=== PATIENT | female | born 1945 | race Caucasian/White ===

== ENCOUNTER 2022-07-11 10:25 | Inpatient (IN) | payer OTHER, BC ==
--- OUTSIDE RECORDS SUMMARY | 2022-07-11 10:31 | XMS REPORT | Continuity of Care Document ---
:1945 Author Organization [facility] t Address [address] [place] [address] Care Team Providers Name Role Phone ARELIS OWEN Attending Clinician Unavailable ANNE MARIE CONCEPCION Attending Clinician Unavailable Surgery-IHDE Attending Clinician Unavailable BOSSMAN, DR CHARMAINE Denney Attending Clinician Unavailable BOSSMAN, DR MONTANO Attending Clinician Unavailable CHARMAINE KEIAT Attending Clinician Unavailable ROCKY JOSE Attending Clinician Unavailable CORTEZ WINTERS Attending Clinician Unavailable SERENA LOPEZ Attending Clinician Unavailable Valerio Ariza Admitting Clinician Unavailable ARELIS OWEN Admitting Clinician Unavailable ANNE MARIE CONCEPCION Admitting Clinician Unavailable Surgery-IHDE Admitting Clinician Unavailable DR CHARMAINE KEITA Admitting Clinician Unavailable BOSSMAN, DR MONTANO Admitting Clinician Unavailable CHARMAINE KEITA Admitting Clinician Unavailable ROCKY JOSE Admitting Clinician Unavailable WILMA LYNNE Admitting Clinician Unavailable RACHID BUNDY Admitting Clinician Unavailable Payers Payer Name Policy Type Policy Number Effective Date Expiration Date [place] [id number] 1996 [place] 00:[place]:00 [place] [id number] 2010 [place] ([place] 00:[place]00 [place] [id number] 1996 [place] 00:00:00 [facility] [id number] 1959 00:00:00 [id number] 1959 00:00:00 Problems Condition Condition Condition Status Onset Resolution Last Treating Co mments Source Name Details Category Date Date Treatment Clinician Date Gout Gout Problem Active [facility] 11-26 00:00: Medical 00 Group 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 (LUF/L I V/SA) 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 Memoria l (LUF/LI V/SA) Hypertensi Hypertensi Problem Active [facility] disorder disorder Memori a l (LUF/LI V/SA) Hiatal Hiatal Problem Active [facility] her[facility]nia [facility] l (LUF/LI V/SA) Narcolepsy Narcolepsy Problem [facility] (LUF/LI V/SA) Chronic Chronic Problem Active [facility] depression depression [facility] k[facility] Memoria l (LUF/LI V/SA) Cervical Cervical Problem [facility] myel[facility] myelopathy [facility] (LUF/LI V/SA) Synovial Synovial Problem [facility] (LUF/LI V/SA) Hernia of Hernia of Problem Active [facility] abdominal abdominal Luke s wall wall Memoria l (LUF/LI V/SA) Sciatica Sciatica Problem [facility] (LUF/LI V/SA) Numbness Numbness Problem Complet [facility] ed [facility] limb limb Memoria l (LUF/LI V/SA) Umbilical Umbilical Problem Active [facility] hernia hernia [facility] (LUF/LI V/SA) Incisional Incisional Problem Active [facility] hernia hernia [facility] (LUF/LI V/SA) Disorder Disorder Problem [facility] of thyroid of thyroid [facility] gland gland Memoria l (LUF/LI V/SA) Back Back Problem Active [facility] problem problem [facility] (LUF/LI V/SA) Depressive Depressive Problem Active [facility] disorder disorder [facility] (LUF/LI V/SA) Allergies, Adverse Reactions, Alerts Allergy Allergy Status Severity Reaction(s) Onset Inactive Treating Comm ents Source Name Type Date Date Clinician Codeine DA Active Moderate Nausea and [facility] Vom[facility] (Severe Adv Memor ia Rxn) l (LUF/LI V/SA) Flagyl DA Active Moderate Rash [facility] (LUF/LI V/SA) Crestor DA Active Moderate Itching [facility] (Severe) [facility] Memoria l (LUF/LI V/SA) morphine DA Active Unknown [facility] (LUF/LI V/SA) Codeine Allergy Active [facility] Flagyl Allergy Active [facility] Morphine Allergy Active [facility] Social History Smoking Status Start Date Stop Date Source Former sm[facility] Mem orial (LUF/MICHELLE/SA) Medications Ordered Filled Start Stop Current Ordering Indication Dosage Frequency Signature Comments Components Source Medication Medication Date Date Medication? Clinician (SIG) Name Name acetaminoph acetaminoph Yes 4xD [facility] en 325 MG / en 325 MG / 6-10 L ukes hydrocodone hydrocodone 00:00: Memoria bitartrate bitartrate 00 l 5 MG Oral 5 MG Oral (LUF/ LI Tablet Tablet V/) acetaminoph acetaminoph Yes 4xD orally [facility] en 325 MG / en 325 MG / 6-10 every 6 [facility] hydrocodone hydrocodone 00:00: hours as Memoria bitartrate bitartrate 00 needed. l 5 MG Oral 5 MG Oral (as needed (LUF/LI Tablet Tablet for pain) V/SA) allopurinol allopurinol No allopurino [place] 100 mg 100 mg l 100 mg da tablet tablet tablet Medical Group Calcium 600 Calcium 600 No Calcium [facility] 600 [facility] folic acid folic acid No folic acid [facility] furosemide furosemide No furosemide [place] 20 mg 20 mg 20 mg da tablet tablet tablet Medical Group levothyroxi levothyroxi No levothyrox [place] ne 25 mcg ne 25 mcg ine 25 mcg da tablet tablet tablet Medical Group lisinopril lisinopril No lisinopril [place] 20 20 20 da mg-hydrochl mg-hydrochl mg-hydroch Medical orothiazide orothiazide lorothiazi Group 25 mg 25 mg de 25 mg tablet tablet tablet metoprolol metoprolol No metoprolol [place] tartrate 25 tartrate 25 tartrate da mg tablet mg tablet 25 mg Medi rick tablet Group potassium potassium No potassium [place] chloride ER chloride ER chloride da 20 mEq 20 mEq ER 20 mEq Medica l tablet,exte tablet,exte tablet,ext Group nded nded ended release release release alendronic alendronic Yes 35mg Q7.00D [facility] acid 35 MG acid 35 MG Rebekah es Oral Tablet Oral Tablet M emoria l (LUF/LI V/SA) allopurinol allopurinol Yes 100mg 1xD [facility] 100 MG Oral 100 MG Oral L ukes Tablet Tablet Memoria l (LUF/LI V/SA) atorvastati atorvastati Yes 20mg 1xD [facility] n 20 MG n 20 MG [facility] Oral Tablet Oral Tablet M emoria l (LUF/LI V/SA) Calcium Calcium Yes 600mg [address]xD [facility] (LUF/LI V/SA) cholecalcif cholecalcif Yes 100ug [facility] (LUF/LI V/SA) docusate docusate Yes 100mg [address]xD [facility] (LUF/LI V/SA) furosemide furosemide Yes 20mg 1xD [facility] 20 MG Oral 20 MG Oral Rebekah es Tablet Tablet Memoria l (LUF/LI V/SA) hydrochloro hydrochloro Yes [address] thiazide 25 thiazide 25 L ukes MG / MG / Memoria lisinopril lisinopril l 20 MG Oral 20 MG Oral (NALLELY F/LI Tablet Tablet V/SA) levothyroxi levothyroxi Yes 25ug 1xD [facility] ne ne [facility] l (LUF/LI V/SA) metoprolol metoprolol Yes 25mg [address]xD [facility] tartrate 25 tartrate 25 L ukes MG Oral MG Oral Memoria Tablet Tablet l (LUF/LI V/SA) Probiotic Probiotic No Probiotic [facility] potassium potassium Yes 20meq 1xD [facility] chloride chloride [facility] l (LUF/LI V/SA) sertraline sertraline Yes 50mg 1xD [facility] 50 MG Oral 50 MG Oral Rebekah es Tablet Tablet Memoria l (LUF/LI V/SA) alendronic alendronic Yes 35mg Q7.00D orally [facility] acid 35 MG acid 35 MG every week [facility] Oral Tablet Oral Tablet M emoria l (LUF/LI V/SA) allopurinol allopurinol Yes 100mg 1xD orally [facility] 100 MG Oral 100 MG Oral daily [facility] Tablet Tablet Memoria l (LUF/LI V/) atorvastati atorvastati Yes 20mg 1xD orally [facility] n 20 MG n 20 MG daily [facility] Oral Tablet Oral Tablet M emoria l (LUF/LI V/) Calcium Calcium Yes 600mg 1xD orally [facility] daily [facility] (LUF/LI V/) cholecalcif cholecalcif Yes 100ug orally [facility] once [facility] (LUF/LI V/) docusate docusate Yes 100mg 1xD orally [facility] daily [facility]oria l (LUF/LI V/) furosemide furosemide Yes 20mg 1xD orally [facility] 20 MG Oral 20 MG Oral daily Nallely kes Tablet Tablet Memoria l (LUF/LI V/) hydrochloro hydrochloro Yes 1 [address] [facility] thiazide 25 thiazide 25 daily [facility] MG / MG / Memoria lisinopril lisinopril l 20 MG Oral 20 MG Oral (NALLELY F/LI Tablet Tablet V/) sertraline sertraline No sertraline [facility] 50 mg 50 mg 50 mg da tablet tablet tablet Medical Group levothyroxi levothyroxi Yes 25ug 1xD orally [facility] ne ne daily [facility] Memoria l (LUF/LI V/) metoprolol metoprolol Yes 25mg 2xD orally [address] tartrate 25 tartrate 25 times per [facility]ukes MG Oral MG Oral day Memoria Tablet Tablet l (LUF/LI V/) potassium potassium Yes 20meq 1xD orally [facility] chloride chloride daily [facility] Memoria l (LUF/LI V/) sertraline sertraline Yes 50mg 1xD orally [facility] 50 MG Oral 50 MG Oral daily Nallely kes Tablet Tablet Memoria l (LUF/LI V/) Immunizations Ordered Immunization Filled Immunization Date Status Commen ts Source Name Name covid 19 1st shot covid 19 1st shot 2020-10-[address] [facility] 00:[facility]00 [facility] ([facility]/SA) influenza virus influenza virus 2019-03-[address] [facility] vaccine, NOS vaccine, NOS 00:00:00 [facility] ([facility]/SA) Vital Signs Vital Name Observation Time Observation Value Comments Source Weight 2020-12-09 00:40:00 70.4 KG Weight 2020-12-08 10:50:00 68.02 KG Weight 2020-12-06 00:34:00 73.6 KG Weight 2020-12-05 05:17:00 71 KG Weight 2020-12-04 04:18:00 70.4 KG Weight 2020-12-02 00:00:00 71.8 KG Weight 2020-12-01 05:28:00 71.5 KG Weight 2020-11-30 05:01:00 68.8 KG Height 2020-11-30 00:03:00 154.94 CM Weight 2020-11-30 00:03:00 68.8 KG Height 2020-11-29 15:11:00 154.94 CM Weight 2020-11-29 15:11:00 68.49 KG Weight 2020-11-27 00:00:00 77.8 KG Height 2020-11-24 09:18:00 154.94 CM Weight 2020-11-24 09:18:00 68.51 KG BP Diastolic 2019-11-27 00:00:00 80 mm[Hg] [facility] Height 2019-11-27 00:00:00 61 [in_i] [facility] BMI (Body Mass 2019-11-27 00:00:00 29.3 kg/m2 [facility]) Group BP Systolic 2019-11-27 00:00:00 140 mm[Hg] [facility] Body Weight 2019-11-27 00:00:00 154.9 [lb_av] [facility] Weight 2019-03-18 03:30:00 79.7 KG Height 2019-03-14 09:45:00 154.94 CM Body Temperature 2020-12-09 11:10:00 97.6 [degF] [facility] ([facility]/) Pulse Rate 2020-12-09 11:10:00 63 /min [facility] ([facility]/) Respiratory Rate 2020-12-09 11:10:00 15 /min [facility] ([facility]/SA) O2% BldC Oximetry 2020-12-09 11:10:00 95 % [facility] (LUF/MICHELLE/SA) BP Systolic 2020-12-09 11:10:00 138 mm[Hg] [facility] (LUF/MICHELLE/SA) BP Diastolic 2020-12-09 11:10:00 78 mm[Hg] [facility] (LUF/MICHELLE/SA) Weight 2020-12-09 00:40:00 70.4 kg [facility] (LUF/MICHELLE/SA) Height 2020-11-30 00:03:00 61 [in_i] [facility] (LUF/MICHELLE/SA) Heart Rate 2020-11-29 22:46:00 76 /min [facility] (LUF/MICHELLE/SA) Body Temperature 2020-11-27 11:00:00 97 [degF] [facility] (LUF/MICHELLE/SA) Pulse Rate 2020-11-27 11:00:00 58 /min [facility] (LUF/MICHELLE/SA) Respiratory Rate 2020-11-27 11:00:00 18 /min [facility] (LUF/MICHELLE/SA) O2% BldC Oximetry 2020-11-27 11:00:00 91 % [facility] (LUF/MICHELLE/SA) BP Systolic 2020-11-27 11:00:00 113 mm[Hg] [facility] (LUF/MICHELLE/SA) BP Diastolic 2020-11-27 11:00:00 57 mm[Hg] [facility] (LUF/MICHELLE/SA) Weight 2020-11-27 00:00:00 77.8 kg [facility] (LUF/MICHELLE/SA) Height 2020-11-24 09:18:00 61 [in_i] [facility] (LUF/MICHELLE/SA) Pulse Rate 2019-08-27 16:00:00 53 /min [facility] (LUF/MICHELLE/SA) Respiratory Rate 2019-08-27 16:00:00 13 /min [facility] (LUF/MICHELLE/SA) O2% BldC Oximetry 2019-08-27 16:00:00 99 % [facility] (LUF/MICHELLE/SA) BP Systolic 2019-08-27 16:00:00 134 mm[Hg] [facility] (F/MICHELLE/SA) BP Diastolic 2019-08-27 16:00:00 65 mm[Hg] [facility] (LUF/MICHELLE/SA) Body Temperature 2019-08-27 12:34:00 98 [degF] [facility] ([facility]/MICHELLE/SA) Height 2019-08-27 12:34:00 60 [in_i] [facility] ([facility]/MICHELLE/SA) Weight 2019-08-27 12:34:00 72.1 kg [facility] ([facility]/MICHELLE/SA) BMI (Body Mass 2019-08-27 12:34:00 31.2 kg/m2 [facility] Index) [facility] (F/MICHELLE/SA) Procedures Procedure Date / Time Performing Clinician Source Performed ROBOTIC VENTRAL HERNIA 2020-12-04 17:53:00 BRUNO S t [place] REPAIR [facility] ([facility]/MICHELLE/SA) SUPPLEMENT ABDOMIN WALL 2020-12-04 00:00:[address] [facility] SYN PC ENDO [facility] ([facility]/MICHELLE/) RELEASE PERITONEUM PERQ 2020-12-04 00:00:[address] [facility] [address] [facility] ENDO APPR [facility] ([facility]/MICHELLE/SA) ROBOTIC ASSTD PROC TRUNK 2020-12-04 00:00:00 BRUNO Acosta PERQ ENDO [facility] ([facility]/MICHELLE/SA) ROBOTIC INCISIONAL HERNIA 2020-11-26 08:21:[address] [facility] REPAIR [facility] ([facility]/MICHELLE/SA) [id number] LAPS RPR RECURRENT 2020-11-26 00:00:00 BRUNO Acosta INCAL HRNA NCRC [facility] ([facility]/MICHELLE/SA) [id number] TAP BLOCK BILATERAL 2020-11-26 00:00:[address] BY INJECTION(S [facility] ([facility]/MICHELLE/SA) ACDIF 2019-03-15 15:50:[address] [facility] (LUF/MICHELLE/SA) CERVICAL LAMINECTOMY FOR 2019-03-15 14:16:00 BRUNO Acosta SYNOVIAL CYST, ANTERIOR [facility] DISCECTOMY ONE LEVEL WITH (LUF/L IV/SA) ALLOGRAFT AND INSTRUMENTATION 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 es abdominal aorta [facility] (LUF/MICHELLE/SA) Cataract extraction and [facility] insertion of intraocular Memoria l lens (LUF/MICHELLE/SA) Appendectomy [facility] (LUF/MCIHELLE/SA) Tonsillectomy [facility] (LUF/MICHELLE/SA) Cholecystectomy [facility] (LUF/MIHCELLE/SA) Hysterectomy [facility] (LUF/MICHELLE/SA) Decompression of median [facility] uk nerve [facility] (LUF/MICHELLE/SA) Decompression of ulnar [facility] nerve at elbow [facility] (LUF/MICHELLE/SA) Encounters Start End Encounter Admission Attending Care Care Encounter Source Date/Time Date/Time Type Type Clinicians Facility Department ID 2021-07-15 Outpatient [facility] [id number] Common 11:31:30 [id number] [facility] 2020-11-29 2020-12-09 OTH RIP OWEN, [facility] [id number] [facility] [address] 18:41:00 15:20:00 VNTRL ERI INFANTE ABSECON Rebekah es OBSTRCT NO [place], Memor ia GANGR [address] (LUF/LI AVE, V/SA) [place] [id number] 2020-11-29 2020-11-29 Inpatient [facility] [id number] [facility] 00:[facility]:00 00:00:00 ABSECON [id number] Rebekah es [place], [id number] Memor ia [address] [id number] [address] (LUF/LI AVE, V/SA) [place] [id number] 2020-11-29 2020-11-29 Inpatient [facility] [id number] 00:00:00 00:00:00 ABSECON [id number] Rebekah es [place], [id number] Memor ia [address] [id number] [address] (LUF/LI AVE, V/SA) [place] [id number] 2020-11-262020-11-27 INCISION O BASSIN, [facility] [id number] 12:23:00 14:30:00 HERNIA ANNE MARIE ABSECON Nallelykes [facility] GANGRENE [address] (LUF/LI AVE, V/SA) [place] [id number] 2020-11-26 2020-11-26 Inpatient [facility] [id number] 00:00:00 00:00:00 ABSECON [id number] [facility], [id number] Memor ia [id number] (LUF/LI AVE, V/[place]) [place] [address] 2020-07-04 2020-07-04 ENCOUNTER [facility] [id number] [facility] [address] 08:53:00 23:59:00 PREPROCEDU [facility], Memoria EXAM [address] (LUF/LI AVE, V/SA) [place], [place] [address] 2020-07-04 2020-07-04 Inpatient [facility] [id number] [facility] 00:[facility]:00 00:00:00 ABSECON [id number] [facility], [id number] Memor ia [address] [id number] [address] (LUF/LI AVE, V/[place]) [place] [address] 2020-07-04 2020-07-04 Inpatient [facility] [id number] [facility] 00:00:00 00:00:00 ABSECON [id number] [facility], [id number] Memor ia [address] [id number] [address] (LUF/LI AVE, V/[place]) [place] [address] 2020-05-07 2020-05-07 Outpatient [facility] 584 [place] 02:36:00 02:36:00 E 1118 [facility] 2019-11-27 2019-11-27 Outpatient [facility] [place] 07:29:00 07:29:00 E 0609 [facility] 2019-11-27 2019-11-27 [facility] [place] - [id number] M atagor 00:00:00 00:00:00 Edwin River MD: Medical Medica l [address] [facility] [address], [place] [address] , Ph. [phone] 2019-11-14 2019-11-14 Outpatient Surgery-IHD [facility] [address] [place] 01:04:00 01:04:00 E 0527 [facility] 2019-08-31 2019-08-31 ENC GEN O JAMIA MORELOS [facility] [id number] [facility] [address] 09:42:00 23:59:00 ADULT EXAM ABSECON Rebekah es W/O ABNORM [place], [facility] [address] (LUF/LI A[address], V/SA) [place] [address] 2019-08-27 2019-08-27 WAYNE E [place], [place] [id number] [facility] [address] 12:21:00 16:30:00 HERNIA W/O ARELIS ABSECON Rebekah es OBST/GANGR [place], Memor ia ELMO [address] (LUF/LI AVE, V/SA) [place] [address] 2019-05-22 2019-06-[address] [facility] [id number] 08:47:00 23:59:00 CHARMAINE arthur (LUF/LI V/SA) Results Test Description Test Time Test Comments Results Result Comments Source [facility] 2020-12-09 05:16:00 Test Item Value Reference Range Interpretation Comme nts Sodium (test code = NA) 130 mmol/l 136-146 L Potassium (test code = K) 3.6 mmol/l 3.5-5.1 Chloride (test code = CL) 98 mmol/l 98-107 Calcium (test code = 8.3 mg/dl 8.5-10.1 L CALC) CO2 (test code = CO2) 26 mmol/l 21-32 Glucose (test code = GLU) 86 mg/dl 74-106 BUN (test code = BUN) 5.0 mg/dl 7.0-18.0 L Creatinine (test code = 0.6 mg/dl 0.5-1.3 CREA) EGFR if >60 mL/min/1.73m\\S\\2 (test code = EGFRAA) EGFR if Non- >60 mL/min/1.73m\\S\\2 Estimated Glomerular Yemeni (test code = Filtra tion Rate (eGFR) EGFRNA) Reference Inter vals Decision Points for 18 y ears and older and avera ge body mass: >= 60 Does not exclude kidney disease. 30 - 59 Suggests modera te chronic kidney disease and indicates the need for fu rther investigation i ncluding assessment of p roteinuria and cardiovascu lar factors. < 30 Usually in dicates a need for referr al for assessment and management of chronic kidney failure. [id number] 05:16:00 Test Item Value Reference Range Interpretation Comments Magnesium (test code = MG) 2.1 mg/dl 1.6-2.6 STLMLCBC WITH AUTO [id number] 04:58:00 Test Item Value Reference Range Interpretation Comments WBC (test code = 11.71 4.80-10.80 H WBC) 10\\S\\3/ul RBC (test code = 3.53 10\\S\\6/ul 4.20-5.40 L RBC) Hemoglobin (test 10.5 gm/dl 12.0-14.0 L code = HGB) Hematocrit (test 31.9 % 37.0-47.0 L code = HCT) MCV (test code = 90.4 fL 81.0-99.0 MCV) MCH (test code = 29.7 pg 27.0-31.0 MCH) MCHC (test code = 32.9 gm/dl 33.0-37.0 L MCHC) RDW (test code = 15.2 % 11.5-14.5 H RDWVC) Platelet (test code 263 10\\S\\3/ul 130-400 = PLT) MPV (test code = 10.9 fL 7.4-10.4 A "NOT MEASUR ED" MPV) RESULTS ARE DIS PLAYED WHEN THE INSTRU MENT HAS A SUPPRESSE D OR UNREPORTABLE RE SULT. THIS WILL MOST OFTEN HAPPEN WITH THE MPV WHEN THERE IS A N ABNORMAL PLATEL ET DISTRIBUTION DU E TO A CRITICAL LOW VA LUE OR PLATELET CLUMPI NG. THE RDW MAY BE SUPPRESSED IF T HERE ARE MULTIPLE PE AKS PRESENT ON THE RBC HISTOGRAM. IN T HIS CASE, A MANUAL REVIEW OF THE SLIDE WI LL BE PERFORMED, AND RBC MORPHOLOGY WILL BE NOTED ON THE RE PORT. NE% (test code = 44.6 % 42.0-75.0 NE) LY% (test code = 35.3 % 13.0-42.0 LY) MO% (test code = 8.3 % 4.0-14.0 MO) EO% (test code = 10.1 % 1.0-5.0 H EO) BA% (test code = 0.8 % 0.0-3.0 BA) IG% (test code = 0.9 % 0.0-0.4 H IG%) [id number] 06:09:00 Test Item Value Reference Range Interpretation Comments Magnesium (test code = MG) 1.5 mg/dl 1.6-2.6 L [id number] 06:09:00 Test Item Value Reference Range Interpretation Comments Sodium (test code = 131 mmol/l 136-146 L NA) Potassium (test 3.2 mmol/l 3.5-5.1 L code = K) Chloride (test code 99 mmol/l 98-107 = CL) Calcium (test code 7.9 mg/dl 8.5-10.1 L = CALC) CO2 (test code = 27 mmol/l 21-32 CO2) Glucose (test code 97 mg/dl 74-106 = GLU) BUN (test code = 4.0 mg/dl 7.0-18.0 L BUN) Creatinine (test 0.6 mg/dl 0.5-1.3 code = CREA) EGFR if >60 Yemeni (test code mL/min/1.73m\\ = EGFRAA) S\\2 EGFR if Non- >60 Estimate d Glomerular Yemeni (test code mL/min/1.73m\\ Filtrat ion Rate (eGFR) = EGFRNA) S\\2 Reference Inter vals Decision Points for 18 years and older and average body ma ss: >= 60 Does not exc lude kidney disease. 30 - 59 Suggests mod erate chronic kidney disease and indicates t he need for further investigation including asses sment of proteinuria and cardiovascular factors. < 30 U sually indicates a nee d for referral for assessment and management of c hronic kidney failure. STLMLCBC WITH AUTO [id number] 05:49:00 Test Item Value Reference Range Interpretation Comments WBC (test code = 12.01 4.80-10.80 H WBC) 10\\S\\3/ul RBC (test code = 3.58 10\\S\\6/ul 4.20-5.40 L RBC) Hemoglobin (test 10.6 gm/dl 12.0-14.0 L code = HGB) Hematocrit (test 32.2 % 37.0-47.0 L code = HCT) MCV (test code = 89.9 fL 81.0-99.0 MCV) MCH (test code = 29.6 pg 27.0-31.0 MCH) MCHC (test code = 32.9 gm/dl 33.0-37.0 L MCHC) RDW (test code = 14.9 % 11.5-14.5 H RDWVC) Platelet (test code 238 10\\S\\3/ul 130-400 = PLT) MPV (test code = 10.8 fL 7.4-10.4 A "NOT MEASUR ED" MPV) RESULTS ARE DIS PLAYED WHEN THE INSTRU MENT HAS A SUPPRESSE D OR UNREPORTABLE RE SULT. THIS WILL MOST OFTEN HAPPEN WITH THE MPV WHEN THERE IS A N ABNORMAL PLATEL ET DISTRIBUTION DU E TO A CRITICAL LOW VA LUE OR PLATELET CLUMPI NG. THE RDW MAY BE SUPPRESSED IF T HERE ARE MULTIPLE PE AKS PRESENT ON THE RBC HISTOGRAM. IN T HIS CASE, A MANUAL REVIEW OF THE SLIDE WI LL BE PERFORMED, AND RBC MORPHOLOGY WILL BE NOTED ON THE RE PORT. NE% (test code = 52.6 % 42.0-75.0 NE) LY% (test code = 29.5 % 13.0-42.0 LY) MO% (test code = 8.2 % 4.0-14.0 MO) EO% (test code = 8.3 % 1.0-5.0 H EO) BA% (test code = 0.7 % 0.0-3.0 BA) IG% (test code = 0.7 % 0.0-0.4 H IG%) [id number] 06:36:00 Test Item Value Reference Range Interpretation Comments Magnesium (test code = MG) 1.9 mg/dl 1.6-2.6 [id number] 06:36:00 Test Item Value Reference Range Interpretation Comments Sodium (test code = 132 mmol/l 136-146 L NA) Potassium (test 3.3 mmol/l 3.5-5.1 L code = K) Chloride (test code 101 mmol/l 98-107 = CL) Calcium (test code 8.2 mg/dl 8.5-10.1 L = CALC) CO2 (test code = 26 mmol/l 21-32 CO2) Glucose (test code 104 mg/dl 74-106 = GLU) BUN (test code = 6.0 mg/dl 7.0-18.0 L BUN) Creatinine (test 0.7 mg/dl 0.5-1.3 code = CREA) EGFR if >60 [place] (test code mL/min/1.73m\\ = EGFRAA) S\\2 EGFR if Non- >60 Estimate d Glomerular [place] (test code mL/min/1.73m\\ Filtrat ion Rate (eGFR) = EGFRNA) S\\2 Reference Inter vals Decision Points for 18 years and older and average body ma ss: >= 60 Does not exc lude kidney disease. 30 - 59 Suggests mod erate chronic kidney disease and indicates the need for furthe r investigation including asses sment of proteinuria and cardiovascular factors. < 30 U sually indicates a nee d for referral for assessment and management of c hronic kidney failure. STLMLCBC WITH AUTO [id number] 06:14:00 Test Item Value Reference Range Interpretation Comments WBC (test code = 12.68 4.80-10.80 H WBC) 10\\S\\3/ul RBC (test code = 3.76 10\\S\\6/ul 4.20-5.40 L RBC) Hemoglobin (test 11.1 gm/dl 12.0-14.0 L code = HGB) Hematocrit (test 34.6 % 37.0-47.0 L code = HCT) MCV (test code = 92.0 fL 81.0-99.0 MCV) MCH (test code = 29.5 pg 27.0-31.0 MCH) MCHC (test code = 32.1 gm/dl 33.0-37.0 L MCHC) RDW (test code = 15.0 % 11.5-14.5 H RDWVC) Platelet (test code 224 10\\S\\3/ul 130-400 = PLT) MPV (test code = 10.9 fL 7.4-10.4 A "NOT MEASUR ED" MPV) RESULTS ARE DIS PLAYED WHEN THE INSTRU MENT HAS A SUPPRESSE D OR UNREPORTABLE RE SULT. THIS WILL MOST OFTEN HAPPEN WITH THE MPV WHEN THERE IS A N ABNORMAL PLATEL ET DISTRIBUTION DU E TO A CRITICAL LOW VA LUE OR PLATELET CLUMPI NG. THE RDW MAY BE SUPPRESSED IF T HERE ARE MULTIPLE PE AKS PRESENT ON THE RBC HISTOGRAM. IN T HIS CASE, A MANUAL REVIEW OF THE SLIDE WI LL BE PERFORMED, AND RBC MORPHOLOGY WILL BE NOTED ON THE RE PORT. NE% (test code = 60.7 % 42.0-75.0 NE) LY% (test code = 24.1 % 13.0-42.0 LY) MO% (test code = 8.3 % 4.0-14.0 MO) EO% (test code = 5.8 % 1.0-5.0 H EO) BA% (test code = 0.5 % 0.0-3.0 BA) IG% (test code = 0.6 % 0.0-0.4 H IG%) [id number] 05:40:00 Test Item Value Reference Range Interpretation Comments Magnesium (test code = MG) 1.5 mg/dl 1.6-2.6 L [id number] 05:40:00 Test Item Value Reference Range Interpretation Comments Sodium (test code = 132 mmol/l 136-146 L NA) Potassium (test 3.9 mmol/l 3.5-5.1 code = K) Chloride (test code 103 mmol/l 98-107 = CL) Calcium (test code 8.2 mg/dl 8.5-10.1 L = CALC) CO2 (test code = 26 mmol/l 21-32 CO2) Glucose (test code 97 mg/dl 74-106 = GLU) BUN (test code = 10.0 mg/dl 7.0-18.0 BUN) Creatinine (test 0.8 mg/dl 0.5-1.3 code = CREA) EGFR if >60 Yemeni (test code mL/min/1.73m\\ = EGFRAA) S\\2 EGFR if Non- >60 Estimate d Glomerular Yemeni (test code mL/min/1.73m\\ Filtrat ion Rate (eGFR) = EGFRNA) S\\2 Reference Inter vals Decision Points for 18 years and older and average body ma ss: >= 60 Does not exc lude kidney disease. 30 - 59 Suggests mod erate chronic kidney disease and indicates the need for furthe r investigation including asses sment of proteinuria and cardiovascular factors. < 30 Usually indicates a nee d for referral for assessment and management of c hronic kidney failure. STLMLCBC WITH AUTO [id number] 05:25:00 Test Item Value Reference Range Interpretation Comments WBC (test code = 11.87 4.80-10.80 H WBC) 10\\S\\3/ul RBC (test code = 3.69 10\\S\\6/ul 4.20-5.40 L RBC) Hemoglobin (test 10.8 gm/dl 12.0-14.0 L code = HGB) Hematocrit (test 33.6 % 37.0-47.0 L code = HCT) MCV (test code = 91.1 fL 81.0-99.0 MCV) MCH (test code = 29.3 pg 27.0-31.0 MCH) MCHC (test code = 32.1 gm/dl 33.0-37.0 L MCHC) RDW (test code = 15.0 % 11.5-14.5 H RDWVC) Platelet (test code 234 10\\S\\3/ul 130-400 = PLT) MPV (test code = 10.8 fL 7.4-10.4 A "NOT MEASUR ED" MPV) RESULTS ARE DIS PLAYED WHEN THE INSTRU MENT HAS A SUPPRESSE D OR UNREPORTABLE RE SULT. THIS WILL MOST OFTEN HAPPEN WITH THE MPV WHEN THERE IS A N ABNORMAL PLATEL ET DISTRIBUTION DU E TO A CRITICAL LOW VA LUE OR PLATELET CLUMPI NG. THE RDW MAY BE SUPPRESSED IF T HERE ARE MULTIPLE PE AKS PRESENT ON THE RBC HISTOGRAM. IN T HIS CASE, A MANUAL REVIEW OF THE SLIDE WI LL BE PERFORMED, AND RBC MORPHOLOGY WILL BE NOTED ON THE RE PORT. NE% (test code = 49.4 % 42.0-75.0 NE) LY% (test code = 35.6 % 13.0-42.0 LY) MO% (test code = 8.9 % 4.0-14.0 MO) EO% (test code = 5.1 % 1.0-5.0 H EO) BA% (test code = 0.4 % 0.0-3.0 BA) IG% (test code = 0.6 % 0.0-0.4 H IG%) STLMLXR CHEST AP/PA 1 [id number] 18:18:24 [facility])Name: LILLIE LEON : 1945 Sex: FProcedure: XR CHEST AP/PA 1 VIEWOrder Date: 12/05/2020 5:13 PMOrdering Provider: KATHERINE HAQ .Clinical Indication: [id number]: Nasogastric tube in situComparison: NoneFindings:NG tube in appropriate position.Cardiac size is normal.Pulmonary vasculature is normal.No acute infiltrates or effusions.Bibasilar atelectasis.There is no evidence of active tuberculosis.There is no acute skeletal abnormality.Impression:1. NG tube in appropriate position.2. No focal infiltrates or significant pleural effusions.3. Bibasilar atelectasis.4. No other significant findings.This final report was electronically signed by Dr Artie Camara MD :13 PMDictated By: ARTIE CAMARADate: 12/05/2020 18:[id number] 06:41:00 Test Item Value Reference Range Interpretation Comments Sodium (test code = 132 mmol/l 136-146 L NA) Potassium (test 4.2 mmol/l 3.5-5.1 code = K) Chloride (test code 101 mmol/l 98-107 = CL) Calcium (test code 8.1 mg/dl 8.5-10.1 L = CALC) CO2 (test code = 27 mmol/l 21-32 CO2) Glucose (test code 120 mg/dl 74-106 H = GLU) BUN (test code = 7.0 mg/dl 7.0-18.0 BUN) Creatinine (test 0.8 mg/dl 0.5-1.3 code = CREA) EGFR if >60 Yemeni (test code mL/min/1.73m\\ = EGFRAA) S\\2 EGFR if Non- >60 Estimate d Glomerular Yemeni (test code mL/min/1.73m\\ Filtrat ion Rate (eGFR) = EGFRNA) S\\2 Reference Inter vals Decision Points for 18 years and older and average body ma ss: >= 60 Does not exc lude kidney disease. 30 - 59 Suggests mod erate chronic kidney disease and indicates t he need for further investigation including asses sment of proteinuria and cardiovascular factors. < 30 U sually indicates a nee d for referral for assessment and management of c hronic kidney failure. [id number] 06:41:00 Test Item Value Reference Range Interpretation Comments Magnesium (test code = MG) 1.6 mg/dl 1.6-2.6 STLMLCBC WITH AUTO [id number] 06:22:00 Test Item Value Reference Range Interpretation Comments WBC (test code = 9.10 10\\S\\3/ul 4.80-10.80 WBC) RBC (test code = 3.59 10\\S\\6/ul 4.20-5.40 L RBC) Hemoglobin (test 10.5 gm/dl 12.0-14.0 L code = HGB) Hematocrit (test 32.6 % 37.0-47.0 L code = HCT) MCV (test code = 90.8 fL 81.0-99.0 MCV) MCH (test code = 29.2 pg 27.0-31.0 MCH) MCHC (test code = 32.2 gm/dl 33.0-37.0 L MCHC) RDW (test code = 14.9 % 11.5-14.5 H RDWVC) Platelet (test code 234 10\\S\\3/ul 130-400 = PLT) MPV (test code = 10.9 fL 7.4-10.4 A "NOT MEASUR ED" MPV) RESULTS ARE DIS PLAYED WHEN THE INSTRU MENT HAS A SUPPRESSE D OR UNREPORTABLE RE SULT. THIS WILL MOST OFTEN HAPPEN WITH THE MPV WHEN THERE IS A N ABNORMAL PLATEL ET DISTRIBUTION DU E TO A CRITICAL LOW VA LUE OR PLATELET CLUMPI NG. THE RDW MAY BE SUPPRESSED IF T HERE ARE MULTIPLE PE AKS PRESENT ON THE RBC HISTOGRAM. IN T HIS CASE, A MANUAL REVIEW OF THE SLIDE WI LL BE PERFORMED, AND RBC MORPHOLOGY WILL BE NOTED ON THE RE PORT. NE% (test code = 79.2 % 42.0-75.0 H NE) LY% (test code = 15.4 % 13.0-42.0 LY) MO% (test code = 4.8 % 4.0-14.0 MO) EO% (test code = 0.0 % 1.0-5.0 L EO) BA% (test code = 0.1 % 0.0-3.0 BA) IG% (test code = 0.5 % 0.0-0.4 H IG%) [id number] 21:11:00 Test Item Value Reference Range Interpretation Comments pH (ABG) (test code = BGPH) 7.411 7.350-7.450 pCO2(T) (test code = 43.4 mm Hg 35.0-45.0 BGPCO2(T)) pO2(T) (test code = BGPO2(T)) 91.6 mm Hg 80.0-100.0 sO2 (test code = BGSO2) 97.5 % 90.0-99.0 Na+ (test code = BGCNA+) 134.4 mmol/l 135.0-148.0 L K+ (test code = BGCK+) 3.64 mmol/l 3.50-4.50 Ca2+ (test code = BGCCA2+) 1.150 mmol/l 1.150-1.290 Cl- (test code = BGCCL-) 95.5 mmol/l 98-107 L tHb (test code = BGCTHB) 11.2 gm/dl 11.5-17.4 L O2Hb (test code = WHTG6AU) >95.0 % 95.0-99.0 N COHb (test code = BGFCOHB) <2.80 % 0.5-2.5 H MetHB (test code = BGMETHB) <1.30 % 0.4-1.5 N Barometric Pressure (test code 761.6 mm Hg 450.0-1000.0 = BGBARO) BE(act) (test code = BGBEACT) 3 mmol/l HCO3 (test code = BGHCO3) 26 meq/L 22-26 ctCO2(B) (test code = 25 mmol/l BGCTCO2(B)) FIO2 (fO2(I) (test code = 0.30 % BGFIO2) Drawn By (test code = SYDNEE VILLAGRAN BGDRAWNBY) Collection Date (test code = 12/04/2020 BGDTCOL) Collection Time (test code = 21:00 BGCTM) Sample Site (test code = L Radial BGSAMPLESITE) Sample Type (test code = Arterial BGSAMPLETYPE) Allens Test (test code = Acceptable BGALLEN) Notified By (test code = SYDNEE VILLAGRANNOTIFIEDBY) Notified Whom (test code = YINA LEMON BGNOTIFIEDWHOM) Date Notified (test code = 12/04/2020 BGDTNOTIFIED) Time Notified (test code = 21:09 BGTMNOTIFIED) O2 Device (test code = BIPAP [id number]) Respiratory Rate (test code = 18 BGRR) Set Rate (test code = 12 BGSETRATE) Instrument ID (test code = [id number] BGINSTRID) Reported By (test code = SYDNEE VILLAGRAN BGREPORTEDBY) [id number] 20:10:00 Test Item Value Reference Range Interpretation Comments pH (ABG) (test code = BGPH) 7.284 7.350-7.450 L pCO2(T) (test code = 61.9 mm Hg 35.0-45.0 HH BGPCO2(T)) pO2(T) (test code = BGPO2(T)) 236.8 mm Hg 80.0-100.0 HH sO2 (test code = BGSO2) 99.6 % 90.0-99.0 H Na+ (test code = BGCNA+) 135.6 mmol/l 135.0-148.0 K+ (test code = BGCK+) 3.64 mmol/l 3.50-4.50 Ca2+ (test code = BGCCA2+) 1.200 mmol/l 1.150-1.290 Cl- (test code = BGCCL-) 95.6 mmol/l 98-107 L tHb (test code = BGCTHB) 11.2 gm/dl 11.5-17.4 L O2Hb (test code = FEMO6TU) >95.0 % 95.0-99.0 N COHb (test code = BGFCOHB) <2.80 % 0.5-2.5 H MetHB (test code = BGMETHB) <1.30 % 0.4-1.5 N Gluc (test code = BGCGLU) 128.0 mg/dl 60.0-110.0 H Lac (test code = BGCLAC) <1.60 mmol/l 1.0-1.7 N Barometric Pressure (test code 761.0 mm Hg 450.0-1000.0 = BGBARO) BE(act) (test code = BGBEACT) 1 mmol/l HCO3 (test code = BGHCO3) 25 meq/L 22-26 ctCO2(B) (test code = 27 mmol/l BGCTCO2(B)) FIO2 (fO2(I) (test code = 0.60 % BGFIO2) Drawn By (test code = SYDNEE VILLAGRAN BGDRAWNBY) Collection Date (test code = 12/04/2020 BGDTCOL) Collection Time (test code = 19:56 BGCTM) Sample Site (test code = L Radial BGSAMPLESITE) Sample Type (test code = Arterial BGSAMPLETYPE) Allens Test (test code = Acceptable BGALLEN) Notified By (test code = SYDNEE VILLAGRAN BGNOTIFIEDBY) Notified Whom (test code = DR ESPARZA BGNOTIFIEDWHOM) Date Notified (test code = 12/04/2020 BGDTNOTIFIED) Time Notified (test code = 20:08 BGTMNOTIFIED) O2 Device (test code = Simple Mask [id number]) L/M (test code = BGL/M) 10.0 Instrument ID (test code = [id number] BGINSTRID) Comments (test code = POST OP BGCOMMENTS) Reported By (test code = SYDNEE VILLAGRAN BGREPORTEDBY) [id number] 06:20:00 Test Item Value Reference Range Interpretation Comments Sodium (test code = 133 mmol/l 136-146 L NA) Potassium (test 3.6 mmol/l 3.5-5.1 code = K) Chloride (test code 101 mmol/l 98-107 = CL) Calcium (test code 9.5 mg/dl 8.5-10.1 = CALC) CO2 (test code = 26 mmol/l 21-32 CO2) Glucose (test code 132 mg/dl 74-106 H = GLU) BUN (test code = 5.0 mg/dl 7.0-18.0 L BUN) Creatinine (test 0.8 mg/dl 0.5-1.3 code = CREA) EGFR if >60 Yemeni (test code mL/min/1.73m\\ = EGFRAA) S\\2 EGFR if Non- >60 Estimate d Glomerular Yemeni (test code mL/min/1.73m\\ Filtrat ion Rate (eGFR) = EGFRNA) S\\2 Reference Inter vals Decision Points for 18 years and older and average body ma ss: >= 60 Does not exc lude kidney disease. 30 - 59 Suggests mod erate chronic kidney disease and indicates t he need for further investigation including asses sment of proteinuria and cardiovascular factors. < 30 U sually indicates a nee d for referral for assessment and management of c hronic kidney failure. [facility]Mpwalu-[id number] 06:20:00 Test Item Value Reference Range Interpretation Comments Magnesium (test code = MG) 1.6 mg/dl 1.6-2.6 [facility][note 3] WITH AUTO [id number] 05:57:00 Test Item Value Reference Range Interpretation Comments WBC (test code = 11.12 4.80-10.80 H WBC) 10\\S\\3/ul RBC (test code = 3.99 10\\S\\6/ul 4.20-5.40 L RBC) Hemoglobin (test 11.6 gm/dl 12.0-14.0 L code = HGB) Hematocrit (test 37.0 % 37.0-47.0 code = HCT) MCV (test code = 92.7 fL 81.0-99.0 MCV) MCH (test code = 29.1 pg 27.0-31.0 MCH) MCHC (test code = 31.4 gm/dl 33.0-37.0 L MCHC) RDW (test code = 14.9 % 11.5-14.5 H RDWVC) Platelet (test code 249 10\\S\\3/ul 130-400 = PLT) MPV (test code = 10.4 fL 7.4-10.4 A "NOT MEASUR ED" MPV) RESULTS ARE DIS PLAYED WHEN THE INSTRU MENT HAS A SUPPRESSE D OR UNREPORTABLE RE SULT. THIS WILL MOST OFTEN HAPPEN WITH THE MPV WHEN THERE IS A N ABNORMAL PLATEL ET DISTRIBUTION DU E TO A CRITICAL LOW VA LUE OR PLATELET CLUMPI NG. THE RDW MAY BE SUPPRESSED IF T HERE ARE MULTIPLE PE AKS PRESENT ON THE RBC HISTOGRAM. IN T HIS CASE, A MANUAL REVIEW OF THE SLIDE WI LL BE PERFORMED, AND RBC MORPHOLOGY WILL BE NOTED ON THE RE PORT. NE% (test code = 63.3 % 42.0-75.0 NE) LY% (test code = 25.3 % 13.0-42.0 LY) MO% (test code = 8.8 % 4.0-14.0 MO) EO% (test code = 1.8 % 1.0-5.0 EO) BA% (test code = 0.4 % 0.0-3.0 BA) IG% (test code = 0.4 % 0.0-0.4 IG%) [facility]FL SMALL BOWEL [id number] 17:51:48Mild Laxative day before procedure. NPO after midnight. [facility] ([facility])Name: LILLIE LEON : 1945 Sex: FProcedure: FL SMALL BOWEL XRAYOrder Date: December 03, 2020Ordering Provider: DR ANNE MARIE CONCEPCION .Clinical Indication: [id number]: Intestinal obstructionComparison: CT abdomen and pelvis November 29, 2020Findings:[employer] film KUB was obtained. Multiple dilated loops of small bowel seen withinleft hemiabdomen measuring up to 5.1 cm. No air seen within the rectum.Oral contrast was administered. Serial plain film examin ation of the abdomenand pelvis was obtained.The stomach is mildly distended. Imaging was acquired upto 45 minutes withmultiple dilated loops of small bowel and jejunum measuring up to 5.1 cm.Air-fluidlevels are noted. Normal mucosal fold pattern is present. There isfindings of small bowel obstruction.At this time, patient became nauseated and vomited.Impression:1. Findings suggestive of proximal small bowel obstruction.This final report was electronically signed by Dr Dusty Swartz MD 15:46 PMDictated By: DUSTY SWARTZDate: 12/03/2020 17:46[id number] 06:01:00 Test Item Value Reference Range Interpretation Comments Sodium (test code = 134 mmol/l 136-146 L NA) Potassium (test 4.0 mmol/l 3.5-5.1 code = K) Chloride (test code 102 mmol/l 98-107 = CL) Calcium (test code 9.1 mg/dl 8.5-10.1 = CALC) CO2 (test code = 28 mmol/l 21-32 CO2) Glucose (test code 113 mg/dl 74-106 H = GLU) BUN (test code = 5.0 mg/dl 7.0-18.0 L BUN) Creatinine (test 0.6 mg/dl 0.5-1.3 code = CREA) EGFR if >60 Yemeni (test code mL/min/1.73m\\ = EGFRAA) S\\2 EGFR if Non- >60 Estimate d Glomerular Yemeni (test code mL/min/1.73m\\ Filtrat ion Rate (eGFR) = EGFRNA) S\\2 Reference Inter vals Decision Points for 18 years and older and average body ma ss: >= 60 Does not exc lude kidney disease. 30 - 59 Suggests mod erate chronic kidney disease and indicates t he need for further investigation including asses sment of proteinuria and cardiovascular factors. < 30 U sually indicates a nee d for referral for assessment and management of c hronic kidney failure. [facility] ValleyEdqgdr-[id number] 06:01:00 Test Item Value Reference Range Interpretation Comments Magnesium (test code = MG) 1.7 mg/dl 1.6-2.6 [facility][note 3] WITH AUTO [id number] 05:58:00 Test Item Value Reference Range Interpretation Comments WBC (test code = 11.70 4.80-10.80 H WBC) 10\\S\\3/ul RBC (test code = 3.85 10\\S\\6/ul 4.20-5.40 L RBC) Hemoglobin (test 11.4 gm/dl 12.0-14.0 L code = HGB) Hematocrit (test 35.2 % 37.0-47.0 L code = HCT) MCV (test code = 91.4 fL 81.0-99.0 MCV) MCH (test code = 29.6 pg 27.0-31.0 MCH) MCHC (test code = 32.4 gm/dl 33.0-37.0 L MCHC) RDW (test code = 14.7 % 11.5-14.5 H RDWVC) Platelet (test code 254 10\\S\\3/ul 130-400 = PLT) MPV (test code = 10.6 fL 7.4-10.4 A "NOT MEASUR ED" MPV) RESULTS ARE DIS PLAYED WHEN THE INSTRU MENT HAS A SUPPRESSE D OR UNREPORTABLE RE SULT. THIS WILL MOST OFTEN HAPPEN WITH THE MPV WHEN THERE IS A N ABNORMAL PLATEL ET DISTRIBUTION DU E TO A CRITICAL LOW VA LUE OR PLATELET CLUMPI NG. THE RDW MAY BE SUPPRESSED IF T HERE ARE MULTIPLE PE AKS PRESENT ON THE RBC HISTOGRAM. IN T HIS CASE, A MANUAL REVIEW OF THE SLIDE WI LL BE PERFORMED, AND RBC MORPHOLOGY WILL BE NOTED ON THE RE PORT. NE% (test code = 71.3 % 42.0-75.0 NE) LY% (test code = 20.4 % 13.0-42.0 LY) MO% (test code = 5.5 % 4.0-14.0 MO) EO% (test code = 2.1 % 1.0-5.0 EO) BA% (test code = 0.4 % 0.0-3.0 BA) IG% (test code = 0.3 % 0.0-0.4 IG%) [facility] ValleyMlxpgz-[id number] 17:24:00 Test Item Value Reference Range Interpretation Comments Potassium (test code = K) 3.3 mmol/l 3.5-5.1 L [facility]-[id number] 04:25:00 Test Item Value Reference Range Interpretation Comments Sodium (test code = 136 mmol/l 136-146 NA) Potassium (test 2.9 mmol/l 3.5-5.1 LL code = K) Chloride (test code 104 mmol/l 98-107 = CL) Calcium (test code 8.3 mg/dl 8.5-10.1 L = CALC) CO2 (test code = 28 mmol/l 21-32 CO2) Glucose (test code 97 mg/dl 74-106 = GLU) BUN (test code = 11.0 mg/dl 7.0-18.0 BUN) Creatinine (test 0.6 mg/dl 0.5-1.3 code = CREA) EGFR if >60 Yemeni (test code mL/min/1.73m\\ = EGFRAA) S\\2 EGFR if Non- >60 Estimate d Glomerular Yemeni (test code mL/min/1.73m\\ Filtrat ion Rate (eGFR) = EGFRNA) S\\2 Reference Inter vals Decision Points for 18 years and older and average body ma ss: >= 60 Does not exc lude kidney disease. 30 - 59 Suggests mod erate chronic kidney disease and indicates t he need for further investigation including asses sment of proteinuria and cardiovascular factors. < 30 U sually indicates a nee d for referral for assessment and management of c hronic kidney failure. Critical values were called to ty lemon k4 by [id number] on 12/02/20 04:25 . Results were read back by ty lemon k4.[facility]-[place] CityMAGNESIUM 2020-12-02 04:25:00 Test Item Value Reference Range Interpretation Comments Magnesium (test code = MG) 1.7 mg/dl 1.6-2.6 [facility][note 3] WITH AUTO [id number] 04:12:00 Test Item Value Reference Range Interpretation Comments WBC (test code = 9.70 10\\S\\3/ul 4.80-10.80 WBC) RBC (test code = 3.59 10\\S\\6/ul 4.20-5.40 L RBC) Hemoglobin (test 10.5 gm/dl 12.0-14.0 L code = HGB) Hematocrit (test 32.8 % 37.0-47.0 L code = HCT) MCV (test code = 91.4 fL 81.0-99.0 MCV) MCH (test code = 29.2 pg 27.0-31.0 MCH) MCHC (test code = 32.0 gm/dl 33.0-37.0 L MCHC) RDW (test code = 14.4 % 11.5-14.5 RDWVC) Platelet (test code 232 10\\S\\3/ul 130-400 = PLT) MPV (test code = 10.4 fL 7.4-10.4 A "NOT MEASUR ED" MPV) RESULTS ARE DIS PLAYED WHEN THE INSTRU MENT HAS A SUPPRESSE D OR UNREPORTABLE RE SULT. THIS WILL MOST OFTEN HAPPEN WITH THE MPV WHEN THERE IS A N ABNORMAL PLATEL ET DISTRIBUTION DU E TO A CRITICAL LOW VA LUE OR PLATELET CLUMPI NG. THE RDW MAY BE SUPPRESSED IF T HERE ARE MULTIPLE PE AKS PRESENT ON THE RBC HISTOGRAM. IN T HIS CASE, A MANUAL REVIEW OF THE SLIDE WI LL BE PERFORMED, AND RBC MORPHOLOGY WILL BE NOTED ON THE RE PORT. NE% (test code = 47.0 % 42.0-75.0 NE) LY% (test code = 34.9 % 13.0-42.0 LY) MO% (test code = 9.9 % 4.0-14.0 MO) EO% (test code = 7.6 % 1.0-5.0 H EO) BA% (test code = 0.3 % 0.0-3.0 BA) IG% (test code = 0.3 % 0.0-0.4 IG%) [facility] ValleyYitckv-[id number] 06:53:00 Test Item Value Reference Range Interpretation Comments Magnesium (test code = MG) 1.7 mg/dl 1.6-2.6 [facility]-[id number] 06:53:00 Test Item Value Reference Range Interpretation Comments Sodium (test code = 134 mmol/l 136-146 L NA) Potassium (test 3.6 mmol/l 3.5-5.1 code = K) Chloride (test code 105 mmol/l 98-107 = CL) Calcium (test code 8.2 mg/dl 8.5-10.1 L = CALC) CO2 (test code = 25 mmol/l 21-32 CO2) Glucose (test code 79 mg/dl 74-106 = GLU) BUN (test code = 11.0 mg/dl 7.0-18.0 BUN) Creatinine (test 0.7 mg/dl 0.5-1.3 code = CREA) EGFR if >60 Yemeni (test code mL/min/1.73m\\ = EGFRAA) S\\2 EGFR if Non- >60 Estimate d Glomerular Yemeni (test code mL/min/1.73m\\ Filtrat ion Rate (eGFR) = EGFRNA) S\\2 Reference Inter vals Decision Points for 18 years and older and average body ma ss: >= 60 Does not exc lude kidney disease. 30 - 59 Suggests mod erate chronic kidney disease and indicates t he need for further investigation including asses sment of proteinuria and cardiovascular factors. < 30 U sually indicates a nee d for referral for assessment and management of c hronic kidney failure. [facility]-fkinCBC WITH AUTO [id number] 06:15:00 Test Item Value Reference Range Interpretation Comments WBC (test code = 9.72 10\\S\\3/ul 4.80-10.80 WBC) RBC (test code = 3.41 10\\S\\6/ul 4.20-5.40 L RBC) Hemoglobin (test 10.0 gm/dl 12.0-14.0 L code = HGB) Hematocrit (test 32.3 % 37.0-47.0 L code = HCT) MCV (test code = 94.7 fL 81.0-99.0 MCV) MCH (test code = 29.3 pg 27.0-31.0 MCH) MCHC (test code = 31.0 gm/dl 33.0-37.0 L MCHC) RDW (test code = 14.6 % 11.5-14.5 H RDWVC) Platelet (test code 221 10\\S\\3/ul 130-400 = PLT) MPV (test code = 10.6 fL 7.4-10.4 A "NOT MEASUR ED" MPV) RESULTS ARE DIS PLAYED WHEN THE INSTRU MENT HAS A SUPPRESSE D OR UNREPORTABLE RE SULT. THIS WILL MOST OFTEN HAPPEN WITH THE MPV WHEN THERE IS A N ABNORMAL PLATEL ET DISTRIBUTION DU E TO A CRITICAL LOW VA LUE OR PLATELET CLUMPI NG. THE RDW MAY BE SUPPRESSED IF T HERE ARE MULTIPLE PE AKS PRESENT ON THE RBC HISTOGRAM. IN T HIS CASE, A MANUAL REVIEW OF THE SLIDE WI LL BE PERFORMED, AND RBC MORPHOLOGY WILL BE NOTED ON THE RE PORT. NE% (test code = 43.7 % 42.0-75.0 NE) LY% (test code = 39.1 % 13.0-42.0 LY) MO% (test code = 9.3 % 4.0-14.0 MO) EO% (test code = 6.9 % 1.0-5.0 H EO) BA% (test code = 0.6 % 0.0-3.0 BA) IG% (test code = 0.4 % 0.0-0.4 IG%) [id number] 23:15:00 Test Item Value Reference Range Interpretation Comments Potassium (test code = K) 3.5 mmol/l 3.5-5.1 [facility] [place] ABDOMEN 2 VIEWS FLAT / [id number] 17:21:26[facility] ([facility])Name: REPPOND, LILLIE L : 1945 Sex: FProcedures: XR ABDOMEN 2 VIEWS FLAT / UPRIGHTExam Date: 11/30/2020 2:03 PMOrdering Physician: DR SANTO ORDAZ .Clinical Indication: [id number]: Intestinal obstructionComparison: CT abdomen/pelvis, November 29, 2020Findings: Frontal radiograph of the chest with frontal radiograph of theabdomen. Surgical clips overlie the right upper abdomen.No pneumothorax, effusion, or focal consolidation. Probable bibasilarate lectasis versus scarring. Cardiomediastinal silhouette is within normallimits.Non-specific bowel gasdistribution pattern. No dilated loops of bowel. Stooland gas overlies the large bowel. No significant abnormality of the soft tissueshadows. No acute radiographic abnormalities of the osseous structure s.Impression: No acute radiographic abnormalities of the abdomen or visualizedpulmonary parenchyma.This final report was electronically signed by Dr Yasmany Vogel MD11/30/2020 5:16 PMDictated By: YASMANY VEGADate: 11/30/2020 17:16[facility]2021-06-13 10:20:00 Test Item Value Reference Range Interpretation Comments Potassium (test code = K) 3.3 mmol/l 3.5-5.1 L [facility]-[id number] 05:25:00 Test Item Value Reference Range Interpretation Comments Sodium (test code = 134 mmol/l 136-146 L NA) Potassium (test 3.1 mmol/l 3.5-5.1 L code = K) Chloride (test code 98 mmol/l 98-107 = CL) Calcium (test code 9.3 mg/dl 8.5-10.1 = CALC) CO2 (test code = 31 mmol/l 21-32 CO2) Glucose (test code 111 mg/dl 74-106 H = GLU) BUN (test code = 10.0 mg/dl 7.0-18.0 BUN) Creatinine (test 0.8 mg/dl 0.5-1.3 code = CREA) T Protein (test 6.3 gm/dl 6.4-8.2 L code = TP) Albumin (test code 2.8 gm/dl 3.4-5.0 L = ALB) A/G Ratio (test 0.8 % 1.1-2.2 L code = AGRAT) AST (SGOT) (test 21 U/L 15-37 code = AST) ALT (SGPT) (test 15 U/L 13-61 code = ALT) Alkaline Phos (test 77 U/L 45-117 code = ALKP) Total Bilirubin 0.8 mg/dl 0.2-1.0 (test code = TBIL) Globulin (test code 3.5 gm/dl 2.3-3.5 = GLOBU) Calcium, Corrected 10.3 mg/dl 8.4-10.2 H Various f ormulas exist (test code = for corrected s pierre CALCCORR) calcium results , each yielding differ ent values. This co rrected result was base d on the formula: Co rrected Calcium = Serum Calcium + [0.8 * ( 4 - SerumAlbumin)] EGFR if >60 Yemeni (test code mL/min/1.73m\\ = EGFRAA) S\\2 EGFR if Non- >60 Estimate d Glomerular Yemeni (test code mL/min/1.73m\\ Filtrat ion Rate (eGFR) = EGFRNA) S\\2 Reference Inter vals Decision Points for 18 years and older and average body ma ss: >= 60 Does not exc lude kidney disease. 30 - 59 Suggests mod erate chronic kidney disease and indicates the need for furthe r investigation including asses sment of proteinuria and cardiovascular factors. < 30 Usually indicates a nee d for referral for assessment and management of c hronic kidney failure. [facility]Pxgtrw-[id number] 05:25:00 Test Item Value Reference Range Interpretation Comments Magnesium (test code = MG) 1.6 mg/dl 1.6-2.6 [facility]CB WITH AUTO [id number] 05:10:00 Test Item Value Reference Range Interpretation Comments WBC (test code = 10.55 4.80-10.80 WBC) 10\\S\\3/ul RBC (test code = 3.75 10\\S\\6/ul 4.20-5.40 L RBC) Hemoglobin (test 10.9 gm/dl 12.0-14.0 L code = HGB) Hematocrit (test 33.9 % 37.0-47.0 L code = HCT) MCV (test code = 90.4 fL 81.0-99.0 MCV) MCH (test code = 29.1 pg 27.0-31.0 MCH) MCHC (test code = 32.2 gm/dl 33.0-37.0 L MCHC) RDW (test code = 14.3 % 11.5-14.5 RDWVC) Platelet (test code 227 10\\S\\3/ul 130-400 = PLT) MPV (test code = 10.5 fL 7.4-10.4 A "NOT MEASUR ED" MPV) RESULTS ARE DIS PLAYED WHEN THE INSTRU MENT HAS A SUPPRESSE D OR UNREPORTABLE RE SULT. THIS WILL MOST OFTEN HAPPEN WITH THE MPV WHEN THERE IS A N ABNORMAL PLATEL ET DISTRIBUTION DU E TO A CRITICAL LOW VA LUE OR PLATELET CLUMPI NG. THE RDW MAY BE SUPPRESSED IF T HERE ARE MULTIPLE PE AKS PRESENT ON THE RBC HISTOGRAM. IN T HIS CASE, A MANUAL REVIEW OF THE SLIDE WI LL BE PERFORMED, AND RBC MORPHOLOGY WILL BE NOTED ON THE RE PORT. NE% (test code = 63.6 % 42.0-75.0 NE) LY% (test code = 24.5 % 13.0-42.0 LY) MO% (test code = 8.6 % 4.0-14.0 MO) EO% (test code = 2.5 % 1.0-5.0 EO) BA% (test code = 0.4 % 0.0-3.0 BA) IG% (test code = 0.4 % 0.0-0.4 IG%) [facility]CORON[place] 2019 (IN [place])(3HR)2020-11-29 22:04:00 Test Item Value Reference Range Interpretation Comments FT (test code Negative Negative N The BioGX SARS -CoV-2 = COVID) (qualifier value) Reagents f or BD MAX System, the Bio Fire Covid-19, and t he Cepheid Covid-1 9 is for in vitro us e under FDA Emergency U se Authorization o nly. Each method abo ve is a rapid, real drew e PCR (RT-PCR) molecu lar test used for bailee vela qualitative det ection of nucleic acid from the SARS-CoV-2 in upper respirato ry specimens colle cted from individual s suspected of CO VID-19. For questions regarding your test results, please contact the [facility] at [phone]. [address]-[place]OM[place]/PELVIS W/O [id number] 17:49:54possible SBO BRUNO [facility] ([facility]/[place])Name: LILLIE LEON : 1945 Sex: FProcedures: CT ABDOMEN/PELVIS W/O CONTRASTExam Date: 11/29/2020 4:16 PMOrdering Physician: ARELIS OWENClinical Indication: [id number]: VomitingComparison: CT abdomen/pelvis, August 27, 2019TECHNIQUE: Spiral multislice scanning was obtained from the lung bases throughthe bony pelvis without intravenous or oral contrast enhancement. 2-Dreconstructions were obtained according to our usual protocol.This exam was performed according to departmental dose-optimization programwhich includes automated exposure control, adjustment of the mA and/or kVaccording to patient size and/or use of iterative reconstruction techniques.Findings:THORAX:Lung bases: Mild groundglass attenuation is demonstrated within the posteriorleft lung base and is of uncertain significance. This could potentiallyrepresent atelectasis versus infection. Trace right pleural effusion withassociated atelectasis.Heart: Atherosclerotic c alcific plaque within the coronary arteries and aorta;otherwise, no significant abnormalities of thevisualized mediastinum.Aneurysmal dilatation of the descending thoracic aorta measuring 4.1 cm anteriorto posterior.UPPER ABDOMEN:Liver: Normal.Gallbladder: Absent. Surgical clips within gallbladder fos sa.Pancreas: Normal.Spleen: Postsurgical change status post splenectomy. Incidental splenule isnoted.Adrenals: Normal.URINARY:Kidneys: Marked right renal atrophy. No acute abnormality of the left kidney.No hydronephrosis or nephrolithiasis.Ureters: The ureters are of normal course and caliber.Urinary b ladder: No significant abnormality of the urinary bladder.REPRODUCTIVE:Organs: Postsurgical changes status post hysterectomy. No significant freefluid in the pelvis.Free fluid: None.Incidental pelvic phleboliths are noted.GASTROINTESTINAL:Large bowel: Diverticulosis without CT evidence of Diverticulitis.Appendix: The appendix is not clearly identified on this exam; however, nopericecal inflammatory stranding or free fluid is demonstrated.Small bowel: Dilated loops of small bowel measuring up to 4 cmdiameter arepresent and are most notable within the left and lower abdomen with a focaltransition point within the left abdomen with small loops of bowel herniatedbetween the left lateral flank muscle slips. This is best demonstrated on axialimage 50, coronal image 14, and sagittal image 17.Stomach: No significant abnormalities of the stomach.Mesentery: Normal.RETROPERITONEUM:Aorta: Atherosclerotic calcific plaque of the aorta without aneurysmaldilatation. No significant retroperitoneal masses or lymphadenopathy.Lymphadenopathy: No retroperitoneal lymphadenopathy.Masses: None.OSSEOUS: Degenerative changes of the spine; otherwise, no significant osseouslesions. Grade 1 anterolisthesis of L4 on L5.OTHER: Multifocal subcutaneous gas consistent with patient's recent surgery.IMPRESSION:1. Left lower flank abdominal wall hernia containing a loop of mid small bowelwith resultant small bowel obstruction, as above.2. Multiple chronic findings, as above.These findings were verbally reported by Dr Vogel to ARELIS RAMOS on 11/29/2020 5:44 PM. :::This final report was electronically signed by Dr Yasmany Vogel MD11/29/2020 5:44 PMDictated By: YASMANY VEGADate: 11/29/2020 17:44[id number] 17:01:00 Test Item Value Reference Range Interpretation Comments Lipase (test code = LIPA) 56 U/L 73-393 L [facility] HospitalHEPAT[facility] FUNCTION PANEL (LIVER)2020-11-29 17:01:00 Test Item Value Reference Range Interpretation Comments T Protein (test code = TP) 7.4 gm/dl 6.4-8.2 Albumin (test code = ALB) 3.5 gm/dl 3.4-5.0 AST (SGOT) (test code = AST) 23 U/L 15-37 ALT (SGPT) (test code = ALT) 18 U/L 13-61 Alkaline Phos (test code = ALKP) 97 U/L 45-117 Total Bilirubin (test code = TBIL) 0.8 mg/dl 0.2-1.0 Direct Bilirubin (test code = DBIL) 0.2 mg/dl 0.0-0.3 Indirect Bilirubin (test code = 0.6 mg/dl 0.0-1.1 IBIL) [facility] HospitalMAGNESIUM2021-06-12 17:01:00 Test Item Value Reference Range Interpretation Comments Magnesium (test code = MG) 1.7 mg/dl 1.6-2.6 [facility] LAB CHEM [id number] 16:38:00 Test Item Value Reference Range Interpretation Comments Sodium (test code = NA) 134 mmol/l 138-146 L Potassium (test code = K) 3.3 mmol/l 3.5-4.9 L Chloride (test code = CL) 92 mmol/l 98-109 L IONIZED CALCIUM (test code = ICA) 1.14 1.12-1.32 AA CO2 (test code = CO2) 33 mmol/l 24-29 H Glucose (test code = GLU) 114 mg/dl 70-105 H BUN (test code = BUN) 12 mg/dl 6-17 Creatinine (test code = CREA) 1.0 mg/dl 0.6-1.3 [facility] LAB CBC WITH AUTO [id number] 16:38:00 Test Item Value Reference Range Interpretation Comments WBC (test code = WBC) 9.36 10\\S\\3/ul 4.80-10.80 RBC (test code = RBC) 4.18 10\\S\\6/ul 4.20-5.40 L Hemoglobin (test code = HGB) 12.2 gm/dl 12.0-14.0 Hematocrit (test code = HCT) 38.0 % 37.0-47.0 MCV (test code = MCV) 90.9 fL 81.0-99.0 MCH (test code = MCH) 29.2 pg 27.0-31.0 MCHC (test code = MCHC) 32.1 gm/dl 33.0-37.0 L Platelet (test code = PLT) 235 10\\S\\3/ul 130-400 RDW (test code = RDWVC) 13.6 % 11.5-14.5 MPV (test code = MPV) 10.8 fL 7.4-10.4 A NE% (test code = NE) 75.7 % 42.0-75.0 H LY% (test code = LY) 19.1 % 13.0-42.0 MO% (test code = MO) 4.1 % 4.0-14.0 EO% (test code = EO) 0.6 % 1.0-3.0 L BA% (test code = BA) 0.2 % 1.0-3.0 L IG% (test code = IG%) 0.3 % 0.0-0.4 [facility]-[id number] 06:46:00 Test Item Value Reference Range Interpretation Comments Sodium (test code = 132 mmol/l 136-146 L NA) Potassium (test 3.4 mmol/l 3.5-5.1 L code = K) Chloride (test code 99 mmol/l 98-107 = CL) Calcium (test code 8.7 mg/dl 8.5-10.1 = CALC) CO2 (test code = 27 mmol/l 21-32 CO2) Glucose (test code 122 mg/dl 74-106 H = GLU) BUN (test code = 16.0 mg/dl 7.0-18.0 BUN) Creatinine (test 1.2 mg/dl 0.5-1.3 code = CREA) EGFR if 56 Yemeni (test code mL/min/1.73m\\ = EGFRAA) S\\2 EGFR if Non- 47 Estimate d Glomerular Yemeni (test code mL/min/1.73m\\ Filtrat ion Rate (eGFR) = EGFRNA) S\\2 Reference Inter vals Decision Points for 18 years and older and average body ma ss: >= 60 Does not exc lude kidney disease. 30 - 59 Suggests mod erate chronic kidney disease and indicates t he need for further investigation including asses sment of proteinuria and cardiovascular factors. < 30 U sually indicates a nee d for referral for assessment and management of c hronic kidney failure. [facility] WITH AUTO [id number] 06:20:00 Test Item Value Reference Range Interpretation Comments WBC (test code = 11.31 4.80-10.80 H WBC) 10\\S\\3/ul RBC (test code = 3.74 10\\S\\6/ul 4.20-5.40 L RBC) Hemoglobin (test 10.9 gm/dl 12.0-14.0 L code = HGB) Hematocrit (test 34.2 % 37.0-47.0 L code = HCT) MCV (test code = 91.4 fL 81.0-99.0 MCV) MCH (test code = 29.1 pg 27.0-31.0 MCH) MCHC (test code = 31.9 gm/dl 33.0-37.0 L MCHC) RDW (test code = 14.0 % 11.5-14.5 RDWVC) Platelet (test code 251 10\\S\\3/ul 130-400 = PLT) MPV (test code = 10.8 fL 7.4-10.4 A "NOT MEASUR ED" MPV) RESULTS ARE DIS PLAYED WHEN THE INSTRU MENT HAS A SUPPRESSE D OR UNREPORTABLE RE SULT. THIS WILL MOST OFTEN HAPPEN WITH THE MPV WHEN THERE IS A N ABNORMAL PLATEL ET DISTRIBUTION DU E TO A CRITICAL LOW VA LUE OR PLATELET CLUMPI NG. THE RDW MAY BE SUPPRESSED IF T HERE ARE MULTIPLE PE AKS PRESENT ON THE RBC HISTOGRAM. IN T HIS CASE, A MANUAL REVIEW OF THE SLIDE WI LL BE PERFORMED, AND RBC MORPHOLOGY WILL BE NOTED ON THE RE PORT. NE% (test code = 72.0 % 42.0-75.0 NE) LY% (test code = 20.2 % 13.0-42.0 LY) MO% (test code = 7.1 % 4.0-14.0 MO) EO% (test code = 0.2 % 1.0-5.0 L EO) BA% (test code = 0.2 % 0.0-3.0 BA) IG% (test code = 0.3 % 0.0-0.4 IG%) [facility]-[id number] 07:54:00 Test Item Value Reference Range Interpretation Comments Sodium (test code = 136 mmol/l 136-146 NA) Potassium (test 3.1 mmol/l 3.5-5.1 L code = K) Chloride (test code 101 mmol/l 98-107 = CL) Calcium (test code 9.1 mg/dl 8.5-10.1 = CALC) CO2 (test code = 29 mmol/l 21-32 CO2) Glucose (test code 100 mg/dl 74-106 = GLU) BUN (test code = 19.0 mg/dl 7.0-18.0 H BUN) Creatinine (test 1.1 mg/dl 0.5-1.3 code = CREA) EGFR if >60 Yemeni (test code mL/min/1.73m\\ = EGFRAA) S\\2 EGFR if Non- 51 Estimate d Glomerular Yemeni (test code mL/min/1.73m\\ Filtrat ion Rate (eGFR) = EGFRNA) S\\2 Reference Inter vals Decision Points for 18 years and older and average body ma ss: >= 60 Does not exc lude kidney disease. 30 - 59 Suggests mod erate chronic kidney disease and indicates t he need for further investigation including asses sment of proteinuria and cardiovascular factors. < 30 U sually indicates a nee d for referral for assessment and management of c hronic kidney failure. [facility]-[place]CORONAVIRUS 2019 (IN FKIN)(3HR)2020-11-24 18:41:00 Test Item Value Reference Range Interpretation Comments FT (test code Negative Negative N The BioGX SARS -CoV-2 = COVID) (qualifier value) Reagents f or BD MAX System, the Bio Fire Covid-19, and t he Cepheid Covid-1 9 is for in vitro us e under FDA Emergency U se Authorization o nly. Each method abo ve is a rapid, real drew e PCR (RT-PCR) molecu lar test used for t he qualitative det ection of nucleic acid from the SARS-CoV-2 in upper respirato ry specimens colle cted from individual s suspected of CO VID-19. For questions regarding your test results, please contact the [facility] at [phone]. [facility]-[id number] 08:57:00 Test Item Value Reference Range Interpretation Comments Sodium (test code = 131 mmol/l 136-146 L NA) Potassium (test 3.4 mmol/l 3.5-5.1 L code = K) Chloride (test code 99 mmol/l 98-107 = CL) Calcium (test code 9.1 mg/dl 8.5-10.1 = CALC) CO2 (test code = 28 mmol/l 21-32 CO2) Glucose (test code 92 mg/dl 74-106 = GLU) BUN (test code = 22.0 mg/dl 7.0-18.0 H BUN) Creatinine (test 1.0 mg/dl 0.5-1.3 code = CREA) EGFR if >60 Yemeni (test code mL/min/1.73m\\ = EGFRAA) S\\2 EGFR if Non- 57 Estimate d Glomerular Yemeni (test code mL/min/1.73m\\ Filtrat ion Rate (eGFR) = EGFRNA) S\\2 Reference Inter vals Decision Points for 18 years and older and average body ma ss: >= 60 Does not exc lude kidney disease. 30 - 59 Suggests mod erate chronic kidney disease and indicates t he need for further investigation including asses sment of proteinuria and cardiovascular factors. < 30 U sually indicates a nee d for referral for assessment and management of c hronic kidney failure. [facility]-[place]CBC WITH AUTO [id number] 08:56:00 Test Item Value Reference Range Interpretation Comments WBC (test code = 9.53 10\\S\\3/ul 4.80-10.80 WBC) RBC (test code = 4.07 10\\S\\6/ul 4.20-5.40 L RBC) Hemoglobin (test 11.9 gm/dl 12.0-14.0 L code = HGB) Hematocrit (test 37.1 % 37.0-47.0 code = HCT) MCV (test code = 91.2 fL 81.0-99.0 MCV) MCH (test code = 29.2 pg 27.0-31.0 MCH) MCHC (test code = 32.1 gm/dl 33.0-37.0 L MCHC) RDW (test code = 13.9 % 11.5-14.5 RDWVC) Platelet (test code 249 10\\S\\3/ul 130-400 = PLT) MPV (test code = 10.2 fL 7.4-10.4 A "NOT MEASUR ED" MPV) RESULTS ARE DIS PLAYED WHEN THE INSTRU MENT HAS A SUPPRESSE D OR UNREPORTABLE RE SULT. THIS WILL MOST OFTEN HAPPEN WITH THE MPV WHEN THERE IS A N ABNORMAL PLATEL ET DISTRIBUTION DU E TO A CRITICAL LOW VA LUE OR PLATELET CLUMPI NG. THE RDW MAY BE SUPPRESSED IF T HERE ARE MULTIPLE PE AKS PRESENT ON THE RBC HISTOGRAM. IN T HIS CASE, A MANUAL REVIEW OF THE SLIDE WI LL BE PERFORMED, AND RBC MORPHOLOGY WILL BE NOTED ON THE RE PORT. NE% (test code = 42.7 % 42.0-75.0 NE) LY% (test code = 44.6 % 13.0-42.0 H LY) MO% (test code = 8.5 % 4.0-14.0 MO) EO% (test code = 3.0 % 1.0-5.0 EO) BA% (test code = 0.8 % 0.0-3.0 BA) IG% (test code = 0.4 % 0.0-0.4 IG%) [facility] HospitalCULTURE, [id number] 14:09:00Specimen: Urine SpecimensCollected: 08/31/2019 09:52 Status: Final Last Updated: 09/02/2019 14:09 Culture Result (Final) (Final) Moderate Mixed Body Mariela Isolated No Pathogens IsolatedMeMile [facility]uff [facility] HospitalkinPTH INTACT (IH)2019-08-31 11:27:00 Test Item Value Reference Range Interpretation Comments PTH, INTACT (test code = PTH) 43 18-88 [facility] HospitalB12, [id number] 11:18:00 Test Item Value Reference Range Interpretation Comments B12 (test code = B12) 354 pg/ml [id number] [facility]RON[facility] [id number] 11:18:00 Test Item Value Reference Range Interpretation Comments Triglycerides (test 100 mg/dl 0-149 Trig. In terpretation code = TRIG) Guide: Normal: < 150 mg/dl Borderlin e High: 150 - 199 mg/dl High: 200 - 499 mg/dl Very High: >= 500 mg /dl Cholesterol (test code 224 mg/dl 0-200 H = CHOL) HDL (test code = HDL) 58 mg/dl 35-86 dLDL (test code = 154 mg/dl 0-99 H Direct LDL DILDL) Intrepretations : Optimal: <100 m g/dl Suspect: 100 - 129 mg/dl Borderlin e: 130 - 159 mg/dl Hig h: 160 - 189 mg/dl Verna y High: >190 mg/dl Risk Factor (test code 3.9 0.0-4.4 Risk Factor Men Women = RFACT) Risk Factor 3.4 3.3 1/2 Average 5.0 4.4 Average 9.6 7.1 2X Average 24.0 11 .0 3X Average vLDL (test code = 20 mg/dl 20-50 VLDL) [facility]-[id number] 11:18:00 Test Item Value Reference Range Interpretation Comments Sodium (test code = 133 mmol/l 137-145 L NA) Potassium (test 4.0 mmol/l 3.5-5.1 code = K) Chloride (test code 99 mmol/l 98-107 = CL) Calcium (test code 9.2 mg/dl 8.5-10.1 = CALC) CO2 (test code = 29 mmol/l 21-32 CO2) Glucose (test code 100 mg/dl 74-106 = GLU) BUN (test code = 16.0 mg/dl 7.0-18.0 BUN) Creatinine (test 1.0 mg/dl 0.5-1.3 code = CREA) T Protein (test 7.6 gm/dl 6.4-8.2 code = TP) Albumin (test code 3.5 gm/dl 3.4-5.0 = ALB) A/G Ratio (test 0.9 % 1.1-2.2 L code = AGRAT) AST (SGOT) (test 19 U/L 15-37 code = AST) ALT (SGPT) (test 17 U/L 13-61 code = ALT) Alkaline Phos (test 121 U/L 45-117 H code = ALKP) Total Bilirubin 0.6 mg/dl 0.2-1.0 (test code = TBIL) Globulin (test code 4.1 gm/dl 2.3-3.5 H = GLOBU) Calcium, Corrected 9.6 mg/dl 8.4-10.2 Various f ormulas exist (test code = for corrected s pierre CALCCORR) calcium results , each yielding differ ent values. This co rrected result was base d on the formula: Co rrected Calcium = Serum Calcium + [0.8 * ( 4 - SerumAlbumin)] EGFR if >60 Yemeni (test code mL/min/1.73m\\ = EGFRAA) S\\2 EGFR if Non- 58 Estimate d Glomerular Yemeni (test code mL/min/1.73m\\ Filtrat ion Rate (eGFR) = EGFRNA) S\\2 Reference Inter vals Decision Points for 18 years and older and average body ma ss: >= 60 Does not exc lude kidney disease. 30 - 59 Suggests mod erate chronic kidney disease and indicates t he need for further investigation including asses sment of proteinuria and cardiovascular factors. < 30 U sually indicates a nee d for referral for assessment and management of c hronic kidney failure. [facility]-LufkinURIC [id number] 11:18:00 Test Item Value Reference Range Interpretation Comments Uric Acid (test code = URICA) 6.0 mg/dl 2.6-6.0 [facility] ValleyOlcrgs-[id number] 11:18:00 Test Item Value Reference Range Interpretation Comments Folic Acid (test code = FOLIC) 16.70 ng/ml 3.10-17.50 [facility]-LufkinTSH (Ultra Sensitive)2019-08-31 11:18:00 Test Item Value Reference Range Interpretation Comments TSH (test code = TSH) 4.22 mIU/L 0.35-3.74 H [facility]-fkinPROTEIN/CREATNINE RATIO, Random [id number] 11:16:00 Test Item Value Reference Range Interpretation Comments Creatinine Urine Random (test code 25.0 mg/dl 10.0-300.0 = CREAR) Protein, Random Urine (test code = <5.0 mg/dl 0.0-11.9 N PROTU) Protein-Creatinine Ratio, Urine 0.20 % 0.00-0.20 (test code = PCRATIO) If a specimen is collected by a nurse, then you MUST fill out the Collected and Collected By angulo [facility] MICROALBUMIN, RANDOM [id number] 11:16:00 Test Item Value Reference Range Interpretation Comments Creatinine Urine Random (test code 25.0 mg/dl 10.0-300.0 = CREAR) Microalbumin, Urine (test code = <1 MALBU) Microalbumin/Creatinine Ratio 0 (test code = MRATIO) If a specimen is collected by a nurse, then you MUST fill out the Collected and Collected By angulo [facility] HospitalVITAMIN D 2019-08-31 11:05:00 Test Item Value Reference Range Interpretation Comments Vitamin D (test code = 33.75 VITAM IN D NORMAL RANGES: TVITD) Deficient <20 I nsufficient 20-<30 Sufficie nt 30-100 Potential Toxic ity >100 [facility] HospitalURINALYSIS WITH [id number] 10:51:00 Test Item Value Reference Range Interpretation Comments Color (test code = UCOLR) Yellow Clarity (test code = UCLAR) Clear Glucose (test code = UGLUC) NEGATIVE NEGATIVE N Bilirubin (test code = UBILI) NEGATIVE NEGATIVE N Ketones (test code = UKET) NEGATIVE NEGATIVE N Specific [place] (test code = USPGR) 1.010 1.005-1.030 A Blood (test code = UBLD) NEGATIVE NEGATIVE N PH (test code = UPH) 6.5 4.5-8.0 A Protein (test code = UPROT) NEGATIVE NEGATIVE N Urobilinogen (test code = U UROB) 0.2 >0.2 N Nitrite (test code = UNITR) NEGATIVE NEGATIVE N Leukocyte Esterase (test code = NEGATIVE NEGATIVE N ULEUK) WBC (test code = WBCUR) 0-5 0-5 N RBC (test code = RBCUR) 0-5 0-5 N Epithial Cells (test code = U EPI) 10-20 0-10 A Mucous (test code = UMUC) Trace None Seen A Bacteria (test code = UBACT) 1+ None Seen,Trace A [facility][note 3] WITH AUTO [id number] 10:34:00 Test Item Value Reference Range Interpretation Comments WBC (test code = 9.35 10\\S\\3/ul 4.80-10.80 WBC) RBC (test code = 4.00 10\\S\\6/ul 4.20-5.40 L RBC) Hemoglobin (test 11.1 gm/dl 12.0-14.0 L code = HGB) Hematocrit (test 35.5 % 37.0-47.0 L code = HCT) MCV (test code = 88.8 fL 81.0-99.0 MCV) MCH (test code = 27.8 pg 27.0-31.0 MCH) MCHC (test code = 31.3 gm/dl 33.0-37.0 L MCHC) RDW (test code = 15.3 % 11.5-14.5 H RDWVC) Platelet (test code 277 10\\S\\3/ul 130-400 = PLT) MPV (test code = 10.1 fL 7.4-10.4 A "NOT MEASUR ED" MPV) RESULTS ARE DIS PLAYED WHEN THE INSTRU MENT HAS A SUPPRESSE D OR UNREPORTABLE RE SULT. THIS WILL MOST OFTEN HAPPEN WITH THE MPV WHEN THERE IS A N ABNORMAL PLATEL ET DISTRIBUTION DU E TO A CRITICAL LOW VA LUE OR PLATELET CLUMPI NG. THE RDW MAY BE SUPPRESSED IF T HERE ARE MULTIPLE PE AKS PRESENT ON THE RBC HISTOGRAM. IN T HIS CASE, A MANUAL REVIEW OF THE SLIDE WI LL BE PERFORMED, AND RBC MORPHOLOGY WILL BE NOTED ON THE RE PORT. NE% (test code = 36.6 % 42.0-75.0 L NE) LY% (test code = 49.5 % 13.0-42.0 H LY) MO% (test code = 8.4 % 4.0-14.0 MO) EO% (test code = 4.6 % 1.0-5.0 EO) BA% (test code = 0.7 % 0.0-3.0 BA) IG% (test code = 0.2 % 0.0-0.4 IG%) [facility] LAB CBC WITH AUTO [id number] 16:57:00 Test Item Value Reference Range Interpretation Comments WBC (test code = WBC) 9.92 10\\S\\3/ul 4.80-10.80 RBC (test code = RBC) 3.93 10\\S\\6/ul 4.20-5.40 L Hemoglobin (test code 11.1 gm/dl 12.0-14.0 L = HGB) Hematocrit (test code 33.9 % 37.0-47.0 L = HCT) MCV (test code = MCV) 86.3 fL 81.0-99.0 MCH (test code = MCH) 28.2 pg 27.0-31.0 MCHC (test code = 32.7 gm/dl 33.0-37.0 L MCHC) Platelet (test code = 264 10\\S\\3/ul 130-400 PLT) RDW (test code = 14.9 % 11.5-14.5 H RDWVC) MPV (test code = MPV) 9.5 fL 7.4-10.4 A NE% (test code = NE) 35.7 % 42.0-75.0 L LY% (test code = LY) 53.2 % 13.0-42.0 H MO% (test code = MO) 7.7 % 4.0-14.0 EO% (test code = EO) 2.8 % 1.0-3.0 BA% (test code = BA) 0.5 % 1.0-3.0 L IG% (test code = IG%) 0.1 % 0.0-0.4 Neutrophils (test 39 % 42-75 L No previou s value code = NEUTR) was reported. A value of 39 was entered by [id number] on 08/27/2019 16:57 Lymphocytes (test 51 % 13-42 H No previou s value code = LYMPH) was reported. A value of 51 was entered by [id number] on 08/27/2019 16:57 Monocytes (test code 8 % 4-14 No prev ious value = MONOS) was reported. A value of 8 was entered by [id number] on 08/27/2019 16:57 Eosinophils (test 2 % 1-3 No previou s value code = EOS) was reported. A value of 2 was entered by [id number] on 08/27/2019 16:57 [facility] [id number] 15:49:54 Procedure: CT ABDOMEN/PELVIS W/CONTRASTOrder date: 08/27/2019 2:00 PMOrdering Provider: ARELIS Galvaninical Indication: [id number]: Abdominal painComparison: NoneTechnique: Multiple axial helical CT images of the abdomen and pelvis wereobtained with IV contrast. Coronal and sagittal reformatted elayne ges were alsoobtained.This exam was performed according to the our departmental dose-optimizationprogram which includes automated exposure control, adjustment of the mA and/orkV according to patient size and/or use of iterative reconstruction techniques.Findings:Lung bases are clear and the heart apexwithin normal limits. No inferiormediastinal abnormality. Inferior osseous structures of the thorax areunremarkable.Hemiatrophy of the right kidney. Status post cholecystectomy. The remainingsolid abdominal viscera are unremarkable.Ventral abdominal wall hernia noted with small protrusion of bowel involving thegastric antrum and first portion the duodenum. There is mild inflammatorystranding and gastric wall thickening suggestive of gastritis yet no definiteevidence of obstruction.The remainder of the duodenum and small bowel are normal in wall thickness andcaliber without evidence of obstruction.There is a second left para midline ventral abdominal wall hernia containing afew loops of small bowel without evidence of incarceration or obstruction.Extensive sigmoid and descending colonic diverticulosis without evidence ofacute diverticulitis.Postsurgical changes of aortobiiliac bypass graft without evidence ofcomplication.No peritoneal or retroperitoneal masses or adenopathy. No free fluid orpneumoperitoneum.No evidence of acute appendicitis.Urinary bladder is unremarkable. No pelvic masses or adenopathy seen. Perirectalfat planes are preserved.Osseous structures of the abdomen and pelvis are nonacute. Extensive lumbarspondylosis.Impression:1. Multiple ventral abdominal wall hernias, one of which contains the gastricantrum and first portion the duodenum and one more inferiorly which contains aloop of small bowel. No evidence of incarceration or bowel obstruction.Extensive colonic diverticulosis without evidence of acute diverticulitis.2. Otherwise, nonacute CT of the abdomen and pelvis.3. Hemiatrophy of the right kidney with postsurgical changes of a priorcholecystectomy.4. Prior aortobiiliac bypass graft surgery.5. Other chronic incidental findings as above.This final report was electronically signed by Dr Dusty Swartz MD 08/27/20193:43 PMDictated By: DUSTY SWARTZDate: 08/27/2019 15:43[facility] [id number] 14:42:00 Test Item Value Reference Range Interpretation Comments Sodium (test code = 133 mmol/l 137-145 L NA) Potassium (test 3.5 mmol/l 3.5-5.1 code = K) Chloride (test code 99 mmol/l 98-107 = CL) Calcium (test code 8.7 mg/dl 8.5-10.1 = CALC) CO2 (test code = 29 mmol/l 21-32 CO2) Glucose (test code 104 mg/dl 74-106 = GLU) BUN (test code = 15.0 mg/dl 7.0-18.0 BUN) Creatinine (test 0.9 mg/dl 0.5-1.3 code = CREA) T Protein (test 7.2 gm/dl 6.4-8.2 code = TP) Albumin (test code 3.2 gm/dl 3.4-5.0 L = ALB) A/G Ratio (test 0.8 % 1.1-2.2 L code = AGRAT) AST (SGOT) (test 19 U/L 15-37 code = AST) ALT (SGPT) (test 16 U/L 13-61 code = ALT) Alkaline Phos (test 111 U/L 45-117 code = ALKP) Total Bilirubin 0.5 mg/dl 0.2-1.0 (test code = TBIL) Globulin (test code 4.0 gm/dl 2.3-3.5 H = GLOBU) Calcium, Corrected 9.3 mg/dl 8.4-10.2 Various f ormulas exist (test code = for corrected s pierre CALCCORR) calcium results , each yielding differ ent values. This co rrected result was base d on the formula: Co rrected Calcium = Serum Calcium + [0.8 * ( 4 - SerumAlbumin)] EGFR if >60 Yemeni (test code mL/min/1.73m\\ = EGFRAA) S\\2 EGFR if Non- >60 Estimate d Glomerular Yemeni (test code mL/min/1.73m\\ Filtrat ion Rate (eGFR) = EGFRNA) S\\2 Reference Inter vals Decision Points for 18 years and older and average body ma ss: >= 60 Does not exc lude kidney disease. 30 - 59 Suggests mod erate chronic kidney disease and indicates t he need for further investigation including asses sment of proteinuria and cardiovascular factors. < 30 U sually indicates a nee d for referral for assessment and management of c hronic kidney failure. [facility]Knvytf-[id number] 14:42:00 Test Item Value Reference Range Interpretation Comments Lipase (test code = LIPA) 171 U/L 73-393 [facility] ValleyYwbsez-[id number] 14:42:00 Test Item Value Reference Range Interpretation Comments Magnesium (test code = MG) 2.0 mg/dl 1.6-2.6 [facility] W/[id number] 14:04:19 Procedure: FL MYELOGRAM CERVICAL-IMAGING/S/I, CT CERVICAL SPINE W/CONTRASTOrder Date: 07/19/2019 9:00AMOrdering Provider: DR CHARMAINE KEITAClinical Indication: [id number]: Spinal stenosis in cervical regionComparison: X-ray of the cervical spine May 24, 2019, CT scan of thecervical spine April 26, 2019, MRI of the cervical spine March 13, 2019Cervical Myelogram:Fluoroscopy time: 6.8 minutesTechnique: The procedure was discussed with the patient and informed consent wasobtained. The patient was transferred to the fluoroscopy suite and placed on thetable in prone position. The lower back was prepped and draped in the usualsterile fashion. 1% Lidocaine was administered to the skin and subcu taneoustissues overlying the expected puncture site.A 22 gauge spinal needle was then advanced into the thecal sac at the L2-3level. Approximately 12 cc of Isovue 300 were administered into the intrathecalcompartment. The needle was removed. Puncture site was dressed with a sterilebandage.Fluoroscopicfilms were obtained and the patient was transferred to the CT suitefor post-myelogram CT scan of thecervical spineFindings:Cervical myelogram: Intact anterior fusion at C6-7.No obvious extradural defect identified.CT scan of the cervical spine:Intact anterior fusion at C6-7.There is no acute fracture.Mild anterolisthesis of C4 on C5 and C7 on T1.Mild cervical levoscoliosis.There is multilevel intervertebral disc space narrowing and endplate osteophyteformation.There is multilevel facet arthropathy.At the C1-2 level, there is no disc herniation, spinal stenosis, or neuralforaminal narrowing.At the C2-3 level, there is a diffuse disc bulge without focal herniation orspinal stenosis. There is facet/uncinate process hypertrophy causing moderateright and mild left neural foraminal narrowing.At the C3-4 level, there is a diffuse disc bulge/osteophyte complex. There is nodisc herniation or spinal stenosis. There is facet/uncinate process hypertrophycausing severe right and moderate left neural foraminal narrowing.At the C4-5 level, there is a diffuse disc bulge/osteophyte complex. There is nodisc herniation or spinal stenosis. There is facet/uncinate process hypertrophycausing severe right and moderate left neural foraminal narrowing.At the C5-6 level, there are midline bilateral laminectomies. There is a diffusedisc bulge/osteophyte complex. There is no disc herniation or spinal stenosis.There is facet/uncinate process hypertrophy causing severe right and mild leftneural foraminal narrowing.At the C6-7 level, there are midline bilateral laminectomies. There is an intactACDF. There is no disc herniation or spinal stenosis. There is facet/uncinateprocess hypertrophy causing mild bilateral neural foraminal narrowing.At the C7-T1 level, there are midline bilateral laminectomies. There is adiffuse disc bulge without focal herniation or spinal stenosis. There isfacet/uncinate process hypertrophy c ausing moderate right neural foraminalnarrowing.There is no lytic or sclerotic lesion.The prevertebral soft tissues are normal.IMPRESSION:1. Postoperative change consisting of intact ACDF at C6-7. Bilaterallaminectomies extending from C5-6 superiorly to C7-T1 and inferiorly.2. Mild multilevel cervical spondylosis.3. No disc herniation, significant spinal stenosis, or cervical spinal cordcompression.4. Multilevel facet arthropathy with multilevel neural foraminal narrowing. Thisis severe on the rightat C3-4, severe on the right at C4-5, and severe on theright at C5-6.5. Mild anterolisthesis of C4 on C5 and C7 on T1.6. No other significant findings.This final report was electronically signed by Dr Artie Camara MD 07/19/20191:57 PMDictated By: ARTIE CAMARADate: 07/19/2019 13:57[facility]ERV[facility]-IMAG[facility]/S/[id number] 14:04:12Procedure: FL MYELOGRAM CERVICAL-IMAGING/S/I, CT CERVICAL SPINE W/CONTRASTOrder Date: 07/19/2019 9:00AMOrdering Provider: DR CHARMAINE KEITAClinical Indication: [id number]: Spinal stenosis in cervical reg ionComparison: X-ray of the cervical spine May 24, 2019, CT scan of thecervical spine April 26, 2019, MRI of the cervical spine March 13, 2019Cervical Myelogram:Fluoroscopy time: 6.8 minutesTechnique: The procedure was discussed with the patient and informed consent wasobtained. The patient was transferred to the fluoroscopy suite and placed on thetable in prone position. The lower back was prepped and draped in the usualsterile fashion. 1% Lidocaine was administered to the skin and subcutaneoustissues overlying the expected puncture site.A 22 gauge spinal needle was then advanced into the thecal sac at the L2-3level. Approximately 12 cc of Isovue 300 were administered into the intrathecalcompartment. The needle was removed. Puncture site was dressed with a sterilebandage.Fluoroscopicfilms were obtained and the patient was transferred to the CT suitefor post-myelogram CT scan of thecervical spineFindings:Cervical myelogram: Intact anterior fusion at C6-7.No obvious extradural defect identified.CT scan of the cervical spine:Intact anterior fusion at C6-7.There is no acute fracture.Mild anterolisthesis of C4 on C5 and C7 on T1.Mild cervical levoscoliosis.There is multilevel intervertebral disc space narrowing and endplate osteophyteformation.There is multilevel facet arthropathy.At the C1-2 level, there is no disc herniation, spinal stenosis, or neuralforaminal narrowing.At the C2-3 level, there is a diffuse disc bulge without focal herniation orspinal stenosis. There is facet/uncinate process hypertrophy causing moderateright and mild left neural foraminal narrowing.At the C3-4 level, there is a diffuse disc bulge/osteophyte complex. There is nodisc herniation or spinal stenosis. There is facet/uncinate process hypertrophycausing severe right and moderate left neural foraminal narrowing.At the C4-5 level, there is a diffuse disc bulge/osteophyte complex. There is nodisc herniation or spinal stenosis. There is facet/uncinate process hypertrophycausing severe right and moderate left neural foraminal narrowing.At the C5-6 level, there are midline bilateral laminectomies. There is a diffusedisc bulge/osteophyte complex. There is no disc herniation or spinal stenosis.There is facet/uncinate process hypertrophy causing severe right and mild leftneural foraminal narrowing.At the C6-7 level, there are midline bilateral laminectomies. There is an intactACDF. There is no disc herniation or spinal stenosis. There is facet/uncinateprocess hypertrophy causing mild bilateral neural foraminal narrowing.At the C7-T1 level, there are midline bilateral laminectomies. There is adiffuse disc bulge without focal herniation or spinal stenosis. There isfacet/uncinate process hypertrophy causing moderate right neural foraminalnarrowing.There is no lytic or sclerotic lesion.The prevertebral soft tissues are normal.IMPRESSION:1. Postoperative change consisting of intact ACDF at C6-7. Bilaterallaminectomies extending from C5-6 superiorly to C7-T1 and inferiorly.2. Mild multilevel cervicalspondylosis.3. No disc herniation, significant spinal stenosis, or cervical spinal cordcompression.4. Multilevel facet arthropathy with multilevel neural foraminal narrowing. Thisis severe on the rightat C3-4, severe on the right at C4-5, and severe on theright at C5-6.5. Mild anterolisthesis of C4 on C5 and C7 on T1.6. No other significant findings.This final report was electronically signed by Dr Artie Camara MD 07/19/20191:57 PMDictated By: ARTIE CAMARADate: 07/19/2019 13:57[facility] MODIFIED BARIUM [id number] 11:08:36Date: June 14, 2019Diagnosis: [id number]: Pharyngeal [id number]: Feeding problem, Cervical surgeryReferring Physician: DR CHARMAINE KEITAPatient Positioned: Sitting upright in a wheelchair.Patient presented awake, alert, and able to follow commands. Upper and lowerdentures present.Primary Complaint: The patient stated that she has had two cervical surgeriesthis year and has demonstrated breathing pattern changes when she bends over,and occasional difficulty swallowing. A modified barium swallow study wasordered to assess swallowing function and to rule out aspiration.Fluoroscopy time: 5.3 minutesRESULTS:The Video Fluoroscopy Modified Barium Swallow study included liquid boluses ofthin, nectar, and honey consistencies at 3 ml and 5 ml, then cup drinking andusing a straw, as well as puree, pudding, solids and a Tylenol- sized bariumtablet.ORAL STAGE: Patient demonstrated a mild to moderate sensory/motor oral dysphagiacharacterized by mildly reduced mastication, mildly reduced bolus formation,mild to moderately reduced anterior/posterior lingual movement, mild tomoderately reduced oral transit, and mildly reduced posterior oral containment.Residues on the lingual back and sublingual were moderate and frequentlyrequired a second swallow to clear.PHARYNGEAL STAGE: Patient demonstrated a moderate sensory/motor pharyngealdysphagia characterized by mildly reduced lingual base retraction, mildlyreduced anterior movement of the hyoid, moderately reduced laryngeal vestibuleclosure during elevation of the larynx, and mildly reduced laryngeal vestibuleclosure at the height of the swallow. Pharyngeal initiation time was mildlyreduced occurring with the bolus in the pyriform sinuses and within 2 seconds.Pharyngeal stripping wave, hyoid elevation, and thyroid elevation were withinnormal limits. Epiglottic inversion was complete.Residues on the lingual back and base, and in the valleculaewere mild tomoderate. There was heavy penetration of thin and nectar thick liquids. Residuesoccasionally remained within the vestibule, on the epiglottic petiole, on thevocal folds, and just below the vocal folds (aspiration). Residues were expelledwith a cough following verbal cues from the [employer] priorto aspiration. There wasflash penetration of honey thick liquids one time with no residues remainingwithin the vestibule. A chin tuck and breath hold maneuvers did not remedypenetration.ESOPHAGEAL STAGE: All boluses cleared the upper esophageal sphincter and noovert indication of reflux was noted. A scan down the esophagus showed no bariumremaining.SUMMARY:1. Mild to moderate oral dysphagia.2. Moderate pharyngeal dysphagia.There was heavy penetration of thin and nectar thick liquids. Residuesoccasionally remained within the vestibule, on the epiglottic petiole, on thevocal folds, and just below thevocal folds (aspiration). Residues were expelledwith a cough following verbal cues from the [employer] prior to aspiration. There wasflash penetration of honey thick liquids one time with no residues remainingwithin the vestibule.RECOMMENDATIONS:1. Regular solids as tolerated2. Thin liquids - throat clear after every drink while eating meals.3. Medications ad lib4. Speech therapy may be beneficial to address primarily airway closure in orderto reduce the risk of aspiration.Reviewed by: Artie Camara MDThisfinal report was electronically signed by Saige Miller MS CCC/SLP06/14/2019 11:02 AMDictated By: SAIGE MILLERDate: 06/14/2019 11:02[facility] XR CERV SPINE 4-5 [id number] 11:40:03Procedure: [facility] XR CERV SPINE 4-5 VWSOrder Date: 05/24/2019 3:34 PMOrdering Provider: [facility] Indication: [id number]: Displacement of cervical intervertebral discComparison: April 26, 2019Findings:There is evidence of C6-C7 anterior cervical discectomy and fusion with plate,screws, and interbody spacer placement. No evidence of hardware failure orloosening is present. Suggestion of decompressive laminectomy at this level.There is 2 mm grade 1 anterolisthesis at C3-C4 and C4-C5 level on flexion andpersists on extension.There is a 3 mm C6-C7 grade 1 anterolisthesis. No significant motionbetweenflexion and extension views.Multilevel severe facet osteoporosis is present. No acute fracture or focalosseous destruction is present. No prevertebral soft tissue edema.IMPRESSION:Static C6-C7 grade 1 anterolisthesis. No dynamic instability.Static C3-C4 and C4-C5 grade 1 anterolisthesis. No dynamic instability.Multilevel severe facet osteoarthrosis.Intact C6-C7 ACDF.This final report was electronically signed by Dr Shelby Blanco MD 05/25/201911:33 AMDictated By: SEA BLANCOKDate: 05/25/2019 11:33[facility] CT CERV SPINE W/WO [id number] 13:28:05Procedure: TIC CT CERV SPINE W/WO CONTRASTOrder date: 04/26/2019 2:30 PMOrdering Provider: ROCKY Aliciainical Indication: Severe neck pain with prior surgical fusion.Comparison: MRI of the cervical spine March 13, 2019Technique: Using a multislice scanner, sequential axial imaging was obtainedfrom the skull base to the T1 level. 2-D sagittal and coronal reconstructionimages were obtained. Exam was reconstructed at 2 mm slice thickness.Subsequently, images were obtained with IV contrast as well.This exam was performed according to the our departmental dose- optimizationprogram which includes automated exposure control, adjustment of the mA and/orkV according to patient size and/or use of iterative reconstruction techniques.Findings:Postsurgical changes of anterior as well as interbody fusion construct at C6-C7.There is also a decompressive laminectomy at C5-C7.There is no acute fracture. Vertebral bodies are normal in height andconfiguration.Sagittal and coronal alignment is normal.No pathologic enhancement.Advanced facet arthrosis seen on the right more so than left at C3- C4 throughC5-C6. There is also facet arthrosis at the surgical levels without effusionidentified. There is multilevel osseous foraminal stenosis, greatest at C3-P2yxfrbwz C5-C6.There is no lytic or sclerotic lesion.The prevertebral soft tissues are normal.Minimal paraseptal emphysematous changes of the lung apices.IMPRESSION:1. Nonacute CT of the cervical spine with and without contrast.2. Postsurgical changes with cervical spondylosis as above.This final report was electronically signed by Dr Dusty Swartz MD 04/28/20191:21 PMDictated By: DUSTY SWARTZDate: 04/28/2019 13:21[facility] 2019-03-25 06:52:00 Test Item Value Reference Range Interpretation Comments Sodium (test code = 135 mmol/l 137-145 L NA) Potassium (test 3.4 mmol/l 3.5-5.1 L code = K) Chloride (test code 98 mmol/l 98-107 = CL) Calcium (test code 8.8 mg/dl 8.5-10.1 = CALC) CO2 (test code = 28 mmol/l 21-32 CO2) Glucose (test code 98 mg/dl 74-106 = GLU) BUN (test code = 7.0 mg/dl 7.0-18.0 BUN) Creatinine (test 0.7 mg/dl 0.5-1.3 code = CREA) EGFR if >60 Yemeni (test code mL/min/1.73m\\ = EGFRAA) S\\2 EGFR if Non- >60 Estimate d Glomerular Yemeni (test code mL/min/1.73m\\ Filtrat ion Rate (eGFR) = EGFRNA) S\\2 Reference Inter vals Decision Points for 18 years and older and average body ma ss: >= 60 Does not exc lude kidney disease. 30 - 59 Suggests mod erate chronic kidney disease and indicates t he need for further investigation including asses sment of proteinuria and cardiovascular factors. < 30 U sually indicates a nee d for referral for assessment and management of c hronic kidney failure. [facility]2019-03-25 06:33:00 Test Item Value Reference Range Interpretation Comments WBC (test code = 12.67 4.80-10.80 H WBC) 10\\S\\3/ul RBC (test code = 3.34 10\\S\\6/ul 4.20-5.40 L RBC) Hemoglobin (test 9.9 gm/dl 12.0-14.0 L code = HGB) Hematocrit (test 30.4 % 37.0-47.0 L code = HCT) MCV (test code = 91.0 fL 81.0-99.0 MCV) MCH (test code = 29.6 pg 27.0-31.0 MCH) MCHC (test code = 32.6 gm/dl 33.0-37.0 L MCHC) RDW (test code = 14.6 % 11.5-14.5 H RDWVC) Platelet (test code 324 10\\S\\3/ul 130-400 = PLT) MPV (test code = 10.2 fL 7.4-10.4 A "NOT MEASUR ED" MPV) RESULTS ARE DIS PLAYED WHEN THE INSTRU MENT HAS A SUPPRESSE D OR UNREPORTABLE RE SULT. THIS WILL MOST OFTEN HAPPEN WITH THE MPV WHEN THERE IS A N ABNORMAL PLATEL ET DISTRIBUTION DU E TO A CRITICAL LOW VA LUE OR PLATELET CLUMPI NG. THE RDW MAY BE SUPPRESSED IF T HERE ARE MULTIPLE PE AKS PRESENT ON THE RBC HISTOGRAM. IN T HIS CASE, A MANUAL REVIEW OF THE SLIDE WI LL BE PERFORMED, AND RBC MORPHOLOGY WILL BE NOTED ON THE RE PORT. [facility]-[id number] 06:46:00 Test Item Value Reference Range Interpretation Comments Sodium (test code = 136 mmol/l 137-145 L NA) Potassium (test 3.3 mmol/l 3.5-5.1 L code = K) Chloride (test code 99 mmol/l 98-107 = CL) Calcium (test code 8.7 mg/dl 8.5-10.1 = CALC) CO2 (test code = 29 mmol/l 21-32 CO2) Glucose (test code 98 mg/dl 74-106 = GLU) BUN (test code = 9.0 mg/dl 7.0-18.0 BUN) Creatinine (test 0.7 mg/dl 0.5-1.3 code = CREA) EGFR if >60 Yemeni (test code mL/min/1.73m\\ = EGFRAA) S\\2 EGFR if Non- >60 Estimate d Glomerular Yemeni (test code mL/min/1.73m\\ Filtrat ion Rate (eGFR) = EGFRNA) S\\2 Reference Inter vals Decision Points for 18 years and older and average body ma ss: >= 60 Does not exc lude kidney disease. 30 - 59 Suggests mo derate chronic kidney disease and indicates t he need for further investigation including asses sment of proteinuria and cardiovascular factors. < 30 U sually indicates a nee d for referral for assessment and management of c hronic kidney failure. [facility]2019-03-22 06:42:00 Test Item Value Reference Range Interpretation Comments WBC (test code = 14.09 4.80-10.80 H WBC) 10\\S\\3/ul RBC (test code = 3.53 10\\S\\6/ul 4.20-5.40 L RBC) Hemoglobin (test 10.9 gm/dl 12.0-14.0 L code = HGB) Hematocrit (test 32.6 % 37.0-47.0 L code = HCT) MCV (test code = 92.4 fL 81.0-99.0 MCV) MCH (test code = 30.9 pg 27.0-31.0 MCH) MCHC (test code = 33.4 gm/dl 33.0-37.0 MCHC) RDW (test code = 14.7 % 11.5-14.5 H RDWVC) Platelet (test code 259 10\\S\\3/ul 130-400 = PLT) MPV (test code = 10.5 fL 7.4-10.4 A "NOT MEASUR ED" MPV) RESULTS ARE DIS PLAYED WHEN THE INSTRU MENT HAS A SUPPRESSE D OR UNREPORTABLE RE SULT. THIS WILL MOST OFTEN HAPPEN WITH THE MPV WHEN THERE IS A N ABNORMAL PLATEL ET DISTRIBUTION DU E TO A CRITICAL LOW VA LUE OR PLATELET CLUMPI NG. THE RDW MAY BE SUPPRESSED IF T HERE ARE MULTIPLE PE AKS PRESENT ON THE RBC HISTOGRAM. IN T HIS CASE, A MANUAL REVIEW OF THE SLIDE WI LL BE PERFORMED, AND RBC MORPHOLOGY WILL BE NOTED ON THE RE PORT. [facility][id number] 06:42:00 Test Item Value Reference Range Interpretation Comments Sodium (test code = 137 mmol/l 137-145 NA) Potassium (test 3.4 mmol/l 3.5-5.1 L code = K) Chloride (test code 100 mmol/l 98-107 = CL) Calcium (test code 8.9 mg/dl 8.5-10.1 = CALC) CO2 (test code = 29 mmol/l 21-32 CO2) Glucose (test code 118 mg/dl 74-106 H = GLU) BUN (test code = 10.0 mg/dl 7.0-18.0 BUN) Creatinine (test 0.7 mg/dl 0.5-1.3 code = CREA) EGFR if >60 Yemeni (test code mL/min/1.73m\\ = EGFRAA) S\\2 EGFR if Non- >60 Estimate d Glomerular Yemeni (test code mL/min/1.73m\\ Filtrat ion Rate (eGFR) = EGFRNA) S\\2 Reference Inter vals Decision Points for 18 years and older and average body ma ss: >= 60 Does not exc lude kidney disease. 30 - 59 Suggests mod erate chronic kidney disease and indicates t he need for further investigation including asses sment of proteinuria and cardiovascular factors. < 30 U sually indicates a nee d for referral for assessment and management of c hronic kidney failure. [facility]2019-03-19 06:29:00 Test Item Value Reference Range Interpretation Comments WBC (test code = 14.32 4.80-10.80 H WBC) 10\\S\\3/ul RBC (test code = 3.83 10\\S\\6/ul 4.20-5.40 L RBC) Hemoglobin (test 11.5 gm/dl 12.0-14.0 L code = HGB) Hematocrit (test 35.0 % 37.0-47.0 L code = HCT) MCV (test code = 91.4 fL 81.0-99.0 MCV) MCH (test code = 30.0 pg 27.0-31.0 MCH) MCHC (test code = 32.9 gm/dl 33.0-37.0 L MCHC) RDW (test code = 14.5 % 11.5-14.5 RDWVC) Platelet (test code 263 10\\S\\3/ul 130-400 = PLT) MPV (test code = 11.0 fL 7.4-10.4 A "NOT MEASUR ED" MPV) RESULTS ARE DIS PLAYED WHEN THE INSTRU MENT HAS A SUPPRESSE D OR UNREPORTABLE RE SULT. THIS WILL MOST OFTEN HAPPEN WITH THE MPV WHEN THERE IS A N ABNORMAL PLATEL ET DISTRIBUTION DU E TO A CRITICAL LOW VA LUE OR PLATELET CLUMPI NG. THE RDW MAY BE SUPPRESSED IF T HERE ARE MULTIPLE PE AKS PRESENT ON THE RBC HISTOGRAM. IN T HIS CASE, A MANUAL REVIEW OF THE SLIDE WI LL BE PERFORMED, AND RBC MORPHOLOGY WILL BE NOTED ON THE RE PORT. [facility]-[id number] 05:38:00 Test Item Value Reference Range Interpretation Comments Sodium (test code = 139 mmol/l 137-145 NA) Potassium (test 3.5 mmol/l 3.5-5.1 code = K) Chloride (test code 101 mmol/l 98-107 = CL) Calcium (test code 8.5 mg/dl 8.5-10.1 = CALC) CO2 (test code = 31 mmol/l 21-32 CO2) Glucose (test code 118 mg/dl 74-106 H = GLU) BUN (test code = 10.0 mg/dl 7.0-18.0 BUN) Creatinine (test 0.7 mg/dl 0.5-1.3 code = CREA) EGFR if >60 Yemeni (test code mL/min/1.73m\\ = EGFRAA) S\\2 EGFR if Non- >60 Estimate d Glomerular Yemeni (test code mL/min/1.73m\\ Filtrat ion Rate (eGFR) = EGFRNA) S\\2 Reference Inter vals Decision Points for 18 years and older and average body ma ss: >= 60 Does not exc lude kidney disease. 30 - 59 Suggests mod erate chronic kidney disease and indicates t he need for further investigation including asses sment of proteinuria and cardiovascular factors. < 30 U sually indicates a nee d for referral for assessment and management of c hronic kidney failure. [facility] WITH AUTO [id number] 05:05:00 Test Item Value Reference Range Interpretation Comments WBC (test code = 15.78 4.80-10.80 H WBC) 10\\S\\3/ul RBC (test code = 3.57 10\\S\\6/ul 4.20-5.40 L RBC) Hemoglobin (test 10.7 gm/dl 12.0-14.0 L code = HGB) Hematocrit (test 32.7 % 37.0-47.0 L code = HCT) MCV (test code = 91.6 fL 81.0-99.0 MCV) MCH (test code = 30.0 pg 27.0-31.0 MCH) MCHC (test code = 32.7 gm/dl 33.0-37.0 L MCHC) RDW (test code = 14.4 % 11.5-14.5 RDWVC) Platelet (test code 248 10\\S\\3/ul 130-400 = PLT) MPV (test code = 10.9 fL 7.4-10.4 A "NOT MEASUR ED" MPV) RESULTS ARE DIS PLAYED WHEN THE INSTRU MENT HAS A SUPPRESSE D OR UNREPORTABLE RE SULT. THIS WILL MOST OFTEN HAPPEN WITH THE MPV WHEN THERE IS A N ABNORMAL PLATEL ET DISTRIBUTION DU E TO A CRITICAL LOW VA LUE OR PLATELET CLUMPI NG. THE RDW MAY BE SUPPRESSED IF T HERE ARE MULTIPLE PE AKS PRESENT ON THE RBC HISTOGRAM. IN T HIS CASE, A MANUAL REVIEW OF THE SLIDE WI LL BE PERFORMED, AND RBC MORPHOLOGY WILL BE NOTED ON THE RE PORT. NE% (test code = 79.7 % 42.0-75.0 H NE) LY% (test code = 14.6 % 13.0-42.0 LY) MO% (test code = 4.8 % 4.0-14.0 MO) EO% (test code = 0.0 % 1.0-5.0 L EO) BA% (test code = 0.1 % 0.0-3.0 BA) IG% (test code = 0.8 % 0.0-0.4 H IG%) [facility] (HEMOGRAM ONLY)2019-03-15 20:44:00 Test Item Value Reference Range Interpretation Comments WBC (test code = 17.94 4.80-10.80 H WBC) 10\\S\\3/ul RBC (test code = 4.11 10\\S\\6/ul 4.20-5.40 L RBC) Hemoglobin (test 12.5 gm/dl 12.0-14.0 code = HGB) Hematocrit (test 37.6 % 37.0-47.0 code = HCT) MCV (test code = 91.5 fL 81.0-99.0 MCV) MCH (test code = 30.4 pg 27.0-31.0 MCH) MCHC (test code = 33.2 gm/dl 33.0-37.0 MCHC) RDW (test code = 14.0 % 11.5-14.5 RDWVC) Platelet (test code 264 10\\S\\3/ul 130-400 = PLT) MPV (test code = 10.4 fL 7.4-10.4 A "NOT MEASUR ED" MPV) RESULTS ARE DIS PLAYED WHEN THE INSTRU MENT HAS A SUPPRESSE D OR UNREPORTABLE RE SULT. THIS WILL MOST OFTEN HAPPEN WITH THE MPV WHEN THERE IS A N ABNORMAL PLATEL ET DISTRIBUTION DU E TO A CRITICAL LOW VA LUE OR PLATELET CLUMPI NG. THE RDW MAY BE SUPPRESSED IF T HERE ARE MULTIPLE PE AKS PRESENT ON THE RBC HISTOGRAM. IN T HIS CASE, A MANUAL REVIEW OF THE SLIDE WI LL BE PERFORMED, AND RBC MORPHOLOGY WILL BE NOTED ON THE RE PORT. [facility]-[id number] 11:24:00 Test Item Value Reference Range Interpretation Comments Sodium (test code = 139 mmol/l 137-145 NA) Potassium (test 3.3 mmol/l 3.5-5.1 L code = K) Chloride (test code 100 mmol/l 98-107 = CL) Calcium (test code 9.8 mg/dl 8.5-10.1 = CALC) CO2 (test code = 32 mmol/l 21-32 CO2) Glucose (test code 100 mg/dl 74-106 = GLU) BUN (test code = 10.0 mg/dl 7.0-18.0 BUN) Creatinine (test 0.8 mg/dl 0.5-1.3 code = CREA) EGFR if >60 Yemeni (test code mL/min/1.73m\\ = EGFRAA) S\\2 EGFR if Non- >60 Estimate d Glomerular Yemeni (test code mL/min/1.73m\\ Filtrat ion Rate (eGFR) = EGFRNA) S\\2 Reference Inter vals Decision Points for 18 years and older and average body ma ss: >= 60 Does not exc lude kidney disease. 30 - 59 Suggests mod erate chronic kidney disease and indicates the need for furthe r investigation including asses sment of proteinuria and cardiovascular factors. < 30 Usually indicates a nee d for referral for assessment and management of c hronic kidney failure. [facility] WITHOUT [id number] 11:02:00 Test Item Value Reference Range Interpretation Comments Color (test code = UCOLR) YELLOW Clarity (test code = UCLAR) CLEAR Glucose (test code = UGLUC) NEGATIVE NEGATIVE N Bilirubin (test code = UBILI) NEGATIVE NEGATIVE N Ketones (test code = UKET) NEGATIVE NEGATIVE N Specific [place] (test code = USPGR) 1.010 1.005-1.030 A Blood (test code = UBLD) NEGATIVE NEGATIVE N PH (test code = UPH) 7.5 4.5-8.0 A Protein (test code = UPROT) NEGATIVE NEGATIVE N Urobilinogen (test code = U UROB) 0.2 >0.2 N Nitrite (test code = UNITR) NEGATIVE NEGATIVE N Leukocyte Esterase (test code = SMALL NEGATIVE A ULEUK) [facility] (HEMOGRAM ONLY)2019-03-14 11:01:00 Test Item Value Reference Range Interpretation Comments WBC (test code = 10.56 4.80-10.80 WBC) 10\\S\\3/ul RBC (test code = 4.15 10\\S\\6/ul 4.20-5.40 L RBC) Hemoglobin (test 12.7 gm/dl 12.0-14.0 code = HGB) Hematocrit (test 37.7 % 37.0-47.0 code = HCT) MCV (test code = 90.8 fL 81.0-99.0 MCV) MCH (test code = 30.6 pg 27.0-31.0 MCH) MCHC (test code = 33.7 gm/dl 33.0-37.0 MCHC) RDW (test code = 14.1 % 11.5-14.5 RDWVC) Platelet (test code 266 10\\S\\3/ul 130-400 = PLT) MPV (test code = 10.6 fL 7.4-10.4 A "NOT MEASUR ED" MPV) RESULTS ARE DIS PLAYED WHEN THE INSTRU MENT HAS A SUPPRESSE D OR UNREPORTABLE RE SULT. THIS WILL MOST OFTEN HAPPEN WITH THE MPV WHEN THERE IS A N ABNORMAL PLATEL ET DISTRIBUTION DU E TO A CRITICAL LOW VA LUE OR PLATELET CLUMPI NG. THE RDW MAY BE SUPPRESSED IF T HERE ARE MULTIPLE PE AKS PRESENT ON THE RBC HISTOGRAM. IN T HIS CASE, A MANUAL REVIEW OF THE SLIDE WI LL BE PERFORMED, AND RBC MORPHOLOGY WILL BE NOTED ON THE RE PORT. [facility] W/O [id number] 18:58:11If patient is claustrophobic, contact ordering joie russell for additional instructions.Procedure: MRI CSPINE W/O CONTRASTOrder Date: 03/13/2019 1:15 PMOrdering Provider: ROCKY Valentin Indication: [id number]: Cervical disc disorder with myelopathyComparison: NoneTechnique: Multisequence, multiplanar images of the cervical spine were obtainedwithout administration of intravenous contrast.Findings:Vertebral body heights are preserved.There is still limited with one anterolisthesis atC4-C5 and C5-C6. There is 5mm grade 1 anterolisthesis at C6-C7.2 mm grade 1 anterolisthesis at C7-T1.Posterior fossa and craniocervical junction : Unremarkable.Cervical Cord: With subtle cord signal alteration at C6-C7.C2-C3: No significant stenosis.C3-C4: Shallow disc bulge, uncovertebral hypertrophy, and bilateral facetarthrosis. Spinal canal is patent. There is severe right and moderate leftneuralforaminal stenosis.C4-C5: Disc osteophyte complex, bilateral uncovertebral hypertrophy and facetosteoarthrosis. Spinal canal is patent. There is moderate neural foraminastenosis.C5-C6: Grade 1 anterolisthesis, disc uncovering. Bilateral uncovertebralhypertrophy and facet osteoarthrosis are present. A component of synovial cystat the C6-C7 level is seen in cranially extend to this level and demonstratesmass effect on the dorsal aspect of the thecal sac. There is moderate spinalcanal stenosis. Neural f oramina are patent.C6-C7: Grade 1 anterolisthesis with disc uncovering, ligamentum flavum buckling,severe bilateral facet arthrosis are present and there is a large synovial cystwhich measures 0.9 x 1.0 x 0.6 cm. Intrinsic T1 signal elevation within thiscyst suggesting proteinaceous debris or less likely small amount of hemorrhage.There is resultant severe spinal canal stenosis with AP dimension spinal canalmeasuring 3 mm and there is suggestion of mild spinal cord edema. Severebilateral neural foraminal stenosis.C7-T1: Grade 1 anterolisthesis and bilateral facet osteoarthrosis. There ismoderate right neural foraminal stenosis. Spinal canal is patent.Impression:Multilevel degenerative changes mostnotably at the C6-C7 level wheredegenerative changes, especially a very large synovial cyst results in verysevere spinal canal stenosis and subtle cord edema.Moderate spinal canal stenosis at C5-C6.Varying degrees of neural foraminal stenosis detailed level by level above.This final report was electronically signed by Dr Shelby Blanco MD 03/13/20196:51 PMDictated By: SEA BLANCOKDate: 03/13/2019 18:51[facility] BRA[facility]W CONT 2019-03-13 15:28:36If patient is claustrophobic, contact ordering joie russell for additional instructions.Procedure: MRI BRAIN WO/W CONTOrder Date: 03/13/2019 12:30 PMOrdering Provider: ROCKY Aliciainical Indication: Dizziness, abnormal gaitComparison: NoneTechnique: Multiplanar MRI of the brain was obtained with and without theadministration of IV contrast.Findings:T2/FLAIR signal abnormality seen in the bihemispheric white matter, nonspecificyet most likely microvascular ischemic change. There is alsoglobal parenchymalvolume loss.Ventricular size and configuration are normal. There is no midline shift orhydrocephalus.No pathologic enhancement on postcontrast imaging.There is no evidence of an acuteinfarct. There is no parenchymal hemorrhage.The pituitary gland is normal in size. There are no pineal masses.There are normal intracranial vascular flow voids.The foramen magnum is normal.There is normal signal within the paranasal sinuses.The orbits are intact.IMPRESSION:1. Nonacute MRI of the brainwith and without the administration of IV contrast.2. Microvascular ischemic change with global parenchymal volume loss.This final report was electronically signed by Dr Dusty Swartz MD 03/13/20193:22PMDictated By: DUSTY SWARTZDate: 03/13/2019 15:22[facility]
[2022-07-11 11:24] LABS: Absolute Lymphocytes (CBC) 1.4 K/uL (0.7-4.9); Lymphocytes % 8.4 % (15.3-44.8); MCV 91.5 fL (80-100); MPV 9.2 fL (7.6-11.3); RBC Red Blood Cell Count 4.37 M/uL (3.86-4.86)
[2022-07-11] MEDS ORDERED: FAMOTIDINE 20 MG/2 ML VIAL IV ONE (11:28)
[2022-07-11] MEDS ORDERED: ONDANSETRON 4 MG/2 ML VIAL ONE (11:28)
[2022-07-11] MEDS ORDERED: Ringers Lactate 1,000 ML IV ONE ×3 (11:28→19:01)
[2022-07-11 11:43] LABS: Albumin 3.9 g/dL (3.4-5.0); Bilirubin Total 0.7 mg/dL (0.2-1.0); Potassium 3.9 mmol/L (3.5-5.1); Protein, Total 8.2 g/dL (6.4-8.2)
[2022-07-11 12:15] LABS: SARS-COV-2 RT PCR NEGATIVE (NEGATIVE)
--- NOTE | 2022-07-11 12:23 | RAD REPORT ---
EXAM DESCRIPTION: CT - Chest Abd Pelvis Wo Con - 07/11/2022 12:12 pm CLINICAL HISTORY: Chest and abdomen pain. abdominal pain COMPARISON: No comparisons TECHNIQUE: A limited noncontrast study was performed. All CT scans are performed using dose optimization technique as appropriate and may include automated exposure control or mA/KV adjustment according to patient size. FINDINGS: The lungs are mildly emphysematous. Linear scarring is present in both lung bases.No pleur al or pericardial effusion.No intrathoracic adenopathy. Aortic atherosclerosis is present. 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 Mild left hydronephrosis. Mild free fluid is seen in the abdomen. No free air. Cecum is distended to 7 centimeters there is inflammation surrounding the cecum in the right lower qu adrant as well as air in the wall of the cecum suggesting pneumatosis/possible ischemia. High suspici on is present for cecal volvulus. IMPRESSION: High suspicion for cecal volvulus. Mild pneumatosis involving the cecum likely indicates mild bowel ischemia is present. Recommend surgical consultation.
[2022-07-11] MEDS ORDERED: NA CHLORIDE 0.9% 100 ML IV ONE (12:32)
[2022-07-11] MEDS ORDERED: PIPERACIL/TAZO 3.375 GM VIAL IV ONE (12:33)
[2022-07-11] MEDS ORDERED: ONDANSETRON 4 MG/2 ML VIAL IV PRN (14:38)
[2022-07-11] MEDS ORDERED: Levofloxacin500mg IV 500 MG/100 ML BAG IV SCH (15:00)
--- NOTE | 2022-07-11 15:16 | ER ---
Nurse's Notes [facility] Jonny Name: Olive Antony Age: 76 yrs Sex: Female : 1945 Arrival Date: 07/11/2022 Time: 10:26 Bed 14 Private MD: Baldev Almanzar E Diagnosis: Volvulus Presentation: 07/11 10:39 Chief complaint: Patient states: NV and ABD pain that began last night around midnight; vg1 c/o epigastric pain, ABD appears to be distended, pt states tender to touch. Coronavirus screen: Vaccine status: Patient reports receiving the 1st dose of the Covid vaccine. Client denies travel out of the [place] in the last 14 days. Ebola Screen: Patient negative for fever greater than or equal to 101.5 degrees Fahrenheit, and additional compatible Ebola Virus Disease symptoms Patient denies exposure to infectious person. Initial Sepsis Screen: Does the patient meet any 2 criteria? No. Patient's initial sepsis screen is negative. Does the patient have a suspected source of infection? No. Patient's initial sepsis screen is negative. Risk Assessment: Do you want to hurt yourself or someone else? Patient reports no desire to harm self or others. Onset of symptoms was July 11, 2022. 10:39 Method Of Arrival: Wheelchair vg1 10:39 Acuity: BENY 3 vg1 Triage Assessment: 10:42 General: Appears uncomfortable, Behavior is cooperative. Pain: Complains of pain in vg1 epigastric area Pain currently is 10 out of 10 on a pain scale. Pain began 12 this morning Noted to be grimacing, guarding, moaning. 10:45 GI: Abdomen is distended, Last BM was July 11, 2022. Reports upper abdominal pain, vg1 epigastric pain. Historical: - Allergies: 10:42 Morphine; Hallucinations; vg1 - PMHx: 10:42 Chronic obstructive lung disease; Hypertensive disorder; Hypercholesterolemia; Heart vg1 murmur; Triple A; - PSHx: 10:42 Hernia; vg1 10:45 Splenectomy; Cholecystectomy; Hysterectomy; vg1 - Immunization history:: Client reports receiving the 1st dose of the Covid vaccine. - Social history:: Smoking status: Patient/guardian denies using tobacco, the patient reports quitting approximately 23 years ago. Screenin:[facility] Fall Risk Assessment (Adult) History of falling in the last 3 months, bp including since admission No falls in past 3 months (0 pts). Abuse screen: Denies threats or abuse. Denies injuries from another. Nutritional screening: No deficits noted. Tuberculosis screening: No symptoms or risk factors identified. Assessment: 10:45 General: SEE TRIAGE NOTE. bp 12:48 Reassessment: PER PROVIDER, CT GROSSLY ABNORMAL. SURG C/S PENDING. bp 13:00 Reassessment: PHLEBOTOMY CONTACTED TO T\T\S RECOLLECT. bp 14:55 Reassessment: DR THORPE WITH SURGERY AT B/S. bp 15:26 Reassessment: PER MD, PT IN NEED OF STAT OR. ADMIT IN PROCESS. bp 16:07 Reassessment: PT TO OR WITH JOANNE LEMON. bp 16:07 GI: Abdomen is non-distended, Abdomen is tender to palpation X 4 quads. bp Vital Signs: 10:39 BP 94 / 54; Pulse 58; Resp 14; Temp 97.2(TE); Pulse Ox 92% on R/A; Weight 55.34 kg; vg1 Height 4 ft. 11 in. (149.86 cm); Pain 10/10; 12:30 BP 112 / 66; Pulse 61; Resp 25; Pulse Ox 95% ; bp 13:30 BP 116 / 91; Pulse 66; Resp 23; Pulse Ox 95% ; bp 14:30 BP 78 / 60; Pulse 71; Resp 24; Pulse Ox 92% ; bp 14:59 BP 98 / 83; Pulse 65; Resp 26; Pulse Ox 93% ; bp 15:26 BP 146 / 78; Pulse 72; Resp 27; Pulse Ox 94% ; bp 10:39 Body Mass Index 24.64 (55.34 kg, 149.86 cm) vg1 ED Course: 10:26 Patient arrived in ED. am2 10:27 Baldev Almanzar MD is Private Physician. am2 10:32 Raymon Chong PA is PHCP. [facility] 10:32 Demetrio Tran MD is Attending Physician. [facility] 10:42 Triage completed. vg1 10:45 Arm band placed on. vg1 10:45 Patient has correct armband on for positive identification. Bed in low position. Call bp light in reach. Side rails up X2. Adult w/ patient. 10:52 Ayo Whitehead, RN is Primary Nurse. bp 11:10 Inserted saline lock: 20 gauge in left antecubital area, using aseptic technique. Blood bp collected. 12:14 Chest Abd Pelvis Wo Con In Process Unspecified. EDMS 12:41 T\T\S collected, blood band applied to patient. tm3 15:15 Yo Thorpe MD is Hospitalizing Provider. [facility] 15:57 Diet: Patient is NPO. mm9 16:08 No provider procedures requiring assistance completed. Patient admitted, IV remains in bp place. Administered Medications: 11:34 Drug: Lactated Ringers Solution 1000 ml Route: IV; Rate: 150 ml/hr; Site: left vg1 antecubital; 16:10 Follow up: IV Status: Completed infusion; IV Intake: 1000ml bp 11:34 Drug: Zofran (Ondansetron) 4 mg Route: IVP; Site: left antecubital; vg1 16:10 Follow up: Response: No adverse reaction bp 11:36 Drug: Pepcid (famotidine) 20 mg Route: IVP; Site: left antecubital; vg1 16:10 Follow up: Response: No adverse reaction bp 12:48 Drug: Zosyn (piperacillin-tazobactam) 3.375 grams Route: IVPB; Infused Over: 60 mins; bp Site: left antecubital; 16:09 Follow up: IV Status: Completed infusion; IV Intake: 100ml bp Medication: 16:08 VIS not applicable for this client. bp Intake: 16:09 IV: 100ml; Total: 100ml. bp 16:10 IV: 1000ml; Total: 1100ml. bp Outcome: 15:15 Decision to Hospitalize by Provider. [facility] 16:08 Admitted to OR accompanied by nurse, family with patient, via stretcher. bp 16:08 Condition: stable 16:08 Instructed on the need for admit. 16:14 Patient left the ED. eb Signatures: Dispatcher [employer] EDMS Jono Vaca tm3 Raymon Chong PA PA m Viviana Carrion am2 Ayo Whitehead, RN RN bp Bessy Cameron Victoria RN RN vg1 Gladis Haywood mm9
--- NOTE | 2022-07-11 15:16 | EDPHYS ---
Physician Documentation [facility] Name: Olive Antony Age: 76 yrs Sex: Female : 1945 Arrival Date: 07/11/2022 Time: 10:26 Bed 14 Private MD: Baldev Almanzar E ED Physician Demetrio Tran HPI: 07/11 10:52 This 76 yrs old Female presents to ER via Wheelchair with complaints of Vomiting, jmm Abdominal Pain. 10:52 The patient presents to the emergency department with nausea, vomiting, abdominal pain. jmm Onset: The symptoms/episode began/occurred acutely, last night. Possible causes: unknown. This is a 76-year-old female with history of COPD, hypertension, AAA the presents emerged part with complaints of abdominal pain and vomiting beginning last night. Denies any diarrhea. Denies fever. Denies recent travel. Denies recent antibiotic use.. Historical: - Allergies: 10:42 Morphine; Hallucinations; vg1 - PMHx: 10:42 Chronic obstructive lung disease; Hypertensive disorder; Hypercholesterolemia; Heart vg1 murmur; Triple A; - PSHx: 10:42 Hernia; vg1 10:45 Splenectomy; Cholecystectomy; Hysterectomy; vg1 - Immunization history:: Client reports receiving the 1st dose of the Covid vaccine. - Social history:: Smoking status: Patient/guardian denies using tobacco, the patient reports quitting approximately 23 years ago. ROS: 10:52 Constitutional: Negative for fever, chills, and weight loss, Cardiovascular: Negative jmm for chest pain, palpitations, and edema, Respiratory: Negative for shortness of breath, cough, wheezing, and pleuritic chest pain. 10:52 Abdomen/GI: Positive for abdominal pain, nausea and vomiting. 10:52 All other systems are negative. Exam: 10:52 Constitutional: This is a well developed, well nourished patient who is awake, alert, jmm and in no acute distress. Head/Face: atraumatic. Eyes: EOMI, no conjunctival erythema appreciated ENT: Moist Mucus Membranes Neck: Trachea midline, Supple Chest/axilla: Normal chest wall appearance and motion. Cardiovascular: Regular rate and rhythm. No edema appreciated Respiratory: Normal respirations, no respiratory distress appreciated 10:52 Back: Normal ROM Skin: General appearance color normal MS/ Extremity: Moves all extremities, no obvious deformities appreciated, no edema noted to the lower extremities Neuro: Awake and alert Psych: Behavior is normal, Mood is normal, Patient is cooperative and pleasant 10:52 Abdomen/GI: Inspection: distension, Bowel sounds: Palpation: soft, moderate abdominal tenderness, in all quadrants. Vital Signs: 10:39 BP 94 / 54; Pulse 58; Resp 14; Temp 97.2(TE); Pulse Ox 92% on R/A; Weight 55.34 kg; vg1 Height 4 ft. 11 in. (149.86 cm); Pain 10/10; 12:30 BP 112 / 66; Pulse 61; Resp 25; Pulse Ox 95% ; bp 13:30 BP 116 / 91; Pulse 66; Resp 23; Pulse Ox 95% ; bp 14:30 BP 78 / 60; Pulse 71; Resp 24; Pulse Ox 92% ; bp 14:59 BP 98 / 83; Pulse 65; Resp 26; Pulse Ox 93% ; bp 15:26 BP 146 / 78; Pulse 72; Resp 27; Pulse Ox 94% ; bp 10:39 Body Mass Index 24.64 (55.34 kg, 149.86 cm) vg1 MDM: 10:52 Patient medically screened. [facility] 12:43 Data reviewed: vital signs, nurses notes. Consideration of Admission/Observation [facility] Patient was admitted/placed on observation. Management of patient was discussed with the following: Hospitalist: Dr. Padron. Internet Marketing Intern: Dr. Neumann. I considered the following discharge prescriptions or medication management in the emergency department Medications were administered in the Emergency Department. See MAR. Historians other than the Patient: Daughter/Son: Daughter. Counseling: I had a detailed discussion with the patient and/or guardian regarding: the historical points, exam findings, and any diagnostic results supporting the discharge/admit diagnosis, lab results, radiology results, the need for further work-up and treatment in the hospital. 15:03 ED course: Dr. Neumann evaluated the patient at bedside. [facility] 07/11 10:52 Order name: CBC with Diff; Complete Time: 11:[address] [facility] 07/11 10:52 Order name: CMP; Complete Time: 11:[address] [facility] 07/11 10:52 Order name: Lipase; Complete Time: 11:[address] [facility] 07/11 10:53 Order name: Lactate w/ 2H reflex if indic.; Complete Time: 12:[address] [facility] 07/11 10:53 Order name: PT-INR; Complete Time: 11:[address] [facility] 07/11 10:53 Order name: Blood Culture Adult (2) [facility] 07/11 10:55 Order name: COVID-19/FLU A+B; Complete Time: 12:[address] [facility] 07/11 12:27 Order name: Type And Screen; Complete Time: 14:[address] [facility] 07/11 14:44 Order name: CBC with Automated Diff [facility] 07/11 14:44 Order name: CBC with Automated Diff [facility] 07/11 14:44 Order name: Comprehensive Metabolic Panel [facility] 07/11 14:44 Order name: Comprehensive Metabolic Panel [facility] 07/11 14:44 Order name: Magnesium [facility] 07/11 14:44 Order name: Magnesium [facility] 07/11 11:49 Order name: Chest Abd Pelvis Wo Con; Complete Time: 12:26 [facility] 07/11 14:44 Order name: CONS Physician Consult [facility] 07/11 14:44 Order name: Protime (+INR) [facility] 07/11 14:44 Order name: Protime (+INR) [facility] 07/11 14:44 Order name: PTT, Activated Partial Thromb [facility] 07/11 14:44 Order name: PTT, Activated Partial Thromb [facility] 07/11 14:45 Order name: Abdomen W Erect [facility] 07/11 14:45 Order name: Abdomen W Erect [facility] 07/11 15:19 Order name: ABO/RH no charge; Complete Time: 15:22 [facility] 07/11 15:27 Order name: Lactate Sepsis 2 HR Follow-up; Complete Time: 15:28 [facility] 07/11 15:39 Order name: Urine Dipstick-Ancillary; Complete Time: 15:42 [facility] 07/11 10:52 Order name: IV Saline Lock; Complete Time: 11:[address] [facility] 07/11 10:52 Order name: Labs collected and sent; Complete Time: 11:[address] [facility] 07/11 12:32 Order name: Misc. Order: LR wide open please; Complete Time: 12:[address] [facility] 07/11 12:53 Order name: Labs - recollect needed: recollect T\T\S hemolyzed per Naida; Complete Time: eb 13:14 07/11 13:30 Order name: Labs - recollect needed: recollect the recollect T\T\S short/ not enough eb blood per Naida; Complete Time: 14:55 07/11 14:44 Order name: NPO EDMS Administered Medications: 11:34 Drug: Lactated Ringers Solution 1000 ml Route: IV; Rate: 150 ml/hr; Site: left vg1 antecubital; 16:10 Follow up: IV Status: Completed infusion; IV Intake: 1000ml bp 11:34 Drug: Zofran (Ondansetron) 4 mg Route: IVP; Site: left antecubital; vg1 16:10 Follow up: Response: No adverse reaction bp 11:36 Drug: Pepcid (famotidine) 20 mg Route: IVP; Site: left antecubital; vg1 16:10 Follow up: Response: No adverse reaction bp 12:48 Drug: Zosyn (piperacillin-tazobactam) 3.375 grams Route: IVPB; Infused Over: 60 mins; bp Site: left antecubital; 16:09 Follow up: IV Status: Completed infusion; IV Intake: 100ml bp Disposition: 17:38 Co-signature as Attending Physician, Demetrio Trna MD I reviewed the patient's care rn provided by the Advanced Practice Provider and agree with the diagnosis and treatment plan. Disposition Summary: 07/11/22 15:15 Hospitalization Ordered Hospitalization Status: Inpatient Admission [facility] Provider: Yo Neumann Location: Operating Room [facility] Condition: Stable [facility] Problem: new jmm Symptoms: are unchanged [facility] Bed/Room Type: Standard [facility] Room Assignment: [facility] Diagnosis - Volvulus [facility] Forms: - Medication Reconciliation Form m - SBAR form [facility] Signatures: Dispatcher [employer] EDMS Raymon Chong PA PA jmm Demetrio Tran MD MD rn Peltier, Brian, RN RN Bessy Stephens Victoria, RN RN vg1 Corrections: (The following items were deleted from the chart) 11:49 10:57 Abdomen Pelvis W Con+CT.RAD.BRZ ordered. EDMS EDMS
[2022-07-11 15:39] LABS: Urine Blood Negative (Negative); Urine Glucose Negative (Negative); Urine Protein Negative (Negative)
--- NOTE | 2022-07-11 15:50 | P.HP ---
Date of Service: 07/11/22 PC: This 76-year-old female presented to the emergency room with severe abdominal pain for diagnosis and treatment. HPC: Patient says she has been feeling well for the last 24 hours. Her abdomen feels bloated and she has been having abdominal pain. States up until recently that her bowel habits were normal. Has lost some weight over the last few weeks. PSHx: Previous aortic aneurysm repair, splenectomy, cholecystectomy, PMHx: COPD, hypercholesterolemia, hypertension Social Hx: No known allergies Sys R: States she has been in relatively good health. Has not had much of an appetite though over the last few months. Has not had pain like this before. Has also been a little bit short of breath at home. She was apparently scheduled to have a chest CT scan tomorrow. O/E: Awake alert vital signs are stable HEENT: Within normal limits Chest: Chest movement equal bilaterally Abd: Abdomen is distended and tense, mildly tympanic [place]: Intact Data: CT scan demonstrates large cecal volvulus/bascule Impression: Cecal volvulus Plan: I will taken the operating room for exploratory laparotomy. The risks of this procedure have been discussed. The possibility of bleeding, infection, injury to bowel blood vessels ureters and surrounding structures was explained. The possible need for a ostomy was outlined. Nonhealing, abscess formation, need for further surgeries and procedures in the future were outlined. They understand and want to proceed.
[2022-07-11] MEDS ORDERED: LIDOCAINE 1% MPF 5 ML VIAL ONE (16:10)
[2022-07-11] MEDS ORDERED: FENTANYL CITR 100 MCG/2 ML ONE (16:10)
[2022-07-11] MEDS ORDERED: NEOSTIGMINE 1 MG/ML -5 ML ONE (16:11)
[2022-07-11] MEDS ORDERED: dexAMETHasone 4 MG/ML VIAL ONE (16:11)
[2022-07-11] MEDS ORDERED: propofoL 200 MG/20 ML VIAL IV ONE (16:12)
[2022-07-11] MEDS ORDERED: ROCURONIUM 50 MG/5 ML VIAL IV ONE (16:13)
[2022-07-11] MEDS ORDERED: GLYCOPYRROLATE 0.2 MG/ML SYR ONE (16:16)
[2022-07-11] MEDS ORDERED: Phenylephrine HCl 10 MG/ML 1 ML VIAL ONE (17:16)
[2022-07-11] MEDS: METRONIDAZOLE 500mg IVPB 500 MG/100 ML BAG IV SCH ×2 (18:00→23:14)
[2022-07-11] MEDS ORDERED: ALBUMIN HUM 5% 250 ML IV ONE (18:23)
--- NOTE | 2022-07-11 19:27 | P.OP ---
Preoperative diagnosis: Cecal volvulus/bascule Postoperative diagnosis: The same Primary procedure: Right hemicolectomy Secondary procedure: Ileocolic anastomosis Other procedure(s): Extensive lysis of adhesions Anesthesia: General Estimated blood loss: Less than 50 cc Specimen: 1 right colon Operative Technique: The patient brought the operating room and placed supine on the table. After the induction of adequate general endotracheal anesthesia, the area of the abdomen was prepped with a DuraPrep solution, a Murguia catheter was inserted, she was draped in the usual aseptic manner. A nasogastric tube had also been positioned. Attention was turned towards the abdominal wall. A generous midline incision was made. This was brought down through the skin and subcutaneous tissue. We had found the PE options previous midline incision. There were numerous amounts of surgical material in the area. Surgidac, nylon, were removed from this midline. There is also a large piece of mesh posteriorly. We gently extubated midline incision, extended down through the fascia into the peritoneal cavity. Then with care we tediously dissected it down to the suprapubic area. The abdomen was now open. It became immediately obvious that there was a large necrotic colon seen laying in the peritoneal cavity. This was delivered up into our surgical incision. The vasculature of the right colon was noted to be virtually knotted. The vasculature was identified. Without devascularizing the distal ileum, we were able to divide the bowel 4 fingers from the ileocecal valve. Dissection was now done to take down the right colon. We traced this up to a viable piece of colon just lateral to the middle colic artery. At this point the hepatic flexure was mobilized. Having done this we now had a good clean portion of the transverse colon to which we can anastomose our distal ileum. The mesentery of the right colon was now taken down. We gently dissected to ensure the duodenum was not injured. The right ureter was left in the retroperitoneum. A [id number] functional end-to-end anastomosis was now constructed between the ileum and the right c olon. The mesenteric defect was closed down using a running suture of chromic. The abdomen was now inspected to ensure adequate hemostasis. The pelvis was inspected and appeared to be clear. The abdomen was irrigated with a saline solution. The midline incision was now closed using a running suture of oh looped nylon 1 started from the top and 1 to the bottom. There is old suture, mesh material, and anterior abdominal wall I felt this material would be the best to hold it altogether. At this point the incision having been closed, the skin was approximated with issac. At the end of the procedure the patient was in a stable condition when sent to the recovery room. Needle sponge instrument count were correct. No drains were placed. She does have a nasogastric tube and a Murguia catheter. Estimated blood loss, less than 75 cc. Complications: None Drain(s): Nasogastric, Urinary catheter Transferred to: Recovery Room Condition: Good
[2022-07-11] MEDS ORDERED: KETOROLAC 30 MG/ML INJ ONE (19:31)
[2022-07-11] MEDS ORDERED: MORPHINE 4 MG/ML SYR IV PRN (19:37)
[2022-07-11] MEDS: Ringers Lactate 1,000 ML IV SCH (20:00)
--- NOTE | 2022-07-11 20:07 | RAD REPORT ---
EXAM DESCRIPTION: RAD - Abdomen 1 View (KUB) - 07/11/2022 8:01 pm CLINICAL HISTORY: NGT placement verification Pain COMPARISON: No comparisons FINDINGS: Tip of the enteric tube is in the stomach.
[2022-07-11] MEDS ORDERED: HYDROMORPHONE HCL 1 MG/ML INJ ONE (20:10)
[2022-07-12] MEDS: Ringers Lactate 1,000 ML IV SCH ×2 (03:05→11:00)
[2022-07-12 05:11] LABS: Absolute Lymphocytes (CBC) 1.3 K/uL (0.7-4.9); Hematocrit 29.9 % (36.0-45.0); Lymphocytes % 7.6 % (15.3-44.8); MCV 90.9 fL (80-100); MPV 9.3 fL (7.6-11.3); RBC Red Blood Cell Count 3.29 M/uL (3.86-4.86)
[2022-07-12 05:15] LABS: Protime INR 1.14
[2022-07-12 05:29] LABS: Albumin 2.5 g/dL (3.4-5.0); Bilirubin Total 0.9 mg/dL (0.2-1.0); Magnesium 1.5 mg/dL (1.6-2.4); Potassium 4.1 mmol/L (3.5-5.1); Protein, Total 5.3 g/dL (6.4-8.2)
[2022-07-12] MEDS: METRONIDAZOLE 500mg IVPB 500 MG/100 ML BAG IV SCH ×3 (06:25→17:15)
--- NOTE | 2022-07-12 07:37 | P.HP ---
Certification for Inpatient Patient admitted to: Inpatient With expected LOS: >2 Midnights Patient will require the following post-hospital care: None Practitioner: I am a practitioner with admitting privileges, knowledge of patient current condition, hospital course, and medical plan of care. Services: Services provided to patient in accordance with Admission requirements found in Title 42 Section 412.3 of the Code of Federal Regulations Patient History Date of Service: 07/11/22 Reason for admission: Colonic obstruction History of Present Illness: Patient is a 76-year-old female who presents to the hospital with intractable nausea and vomiting. Patient was having abdominal distention as well as persistent vomiting. Her symptoms were not improving so she came to the emergency room. In the emergency room CT imaging revealed cecal volvulus with mild pneumatosis. Patient was taken to the operating room by Dr. Coppola and patient had a right hemicolectomy with ileocolic anastomosis. Patient was admitted to ICU for further management. Allergies morphine Adverse Reaction (Verified 07/11/22 16:26) Itching Home Medications: Alendronate [Fosamax*] 20 mg PO EVERY 7TH DAY 07/12/22 Allopurinol 100 mg PO DAILY 07/12/22 Atorvastatin Calcium 20 mg PO DAILY 07/12/22 Furosemide 20 mg PO DAILY 07/12/22 Levothyroxine Sodium [Levothyroxine] 25 mcg PO DAILY 07/12/22 Lisinopril/Hydrochlorothiazide [Lisinopril-Hctz 20-25 mg Tab] 20 - 25 mg PO DAILY 07/12/22 Metoprolol Tartrate 25 mg PO BID 07/12/22 Potassium Chloride 20 meq PO BID 07/12/22 Sertraline [Zoloft] 50 mg PO DAILY 07/12/22 - Past Medical/Surgical History -: COPD -: HTN -: Hypercholesterolemia -: Heart Murmer -: AAA -: Hernia -: Splenectomy -: Cholecysectomy -: Hysterectomy - Family History Father Family History: Reviewed- Non-Contributory - Social History Smoking Status: Unknown if ever smoked Alcohol use: No CD- Drugs: No Review of Systems 10-point ROS is otherwise unremarkable Physical Examination - Vital Signs Temperature: 96.9 F Blood Pressure: 108/59 Pulse: 82 Respirations: 18 Pulse Ox (%): 96 - Physical Exam General: Alert, In no apparent distress, Oriented x3 HEENT: Atraumatic, PERRLA, Mucous membr. moist/pink, Other ( NG tube is in place), EOMI, Sclerae nonicteric Neck: Supple, 2+ carotid pulse no bruit, No LAD, Without JVD or thyroid abnormality Respiratory: Clear to auscultation bilaterally, Normal air movement Cardiovascular: Regular rate/rhythm, Normal S1 S2 Gastrointestinal: Absent bowel sounds, Distended, Tenderness Musculoskeletal: No clubbing, No swelling, No tenderness Integumentary: No rashes Neurological: Sensation intact, Cranial nerves 3-12 intact Lymphatics: No axilla or inguinal lymphadenopathy - Studies Laboratory Data (last 24 hrs) 07/11/22 11:10: PT 11.0, INR 1.00 07/11/22 11:10: Sodium 140, Potassium 3.9, BUN 32 H, Creatinine 2.10 H, Glucose 182 H, Total Bilirubin 0.7, AST 20, ALT 21, Alkaline Phosphatase 81, Lipase 204 07/11/22 11:10: WBC 16.60 H, Hgb 12.9, Hct 40.0, Plt Count 196 Assessment & Plan - Problems (Diagnosis) (1) Cecal volvulus Current Visit: Yes Status: Acute (2) History of AAA (abdominal aortic aneurysm) repair Current Visit: Yes Status: Acute (3) Small bowel ischemia Current Visit: Yes Status: Acute (4) HTN (hypertension) Current Visit: Yes Status: Acute (5) COPD (chronic obstructive pulmonary disease) Current Visit: Yes Status: Acute - Plan Plan: 1. IV hydration 2. NG tube to low intermittent wall suction 3. monitor electrolytes 4. strict blood pressure blood sugar control 5. continue with IV antibiotics 6. GI/DVT prophylaxis - Advance Directives Does patient have a Living Will: No Does patient have a Durable POA for Healthcare: No - Code Status/Comfort Care Code Status Assessed: Yes Code Status: Full Code Critical Care: No Time Spent Managing PTS Care (In Minutes): 45
[2022-07-12] MEDS ORDERED: Magnesium Sulfate 2gm IVPB 2 G/50 ML BAG IV ONE ×2 (09:26→11:00)
[2022-07-12] MEDS ORDERED: NA CHLORIDE 0.9% 500 ML IV ONE (14:19)
[2022-07-12] MEDS ORDERED: MINERAL OIL 30 ML UCUP PO ONE (14:27)
--- NOTE | 2022-07-12 14:38 | P.PN ---
Date of Service: 07/12/22 S: Patient has no specific complaints today, has not required any IV pain medicine. Says she is feels much better than when she first presented to the hospital. Asking for some ice chips. O: Vital signs are stable, patient looks well today. Minimal out through the nasogastric tube. Surgical dressings are intact. Marginal urine output. Labs look well. A: Clinically much improved. In relatively good spirits. P: DC NG tube, will I will bolus the patient with some normal saline. Repeat labs in AM. Incentive spirometer. Ice chips and popsicles. DC NG tube. rehabilitation services director to see. Physical therapy consult.
[2022-07-12 15:26] VITALS: BMI 28.8
[2022-07-12] MEDS ORDERED: ACETAMINOPHEN 160 MG/5 ML UCUP PO ONE (15:36)
[2022-07-13] MEDS: METRONIDAZOLE 500mg IVPB 500 MG/100 ML BAG IV SCH ×3 (01:00→12:15)
--- NOTE | 2022-07-13 03:27 | P.PN ---
Subjective Date of Service: 07/12/22 continue with NG tube to low intermittent wall suctioning; diminished bowel sounds. Continue with IV hydration Review of Systems 10-point ROS is otherwise unremarkable Physical Examination - Vital Signs Temperature: 96.9 F Blood Pressure: 108/59 Pulse: 82 Respirations: 18 Pulse Ox (%): 96 - Physical Exam General: Alert, In no apparent distress, Oriented x3 Respiratory: Clear to auscultation bilaterally, Normal air movement Cardiovascular: Regular rate/rhythm, Normal S1 S2 Gastrointestinal: Non-distended, No rebound, No guarding, Absent bowel sounds, Tenderness Musculoskeletal: No clubbing, No swelling, No tenderness Integumentary: No rashes Neurological: Sensation intact, Cranial nerves 3-12 intact - Studies Medications List Reviewed: Yes Assessment & Plan - Problems (Diagnosis) (1) Cecal volvulus Current Visit: Yes Status: Acute (2) History of AAA (abdominal aortic aneurysm) repair Current Visit: Yes Status: Acute (3) Small bowel ischemia Current Visit: Yes Status: Acute (4) HTN (hypertension) Current Visit: Yes Status: Acute (5) COPD (chronic obstructive pulmonary disease) Current Visit: Yes Status: Acute - Plan Plan: Continue with plan of care as mentioned below: 1. IV hydration 2. NG tube to low intermittent wall suction 3. monitor electrolytes 4. strict blood pressure blood sugar control 5. continue with IV antibiotics 6. GI/DVT prophylaxis Discharge Plan: Home Plan to discharge in: Greater than 2 days - Advance Directives Does patient have a Living Will: No Does patient have a Durable POA for Healthcare: No - Code Status/Comfort Care Code Status: Full Code Critical Care: No Time Spent Managing PTS Care (In Minutes): 35
--- NOTE | 2022-07-13 03:44 | P.PN ---
Date of Service: 07/13/22 Subjective Review of Systems 10-point ROS is otherwise unremarkable Physical Examination - Vital Signs reviewed - Physical Exam General: Alert, In no apparent distress, Oriented x3 Respiratory: Clear to auscultation bilaterally, Normal air movement Cardiovascular: Regular rate/rhythm, Normal S1 S2 Gastrointestinal: Non-distended, No rebound, No guarding, Absent bowel sounds, Tenderness Musculoskeletal: No clubbing, No swelling, No tenderness Integumentary: No rashes Neurological: Sensation intact, Cranial nerves 3-12 intact Assessment & Plan - Problems (Diagnosis) (1) Cecal volvulus Current Visit: Yes Status: Acute (2) History of AAA (abdominal aortic aneurysm) repair Current Visit: Yes Status: Acute (3) Small bowel ischemia Current Visit: Yes Status: Acute (4) HTN (hypertension) Current Visit: Yes Status: Acute (5) COPD (chronic obstructive pulmonary disease) Current Visit: Yes Status: Acute - Plan Continue with plan of care as mentioned below: 1. continue with IV hydration 2. NG tube has been removed; 3. monitor electrolytes 4. strict blood pressure & blood sugar control 5. continue with IV antibiotics 6. GI/DVT prophylaxis Discharge Plan: Home Plan to discharge in: Greater than 2 days - Advance Directives Does patient have a Living Will: No Does patient have a Durable POA for Healthcare: No - Code Status/Comfort Care Code Status: Full Code Critical Care: No Time Spent Managing PTS Care (In Minutes): 35
[2022-07-13] MEDS: Ringers Lactate 1,000 ML IV SCH ×3 (04:24→17:00)
[2022-07-13] MEDS ORDERED: Ringers Lactate 1,000 ML IV ONE (06:19)
[2022-07-13] MEDS: HYDROMORPHONE HCL 0.5 MG/0.5 ML INJ IV PRN ×4 (06:38→19:33)
[2022-07-13 06:59] LABS: Absolute Lymphocytes (CBC) 1.5 K/uL (0.7-4.9); Lymphocytes % 11.1 % (15.3-44.8); MCV 90.8 fL (80-100); MPV 9.1 fL (7.6-11.3); RBC Red Blood Cell Count 2.64 M/uL (3.86-4.86)
[2022-07-13 07:15] LABS: Albumin 2.3 g/dL (3.4-5.0); Bilirubin Total 0.8 mg/dL (0.2-1.0); Magnesium 2.3 mg/dL (1.6-2.4); Potassium 3.4 mmol/L (3.5-5.1); Protein, Total 5.1 g/dL (6.4-8.2)
[2022-07-13] MEDS ORDERED: KCL 20 MEQ/100 mL IVPB 20 MEQ/100 ML BAG IV SCH ×2 (11:00→13:00)
--- NOTE | 2022-07-13 15:05 | P.PN ---
Date of Service: 07/13/22 S: Patient has no complaints, hardly taking any pain medicine at all. Sitting up in a chair, no specific complaints. Starting to feel some gas rumblings. O: Vital signs are stable, hemoglobin down to 23 and 7.9 labs acceptable. Adequate urine output. Incisions clean, no drainage. A: Stable status post exploratory laparotomy and right hemicolectomy. P: Continue to mobilize patient, I will order a physical therapy consult, and social work administrator to see in regards to home health care. We will discontinue her Murguia catheter. Continue incentive spirometry. Patient may be transferred to the regular floor.
[2022-07-13] MEDS ORDERED: Levofloxacin500mg IV 500 MG/100 ML BAG IV SCH (18:00)
[2022-07-13] MEDS: ACETAMINOPHEN 325 MG TABLET PO PRN (19:38)
[2022-07-14] MEDS: Ringers Lactate 1,000 ML IV SCH ×3 (03:44→23:00)
[2022-07-14 06:06] LABS: Absolute Lymphocytes (CBC) 1.7 K/uL (0.7-4.9); Hematocrit 21.6 % (36.0-45.0); Lymphocytes % 13.9 % (15.3-44.8); MCV 89.9 fL (80-100); MPV 9.2 fL (7.6-11.3)
[2022-07-14 06:20] LABS: Potassium 3.8 mmol/L (3.5-5.1)
[2022-07-14] MEDS ORDERED: POTASSIUM CL SA 10 MEQ TAB PO ONE ×2 (06:22→06:35)
--- NOTE | 2022-07-14 15:19 | P.PN ---
Date of Service: 07/14/22 S: Patient in good spirits today, sitting up in the chair, using her incentive spirometer. Vital signs are stable. O: Chest movement equal bilaterally. His abdominal dressings are dry. A: Surgically stable P: Continue to mobilize patient, anticipate discharge soon.
[2022-07-14] MEDS: ACETAMINOPHEN 325 MG TABLET PO PRN (17:42)
[2022-07-14] MEDS: HYDROMORPHONE HCL 0.5 MG/0.5 ML INJ IV PRN (23:31)
--- NOTE | 2022-07-15 02:09 | P.PN ---
Date of Service: 07/14/22 Subjective Patient clinically is improving. Cis tolerating diet today. Advance per surgery. Working well with physical therapy. Overall much improved. Review of Systems 10-point ROS is otherwise unremarkable Physical Examination - Vital Signs reviewed - Physical Exam General: Alert, In no apparent distress, Oriented x3 Respiratory: Clear to auscultation bilaterally, Normal air movement Cardiovascular: Regular rate/rhythm, Normal S1 S2 Gastrointestinal: Non-distended, No rebound, No guarding, Absent bowel sounds, Tenderness Musculoskeletal: No clubbing, No swelling, No tenderness Integumentary: No rashes Neurological: Sensation intact, Cranial nerves 3-12 intact Assessment & Plan - Problems (Diagnosis) (1) Cecal volvulus Current Visit: Yes Status: Acute (2) History of AAA (abdominal aortic aneurysm) repair Current Visit: Yes Status: Acute (3) Small bowel ischemia Current Visit: Yes Status: Acute (4) HTN (hypertension) Current Visit: Yes Status: Acute (5) COPD (chronic obstructive pulmonary disease) Current Visit: Yes Status: Acute - Plan Continue with plan of care as mentioned below: 1. continue with IV hydration 2. NG tube has been removed; Started on clear liquid diet. Will advance slowly. 3. monitor electrolytes 4. strict blood pressure & blood sugar control 5. continue with IV antibiotics 6. Doing well with physical therapy 7. GI/DVT prophylaxis
[2022-07-15 04:05] LABS: Potassium 3.5 mmol/L (3.5-5.1)
[2022-07-15] MEDS ORDERED: POTASSIUM CL SA 10 MEQ TAB PO ONE (05:16)
--- NOTE | 2022-07-15 14:10 | P.PN ---
Date of Service: 07/15/22 S: Patient feels well today, but just extremely tired. Has been tolerating a diet, using her incentive spirometer, feels good but just out of energy today. O: Vital signs are stable, patient looks well, dressing taken down incision is clean. A: Patient is doing well from a surgical standpoint. Receiving physical therapy for strengthening. P: Patient is stable from a surgical point of view. She is just now awaiting placement. When she is discharged she is free to follow up in my office. I would see her in 2 to 3 weeks time. Obviously if she has any questions or problems, she is free to contact me. She is happy with this arrangement.
[2022-07-15] MEDS: HYDROMORPHONE HCL 0.5 MG/0.5 ML INJ IV PRN (16:00)
[2022-07-15] MEDS: Ringers Lactate 1,000 ML IV SCH ×2 (16:00→19:00)
[2022-07-16] MEDS: Ringers Lactate 1,000 ML IV SCH (04:28)
[2022-07-16 04:34] LABS: Potassium 3.3 mmol/L (3.5-5.1)
[2022-07-16] MEDS ORDERED: POTASSIUM CL SA 10 MEQ TAB PO ONE (09:00)
[2022-07-16 09:39] VITALS: O2SAT 92
[2022-07-16 10:35] VITALS: BP 171/81; TEMP 98.4
== END 2022-07-16 13:30 | DRG 853 ==
LOC: ER 10:25 → ERHOLD 14:39 → 3RD-ICU 17:24 → 4TH 07-13 18:35
PROVIDERS: ADMIT Hospitalist; ATTEND Hospitalist
PROC: 0DTF0ZZ Resection of Right Large Intestine, Open Approach (ICD-10-PCS; 2022-07-11)
PROC: 0DNW0ZZ Release Peritoneum, Open Approach (ICD-10-PCS; principal; 2022-07-11 16:30)
DX: A41.9 Sepsis, unspecified organism (principal); K55.019 Acute (reversible) ischemia of small intestine, extent unspecified; K56.2 Volvulus; N17.0 Acute kidney failure with tubular necrosis; K65.9 Peritonitis, unspecified; J44.9 Chronic obstructive pulmonary disease, unspecified; I10 Essential (primary) hypertension; K63.89 Other specified diseases of intestine; Z88.5 Allergy status to narcotic agent; Z90.49 Acquired absence of other specified parts of digestive tract; Z90.81 Acquired absence of spleen; Z28.311 Partially vaccinated for COVID-19; Z90.710 Acquired absence of both cervix and uterus; Z87.891 Personal history of nicotine dependence; Z79.890 Hormone replacement therapy; Z79.899 Other long term (current) drug therapy; Z20.822 Contact with and (suspected) exposure to COVID-19
CPT/HCPCS: 0240U; 36415; 71250; 74018; 74176; 80048; 80053; 81003; 83605; 83690; 83735; 84132; 85025; 85610; 85730; 86850; 86900; 86901; 87040; 88307; 94010; 96361; 96365; 96366; 96375; 97110; 97116; 97161; 97530; 99285; J1100; J1170; J2001; J2370; J2405; J2543; J2704; J2710; J3010; J3475; J3480; J7040; J7120; P9045; U0003

== ENCOUNTER 2022-07-18 10:06 | Emergency (ER) | payer OTHER, BC ==
--- OUTSIDE RECORDS SUMMARY | 2022-07-18 10:12 | XMS REPORT | Continuity of Care Document ---
:1945 Author Organization [facility] t Address [address] [place] [address] Care Team Providers Name Role Phone ARELIS OWEN Attending Clinician Unavailable ANNE MARIE CONCEPCION Attending Clinician Unavailable Surgery-IHDE Attending Clinician Unavailable BOSSMAN, DR CHARMAINE Denney Attending Clinician Unavailable BOSSMAN, DR MONTANO Attending Clinician Unavailable CHARMAINE KEITA Attending Clinician Unavailable ROCKY JOSE Attending Clinician [...] Date Expiration Date S gema MEDIC[place] B-[place]: [id number] 1996 [employer] 00:00:00 [place] [id number] 2010 [place] (PP[place] 00:00:00 [place]: [id number] 1996 [employer] 00:00:00 [facility] [id number] 1959 00:00:00 [id number] 1959 00:00:00 Problems Condition Condition Condition Status Onset Resolution Last Treating Co mments Source Name Details Category Date Date Treatment Clinician Date Gout Gout Problem Active [place] 11-26 da 00:00: Medical 00 Group Degenerati Degenerati Problem [...] 5 MG Oral (LUF/ LI Tablet Tablet V/SA) acetaminoph acetaminoph Yes 4xD orally [facility] (LUF/LI V/SA) furosemide furosemide Yes 20mg 1xD orally C [...] shot 2020-10-[address] [facility] 00:00:00 [facility] ([facility]/SA) influenza virus influenza virus 2019-03-[address] [facility] vaccine, NOS vaccine, NOS 00:00:00 [facility] (LUF/MICHELLE/SA) Vital Signs Vital Name Observation Time Observation [...] KG BP Diastolic 2019-11-27 00:00:00 80 mm[Hg] [facility] Height 2019-11-27 00:00:00 61 [in_i] [facility] BMI (Body Mass 2019-11-27 00:00:00 29.3 kg/m2 [facility] Medical Index) Group BP Systolic 2019-11-27 00:00:00 140 mm[Hg] [facility] Body Weight 2019-11-27 00:00:00 154.9 [lb_av] [facility] Weight 2019-03-18 03:30:00 79.7 KG Height 2019-03-14 09:45:00 154.94 CM Body Temperature 2020-12-09 11:10:00 97.6 [degF] [facility] ([facility]/) Pulse Rate 2020-12-09 11:10:00 63 /min [facility] ([facility] Respiratory Rate 2020-12-09 11:10:00 15 /min [facility] ([facility]/MICHELLE/SA) O2% BldC Oximetry 2020-12-09 11:10:00 95 % [facility] (LUF/MICHELLE/SA) BP Systolic 2020-12-09 11:10:00 138 mm[Hg] [facility] (LUF/MICHELLE/SA) BP Diastolic 2020-12-09 11:10:00 78 mm[Hg] [facility] (LUF/MICHELLE/SA) Weight 2020-12-09 00:40:00 70.4 kg [facility] (LUF/MICHELLE/SA) Height 2020-11-30 00:03:00 61 [in_i] [facility] (LUF/MICHELLE/SA) Heart Rate 2020-11-29 22:46:00 76 /min [facility] (LUF/MICHELLE/SA) Body Temperature 2020-11-27 11:00:00 97 [degF] [facility] (LUF/MICHELLE/SA) Pulse Rate 2020-11-27 11:00:00 58 /min [facility] (LUF/MICHELLE/SA) Respiratory Rate 2020-11-27 11:00:00 18 /min [facility] (LUF/MICHELLE/SA) O2% BldC Oximetry 2020-11-27 11:00:00 91 % [facility] (LUF/MICHELLE/SA) BP Systolic 2020-11-27 11:00:00 113 mm[Hg] [facility] (LUF/MICHELLE/SA) BP Diastolic 2020-11-27 11:00:00 57 mm[Hg] [facility] (LUF/MICHELLE/SA) Weight 2020-11-27 00:00:00 77.8 kg [facility] (LUF/MICHELLE/SA) Height 2020-11-24 09:18:00 61 [in_i] [facility] (LUF/MICHELLE/SA) Pulse Rate 2019-08-27 16:00:00 53 /min [facility] (LUF/MICHELLE/SA) Respiratory Rate 2019-08-27 16:00:00 13 /min [facility] (LUF/MICHELLE/SA) O2% BldC Oximetry 2019-08-27 16:00:00 99 % [facility] (F/MICHELLE/SA) BP Systolic 2019-08-27 16:00:00 134 mm[Hg] [facility] ([facility]/MICHELLE/SA) BP Diastolic 2019-08-27 16:00:00 65 mm[Hg] [facility] (F/MICHELLE/SA) Body Temperature 2019-08-27 12:34:00 98 [degF] [facility] ([facility]/MICHELLE/SA) Height 2019-08-27 12:34:00 60 [in_i] [facility] ([facility]/MICHELLE/SA) Weight 2019-08-27 12:34:00 72.1 kg [facility] ([facility]LE[facility]/SA) BMI (Body Mass 2019-08-27 12:34:00 31.2 kg/m2 [facility] Index) [facility] ([facility]/SA) Procedures Procedure Date / Time Performing Clinician Source Performed ROBOTIC VENTRAL HERNIA 2020-12-04 17:53:00 BRUNO Stevens t [place] REPAIR [facility] ([facility]/MICHELLE/SA) SUPPLEMENT ABDOMIN WALL 2020-12-04 00:00:[address] [facility] SYN PC ENDO [facility] ([facility] RELEASE PERITONEUM PERQ 2020-12-04 00:00:00 BRUNO Acosta ENDO APPR [facility] ([facility]/MICHELLE/SA) ROBOTIC ASSTD PROC TRUNK 2020-12-04 00:00:00 BRUNO Acosta PERQ ENDO [facility] ([facility]/MICHELLE/SA) ROBOTIC INCISIONAL HERNIA 2020-11-26 08:21:[address] [facility] REPAIR [facility] ([facility]/MICHELLE/SA) [id number] LAPS RPR RECURRENT 2020-11-26 00:00:00 BRUNO Acosta INCAL HRNA NCRC [facility] ([facility]/MICHELLE/SA) 07436 TAP BLOCK BILATERAL 2020-11-26 00:00:[address] [facility] BY INJECTION(S [facility] ([facility]/MICHELLE/SA) ACDIF 2019-03-15 15:50:[address] [facility] (LUF/MICHELLE/SA) CERVICAL LAMINECTOMY FOR 2019-03-15 14:16:[address] [facility] SYNOVIAL CYST, ANTERIOR [facility] DISCECTOMY ONE LEVEL WITH (LUF/L IV/SA) ALLOGRAFT AND INSTRUMENTATION 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 (LUF/MICHELLE/SA) Repair of aneurysm of [facility] abdominal aorta [facility] (LUF/MICHELLE/SA) Cataract extraction and [facility] insertion of intraocular Memoria l lens (LUF/MICHELLE/SA) Appendectomy [facility] (LUF/MICHELLE/SA) Tonsillectomy [facility] (LUF/MICHELLE/SA) Cholecystectomy [facility] (LUF/MICHELLE/SA) Hysterectomy [facility] (LUF/MICHELLE/SA) Decompression of median [facility] uk nerve [facility] (LUF/MICHELLE/SA) Decompression of ulnar [facility] nerve at elbow [facility] (LUF/MICHELLE/SA) Encounters Start End Encounter Admission Attending Care Care Encounter Source Date/Time Date/Time Type Type Clinicians Facility Department ID 2021-07-15 Outpatient [facility] [id number] Common 11:31:30 [id number] [facility] 2020-11-29 2020-12-09 OTH UNS Juan OWEN, [facility] [id number] [facility] St 18:41:00 15:20:00 VNTRL ERI INFANTE [place] Rebekah es OBSTRCT NO [place], Memor ia GANGR [address] (LUF/LI AVE, V/SA) SUSIE WILD [id number] 2020-11-29 2020-11-29 Inpatient [facility] [id number] [facility] 00:00:00 [place] [id number] Rebekah [facility], [id number] Memor ia [address] [id number] [address] (LUF/LI AVE, V/SA) [place] [id number] 2020-11-29 2020-11-29 Inpatient [facility] [id number] 00:[facility]:00 00:00:00 [place] [id number] Rebekah es [place], [id number] Memor ia [address] [id number] [address] (LUF/LI AVE, V/SA) SUSIE WILD [id number] 2020-11-26 2020-11-27 INCISION O BASSIN, [facility] [id number] 12:23:00 14:30:00 HERNIA ANNE MARIE [place] Nallelykes W/OBST W/[facility] GANGRENE [address] (LUF/LI AVE, V/SA) [place] [id number] 2020-11-26 2020-11-26 Inpatient [facility] [id number] 00:00:00 00:00:00 [place] [id number] [facility], [id number] Memor ia [address] [id number] (LUF/LI AVE, V/SA) [place] [id number] 2020-07-04 2020-07-04 ENCOUNTER [facility] [id number] [facility] St 08:53:00 23:59:00 PREPROCEDU [facility], Memoria EXAM [address] (LUF/LI AVE, V/SA) [place]ILD [id number] 2020-07-04 2020-07-04 Inpatient [facility] [id number] [facility] 00:[facility]:00 00:00:00 [place] [id number] [facility], [id number] Memor ia [address] [id number] [address] (LUF/LI AVE, V/SA) [place]ILD [id number] 2020-07-04 2020-07-04 Inpatient [facility] [id number] [facility] 00:[facility]:00 00:00:00 [place] [id number] [facility], [id number] Memor ia [address] [id number] [address] (LUF/LI AVE, V/[place]) [place] [address] 2020-05-07 2020-05-07 Outpatient Surgery-IHD [facility] 584 [place] 02:36:00 02:36:00 E 1118 [facility] 2019-11-27 2019-11-27 Outpatient Surgery-IHD [facility] MMG 584 [place] 07:29:00 07:29:00 E 0609 [facility] 2019-11-27 2019-11-27 [facility] [place] - [id number] M [place] 00:00:00 00:00:00 Edwin River MD: Medical Medica l [address] [facility] [address], [place] [address] , Ph. [phone] 2019-11-14 2019-11-14 Outpatient Surgery-IHD [facility] 584 [place] 01:04:00 01:04:00 E 0527 [facility] 2019-08-31 2019-08-31 ENC GEN O JAMIA MORELOS [facility] [place] [id number] 09:42:00 23:59:00 ADULT EXAM [place] Rebekah es W/O ABNORM [place], Memor ia FIND [address] (LUF/LI A[address], V/SA) [place] [address] 2019-08-27 2019-08-27 WAYNE E [place], [place] [id number] [facility] St 12:21:00 16:30:00 HERNIA W/O ARELIS [place] Rebekah es OBST/GANGR [place], Memor ia ELMO [address] (LUF/LI AVE, V/SA) [place] [address] 2019-05-22 2019-06-[address] [facility] [id number] 08:47:00 23:59:00 CHARMAINE arthur (LUF/LI V/SA) Results Test Description Test Time Test Comments Results Result Comments Source [facility] 2020-12-09 05:16:00 Test Item Value Reference Range [...] EGFR if Non- >60 mL/min/1.73m\\S\\2 Estimated Glomerular Guinean (test code = Filtra tion Rate (eGFR) [...] assessment and management of chronic kidney failure. [id number] 05:16:00 Test Item Value Reference Range Interpretation Comments Magnesium (test code = MG) 2.1 mg/dl 1.6-2.6 STLMLCBC WITH AUTO [id number] 04:58:00 Test Item Value Reference Range Interpretation [...] code = 0.9 % 0.0-0.4 H IG%) [id number] 06:09:00 Test Item Value Reference Range Interpretation Comments Magnesium (test code = MG) 1.5 mg/dl 1.6-2.6 L [id number] 06:09:00 Test Item Value Reference Range Interpretation [...] 0.5-1.3 code = CREA) EGFR if >60 [place] (test code mL/min/1.73m\\ = EGFRAA) S\\2 EGFR if Non- >60 Estimate d Glomerular [place]inean (test code mL/min/1.73m\\ Filtrat ion Rate (eGFR) [...] c hronic kidney failure. STLMLCBC WITH AUTO [id number] 05:49:00 Test Item Value Reference Range Interpretation [...] code = 0.7 % 0.0-0.4 H IG%) [id number] 06:36:00 Test Item Value Reference Range Interpretation Comments Magnesium (test code = MG) 1.9 mg/dl 1.6-2.6 [id number] 06:36:00 Test Item Value Reference Range Interpretation [...] 0.5-1.3 code = CREA) EGFR if >60 Guinean (test code mL/min/1.73m\\ = EGFRAA) S\\2 EGFR if Non- >60 Estimate d Glomerular [place]inean (test code mL/min/1.73m\\ Filtrat ion Rate (eGFR) [...] c hronic kidney failure. STLMLCBC WITH AUTO [id number] 06:14:00 Test Item Value Reference Range Interpretation [...] code = 0.6 % 0.0-0.4 H IG%) [id number] 05:40:00 Test Item Value Reference Range Interpretation Comments Magnesium (test code = MG) 1.5 mg/dl 1.6-2.6 L [id number] 05:40:00 Test Item Value Reference Range Interpretation [...] 0.5-1.3 code = CREA) EGFR if >60 [place]inean (test code mL/min/1.73m\\ = EGFRAA) S\\2 EGFR if Non- >60 Estimate d Glomerular Guinean (test code mL/min/1.73m\\ Filtrat ion Rate (eGFR) [...] c hronic kidney failure. STLMLCBC WITH AUTO [id number] 05:25:00 Test Item Value Reference Range Interpretation [...] 0.0-0.4 H IG%) STLMLXR CHEST AP/PA 1 [id number] 18:18:24 BRUNO [facility] ([facility])Name: LILLIE LEON : 1945 Sex: FProcedure: XR CHEST AP/PA 1 VIEWOrder Date: 12/05/2020 5:13 PMOrdering Provider: KATHERINE HAQ .Clinical Indication: [id number]: Nasogastric tube in situComparison: NoneFindings:NG tube in [...] MD :13 PMDictated By: ARTIE CAMARADate: 12/05/2020 18:[id number] 06:41:00 Test Item Value Reference Range Interpretation [...] 0.5-1.3 code = CREA) EGFR if >60 Guinean (test code mL/min/1.73m\\ = EGFRAA) S\\2 EGFR if Non- >60 Estimate d Glomerular Guinean (test code mL/min/1.73m\\ Filtrat ion Rate (eGFR) [...] and management of c hronic kidney failure. [id number] 06:41:00 Test Item Value Reference Range Interpretation Comments Magnesium (test code = MG) 1.6 mg/dl 1.6-2.6 STLMLCBC WITH AUTO [id number] 06:22:00 Test Item Value Reference Range Interpretation [...] code = 0.5 % 0.0-0.4 H IG%) [id number] 21:11:00 Test Item Value Reference Range Interpretation [...] gm/dl 11.5-17.4 L O2Hb (test code = TDXK0SL) >95.0 % 95.0-99.0 N COHb (test code [...] BGTMNOTIFIED) O2 Device (test code = BIPAP [id number]) Respiratory Rate (test code = 18 BGRR) Set Rate (test code = 12 BGSETRATE) Instrument ID (test code = 19709 BGINSTRID) Reported By (test code = SYDNEE VILLAGRAN BGREPORTEDBY) [id number] 20:10:00 Test Item Value Reference Range Interpretation [...] gm/dl 11.5-17.4 L O2Hb (test code = FGSB7MU) >95.0 % 95.0-99.0 N COHb (test code [...] O2 Device (test code = Simple Mask [id number]) L/M (test code = BGL/M) 10.0 Instrument ID (test code = 81964 BGINSTRID) Comments (test code = POST OP BGCOMMENTS) Reported By (test code = SYDNEE VILLAGRAN BGREPORTEDBY) [id number] 06:20:00 Test Item Value Reference Range Interpretation [...] 0.5-1.3 code = CREA) EGFR if >60 [place] (test code mL/min/1.73m\\ = EGFRAA) S\\2 EGFR if Non- >60 Estimate d Glomerular Guinean (test code mL/min/1.73m\\ Filtrat ion Rate (eGFR) [...] and management of c hronic kidney failure. [facility]kn-[id number] 06:20:00 Test Item Value Reference Range Interpretation Comments Magnesium (test code = MG) 1.6 mg/dl 1.6-2.6 [facility] WITH AUTO [id number] 05:57:00 Test Item Value Reference Range Interpretation [...] (test code = 0.4 % 0.0-0.4 IG%) [facility]-LufkinFL SMALL BOWEL [id number] 17:51:48Mild Laxative day before procedure. NPO after midnight. [facility] ([facility])Name: LILLIE LEON : 1945 Sex: FProcedure: FL SMALL BOWEL XRAYOrder Date: December 03, 2020Ordering Provider: DR ANNE MARIE CONCEPCION .Clinical Indication: [id number]: Intestinal obstructionComparison: CT abdomen and pelvis November 29, 2020Findings:Torch Operator film KUB was obtained. Multiple dilated loops [...] MD 15:46 PMDictated By: DUSTY SWARTZDate: 12/03/2020 17:46[facility] [id number] 06:01:00 Test Item Value Reference Range Interpretation [...] 0.5-1.3 code = CREA) EGFR if >60 Guinean (test code mL/min/1.73m\\ = EGFRAA) S\\2 EGFR if Non- >60 Estimate d Glomerular Guinean (test code mL/min/1.73m\\ Filtrat ion Rate (eGFR) [...] and management of c hronic kidney failure. [facility] ClinicsYmwstb-[id number] 06:01:00 Test Item Value Reference Range Interpretation Comments Magnesium (test code = MG) 1.7 mg/dl 1.6-2.6 [facility] WITH AUTO [id number] 05:58:00 Test Item Value Reference Range Interpretation [...] (test code = 0.3 % 0.0-0.4 IG%) [facility] ClinicsTesneg-[id number] 17:24:00 Test Item Value Reference Range Interpretation Comments Potassium (test code = K) 3.3 mmol/l 3.5-5.1 L [facility]-[id number] 04:25:00 Test Item Value Reference Range Interpretation [...] 0.5-1.3 code = CREA) EGFR if >60 Guinean (test code mL/min/1.73m\\ = EGFRAA) S\\2 EGFR if Non- >60 Estimate d Glomerular Guinean (test code mL/min/1.73m\\ Filtrat ion Rate (eGFR) [...] were called to ty lemon k4 by [id number] on 12/02/20 04:25 . Results were read back by ty lemon k4.[facility]-[place] Court HouseMAGNESIUM 2020-12-02 04:25:00 Test Item Value Reference Range Interpretation Comments Magnesium (test code = MG) 1.7 mg/dl 1.6-2.6 [facility] WITH AUTO [id number] 04:12:00 Test Item Value Reference Range Interpretation [...] (test code = 0.3 % 0.0-0.4 IG%) [facility] ClinicsOixecb-[id number] 06:53:00 Test Item Value Reference Range Interpretation Comments Magnesium (test code = MG) 1.7 mg/dl 1.6-2.6 [facility]-[id number] 06:53:00 Test Item Value Reference Range Interpretation [...] 0.5-1.3 code = CREA) EGFR if >60 Guinean (test code mL/min/1.73m\\ = EGFRAA) S\\2 EGFR if Non- >60 Estimate d Glomerular Guinean (test code mL/min/1.73m\\ Filtrat ion Rate (eGFR) [...] and management of c hronic kidney failure. [facility]-fkinCBC WITH AUTO [id number] 06:15:00 Test Item Value Reference Range Interpretation [...] (test code = 0.4 % 0.0-0.4 IG%) [facility] ClinicsGomnyf-[id number] 23:15:00 Test Item Value Reference Range Interpretation Comments Potassium (test code = K) 3.5 mmol/l 3.5-5.1 [facility]-LufkinXR ABDOMEN 2 VIEWS FLAT / [id number] 17:21:26[facility] (LUF/MICHELLE/SA)Name: LILLIE LEON : 1945 Sex: FProcedures: XR ABDOMEN 2 VIEWS FLAT / UPRIGHTExam Date: 11/30/2020 2:03 PMOrdering Physician: DR SANTO ORDAZ .Clinical Indication: [id number]: Intestinal obstructionComparison: CT abdomen/pelvis, November 29, 2020Findings: [...] MD11/30/2020 5:16 PMDictated By: YASMANY VEGADate: 11/30/2020 17:16[facility]2021-06-13 10:20:00 Test Item Value Reference Range Interpretation Comments Potassium (test code = K) 3.3 mmol/l 3.5-5.1 L [facility]-[id number] 05:25:00 Test Item Value Reference Range Interpretation [...] ( 4 - SerumAlbumin)] EGFR if >60 Guinean (test code mL/min/1.73m\\ = EGFRAA) S\\2 EGFR if Non- >60 Estimate d Glomerular Guinean (test code mL/min/1.73m\\ Filtrat ion Rate (eGFR) [...] and management of c hronic kidney failure. [facility] ClinicsJqchte-[id number] 05:25:00 Test Item Value Reference Range Interpretation Comments Magnesium (test code = MG) 1.6 mg/dl 1.6-2.6 [facility]CB WITH AUTO [id number] 05:10:00 Test Item Value Reference Range Interpretation [...] (test code = 0.4 % 0.0-0.4 IG%) [facility]-LufkinCORONAVIRUS 2019 (IN LUKIN)(3HR)2020-11-29 22:04:00 Test Item Value [...] contact the Coronavirus Rick [facility] Center at [phone]. [address]-LufkinCT ABDOMEN/PELVIS W/O [id number] 17:49:54possible SBO [facility] ([facility])Name: LILLIE LEON : 1945 Sex: FProcedures: CT ABDOMEN/PELVIS W/O CONTRASTExam Date: 11/29/2020 4:16 PMOrdering Physician: ARELIS OWENClinical Indication: [id number]: VomitingComparison: CT abdomen/pelvis, August 27, 2019TECHNIQUE: Spiral [...] PMDictated By: YASMANY VEGADate: 11/29/2020 17:44[facility] – [id number] 17:01:00 Test Item Value Reference Range Interpretation Comments Lipase (test code = LIPA) 56 U/L 73-393 L [facility] CenterHEP[facility] FUN[facility] PAN[facility] (LIVER)2020-11-29 17:01:00 Test Item Value [...] (test code = 0.6 mg/dl 0.0-1.1 IBIL) [facility] CenterMAGNESIUM2021-06-12 17:01:00 Test Item Value Reference Range Interpretation Comments Magnesium (test code = MG) 1.7 mg/dl 1.6-2.6 [facility] LAB CHEM [id number] 16:38:00 Test Item Value Reference Range Interpretation [...] (test code = CREA) 1.0 mg/dl 0.6-1.3 [facility] LAB CBC WITH AUTO [id number] 16:38:00 Test Item Value Reference Range Interpretation [...] (test code = IG%) 0.3 % 0.0-0.4 [facility]-[id number] 06:46:00 Test Item Value Reference Range Interpretation [...] 0.5-1.3 code = CREA) EGFR if 56 Guinean (test code mL/min/1.73m\\ = EGFRAA) S\\2 EGFR if Non- 47 Estimate d Glomerular Guinean (test code mL/min/1.73m\\ Filtrat ion Rate (eGFR) = EGFRNA) S\\2 Reference Inter vals Decision Points for 18 years and older and average body ma ss: >= 60 Does not ex clude kidney disease. 30 - 59 Suggests mod erate chronic kidney disease and indicates t he need for further investigation including asses sment of proteinuria and cardiovascular factors. < 30 U sually indicates a nee d for referral for assessment and management of c hronic kidney failure. [facility]kinUO[facility] WITH AUTO [id number] 06:20:00 Test Item Value Reference Range Interpretation [...] (test code = 0.3 % 0.0-0.4 IG%) [facility]-[id number] 07:54:00 Test Item Value Reference Range Interpretation [...] 0.5-1.3 code = CREA) EGFR if >60 Guinean (test code mL/min/1.73m\\ = EGFRAA) S\\2 EGFR if Non- 51 Estimate d Glomerular Guinean (test code mL/min/1.73m\\ Filtrat ion Rate (eGFR) = EGFRNA) S\\2 Reference Inter vals Decision Points for 18 years and older and average body ma ss: >= 60 Does not ex clude kidney disease. 30 - 59 Suggests mod erate chronic kidney disease and indicates t he need for further investigation including asses sment of proteinuria and cardiovascular factors. < 30 U sually indicates a nee d for referral for assessment and management of c hronic kidney failure. [facility]-LufkinCORONAVIRUS 2018 (IN FKIN)(3HR)2020-11-24 18:41:00 Test Item Value Reference [...] contact the Coronavirus Rick l Center at [phone]. [facility]-[id number] 08:57:00 Test Item Value Reference Range Interpretation [...] 0.5-1.3 code = CREA) EGFR if >60 Guinean (test code mL/min/1.73m\\ = EGFRAA) S\\2 EGFR if Non- 57 Estimate d Glomerular Guinean (test code mL/min/1.73m\\ Filtrat ion Rate (eGFR) [...] and management of c hronic kidney failure. [facility]-LufkinCBC WITH AUTO [id number] 08:56:00 Test Item Value Reference Range Interpretation [...] (test code = 0.4 % 0.0-0.4 IG%) [facility] CenterCULTURE, [id number] 14:09:00Specimen: Urine SpecimensCollected: 08/31/2019 09:52 Status: Final Last Updated: 09/02/2019 14:09 Culture Result (Final) (Final) Moderate Mixed Body Mariela Isolated No Pathogens IsolatedMeAur[facility] MilwaukeePTH INTACT (IH)2019-08-31 11:27:00 Test Item Value Reference Range Interpretation Comments PTH, INTACT (test code = PTH) 43 18-88 [facility] CenterB12, [id number] 11:18:00 Test Item Value Reference Range Interpretation Comments B12 (test code = B12) 354 pg/ml 193-986 [facility]inCOR[facility] [id number] 11:18:00 Test Item Value Reference Range Interpretation [...] (test code = 20 mg/dl 20-50 VLDL) [facility]-[id number] 11:18:00 Test Item Value Reference Range Interpretation [...] ( 4 - SerumAlbumin)] EGFR if >60 [place] (test code mL/min/1.73m\\ = EGFRAA) S\\2 EGFR if Non- 58 Estimate d Glomerular [place] (test code mL/min/1.73m\\ Filtrat ion Rate (eGFR) [...] and management of c hronic kidney failure. [facility]-[place]ufkinURIC [id number] 11:18:00 Test Item Value Reference Range Interpretation Comments Uric Acid (test code = URICA) 6.0 mg/dl 2.6-6.0 [facility]icsTihljx-[id number] 11:18:00 Test Item Value Reference Range Interpretation Comments Folic Acid (test code = FOLIC) 16.70 ng/ml 3.10-17.50 [facility]ufkinTSH (Ultra Sensitive)2019-08-31 11:18:00 Test Item Value Reference Range Interpretation Comments TSH (test code = TSH) 4.22 mIU/L 0.35-3.74 H [facility]-[place]ufkinPROTEIN/CREATNINE RATIO, Random [id number] 11:16:00 Test Item Value Reference Range Interpretation Comments Creatinine Urine Random (test code 25.0 mg/dl 10.0-300.0 = CREAR) Protein, Random Urine (test code = <5.0 mg/dl 0.0-11.9 N PROTU) Protein-Creatinine Ratio, Urine 0.20 % 0.00-0.20 (test code = PCRATIO) If a specimen is collected by a nurse, then you MUST fill out the Collected and Collected By angulo [facility] MICROALBUMIN, RANDOM [id number] 11:16:00 Test Item Value Reference Range Interpretation Comments Creatinine Urine Random (test code 25.0 mg/dl 10.0-300.0 = CREAR) Microalbumin, Urine (test code = <1 MALBU) Microalbumin/Creatinine Ratio 0 (test code = MRATIO) If a specimen is collected by a nurse, then you MUST fill out the Collected and Collected By angulo [facility] D 2019-08-31 11:05:00 Test Item Value Reference Range Interpretation Comments Vitamin D (test code = 33.75 VITAM IN D NORMAL RANGES: TVITD) Deficient <20 I nsufficient 20-<30 Sufficie nt 30-100 Potential Toxic ity >100 [facility] WITH [id number] 10:51:00 Test Item Value Reference Range Interpretation Comments Color (test code = UCOLR) Yellow Clarity (test code = UCLAR) Clear Glucose (test code = UGLUC) NEGATIVE NEGATIVE N Bilirubin (test code = UBILI) NEGATIVE NEGATIVE N Ketones (test code = UKET) NEGATIVE NEGATIVE N Specific [place] (test code = USPGR) 1.010 1.005-1.030 A [...] code = UBACT) 1+ None Seen,Trace A [facility] WITH AUTO [id number] 10:34:00 Test Item Value Reference Range Interpretation [...] (test code = 0.2 % 0.0-0.4 IG%) [facility] LAB CBC WITH AUTO [id number] 16:57:00 Test Item Value Reference Range Interpretation [...] entered by [id number] 82 on 08/27/2019 16:57 [facility]kinCT ABDOMEN/PELVIS W/[id number] 15:49:54 Procedure: CT ABDOMEN/PELVIS W/CONTRASTOrder date: 08/27/2019 2:00 PMOrdering Provider: ARELIS Galvaninical Indication: [id number]: Abdominal painComparison: NoneTechnique: Multiple axial helical CT [...] MD 08/27/20193:43 PMDictated By: DUSTY SWARTZDate: 08/27/2019 15:43[id number] 14:42:00 Test Item Value Reference Range Interpretation [...] ( 4 - SerumAlbumin)] EGFR if >60 [place] (test code mL/min/1.73m\\ = EGFRAA) S\\2 EGFR if Non- >60 Estimate d Glomerular [place]ine[place] (test code mL/min/1.73m\\ Filtrat ion Rate (eGFR) [...] and management of c hronic kidney failure. [facility] ClinicsDfqmbt-[id number] 14:42:00 Test Item Value Reference Range Interpretation Comments Lipase (test code = LIPA) 171 U/L 73-393 [facility] ClinicsMkqaim-[id number] 14:42:00 Test Item Value Reference Range Interpretation Comments Magnesium (test code = MG) 2.0 mg/dl 1.6-2.6 [facility]-[place]kinCT CERVICAL SPINE W/[id number] 14:04:19 Procedure: FL MYELOGRAM CERVICAL-IMAGING/S/I, CT CERVICAL SPINE W/CONTRASTOrder Date: 07/19/2019 9:00AMOrdering Provider: DR CHARMAINE KEITAClinical Indication: [id number]: Spinal stenosis in cervical regionComparison: X-ray of [...] PMDictated By: ARTIE CAMARADate: 07/19/2019 13:57[facility]ATERFL MYELOGRAM CERVICAL-IMAGING/S/[id number] 14:04:12Procedure: FL MYELOGRAM CERVICAL-IMAGING/S/I, CT CERVICAL SPINE W/CONTRASTOrder Date: 07/19/2019 9:00AMOrdering Provider: DR CHARMAINE KEITAClinical Indication: [id number]: Spinal stenosis in cervical reg ionComparison: X-ray [...] PMDictated By: ARTIE CAMARADate: 07/19/2019 13:57[facility] MODIFIED BARIUM [id number] 11:08:36Date: June 14, 2019Diagnosis: [id number]: Pharyngeal [id number]: Feeding problem, Cervical surgeryReferring Physician: DR CHARMAINE [...] a cough following verbal cues from the POSTAL SERVICE CLERK priorto aspiration. There wasflash penetration of honey [...] a cough following verbal cues from the POSTAL SERVICE CLERK prior to aspiration. There wasflash penetration of [...] was electronically signed by Saige Miller MS [facility]/SLP06/14/2019 11:02 AMDictated By: SAIGE MILLER.Date: 06/14/2019 11:02[facility]WATERTIC XR CERV SPINE 4-5 [id number] 11:40:03Procedure: TIC XR CERV SPINE 4-5 VWSOrder Date: 05/24/2019 3:34 PMOrdering Provider: CHARMAINE [facility] Indication: [id number]: Displacement of cervical intervertebral discComparison: April 26, [...] AMDictated By: SEA BLANCOKDate: 05/25/2019 11:33[facility] CT CERV SPINE W/WO [id number] 13:28:05Procedure: TIC CT CERV SPINE W/WO CONTRASTOrder [...] is multilevel osseous foraminal stenosis, greatest at C3-A2dapdihn C5-C6.There is no lytic or sclerotic lesion.The prevertebral soft tissues are normal.Minimal paraseptal emphysematous changes of the lung apices.IMPRESSION:1. Nonacute CT of the cervical spine with and without contrast.2. Postsurgical changes with cervical spondylosis as above.This final report was electronically signed by Dr Dusty Swartz MD 04/28/20191:21 PMDictated By: DUSTY SWARTZDate: 04/28/2019 13:21[facility] 2019-03-25 06:52:00 Test Item Value Reference Range [...] 0.5-1.3 code = CREA) EGFR if >60 [place] (test code mL/min/1.73m\\ = EGFRAA) S\\2 EGFR if Non- >60 Estimate d Glomerular [place]ine[place] (test code mL/min/1.73m\\ Filtrat ion Rate (eGFR) [...] and management of c hronic kidney failure. [facility]2019-03-25 06:33:00 Test Item Value [...] WILL BE NOTED ON THE RE PORT. [facility]-[id number] 06:46:00 Test Item Value Reference Range Interpretation [...] 0.5-1.3 code = CREA) EGFR if >60 [place] (test code mL/min/1.73m\\ = EGFRAA) S\\2 EGFR if Non- >60 Estimate d Glomerular Guine[place] (test code mL/min/1.73m\\ Filtrat ion Rate (eGFR) [...] and management of c hronic kidney failure. [facility]CBC (HEMOGRAM ONLY)2019-03-22 06:42:00 Test Item [...] WILL BE NOTED ON THE RE PORT. [facility]-[id number] 06:42:00 Test Item Value Reference Range Interpretation [...] 0.5-1.3 code = CREA) EGFR if >60 [place] (test code mL/min/1.73m\\ = EGFRAA) S\\2 EGFR if Non- >60 Estimate d Glomerular [place]ine[place] (test code mL/min/1.73m\\ Filtrat ion Rate (eGFR) [...] and management of c hronic kidney failure. [facility]CBC ([facility]MO[facility] ONLY)2019-03-19 06:29:00 Test Item [...] WILL BE NOTED ON THE RE PORT. [facility]-[id number] 05:38:00 Test Item Value Reference Range Interpretation [...] 0.5-1.3 code = CREA) EGFR if >60 [place] (test code mL/min/1.73m\\ = EGFRAA) S\\2 EGFR if Non- >60 Estimate d Glomerular [place] (test code mL/min/1.73m\\ Filtrat ion Rate (eGFR) [...] and management of c hronic kidney failure. [facility] WITH AUTO [id number] 05:05:00 Test Item Value Reference Range Interpretation [...] = 0.8 % 0.0-0.4 H IG%) [facility] (HEMOGRAM ONLY)2019-03-15 20:44:00 Test Item Value Reference [...] WILL BE NOTED ON THE RE PORT. [facility]-[id number] 11:24:00 Test Item Value Reference Range Interpretation [...] 0.5-1.3 code = CREA) EGFR if >60 Gu[place] (test code mL/min/1.73m\\ = EGFRAA) S\\2 EGFR if Non- >60 Estimate d Glomerular [place]an (test code mL/min/1.73m\\ Filtrat ion Rate (eGFR) [...] and management of c hronic kidney failure. [facility]-[place]kinURINALYSIS WITHOUT [id number] 11:02:00 Test Item Value Reference Range Interpretation Comments Color (test code = UCOLR) YELLOW Clarity (test code = UCLAR) CLEAR Glucose (test code = UGLUC) NEGATIVE NEGATIVE N Bilirubin (test code = UBILI) NEGATIVE NEGATIVE N Ketones (test code = UKET) NEGATIVE NEGATIVE N Specific [place] (test code = USPGR) 1.010 1.005-1.030 A Blood (test code = UBLD) NEGATIVE NEGATIVE N PH (test code = UPH) 7.5 4.5-8.0 A Protein (test code = UPROT) NEGATIVE NEGATIVE N Urobilinogen (test code = U UROB) 0.2 >0.2 N Nitrite (test code = UNITR) NEGATIVE NEGATIVE N Leukocyte Esterase (test code = SMALL NEGATIVE A ULEUK) [facility] (HEMOGRAM ONLY)2019-03-14 11:01:00 Test Item Value Reference [...] WILL BE NOTED ON THE RE PORT. [facility] HospitalkinI CSPINE W/O [id number] 18:58:11If patient is claustrophobic, contact ordering joie russell for additional instructions.Procedure: MRI CSPINE W/O CONTRASTOrder Date: 03/13/2019 1:15 PMOrdering Provider: ROCKY Aliciainical Indication: [id number]: Cervical disc disorder with myelopathyComparison: NoneTechnique: Multisequence, [...] PMDictated By: SEA BLANCOKDate: 03/13/2019 18:51[facility] BRAIN WO/W CONT 2019-03-13 15:28:36If patient [...] MD 03/13/20193:22PMDictated By: DUSTY SWARTZDate: 03/13/2019 15:22[facility]
[2022-07-18] MEDS ORDERED: NA CHLORIDE 0.9% 500 ML ONE (10:27)
[2022-07-18 10:35] LABS: Absolute Lymphocytes (CBC) 2.5 K/uL (0.7-4.9); Hematocrit 26.4 % (36.0-45.0); Lymphocytes % 25.6 % (15.3-44.8); MCV 90.6 fL (80-100); MPV 7.5 fL (7.6-11.3); RBC Red Blood Cell Count 2.92 M/uL (3.86-4.86)
--- NOTE | 2022-07-18 10:40 | RAD REPORT ---
EXAM DESCRIPTION: CT - Head Brain Wo Cont - 07/18/2022 10:33 am CLINICAL HISTORY: Mental status change, unknown cause COMPARISON: No comparisons TECHNIQUE: All CT scans are performed using dose optimization technique as appropriate and may inclu de automated exposure control or mA/KV adjustment according to patient size. FINDINGS: No intracranial hemorrhage, hydrocephalus or extra-axial fluid collection.No areas of brai n edema or evidence of midline shift. Cerebral atrophy. Chronic small vessel ischemic changes. The paranasal sinuses and mastoids are clear. The calvarium is intact. IMPRESSION: No acute intracranial abnormality.
[2022-07-18 10:41] LABS: Protime INR 1.04
[2022-07-18 10:52] LABS: Albumin 2.4 g/dL (3.4-5.0); Bilirubin Direct 0.2 mg/dL (0-0.2); Bilirubin Total 0.6 mg/dL (0.2-1.0); Magnesium 1.5 mg/dL (1.6-2.4); Potassium 3.1 mmol/L (3.5-5.1); Protein, Total 5.9 g/dL (6.4-8.2); Troponin High Sensitivity 21.1 pg/mL (<58.9)
[2022-07-18 10:57] LABS: Urine Blood Negative (Negative); Urine Glucose Negative (Negative); Urine Protein Negative (Negative); Urine Specific Gravity 1.015 (1.005-1.030)
[2022-07-18 11:07] LABS: Urine Bacteria None Seen /HPF (<20); Urine RBC <5 /HPF (None Seen)
--- NOTE | 2022-07-18 11:17 | RAD REPORT ---
EXAM DESCRIPTION: RAD - Chest Single View - 07/18/2022 11:02 am CLINICAL HISTORY: COUGH COMPARISON: Abdomen 1 View (KUB) dated 07/11/2022; Chest Pa And Lat (2 Views) dated 04/14/2022; Chest Abd Pelvis Wo Con dated 07/11/2022 FINDINGS: Lines: None. Lungs: Likely atelectasis as well as scarring at the left lung base. Pleural: Small left pleural effusion and elevated left hemidiaphragm. Cardiac: The heart size is within normal limits. Mediastinum: Within normal limits. Bones: No acute fractures. ACDF in the cervical spine. Other: Surgical clips in right upper quadrant. IMPRESSION: Small left pleural effusion and likely underlying atelectasis.
[2022-07-18] MEDS ORDERED: Magnesium Sulfate 2gm IVPB 2 G/50 ML BAG IV ONE (11:32)
[2022-07-18] MEDS ORDERED: POTASSIUM 25 MEQ EFFERV TAB ONE (11:32)
--- NOTE | 2022-07-18 11:32 | ER ---
Nurse's Notes [facility] Name: Olive Antony Age: 77 yrs Sex: Female : 1945 Arrival Date: 07/18/2022 Time: 10:07 Bed 6 Private MD: Diagnosis: Hypokalemia;Hypomagnesemia;Weakness;Pleural effusion, not elsewhere classified;Anemia, unspecified Presentation: 07/18 10:07 Chief complaint: EMS states: Per half-way staff, pt became unresponsive for approx hb 5 minutes during morning med pass. Per pt, she has narcolepsy and this is a normal occurrence. Denies pain/dizziness/SOB. Coronavirus screen: At this time, the client does not indicate any symptoms associated with coronavirus-19. Ebola Screen: No symptoms or risks identified at this time. Initial Sepsis Screen: Does the patient meet any 2 criteria? No. Patient's initial sepsis screen is negative. Does the patient have a suspected source of infection? No. Patient's initial sepsis screen is negative. Risk Assessment: Do you want to hurt yourself or someone else? Patient reports no desire to harm self or others. Onset of symptoms was July 18, 2022. 10:07 Method Of Arrival: EMS: [facility] hb 10:07 Acuity: BENY 3 hb Triage Assessment: 10:12 General: Appears in no apparent distress. Behavior is calm, cooperative. Pain: Denies hb pain. EENT: No signs and/or symptoms were reported regarding the EENT system. Neuro: Level of Consciousness is awake, alert, obeys commands, Oriented to person, place, time, situation. Cardiovascular: Patient's skin is warm and dry. Rhythm is regular. Respiratory: Respiratory effort is even, unlabored, Respiratory pattern is regular, symmetrical. GI: No signs and/or symptoms were reported involving the gastrointestinal system. : No signs and/or symptoms were reported regarding the genitourinary system. Derm: Skin is pink, warm \T\ dry. Musculoskeletal: No signs and/or symptoms reported regarding the musculoskeletal system. Historical: - Allergies: 10:09 Morphine; Hallucinations; hb - PMHx: 10:09 Chronic obstructive lung disease; Heart Murmur; Hypercholesterolemia; Hypertensive hb disorder; Triple A; - PSHx: 10:09 Cholecystectomy; hernia; hysterectomy; Splenectomy; hb - Immunization history:: Adult Immunizations up to date. - Social history:: Smoking status: Patient denies any tobacco usage or history of. Screenin:10 [facility] ED Fall Risk Assessment (Adult) Score/Fall Risk Level 3 or more points = High hb Risk Oriented to surroundings, Maintained a safe environment, Hourly rounding (assess needs \T\ fall precautionary measures) done. Abuse screen: Denies threats or abuse. Denies injuries from another. Nutritional screening: No deficits noted. Tuberculosis screening: No symptoms or risk factors identified. Assessment: 10:12 General: See triage assessment.. hb 11:02 Reassessment: Patient appears in no apparent distress at this time. Patient and/or ld1 family updated on plan of care and expected duration. Pain level reassessed. Patient is alert, oriented x 3, equal unlabored respirations, skin warm/dry/pink. Vital Signs: 10:07 BP 133 / 67; Pulse 77; Resp 16; Temp 98.2(TE); Pulse Ox 100% on R/A; Weight 58.97 kg; hb Height 5 ft. 3 in. (160.02 cm); Pain 0/10; 11:02 BP 147 / 59; Pulse 67; Resp 18; Pulse Ox 96% on R/A; Pain 0/10; ld1 10:07 Body Mass Index 23.03 (58.97 kg, 160.02 cm) hb NIH Stroke Scale Scores: 11:25 NIHSS Score: 0 [facility] ED Course: 10:07 Patient arrived in ED. hb 10:08 Edwin Villaseñor MD is Attending Physician. annette 10:09 Triage completed. hb 10:09 Arm band placed on. hb 10:10 Patient has correct armband on for positive identification. hb 10:12 Amparo Schulz, XOCHILT is Primary Nurse. ld1 10:28 Inserted saline lock: 22 gauge in left antecubital area, using aseptic technique. Blood hb collected. 10:35 CT Head Brain wo Cont In Process Unspecified. EDMS 11:02 Urine Microscopic Only Sent. ld1 11:04 XRAY Chest (1 view) In Process Unspecified. EDMS 11:30 Yo Neumann MD is Referral Physician. annette Administered Medications: 10:28 Drug: NS 0.9% 500 ml Route: IV; Rate: bolus; Site: left antecubital; hb 11:33 Follow up: Response: No adverse reaction; IV Status: Completed infusion; IV Intake: ld1 500ml 11:32 Drug: Potassium Effervescent Tablet 25 mEq Route: PO; ld1 11:33 Drug: Magnesium Sulfate 2 grams Route: IVPB; Infused Over: 1 hrs; Site: left ld1 antecubital; Medication: 10:12 VIS not applicable for this client. hb Intake: 11:33 IV: 500ml; Total: 500ml. ld1 Outcome: 11:31 Discharge ordered by MD. bryant 13:11 Patient left the ED. NIH Stroke Scale - NIH Stroke Score Date: 07/18/2022 Time: Total Score = 0 1a. Level of Consciousness (LOC) - 0(Alert) 1b. Level of Consciousness (LOC) (Month \T\ Age) - 0(Both) 1c. LOC Commands (Open \T\ Closes Eyes/[employer]) - 0(Both) 2. Best Gaze (Lateral Gaze Paresis) - 0(Normal) 3. Visual Field Loss - 0(No visual loss) 4. Facial Palsy - 0(Normal) 5a. Left Arm: Motor (10-second hold) - 0(No drift) 5b. Right Arm: Motor (10-second hold) - 0(No drift) 6a. Left Leg: Motor (5-second hold - always test supine) - 0(No drift) 6b. Right Leg: Motor (5-second hold - always test supine) - 0(No drift) 7. Limb Ataxia (finger/nose \T\ heel/[place] - test with eyes open) - 0(Absent) 8. Sensory Loss (pinprick arms/legs/face) - 0(Normal) 9. Best Language: Aphasia (description/naming/reading) - 0(No aphasia) 10. Dysarthria (speech clarity - read or repeat words) - 0(Normal) 11. Extinction and Inattention (visual/tactile/auditory/spatial/personal) - 0(No abnormality) Initials: annette Signatures: Dispatcher [employer] Edwin Luciano MD MD cha Baxter, Heather, RN RN Amparo Schulz RN RN ld1
--- NOTE | 2022-07-18 11:32 | EDPHYS ---
Physician Documentation [facility] Name: Olive Antony Age: 77 yrs Sex: Female : 1945 Arrival Date: 07/18/2022 Time: 10:07 Bed 6 Private MD: ED Physician Edwin Villaseñor HPI: 07/18 11:24 This 77 yrs old Female presents to ER via EMS with complaints of Altered annette Mental Status. 11:24 The patient presents with confusion, decreased mental status. Onset: The annette symptoms/episode began/occurred just prior to arrival, this morning. Possible causes: CVA or TIA, low blood sugar. Associated signs and symptoms: Pertinent positives: weakness. Current symptoms: In the emergency department the patient's symptoms have improved, markedly, is more alert. Patient's baseline: Neuro: alert and fully oriented. The patient has not experienced similar symptoms in the past. Historical: - Allergies: 10: Morphine; Hallucinations; hb - PMHx: 10:09 Chronic obstructive lung disease; Heart Murmur; Hypercholesterolemia; Hypertensive hb disorder; Triple A; - PSHx: 10:09 Cholecystectomy; hernia; hysterectomy; Splenectomy; hb - Immunization history:: Adult Immunizations up to date. - Social history:: Smoking status: Patient denies any tobacco usage or history of. ROS: 11:25 Constitutional: Negative for fever, chills, and weight loss, Eyes: Negative for injury, annette pain, redness, and discharge, ENT: Negative for injury, pain, and discharge, Neck: Negative for injury, pain, and swelling, Cardiovascular: Negative for chest pain, palpitations, and edema, Respiratory: Negative for shortness of breath, cough, wheezing, and pleuritic chest pain, Abdomen/GI: Negative for abdominal pain, nausea, vomiting, diarrhea, and constipation, Back: Negative for injury and pain, : Negative for injury, bleeding, discharge, and swelling, MS/Extremity: Negative for injury and deformity, Skin: Negative for injury, rash, and discoloration, Psych: Negative for depression, anxiety, suicide ideation, homicidal ideation, and hallucinations, Allergy/Immunology: Negative for hives, rash, and allergies, Endocrine: Negative for neck swelling, polydipsia, polyuria, polyphagia, and marked weight changes, Hematologic/Lymphatic: Negative for swollen nodes, abnormal bleeding, and unusual bruising. 11:25 Neuro: Positive for altered mental status, weakness. Exam: 11:25 Constitutional: This is a well developed, well nourished patient who is awake, alert, annette and in no acute distress. Head/Face: Normocephalic, atraumatic. Eyes: Pupils equal round and reactive to light, extra-ocular motions intact. Lids and lashes normal. Conjunctiva and sclera are non-icteric and not injected. Cornea within normal limits. Periorbital areas with no swelling, redness, or edema. ENT: Nares patent. No nasal discharge, no septal abnormalities noted. Tympanic membranes are normal and external auditory canals are clear. Oropharynx with no redness, swelling, or masses, exudates, or evidence of obstruction, uvula midline. Mucous membranes moist. Neck: Trachea midline, no thyromegaly or masses palpated, and no cervical lymphadenopathy. Supple, full range of motion without nuchal rigidity, or vertebral point tenderness. No Meningismus. Chest/axilla: Normal chest wall appearance and motion. Nontender with no deformity. No lesions are appreciated. Cardiovascular: Regular rate and rhythm with a normal S1 and S2. No gallops, murmurs, or rubs. Normal PMI, no JVD. No pulse deficits. Respiratory: Lungs have equal breath sounds bilaterally, clear to auscultation and percussion. No rales, rhonchi or wheezes noted. No increased work of breathing, no retractions or nasal flaring. Abdomen/GI: Soft, non-tender, with normal bowel sounds. No distension or tympany. No guarding or rebound. No evidence of tenderness throughout. Back: No spinal tenderness. No costovertebral tenderness. Full range of motion. Skin: Warm, dry with normal turgor. Normal color with no rashes, no lesions, and no evidence of cellulitis. MS/ Extremity: Pulses equal, no cyanosis. Neurovascular intact. Full, normal range of motion. Neuro: Awake and alert, GCS 15, oriented to person, place, time, and situation. Cranial nerves II-XII grossly intact. Motor strength 5/5 in all extremities. Sensory grossly intact. Cerebellar exam normal. Normal gait. Psych: Awake, alert, with orientation to person, place and time. Behavior, mood, and affect are within normal limits. 11:25 Abdomen/GI: Bowel sounds: normal, Palpation: abdomen is soft and non-tender, Liver: no appreciated palpable abnormalities, Hernia: not appreciated. 11:25 Musculoskeletal/extremity: DVT Exam: No signs of deep vein thrombosis. no pain, no swelling, no tenderness, negative Homans' sign noted on exam, no appreciated bluish discoloration, no erythema, no increased warmth. 11:29 ECG was reviewed by the Attending Physician. [facility] Vital Signs: 10:07 BP 133 / 67; Pulse 77; Resp 16; Temp 98.2(TE); Pulse Ox 100% on R/A; Weight 58.97 kg; hb Height 5 ft. 3 in. (160.02 cm); Pain 0/10; 11:02 BP 147 / 59; Pulse 67; Resp 18; Pulse Ox 96% on R/A; Pain 0/10; ld1 10:07 Body Mass Index 23.03 (58.97 kg, 160.02 cm) hb NIH Stroke Scale Scores: 11:25 NIHSS Score: 0 annette MDM: 10:09 Patient medically screened. annette 11:27 Differential Diagnosis: electrolyte abnormality, hypoglycemia, intracranial bleed, TIA. [facility] Data reviewed: vital signs, nurses notes, lab test result(s), EKG, radiologic studies, CT scan. Data reviewed: diagnostic data from outside facility, CBC, electrolytes. Consideration of Admission/Observation Patient was admitted/placed on observation. Escalation of care including admission/observation considered. Independent interpretation of the following test(s) in the Emergency Department X-Ray: My interpretation is CXR. Test considered but Not performed: EKG: NSR. Care significantly affected by the following chronic conditions: Hypertension, Chronic Obstructive Pulmonary Disease. 07/18 10:11 Order name: Basic Metabolic Panel; Complete Time: [facility] 07/18 10:11 Order name: CBC with Diff; Complete Time: [facility] 07/18 10:11 Order name: LFT's; Complete Time: [facility] 07/18 10:11 Order name: Magnesium; Complete Time: [facility] 07/18 10:11 Order name: NT PRO-BNP; Complete Time: [facility] 07/18 10:11 Order name: PT-INR; Complete Time: 07/18 10:11 Order name: Troponin HS; Complete Time: [facility] 07/18 10:11 Order name: XRAY Chest (1 view); Complete Time: 11:19 [facility] 07/18 10:11 Order name: CT Head Brain wo Cont; Complete Time: 11: [facility] 07/18 10:11 Order name: Urine Microscopic Only; Complete Time: 11: [facility] 07/18 10:57 Order name: Urine Dipstick-Ancillary; Complete Time: 11:17 EDMS 07/18 10:11 Order name: EKG; Complete Time: 10: [facility] 07/18 10:11 Order name: Cardiac monitoring; Complete Time: : [facility] 07/18 10:11 Order name: EKG - Nurse/Tech; Complete Time: [facility] 07/18 10:11 Order name: IV Saline Lock; Complete Time: [facility] 07/18 10:11 Order name: Labs collected and sent; Complete Time: [facility] 07/18 10:11 Order name: O2 Per Protocol; Complete Time: 10: [facility] 07/18 10:11 Order name: O2 Sat Monitoring; Complete Time: : [facility] 07/18 10:11 Order name: Urine Dipstick-Ancillary (obtain specimen); Complete Time: 11:02 [facility] EC: Rate is 72 beats/min. Rhythm is regular. QRS [place] is Normal. OR interval is normal. QRS annette interval is normal. QT interval is normal. No Q waves. T waves are Normal. No ST changes noted. Clinical impression: NSR w/ Non-specific ST/T Changes and No evidence of ischemia. Interpreted by me. Reviewed by me. Administered Medications: 10:28 Drug: NS 0.9% 500 ml Route: IV; Rate: bolus; Site: left antecubital; hb 11:33 Follow up: Response: No adverse reaction; IV Status: Completed infusion; IV Intake: ld1 500ml 11:32 Drug: Potassium Effervescent Tablet 25 mEq Route: PO; ld1 11:33 Drug: Magnesium Sulfate 2 grams Route: IVPB; Infused Over: 1 hrs; Site: left ld1 antecubital; Disposition Summary: 07/18/22 11:31 Discharge Ordered Location: Home annette Problem: new annette Symptoms: have improved annette Condition: Stable annette Diagnosis - Hypokalemia annette - Hypomagnesemia annette - Weakness annette - Pleural effusion, not elsewhere classified annette - Anemia, unspecified annette Followup: annette - With: Private Physician - When: 2 - 3 days - Reason: Recheck today's complaints, Continuance of care, Re-evaluation by your physician Followup: annette - With: Yo Neumann MD - When: 2 - 3 days - Reason: Recheck today's complaints, Continuance of care, Re-evaluation by your physician Discharge Instructions: - Discharge Summary Sheet annette - Potassium Content of Foods annette - Hypomagnesemia annette - Weakness annette - Weakness, [id number] annette - Hypokalemia annette - Deconditioning annette Forms: - Medication Reconciliation Form annette - Thank You Letter annette - Antibiotic Education annette - Prescription Opioid Use annette NIH Stroke Scale - NIH Stroke Score Date: 07/18/2022 Time: 11:25 Total Score = 0 1a. Level of Consciousness (LOC) - 0(Alert) 1b. Level of Consciousness (LOC) (Month \T\ Age) - 0(Both) 1c. LOC Commands (Open \T\ Closes Eyes/Station Installer) - 0(Both) 2. Best Gaze (Lateral Gaze Paresis) - 0(Normal) 3. Visual Field Loss - 0(No visual loss) 4. Facial Palsy - 0(Normal) 5a. Left Arm: Motor (10-second hold) - 0(No drift) 5b. Right Arm: Motor (10-second hold) - 0(No drift) 6a. Left Leg: Motor (5-second hold - always test supine) - 0(No drift) 6b. Right Leg: Motor (5-second hold - always test supine) - 0(No drift) 7. Limb Ataxia (finger/nose \T\ heel/[place] - test with eyes open) - 0(Absent) 8. Sensory Loss (pinprick arms/legs/face) - 0(Normal) 9. Best Language: Aphasia (description/naming/reading) - 0(No aphasia) 10. Dysarthria (speech clarity - read or repeat words) - 0(Normal) 11. Extinction and Inattention (visual/tactile/auditory/spatial/personal) - 0(No abnormality) Initials: [facility] Signatures: Dispatcher [employer] Edwin Luciano MD MD cha Baxter, Heather, RN RN Amparo Schulz RN RN ld1
[2022-07-18 13:42] VITALS: TEMP 98.2
[2022-07-18 13:48] VITALS: BP 147/59; O2SAT 96
--- NOTE | 2022-07-20 17:03 | EKG ---
Test Date: 2022-07-18 Test Time: 10:18:36 [employer] Engineering Teacher: SHABBIR MEASUREMENT RESULTS: Intervals: Rate: 72 LA: 158 QRSD: 84 QT: 410 QTc: 448 [place]: P: -16 LA: 158 QRS: 26 T: 19 INTERPRETIVE STATEMENTS: Normal sinus rhythm Cannot rule out Anterior infarct, age undetermined Abnormal ECG No previous ECG available for comparison Electronically Signed On 07-20-22 16:58:05 PRESENTATION MANAGER by Santy Lanza
== END 2022-07-18 13:11 | disposition home or self-care (01) ==
LOC: ER 10:06
DX: R53.1 Weakness (principal); E87.6 Hypokalemia; E83.42 Hypomagnesemia; J90 Pleural effusion, not elsewhere classified; D64.9 Anemia, unspecified; I10 Essential (primary) hypertension; J44.9 Chronic obstructive pulmonary disease, unspecified; Z88.5 Allergy status to narcotic agent
CPT/HCPCS: 96361; 93005; 85025; 80048; 36415; 83735; 85610; 80076; 84484; 83880; 70450; 71045; 96374; 99284; J3475; J7040; 81003; 81015

== ENCOUNTER 2022-07-23 22:22 | Emergency (ER) | payer OTHER, BC ==
--- OUTSIDE RECORDS SUMMARY | 2022-07-23 22:42 | XMS REPORT | Continuity of Care Document ---
:[address] [facility] t Address [address] [place] [address] Care Team Providers Name Role Phone ARELIS [...] Date Expiration Date S gema [place]: [id number] 1996 ChangeAgain.Me 00:00:00 [place] [id number] 2010 [place] (PP[place] 00:00:00 [place] [id number] 1996 ChangeAgain.Me 00:00:00 [facility] [id number] 1959 00:00:00 [id number] 1959 00:00:00 Problems Condition Condition Condition Status Onset Resolution Last Treating Co mments Source Name Details Category Date Date Treatment Clinician Date Gout Gout Problem Active [facility] 11-26 da 00:00: Medical 00 Group Degenerati [...] shot 2020-10-[address] [facility] 00:00:00 [facility] ([facility]/SA) influenza virus influenza virus 2019-03-[address] [facility] vaccine, NOS vaccine, NOS 00:00:00 [facility] (LUF/MICHELLE/SA) Vital Signs Vital Name Observation Time [...] KG BP Diastolic 2019-11-27 00:00:00 80 mm[Hg] [facility] Height 2019-11-27 00:00:00 61 [in_i] [facility] BMI (Body Mass 2019-11-27 00:00:00 29.3 kg/m2 [facility] Medical Index) Group BP Systolic 2019-11-27 00:00:00 140 mm[Hg] [facility] Body Weight 2019-11-27 00:00:00 154.9 [lb_av] [facility] Weight 2019-03-18 03:30:00 79.7 KG Height 2019-03-14 09:45:00 154.94 CM Body Temperature 2020-12-09 11:10:00 97.6 [degF] [facility] ([facility]/) Pulse Rate 2020-12-09 11:10:00 63 /min [facility] ([facility]/) Respiratory Rate 2020-12-09 11:10:00 15 /min [facility] ([facility]/MICHELLE/SA) O2% BldC Oximetry 2020-12-09 11:10:00 95 % [facility] (LUF/MICHELLE/SA) BP Systolic 2020-12-09 11:10:00 138 mm[Hg] [facility] (LUF/MICHELLE/SA) BP Diastolic 2020-12-09 11:10:00 78 mm[Hg] [facility] (LUF/MICHELLE/SA) Weight 2020-12-09 00:40:00 70.4 kg [facility] (LUF/MICHELLE/SA) Height 2020-11-30 00:03:00 61 [in_i] [facility] (LUF/MICHELLE/SA) Heart Rate 2020-11-29 22:46:00 76 /min [facility] (LUF/MICHELLE/SA) Body Temperature 2020-11-27 11:00:00 97 [degF] [facility] (LUF/MICHELLE/SA) Pulse Rate 2020-11-27 11:00:00 58 /min [facility] (LUF/MICHELLE/SA) Respiratory Rate 2020-11-27 11:00:00 18 /min [facility] (LUF/MICHELLE/SA) O2% BldC Oximetry 2020-11-27 11:00:00 91 % [facility] (LUF/MICHELLE/SA) BP Systolic 2020-11-27 11:00:00 113 mm[Hg] [facility] (LUF/MICHELLE/SA) BP Diastolic 2020-11-27 11:00:00 57 mm[Hg] [facility] (LUF/MICHELLE/SA) Weight 2020-11-27 00:00:00 77.8 kg [facility] (LUF/MICHELLE/SA) Height 2020-11-24 09:18:00 61 [in_i] [facility] (LUF/MICHELLE/SA) Pulse Rate 2019-08-27 16:00:00 53 /min [facility] (LUF/MICHELLE/SA) Respiratory Rate 2019-08-27 16:00:00 13 /min [facility] (LUF/MICHELLE/SA) O2% BldC Oximetry 2019-08-27 16:00:00 99 % [facility] (F/MICHELLE/SA) BP Systolic 2019-08-27 16:00:00 134 mm[Hg] [facility] ([facility]/MICHELLE/SA) BP Diastolic 2019-08-27 16:00:00 65 mm[Hg] [facility] (F/MICHELLE/SA) Body Temperature 2019-08-27 12:34:00 98 [degF] [facility] ([facility]/MICHELLE/SA) Height 2019-08-27 12:34:00 60 [in_i] [facility] ([facility]/MICHELLE/SA) Weight 2019-08-27 12:34:00 72.1 kg [facility] ([facility]/MICHELLE/SA) BMI (Body Mass 2019-08-27 12:34:00 31.2 kg/m2 [facility] Index) [facility] ([facility]/MICHELLE/SA) Procedures Procedure Date / Time Performing Clinician Source Performed ROBOTIC VENTRAL HERNIA 2020-12-04 17:53:00 BRUNO Stevens [place] REPAIR [facility] ([facility]/MICHELLE/SA) SUPPLEMENT ABDOMIN WALL 2020-12-04 00:00:00 [facility] END[facility] ([facility]/) RELEASE PERITONEUM PERQ 2020-12-04 00:00:00 BRUNO Acosta ENDO APPR [facility] ([facility]/MICHELLE/SA) ROBOTIC ASSTD PROC TRUNK 2020-12-04 00:00:00 BRUNO Acosta PERQ ENDO [facility] ([facility]/MICHELLE/SA) ROBOTIC INCISIONAL HERNIA 2020-11-26 08:21:[address] [facility] REPAIR [facility] ([facility]/MICHELLE/SA) 67721 LAPS RPR RECURRENT 2020-11-26 00:00:00 BRUNO Acosta INCAL HRNA NCRC [facility] ([facility]/MICHELLE/SA) 20850 TAP BLOCK BILATERAL 2020-11-26 00:00:[address] [facility] BY INJECTION(S [facility] ([facility]/MICHELLE/SA) ACDIF 2019-03-15 15:50:[address] [facility] (LUF/MICHELLE/SA) CERVICAL LAMINECTOMY FOR 2019-03-15 14:16:[address] [facility] SYNOVIAL CYST, ANTERIOR [facility] DISCECTOMY ONE LEVEL WITH (LUF/L IV/SA) ALLOGRAFT AND INSTRUMENTATION 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 (LUF/MICHELLE/SA) Repair of aneurysm of [facility] abdominal aorta [facility] (LUF/MICHELLE/SA) Cataract extraction and [facility] insertion of intraocular Mem[facility] l lens (LUF/MICHELLE/SA) Appendectomy [facility] (LUF/MICHELLE/SA) Tonsillectomy [facility] (LUF/MICHELLE/SA) Cholecystectomy [facility] (LUF/MICHELLE/SA) Hysterectomy [facility] (LUF/MICHELLE/SA) Decompression of median [facility] uk nerve [facility] (LUF/MICHELLE/SA) Decompression of ulnar [facility] nerve at elbow [facility] (LUF/MICHELLE/SA) Encounters Start End Encounter Admission Attending Care Care Encounter Source Date/Time Date/Time Type Type Clinicians Facility Department ID 2021-07-[address] [facility] [id number] Common 11:31:30 [id number] [facility] 2020-11-29 2020-12-09 OTH UNS Juan OWEN, [facility] [id number] [facility] [address] 18:41:00 15:20:00 VNTRL ERI INFANTE [facility] Rebekah es OBSTRCT NO [place], Memor ia GANGR [address] (LUF/[address], V/SA) [place] [id number] 2020-11-29 2020-11-29 Inpatient [facility] [id number] [facility] 00:[facility] 00:[facility]00 [facility] [id number] Rebekah [facility], [id number] Memor ia [address] [id number] [address] (LUF/LI AVE, V/SA) [place] [id number] 2020-11-29 2020-11-29 Inpatient [facility] [id number] 00:00:00 00:00:00 [facility] [id number] Rebekah es [place], [id number] Memor ia [address] [id number] [address] (LUF/LI A[address], V/SA) [place] [id number] 2020-11-26 2020-11-27 INCISION O BASSIN, [facility] [id number] 12:23:00 14:30:00 HERNIA ANNE MARIE [facility] Nallelykes W/OBST W[facility] GANGRENE [address] ([address]F/[address], V/SA) [place] [id number] 2020-11-26 2020-11-26 Inpatient [facility] [id number] 00:00:00 00:00:00 [place] [place] [id number] [facility], [id number] Memor ia [address] [id number] (LUF/LI A[address], V/SA) [place] [id number] 2020-07-04 2020-07-04 ENCOUNTER [facility] [id number] [id number] [facility] St 08:53:00 23:59:00 PREPROCEDU [facility], Memoria EXAM [address] (LUF/[address] A[address], V/SA) [place] [id number] 2020-07-04 2020-07-04 Inpatient [facility] [id number] [facility] 00:00:00 00:00:00 [place] [id number] [facility], [id number] Memor ia [address] [id number] [address] (LUF/LI A[address], V/SA) [place] [id number] 2020-07-04 2020-07-04 Inpatient [facility] [id number] [facility] 00:00:00 00:00:00 [facility] [id number] [facility], [id number] Memor ia [address] [id number] [address] (LUF/LI AVE, V/[place]) [place] [address] 2020-05-07 2020-05-07 Outpatient Surgery-IHD [facility] [address] 02:36:00 02:36:00 E 1118 [facility] 2019-11-27 2019-11-27 Outpatient Surgery-IHD [facility] [address] 07:29:00 07:29:00 E 0609 [facility] 2019-11-27 2019-11-27 Dean [facility] [place] - [id number] M atagor 00:00:00 00:00:00 Edwin River MD: Medical Medica l [address] [facility] [address], [place] [address] , Ph. [phone] 2019-11-14 2019-11-14 Outpatient Surgery-IHD [facility] [address] 01:04:00 01:04:00 E 0527 [facility] 2019-08-31 2019-08-31 ENC GEN O JAMIA MORELOS [facility] [place] [id number] 09:42:00 23:59:00 ADULT EXAM [facility] Rebekah es W/O ABNORM [place], Memor ia FIND [address] ([address]F/[address], V/SA) [place] [address] 2019-08-27 2019-08-27 WAYNE E B[place], [place] [address] [id number] [facility] [address] 12:21:00 16:30:00 HERNIA W/O ARELIS [facility] Rebekah es OBST/GANGR [place], Memor ia ELMO [address] ([address]F/LI A[address], V/SA) [place] [address] 2019-05-22 2019-06-[address] [facility]ANLOLLY [facility] [id number] 08:47:00 23:59:00 CHARMAINE arthur (LUF/LI V/SA) Results Test Description Test Time Test Comments Results Result Comments Source [facility] 2020-12-09 05:16:00 Test Item Value [...] EGFR if Non- >60 mL/min/1.73m\\S\\[address] [facility] (test code = Filtra tion Rate (eGFR) [...] assessment and management of chronic kidney failure. [id number] 05:16:00 Test Item Value Reference Range Interpretation Comments Magnesium (test code = MG) 2.1 mg/dl 1.6-2.6 STLMLCBC WITH AUTO [id number] 04:58:00 Test Item Value Reference Range Interpretation [...] code = 0.9 % 0.0-0.4 H IG%) [id number] 06:09:00 Test Item Value Reference Range Interpretation Comments Magnesium (test code = MG) 1.5 mg/dl 1.6-2.6 L [id number] 06:09:00 Test Item Value Reference Range Interpretation [...] 0.5-1.3 code = CREA) EGFR if >[address] [facility] (test code mL/min/1.73m\\ = EGFRAA) S\\2 EGFR if Non- >[address] [facility] (test code mL/min/1.73m\\ Filtrat ion Rate (eGFR) [...] c hronic kidney failure. STLMLCBC WITH AUTO [id number] 05:49:00 Test Item Value Reference Range Interpretation [...] code = 0.7 % 0.0-0.4 H IG%) [id number] 06:36:00 Test Item Value Reference Range Interpretation Comments Magnesium (test code = MG) 1.9 mg/dl 1.6-2.6 [id number] 06:36:00 Test Item Value Reference Range Interpretation [...] 0.5-1.3 code = CREA) EGFR if >[address] [facility] (test code mL/min/1.73m\\ = EGFRAA) S\\2 EGFR if Non- >[address] [facility] (test code mL/min/1.73m\\ Filtrat ion Rate (eGFR) [...] c hronic kidney failure. STLMLCBC WITH AUTO [id number] 06:14:00 Test Item Value Reference Range Interpretation [...] code = 0.6 % 0.0-0.4 H IG%) [id number] 05:40:00 Test Item Value Reference Range Interpretation Comments Magnesium (test code = MG) 1.5 mg/dl 1.6-2.6 L [id number] 05:40:00 Test Item Value Reference Range Interpretation [...] 0.5-1.3 code = CREA) EGFR if >[address] [facility] (test code mL/min/1.73m\\ = EGFRAA) S\\2 EGFR if Non- >[address] [facility] (test code mL/min/1.73m\\ Filtrat ion Rate (eGFR) [...] c hronic kidney failure. STLMLCBC WITH AUTO [id number] 05:25:00 Test Item Value Reference Range Interpretation [...] 0.0-0.4 H IG%) STLMLXR CHEST AP/PA 1 [id number] 18:18:24 BRUNO [facility] ([facility]/SA)Name: LILLIE LEON : 1945 Sex: FProcedure: XR CHEST AP/PA 1 VIEWOrder Date: 12/05/2020 5:13 PMOrdering Provider: KATHERINE HAQ .Clinical Indication: [id number]: Nasogastric tube in situComparison: NoneFindings:NG tube in [...] MD :13 PMDictated By: ARTIE CAMARADate: 12/05/2020 18:[id number] 06:41:00 Test Item Value Reference Range Interpretation [...] 0.5-1.3 code = CREA) EGFR if >[address] [facility] (test code mL/min/1.73m\\ = EGFRAA) S\\2 EGFR if Non- >[address] [facility] (test code mL/min/1.73m\\ Filtrat ion Rate (eGFR) [...] and management of c hronic kidney failure. [id number] 06:41:00 Test Item Value Reference Range Interpretation Comments Magnesium (test code = MG) 1.6 mg/dl 1.6-2.6 STLMLCBC WITH AUTO [id number] 06:22:00 Test Item Value Reference Range Interpretation [...] code = 0.5 % 0.0-0.4 H IG%) [id number] 21:11:00 Test Item Value Reference Range Interpretation [...] gm/dl 11.5-17.4 L O2Hb (test code = FVVU9YH) >95.0 % 95.0-99.0 N COHb (test code [...] BGTMNOTIFIED) O2 Device (test code = BIPAP [id number]) Respiratory Rate (test code = 18 BGRR) Set Rate (test code = 12 BGSETRATE) Instrument ID (test code = 28114 BGINSTRID) Reported By (test code = SYDNEE VILLAGRAN BGREPORTEDBY) [id number] 20:10:00 Test Item Value Reference Range Interpretation [...] gm/dl 11.5-17.4 L O2Hb (test code = FTEQ1JF) >95.0 % 95.0-99.0 N COHb (test code [...] O2 Device (test code = Simple Mask LAR5UMT4) L/M (test code = BGL/M) 10.0 Instrument ID (test code = 69766 BGINSTRID) Comments (test code = POST OP BGCOMMENTS) Reported By (test code = SYDNEE VILLAGRAN BGREPORTEDBY) [id number] 06:20:00 Test Item Value Reference Range Interpretation [...] 0.5-1.3 code = CREA) EGFR if >[address] [facility] (test code mL/min/1.73m\\ = EGFRAA) S\\2 EGFR if Non- >[address] [facility] (test code mL/min/1.73m\\ Filtrat ion Rate (eGFR) [...] and management of c hronic kidney failure. [facility] ClinicsFqyups-[id number] 06:20:00 Test Item Value Reference Range Interpretation Comments Magnesium (test code = MG) 1.6 mg/dl 1.6-2.6 [facility] WITH AUTO [id number] 05:57:00 Test Item Value Reference Range Interpretation [...] (test code = 0.4 % 0.0-0.4 IG%) [facility]-[place]ufkinFL SMALL BOWEL [id number] 17:51:48Mild Laxative day before procedure. NPO after midnight. [facility] ([facility]/SA)Name: LILLIE LEON : 1945 Sex: FProcedure: FL SMALL BOWEL XRAYOrder Date: December 03, 2020Ordering Provider: DR ANNE MARIE CONCEPCION .Clinical Indication: [id number]: Intestinal obstructionComparison: CT abdomen and pelvis November 29, 2020Findings:Conservation Science Officer film KUB was obtained. Multiple dilated loops [...] MD 15:46 PMDictated By: DUSTY SWARTZDate: 12/03/2020 17:46[facility] [id number] 06:01:00 Test Item Value Reference Range Interpretation [...] 0.5-1.3 code = CREA) EGFR if >[address] [facility] (test code mL/min/1.73m\\ = EGFRAA) S\\2 EGFR if Non- >[address] [facility] (test code mL/min/1.73m\\ Filtrat ion Rate (eGFR) [...] and management of c hronic kidney failure. [facility] FallsPqukgv-[id number] 06:01:00 Test Item Value Reference Range Interpretation Comments Magnesium (test code = MG) 1.7 mg/dl 1.6-2.6 [facility] WITH AUTO [id number] 05:58:00 Test Item Value Reference Range Interpretation [...] (test code = 0.3 % 0.0-0.4 IG%) [facility] FallsYjmpnd-[id number] 17:24:00 Test Item Value Reference Range Interpretation Comments Potassium (test code = K) 3.3 mmol/l 3.5-5.1 L [facility]-[id number] 04:25:00 Test Item Value Reference Range Interpretation [...] 0.5-1.3 code = CREA) EGFR if >[address] [facility] (test code mL/min/1.73m\\ = EGFRAA) S\\2 EGFR if Non- >[address] [facility] (test code mL/min/1.73m\\ Filtrat ion Rate (eGFR) [...] were called to ty lemon k4 by [id number] on 12/02/20 04:25 . Results were read back by ty lemon k4.[facility]-SonoraMAGNESIUM 2020-12-02 04:25:00 Test Item Value Reference Range Interpretation Comments Magnesium (test code = MG) 1.7 mg/dl 1.6-2.6 [facility] WITH AUTO [id number] 04:12:00 Test Item Value Reference Range Interpretation [...] (test code = 0.3 % 0.0-0.4 IG%) [facility] FallsZmwwee-[id number] 06:53:00 Test Item Value Reference Range Interpretation Comments Magnesium (test code = MG) 1.7 mg/dl 1.6-2.[address] [facility]-[id number] 06:53:00 Test Item Value Reference Range Interpretation [...] 0.5-1.3 code = CREA) EGFR if >[address] [facility] (test code mL/min/1.73m\\ = EGFRAA) S\\2 EGFR if Non- >[address] [facility] (test code mL/min/1.73m\\ Filtrat ion Rate (eGFR) [...] and management of c hronic kidney failure. [facility]-fkinCBC WITH AUTO [id number] 06:15:00 Test Item Value Reference Range Interpretation [...] (test code = 0.4 % 0.0-0.4 IG%) [facility] FallsYlqyrg-[id number] 23:15:00 Test Item Value Reference Range Interpretation Comments Potassium (test code = K) 3.5 mmol/l 3.5-5.[address] [facility]-LufkinXR ABDOMEN 2 VIEWS FLAT / [id number] 17:21:26[facility] (LUF/MICHELLE/SA)Name: LILLIE LEON : 1945 Sex: FProcedures: XR ABDOMEN 2 VIEWS FLAT / UPRIGHTExam Date: 11/30/2020 2:03 PMOrdering Physician: DR SANTO ORDAZ .Clinical Indication: [id number]: Intestinal obstructionComparison: CT abdomen/pelvis, November 29, 2020Findings: [...] MD11/30/2020 5:16 PMDictated By: YASMANY VEGADate: 11/30/2020 17:16[facility]2021-06-13 10:20:00 Test Item Value Reference Range Interpretation Comments Potassium (test code = K) 3.3 mmol/l 3.5-5.1 [address] [facility]-[id number] 05:25:00 Test Item Value Reference Range Interpretation [...] ( 4 - SerumAlbumin)] EGFR if >[address] [facility] (test code mL/min/1.73m\\ = EGFRAA) S\\2 EGFR if Non- >[address] [facility] (test code mL/min/1.73m\\ Filtrat ion Rate (eGFR) [...] and management of c hronic kidney failure. [facility] FallsKqwznu-[id number] 05:25:00 Test Item Value Reference Range Interpretation Comments Magnesium (test code = MG) 1.6 mg/dl 1.6-2.6 [facility] ClinicskinCB WITH AUTO [id number] 05:10:00 Test Item Value Reference Range Interpretation [...] (test code = 0.4 % 0.0-0.4 IG%) [facility]-LufkinCORONAVIRUS 2019 (IN LUKIN)(3HR)2020-11-29 22:04:00 Test Item Value [...] contact the Coronavirus [facility] at [phone]. [address]-LufkinCT ABDOMEN/PELVIS W/O [id number] 17:49:54possible SBO BRUNO [facility] ([facility]/SA)Name: LILLIE LEON : 1945 Sex: FProcedures: CT ABDOMEN/PELVIS W/O CONTRASTExam Date: 11/29/2020 4:16 PMOrdering Physician: ARELIS OWENClinical Indication: [id number]: VomitingComparison: CT abdomen/pelvis, August 27, 2019TECHNIQUE: Spiral [...] PMDictated By: YASMANY VEGADate: 11/29/2020 17:44[id number] 17:01:00 Test Item Value Reference Range Interpretation Comments Lipase (test code = LIPA) 56 U/L 73-393 L [facility] CenterHEPATIC FUNCTION PANEL (LIVER)2020-11-29 17:01:00 Test [...] (test code = 0.6 mg/dl 0.0-1.1 IBIL) [facility] CenterMAGNESIUM2021-06-12 17:01:00 Test Item Value Reference Range Interpretation Comments Magnesium (test code = MG) 1.7 mg/dl 1.6-2.6 [facility] LAB CHEM [id number] 16:38:00 Test Item Value Reference Range Interpretation [...] (test code = CREA) 1.0 mg/dl 0.6-1.3 [facility] LAB CBC WITH AUTO [id number] 16:38:00 Test Item Value Reference Range Interpretation [...] (test code = IG%) 0.3 % 0.0-0.[address] [facility]-[id number] 06:46:00 Test Item Value Reference Range Interpretation [...] 0.5-1.3 code = CREA) EGFR if 56 [facility] (test code mL/min/1.73m\\ = EGFRAA) S\\2 EGFR if Non- [address] [facility] (test code mL/min/1.73m\\ Filtrat ion Rate (eGFR) [...] and management of c hronic kidney failure. [facility]-fkinBAPTIST HEALTH LA GR[facility] WITH AUTO [id number] 06:20:00 Test Item Value Reference Range Interpretation [...] (test code = 0.3 % 0.0-0.4 IG%) [facility]-[id number] 07:54:00 Test Item Value Reference Range Interpretation [...] 0.5-1.3 code = CREA) EGFR if >60 [facility] (test code mL/min/1.73m\\ = EGFRAA) S\\2 EGFR if Non- [address] [facility] (test code mL/min/1.73m\\ Filtrat ion Rate (eGFR) [...] and management of c hronic kidney failure. [facility]-LufkinCORONAVIRUS 2018 (IN FKIN)(3HR)2020-11-24 18:41:00 Test Item Value [...] contact the Coronavirus Rick [facility] Center at [phone]. [facility]-[id number] 08:57:00 Test Item Value Reference Range Interpretation [...] 0.5-1.3 code = CREA) EGFR if >60 [facility] (test code mL/min/1.73m\\ = EGFRAA) S\\2 EGFR if Non- [address] [facility] (test code mL/min/1.73m\\ Filtrat ion Rate (eGFR) [...] and management of c hronic kidney failure. [facility]-LufkinCBC WITH AUTO [id number] 08:56:00 Test Item Value Reference Range Interpretation [...] (test code = 0.4 % 0.0-0.4 IG%) [facility] CenterCULTURE, [id number] 14:09:00Specimen: Urine SpecimensCollected: 08/31/2019 09:52 Status: Final Last Updated: 09/02/2019 14:09 Culture Result (Final) (Final) Moderate Mixed Body Mariela Isolated No Pathogens IsolatedMeMilwaukee County Behavioral Health Division– MilwaukeePTH INTACT (IH)2019-08-31 11:27:00 Test Item Value Reference Range Interpretation Comments PTH, INTACT (test code = PTH) 43 18-88 [facility] CenterB12, [id number] 11:18:00 Test Item Value Reference Range Interpretation Comments B12 (test code = B12) 354 pg/ml 193-986 [facility]icskinCORONARY [id number] 11:18:00 Test Item Value Reference Range Interpretation [...] (test code = 20 mg/dl 20-50 VLDL) [facility]-[id number] 11:18:00 Test Item Value Reference Range Interpretation [...] ( 4 - SerumAlbumin)] EGFR if >60 [place] (test code mL/min/1.73m\\ = EGFRAA) S\\2 EGFR if Non- [address] [place] (test code mL/min/1.73m\\ Filtrat ion Rate (eGFR) [...] and management of c hronic kidney failure. [facility]-[place] [id number] 11:18:00 Test Item Value Reference Range Interpretation Comments Uric Acid (test code = URICA) 6.0 mg/dl 2.6-6.[address] [facility] FallsMsmpqx-[id number] 11:18:00 Test Item Value Reference Range Interpretation Comments Folic Acid (test code = FOLIC) 16.70 ng/ml 3.10-17.[address] [facility]-[place]kinTSH (Ultra Sensitive)2019-08-31 11:18:00 Test Item Value Reference Range Interpretation Comments TSH (test code = TSH) 4.22 mIU/L 0.35-3.74 [address] [facility]-[place]ufkinPROTEIN/CREATNINE RATIO, Random [id number] 11:16:00 Test Item Value Reference Range Interpretation Comments Creatinine Urine Random (test code 25.0 mg/dl 10.0-300.0 = CREAR) Protein, Random Urine (test code = <5.0 mg/dl 0.0-11.9 N PROTU) Protein-Creatinine Ratio, Urine 0.20 % 0.00-0.20 (test code = PCRATIO) If a specimen is collected by a nurse, then you MUST fill out the Collected and Collected By angulo [facility] MICROALBUMIN, RANDOM [id number] 11:16:00 Test Item Value Reference Range Interpretation Comments Creatinine Urine Random (test code 25.0 mg/dl 10.0-300.0 = CREAR) Microalbumin, Urine (test code = <1 MALBU) Microalbumin/Creatinine Ratio 0 (test code = MRATIO) If a specimen is collected by a nurse, then you MUST fill out the Collected and Collected By angulo [facility] D 2019-08-31 11:05:00 Test Item Value Reference Range Interpretation Comments Vitamin D (test code = 33.75 VITAM IN D NORMAL RANGES: TVITD) Deficient <20 I nsufficient 20-<30 Sufficie nt 30-100 Potential Toxic ity >100 [facility] WITH [id number] 10:51:00 Test Item Value Reference Range Interpretation Comments Color (test code = UCOLR) Yellow Clarity (test code = UCLAR) Clear Glucose (test code = UGLUC) NEGATIVE NEGATIVE N Bilirubin (test code = UBILI) NEGATIVE NEGATIVE N Ketones (test code = UKET) NEGATIVE NEGATIVE N Specific Willard (test code = USPGR) 1.010 1.005-1.030 A [...] code = UBACT) 1+ None Seen,Trace A [facility] WITH AUTO [id number] 10:34:00 Test Item Value Reference Range Interpretation [...] (test code = 0.2 % 0.0-0.4 IG%) [facility] LAB CBC WITH AUTO [id number] 16:57:00 Test Item Value Reference Range Interpretation [...] entered by [id number] on 08/27/2019 16:57 [facility]CT ABDOMEN/PELVIS W/[id number] 15:49:54 Procedure: CT ABDOMEN/PELVIS W/CONTRASTOrder date: 08/27/2019 2:00 PMOrdering Provider: ARELIS Gavlaninical Indication: [id number]: Abdominal painComparison: NoneTechnique: Multiple axial helical CT [...] PMDictated By: DUSTY SWARTZDate: 08/27/2019 15:43[id number] 14:42:00 Test Item Value Reference Range Interpretation [...] ( 4 - SerumAlbumin)] EGFR if >60 [facility] (test code mL/min/1.73m\\ = EGFRAA) S\\2 EGFR if Non- >[address] [facility] (test code mL/min/1.73m\\ Filtrat ion Rate (eGFR) [...] and management of c hronic kidney failure. [facility] FallsAunsws-[id number] 14:42:00 Test Item Value Reference Range Interpretation Comments Lipase (test code = LIPA) 171 U/L 73-[address] [facility] FallsUsrred-[id number] 14:42:00 Test Item Value Reference Range Interpretation Comments Magnesium (test code = MG) 2.0 mg/dl 1.6-2.[address] [facility]-[place]CT CERVICAL SPINE W/[id number] 14:04:19 Procedure: FL MYELOGRAM CERVICAL-IMAGING/S/I, CT CERVICAL SPINE W/CONTRASTOrder Date: 07/19/2019 9:00AMOrdering Provider: DR CHARMAINE KEITAClinical Indication: [id number]: Spinal stenosis in cervical regionComparison: X-ray of [...] PMDictated By: ARTIE CAMARADate: 07/19/2019 13:57[facility]FL MYELOGRAM [facility]ERV[facility]-IMAGING/S/[id number] 14:04:12Procedure: FL MYELOGRAM CERVICAL-IMAGING/S/I, CT CERVICAL SPINE W/CONTRASTOrder Date: 07/19/2019 9:00AMOrdering Provider: DR CHARMAINE KEITAClinical Indication: [id number]: Spinal stenosis in cervical reg ionComparison: X-ray [...] By: ARTIE CAMARADate: 07/19/2019 13:57[facility] MODIFIED BARIUM [id number] 11:08:36Date: June 14, 2019Diagnosis: [id number]: Pharyngeal [id number]: Feeding problem, Cervical surgeryReferring Physician: DR CHARMAINE [...] a cough following verbal cues from the [employer] priorto aspiration. There wasflash penetration of honey [...] a cough following verbal cues from the [employer] prior to aspiration. There wasflash penetration of [...] was electronically signed by Saige Miller MS [facility]SLP06/14/2019 11:02 AMDictated By: SAIGE MILLER.Date: 06/14/2019 11:02[facility] XR CERV SPINE 4-5 [id number] 11:40:03Procedure: TIC XR CERV SPINE 4-5 VWSOrder Date: 05/24/2019 3:34 PMOrdering Provider: CHARMAINE Dejesus [facility] Indication: [id number]: Displacement of cervical intervertebral discComparison: April 26, [...] AMDictated By: SEA BLANCOKDate: 05/25/2019 11:33[facility] CERV SPINE W/WO [id number] 13:28:05Procedure: TIC CT CERV SPINE W/WO CONTRASTOrder [...] is multilevel osseous foraminal stenosis, greatest at C3-T1duflkgl C5-C6.There is no lytic or sclerotic lesion.The prevertebral soft tissues are normal.Minimal paraseptal emphysematous changes of the lung apices.IMPRESSION:1. Nonacute CT of the cervical spine with and without contrast.2. Postsurgical changes with cervical spondylosis as above.This final report was electronically signed by Dr Dusty Swartz MD 04/28/20191:21 PMDictated By: DUSTY SWARTZDate: 04/28/2019 13:21[facility] 2019-03-25 06:52:00 Test Item Value Reference Range [...] 0.5-1.3 code = CREA) EGFR if >60 [place] (test code mL/min/1.73m\\ = EGFRAA) S\\2 EGFR if Non- >[address] [facility] (test code mL/min/1.73m\\ Filtrat ion Rate (eGFR) [...] and management of c hronic kidney failure. [facility]2019-03-25 06:33:00 Test Item Value Reference [...] WILL BE NOTED ON THE RE PORT. [facility]-[id number] 06:46:00 Test Item Value Reference Range Interpretation [...] 0.5-1.3 code = CREA) EGFR if >60 [place] (test code mL/min/1.73m\\ = EGFRAA) S\\2 EGFR if Non- >[address] [facility] (test code mL/min/1.73m\\ Filtrat ion Rate (eGFR) [...] and management of c hronic kidney failure. [facility] (HEMOGRAM ONLY)2019-03-22 06:42:00 Test Item Value Reference [...] WILL BE NOTED ON THE RE PORT. [facility]-[id number] 06:42:00 Test Item Value Reference Range Interpretation [...] 0.5-1.3 code = CREA) EGFR if >60 [place] (test code mL/min/1.73m\\ = EGFRAA) S\\2 EGFR if Non- >[address] [facility] (test code mL/min/1.73m\\ Filtrat ion Rate (eGFR) [...] and management of c hronic kidney failure. [facility] (HEMO[facility] ONLY)2019-03-19 06:29:00 Test Item Value Reference [...] WILL BE NOTED ON THE RE PORT. [facility]-[id number] 05:38:00 Test Item Value Reference Range Interpretation [...] 0.5-1.3 code = CREA) EGFR if >60 [place] (test code mL/min/1.73m\\ = EGFRAA) S\\2 EGFR if Non- >[address] [facility] (test code mL/min/1.73m\\ Filtrat ion Rate (eGFR) [...] and management of c hronic kidney failure. [facility] WITH AUTO [id number] 05:05:00 Test Item Value Reference Range Interpretation [...] = 0.8 % 0.0-0.4 H IG%) [facility] (HEMOGRAM ONLY)2019-03-15 20:44:00 Test Item Value Reference [...] WILL BE NOTED ON THE RE PORT. [facility]-[id number] 11:24:00 Test Item Value Reference Range Interpretation [...] 0.5-1.3 code = CREA) EGFR if >60 [place] (test code mL/min/1.73m\\ = EGFRAA) S\\2 EGFR if Non- >[address] [facility] (test code mL/min/1.73m\\ Filtrat ion Rate (eGFR) [...] and management of c hronic kidney failure. [facility]kinURINALYSIS WITHOUT [id number] 11:02:00 Test Item Value Reference Range Interpretation Comments Color (test code = UCOLR) YELLOW Clarity (test code = UCLAR) CLEAR Glucose (test code = UGLUC) NEGATIVE NEGATIVE N Bilirubin (test code = UBILI) NEGATIVE NEGATIVE N Ketones (test code = UKET) NEGATIVE NEGATIVE N Specific [place] (test code = USPGR) 1.010 1.005-1.030 A Blood (test code = UBLD) NEGATIVE NEGATIVE N PH (test code = UPH) 7.5 4.5-8.0 A Protein (test code = UPROT) NEGATIVE NEGATIVE N Urobilinogen (test code = U UROB) 0.2 >0.2 N Nitrite (test code = UNITR) NEGATIVE NEGATIVE N Leukocyte Esterase (test code = SMALL NEGATIVE A ULEUK) [facility] (HEMOGRAM ONLY)2019-03-14 11:01:00 Test Item Value Reference [...] WILL BE NOTED ON THE RE PORT. [facility] CenterkinI CSPINE W/O [id number] 18:58:11If patient is claustrophobic, contact ordering joie russell for additional instructions.Procedure: MRI CSPINE W/O CONTRASTOrder Date: 03/13/2019 1:15 PMOrdering Provider: ROCKY Aliciainical Indication: [id number]: Cervical disc disorder with myelopathyComparison: NoneTechnique: Multisequence, [...] PMDictated By: SEA BLANCOKDate: 03/13/2019 18:51[facility] WO/W CONT 2019-03-13 15:28:36If patient [...] MD 03/13/20193:22PMDictated By: DUSTY SWARTZDate: 03/13/2019 15:22[facility]
[2022-07-23] MEDS ORDERED: ACETAMINOPHEN 500 MG TAB ONE (23:06)
[2022-07-23 23:14] LABS: Absolute Lymphocytes (CBC) 1.9 K/uL (0.7-4.9); Hematocrit 26.9 % (36.0-45.0); Lymphocytes % 15.2 % (15.3-44.8); MCV 90.5 fL (80-100); MPV 7.6 fL (7.6-11.3); RBC Red Blood Cell Count 2.97 M/uL (3.86-4.86)
[2022-07-23 23:33] LABS: Albumin 3.1 g/dL (3.4-5.0); Bilirubin Total 0.4 mg/dL (0.2-1.0); Potassium 3.5 mmol/L (3.5-5.1); Protein, Total 7.2 g/dL (6.4-8.2)
[2022-07-24] MEDS ORDERED: NA CHLORIDE 0.9% 500 ML ONE (00:05)
--- NOTE | 2022-07-24 00:19 | EDPHYS ---
Physician Documentation [facility] Name: Olive Antony Age: 77 yrs Sex: Female : 1945 Arrival Date: 07/23/2022 Time: 22:26 Bed 5 Private MD: ED Physician Calos Serrano HPI: 07/23 22:42 This 77 yrs old Female presents to ER via Unassigned with complaints of Left side pain. jr11 22:42 Patient is a 77-year-old female who had a history of a volvulus recently discharged a jr11 week ago. Patient states she has been having left flank pain to the left groin feels very similar to when she had to have a AAA repaired. Patient with moderate to severe pain worse with range of motion, worse after physical therapy this afternoon. No syncope denies exertional pain, no tearing pain, does not radiate to the back, does not cross the diaphragm. No diaphoresis, no vomiting. No syncope or near-syncope. . Historical: - Allergies: 22:46 Morphine; Hallucinations; pf1 22:46 Codeine; pf1 - Immunization history:: Adult Immunizations unknown. - Social history:: Smoking status: unknown. ROS: 22:42 All other systems are negative. jr11 Exam: 22:42 Constitutional: This is a well developed, well nourished patient who is awake, alert, jr11 and in no acute distress. Head/Face: Normocephalic, atraumatic. Eyes: Extra-ocular motions intact. Lids and lashes normal. Conjunctiva and sclera are non-icteric and not injected. Cornea within normal limits. Periorbital areas with no swelling, redness, or edema. ENT: Nares patent. No nasal discharge, no septal abnormalities noted. Oropharynx with no redness, swelling, or masses, exudates, or evidence of obstruction, uvula midline. Mucous membranes moist. Neck: Trachea midline, no thyromegaly or masses palpated, and no cervical lymphadenopathy. Supple, full range of motion without nuchal rigidity, or vertebral point tenderness. No Meningismus. Chest/axilla: Normal chest wall appearance and motion. Nontender with no deformity. No lesions are appreciated. Cardiovascular: Regular rate and rhythm with a normal S1 and S2. No gallops, murmurs, or rubs. Normal PMI, no JVD. No pulse deficits. Respiratory: Lungs have equal breath sounds bilaterally, clear to auscultation and percussion. No rales, rhonchi or wheezes noted. No increased work of breathing, no retractions or nasal flaring. Abdomen/GI: appropriately ttp, no peritonitis MS/ Extremity: Pulses equal, no cyanosis. Neurovascular intact. Full, normal range of motion. Neuro: Awake and alert, GCS 15, oriented to person, place, time, and situation. No gross motor or sensory deficits. Vital Signs: 22:38 BP 107 / 73; Pulse 76; Resp 18; Temp 97.9; Pulse Ox 98% on R/A; Weight 54.43 kg; Height pf1 5 ft. 1 in. (154.94 cm); Pain 7/10; 23:25 BP 127 / 62; Pulse 69; Resp 15 S; Pulse Ox 96% on R/A; aa9 07/24 00:43 BP 130 / 60; Pulse 62; Resp 19 S; Pulse Ox 96% on R/A; aa9 07/23 22:38 Body Mass Index 22.67 (54.43 kg, 154.94 cm) pf1 MDM: 07/23 22:40 Patient medically screened. jr11 22:42 Differential Diagnosis AAA, dissection, retroperitoneal bleed, surgical complication, jr11 msk pain. Data reviewed: vital signs, nurses notes. 23:59 Independent interpretation of the following test(s) in the Emergency Department CT jr11 Scan: My interpretation is no free air, small amount FF, likely post surgical . 07/24 00:15 Consideration of Admission/Observation Escalation of care including jr11 admission/observation considered. Patient with pain under control, no dissection or rupture of her AAA on CT angio, hemoglobin and hematocrit exactly the same as prior to discharge, no concern for ongoing bleeding. Stable postsurgical changes.. Independent interpretation of the following test(s) in the Emergency Department Rhythm Strip Interpretation Rate: 86BPM Rhythm: regular. 07/23 23:10 Order name: Comprehensive Metabolic Panel; Complete Time: 00:00 EDMS 07/23 23:10 Order name: Lipase; Complete Time: 00:00 EDMS 07/23 22:42 Order name: IV Saline Lock; Complete Time: 22:56 jr11 07/23 22:42 Order name: Labs collected and sent; Complete Time: 22:56 jr11 07/23 22:42 Order name: CT Aorta for Dissection jr11 07/23 22:53 Order name: Angio Aorta For Dissection EDMS 07/23 23:10 Order name: CBC with Automated Diff; Complete Time: 23:23 EDMS Administered Medications: 07/23 23:20 Drug: Tylenol 1000 mg Route: PO; aa9 07/24 00:28 Follow up: Response: No adverse reaction aa9 00:09 Drug: NS 0.9% 500 ml Route: IV; Rate: bolus; Site: left antecubital; jb4 00:45 Follow up: Response: No adverse reaction; IV Status: Completed infusion; IV Intake: aa9 500ml Disposition Summary: 07/24/22 00:18 Discharge Ordered Location: Home [facility] Condition: Stable jr11 Diagnosis - groin pain, post surgical check jr11 Discharge Instructions: - Discharge Summary Sheet jr11 - Muscle Pain, Adult jr11 Forms: - Medication Reconciliation Form jr11 - Thank You Letter jr11 - Antibiotic Education jr11 - Prescription Opioid Use jr11 Signatures: Dispatcher [employer] EDMS Yo Alberto, RN RN jb4 Calos Serrano MD MD jr11 Christen Elizabeth RN RN aa9 Yanira rinaldi RN RN pf1 Corrections: (The following items were deleted from the chart) 07/23 23:50 23:38 CBC+H.LAB.BRZ ordered. EDMS EDMS 23:50 23:38 COMPREHENSIVE METABOLIC PANEL+C.LAB.BRZ ordered. EDMS EDMS 23:50 23:38 LIPASE+C.LAB.BRZ ordered. EDMS EDMS
--- NOTE | 2022-07-24 00:19 | ER ---
Nurse's Notes [facility] Name: Olive Antony Age: 77 yrs Sex: Female : 1945 Arrival Date: 07/23/2022 Time: 22:26 Bed 5 Private MD: Diagnosis: groin pain, post surgical check Presentation: 07/23 22:38 Chief complaint: Patient states: Left groin pain of 7,onset today while after pf1 completing physical therapy. Patient stated is currently doing physical therapy from a recent bowel surgery 2 weeks ago. Coronavirus screen: Vaccine status: Patient reports being unvaccinated. At this time, the client does not indicate any symptoms associated with coronavirus-19. Ebola Screen: Patient negative for fever greater than or equal to 101.5 degrees Fahrenheit, and additional compatible Ebola Virus Disease symptoms. Initial Sepsis Screen: Does the patient meet any 2 criteria? No. Patient's initial sepsis screen is negative. Does the patient have a suspected source of infection? No. Patient's initial sepsis screen is negative. Risk Assessment: Do you want to hurt yourself or someone else? Patient reports no desire to harm self or others. Onset of symptoms was July 23, 2022. 22:38 Method Of Arrival: Wheelchair pf1 22:38 Acuity: BENY 3 pf1 Triage Assessment: 07/24 00:42 General: Appears in no apparent distress. Behavior is calm, cooperative. aa9 Historical: - Allergies: 07/23 22:46 Morphine; Hallucinations; pf1 22:46 Codeine; pf1 - Immunization history:: Adult Immunizations unknown. - Social history:: Smoking status: unknown. Screenin:57 Abuse screen: Denies threats or abuse. Denies injuries from another. Nutritional aa9 screening: No deficits noted. Tuberculosis screening: No symptoms or risk factors identified. 07/24 00:43 [facility] ED Fall Risk Assessment (Adult) History of falling in the last 3 months, aa9 including since admission No falls in past 3 months (0 pts) Confusion or Disorientation Yes (5 pts) Intoxicated or Sedated No (0 pts) Impaired Gait Yes (1 pt) Mobility Assist Device Used Yes (1 pt) Altered Elimination Yes (1 pt) Score/Fall Risk Level 3 or more points = High Risk Maintained a safe environment, Educated pt \T\ family on fall prevention, incl call for assistance when getting out of bed. Assessment: 00:43 Reassessment: Patient appears in no apparent distress at this time. Patient is alert, aa9 oriented x 3, equal unlabored respirations, skin warm/dry/pink. Patient states feeling better. Vital Signs: 07/23 22:38 BP 107 / 73; Pulse 76; Resp 18; Temp 97.9; Pulse Ox 98% on R/A; Weight 54.43 kg; Height pf1 5 ft. 1 in. (154.94 cm); Pain 7/10; 23:25 BP 127 / 62; Pulse 69; Resp 15 S; Pulse Ox 96% on R/A; aa9 07/24 00:43 BP 130 / 60; Pulse 62; Resp 19 S; Pulse Ox 96% on R/A; aa9 07/23 22:38 Body Mass Index 22.67 (54.43 kg, 154.94 cm) pf1 ED Course: 07/23 22:26 Patient arrived in ED. jj6 22:29 Calos Serrano MD is Attending Physician. jr11 22:46 Triage completed. pf1 22:57 Inserted saline lock: 20 gauge in left antecubital area, using aseptic technique. Blood aa9 collected. 22:57 Patient has correct armband on for positive identification. Placed in gown. Bed in low aa9 position. Call light in reach. Side rails up X2. Adult w/ patient. 23:22 Angio Aorta For Dissection In Process Unspecified. EDMS 02 00:42 No provider procedures requiring assistance completed. IV discontinued, intact, aa9 bleeding controlled, No redness/swelling at site. Pressure dressing applied. 00:42 Arm band placed on. aa9 Administered Medications: 07/23 23:20 Drug: Tylenol 1000 mg Route: PO; aa9 07/24 00:28 Follow up: Response: No adverse reaction aa9 00:09 Drug: NS 0.9% 500 ml Route: IV; Rate: bolus; Site: left antecubital; jb4 00:45 Follow up: Response: No adverse reaction; IV Status: Completed infusion; IV Intake: aa9 500ml Medication: 07/23 22:57 VIS not applicable for this client. aa9 Intake: 07/24 00:45 IV: 500ml; Total: 500ml. aa9 Outcome: 00:18 Discharge ordered by . jr11 00:42 Discharged to home via wheelchair, with family. aa9 00:42 Condition: stable 00:42 Discharge instructions given to patient, family, Instructed on discharge instructions, follow up and referral plans. Demonstrated understanding of instructions, follow-up care. 00:43 Patient left the ED. aa9 Signatures: Dispatcher [employer] EDMS Yo Alberto RN RN jb4 Iram Ortizj6 Calos Serrano MD MD jr11 Christen Elizabeth, RN RN aa9 Yanira rinaldi RN RN pf1
[2022-07-24 01:02] VITALS: BP 130/60; TEMP 97.9; O2SAT 96
--- NOTE | 2022-07-24 22:46 | RAD REPORT ---
EXAM DESCRIPTION: CT - Angio Aorta For Dissection - 07/24/2022 6:39 am CLINICAL HISTORY: LEFT SIDED PAIN. COMPARISON: CT chest, abdomen, and pelvis from July 11, 2022. TECHNIQUE: CTA of the chest, abdomen, and pelvis was performed following intravenous administration of iodinated contrast. Oral contrast was not administered. Axial, coronal, and sagittal reconstructio ns were created and sent to PACS. 3D reconstructions were created on an independent workstation and sent to PACS for evaluation. This exam was performed according to our departmental dose-optimization program, which includes autom ated exposure control, adjustment of the mA and/or kV according to patient size and/or use of iterati ve reconstruction technique. FINDINGS: Vascular: No aortic dissection. Moderate mixed atherosclerosis throughout. Unchanged promi nence of the mid descending thoracic aorta, measuring up to 4.5 cm in AP diameter. The infrarenal abd ominal aorta measures up to 3.3 cm in diameter. The celiac axis and SMA are patent. The TIFFANIE is not vi sualized. The renal arteries are patent, diminutive on the right. No pulmonary embolism identified. Lungs and pleura: Mild centrilobular and paraseptal emphysema. No pulmonary consolidation. No pleural effusion. No pneumothorax. Mediastinum and neck: No mediastinal lymphadenopathy identified by CT size criteria. Unremarkable jacobo earance of the thyroid gland. Cardiac: Left atrial enlargement. No pericardial effusion. Hepatobiliary: No concerning hepatic lesion identified. The portal veins are patent. The gallbladder is surgically absent. No biliary ductal dilatation. Pancreas: Unremarkable. Spleen: Unremarkable. Gastrointestinal: No evidence of bowel obstruction or perienteric inflammation. The appendix is surgi nirav absent. Prominent left colonic diverticulosis. Adrenals: No abnormality identified in either adrenal gland. Renal: Right nephrectomy. No concerning parenchymal abnormality in the left kidney. No hydronephrosis or urolithiasis. Bladder/Reproductive: Unremarkable appearance of the urinary bladder by CT technique. Lymphatics: No lymphadenopathy identified by CT size criteria. Musculoskeletal: Anterior abdominal wall skin issac with underlying small amount of fluid. Small amount of fluid und erlying the umbilicus in the anterior abdomen. No concerning osseous lesion identified. Prominent fac et arthrosis in the lumbar spine. Grade 1 anterolisthesis at L4-5. Fluid / peritoneum: No free intraperitoneal air identified. IMPRESSION 1. No aortic dissection. 2. 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 Recommend f ollow-up every 3 years (Reference: J Am Caroline Radiol 2013;10:789-794). 3. Anterior abdominal wall skin issac with underlying small amount of fluid in the subcutaneous t issues and a small amount in the intraperitoneal cavity, likely postsurgical fluid. Electronically signed by: Kim Hdz MD 07/23/2022 11:51 PM FINANCIAL MANAGEMENT ANALYST Due to temporary technical issues with the PACS/Fluency reporting system, reports are being signed by the in house radiologists without review as a courtesy to insure prompt reporting. The interpreting radiologist is fully responsible for the content of the report.
== END 2022-07-24 00:43 | disposition home or self-care (01) ==
LOC: ER 22:22
DX: R10.32 Left lower quadrant pain (principal); Z48.815 Encounter for surgical aftercare following surgery on the digestive system; Z98.890 Other specified postprocedural states; Z88.5 Allergy status to narcotic agent
CPT/HCPCS: 85025; 36415; 83690; 80053; 71275; 74175; 96360; 99284; Q9967; J7040

== ENCOUNTER 2022-07-26 21:46 | Emergency (ER) | payer OTHER, BC ==
--- OUTSIDE RECORDS SUMMARY | 2022-07-26 21:53 | XMS REPORT | Continuity of Care Document ---
:1945 Author Organization [facility] t Address [address] [place] [address] Care Team Providers Name Role Phone ARELIS [...] Date Expiration Date S gema [place]: [id number] 1996 [employer] 00:00:00 [place] [id number] 2010 [place] (PP[place] 00:[place]:00 [place] [id number] 1996 [employer] 00:00:00 [facility] [id number] 1959 00:00:00 [id number] 1959 00:00:00 Problems Condition Condition Condition Status Onset Resolution Last Treating Co mments Source Name Details Category Date Date Treatment Clinician Date Gout Gout Problem Active [facility] 11-26 da 00:00: Medical 00 Group Degenerati [...] shot 2020-10-[address] [facility] 00:00:00 [facility] ([facility]/[place]) influenza virus influenza virus 2019-03-[address] [facility] vaccine, NOS vaccine, NOS 00:00:00 [facility] (LUF/MICHELLE/SA) Vital Signs Vital Name Observation Time [...] KG BP Diastolic 2019-11-27 00:00:00 80 mm[Hg] [facility] Height 2019-11-27 00:00:00 61 [in_i] [facility] BMI (Body Mass 2019-11-27 00:00:00 29.3 kg/m2 [facility]) Group BP Systolic 2019-11-27 00:00:00 140 mm[Hg] [facility] Body Weight 2019-11-27 00:00:00 154.9 [lb_av] [facility] Weight 2019-03-18 03:30:00 79.7 KG Height 2019-03-14 09:45:00 154.94 CM Body Temperature 2020-12-09 11:10:00 97.6 [degF] [facility] ([facility]/) Pulse Rate 2020-12-09 11:10:00 63 /min [facility] ([facility]/) Respiratory Rate 2020-12-09 11:10:00 15 /min [facility] ([facility]/MICHELLE/SA) O2% BldC Oximetry 2020-12-09 11:10:00 95 % [facility] (LUF/MICHELLE/SA) BP Systolic 2020-12-09 11:10:00 138 mm[Hg] [facility] (LUF/MICHELLE/SA) BP Diastolic 2020-12-09 11:10:00 78 mm[Hg] [facility] (LUF/MICHELLE/SA) Weight 2020-12-09 00:40:00 70.4 kg [facility] (LUF/MICHELLE/SA) Height 2020-11-30 00:03:00 61 [in_i] [facility] (LUF/MICHELLE/SA) Heart Rate 2020-11-29 22:46:00 76 /min [facility] (LUF/MICHELLE/SA) Body Temperature 2020-11-27 11:00:00 97 [degF] [facility] (LUF/MICHELLE/SA) Pulse Rate 2020-11-27 11:00:00 58 /min [facility] (LUF/MICHELLE/SA) Respiratory Rate 2020-11-27 11:00:00 18 /min [facility] (LUF/MICHELLE/SA) O2% BldC Oximetry 2020-11-27 11:00:00 91 % [facility] (LUF/MICHELLE/SA) BP Systolic 2020-11-27 11:00:00 113 mm[Hg] [facility] (LUF/MICHELLE/SA) BP Diastolic 2020-11-27 11:00:00 57 mm[Hg] [facility] (LUF/MICHELLE/SA) Weight 2020-11-27 00:00:00 77.8 kg [facility] (LUF/MICHELLE/SA) Height 2020-11-24 09:18:00 61 [in_i] [facility] (LUF/MICHELLE/SA) Pulse Rate 2019-08-27 16:00:00 53 /min [facility] (LUF/MICHELLE/SA) Respiratory Rate 2019-08-27 16:00:00 13 /min [facility] (LUF/MICHELLE/SA) O2% BldC Oximetry 2019-08-27 16:00:00 99 % [facility] (F/MICHELLE/SA) BP Systolic 2019-08-27 16:00:00 134 mm[Hg] [facility] ([facility]/MICHELLE/SA) BP Diastolic 2019-08-27 16:00:00 65 mm[Hg] [facility] (F/MICHELLE/SA) Body Temperature 2019-08-27 12:34:00 98 [degF] [facility] ([facility]/MICHELLE/SA) Height 2019-08-27 12:34:00 60 [in_i] [facility] ([facility]/MICHELLE/SA) Weight 2019-08-27 12:34:00 72.1 kg [facility] ([facility]/MICHELLE/SA) BMI (Body Mass 2019-08-27 12:34:00 31.2 kg/m2 [facility] Index) [facility] ([facility]/MICHELLE/SA) Procedures Procedure Date / Time Performing Clinician Source Performed ROBOTIC VENTRAL HERNIA 2020-12-04 17:53:00 BRUNO Stevens t [place] REPAIR [facility] ([facility]/MICHELLE/[place]) SUPPLEMENT ABDOMIN WALL 2020-12-04 00:00:00 [facility] END[facility] ([facility]/) RELEASE PERITONEUM PERQ 2020-12-04 00:00:00 BRUNO Acosta ENDO APPR [facility] ([facility]/MICHELLE/SA) ROBOTIC ASSTD PROC TRUNK 2020-12-04 00:00:00 BRUNO Acosta PERQ ENDO [facility] ([facility]/MICHELLE/SA) ROBOTIC INCISIONAL HERNIA 2020-11-26 08:21:[address] [facility] REPAIR [facility] ([facility]/MICHELLE/SA) [id number] LAPS RPR RECURRENT 2020-11-26 00:00:00 BRUON Acosta INCAL HRNA NCRC [facility] ([facility]/MICHELLE/SA) 99463 TAP BLOCK BILATERAL 2020-11-26 00:00:[address] [facility] BY INJECTION(S [facility] ([facility]/MICHELLE/[place]) ACDIF 2019-03-15 15:50:[address] [facility] (LUF/MICHELLE/SA) CERVICAL LAMINECTOMY FOR 2019-03-15 14:16:[address] [facility] [facility] SYNOVIAL CYST, ANTERIOR [facility] DISCECTOMY ONE LEVEL WITH (LUF/L IV/SA) ALLOGRAFT AND INSTRUMENTATION 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 (LUF/MICHELLE/SA) Repair of aneurysm of [facility] abdominal aorta [facility] (LUF/MICHELLE/SA) Cataract extraction and [facility] insertion of intraocular Memoria l lens (LUF/MICHELLE/SA) Appendectomy [facility] (LUF/MICHELLE/SA) Tonsillectomy [facility] (LUF/MICHELLE/SA) Cholecystectomy [facility] (LUF/MICHELLE/SA) Hysterectomy [facility] (LUF/MICHELLE/SA) Decompression of median [facility] uk nerve [facility] (LUF/MICHELLE/SA) Decompression of ulnar [facility] nerve at elbow [facility] (LUF/MICHELLE/SA) Encounters Start End Encounter Admission Attending Care Care Encounter Source Date/Time Date/Time Type Type Clinicians Facility Department ID 2021-07-15 Outpatient [facility] [id number] Common 11:31:30 [id number] [facility] 2020-11-29 2020-12-09 OTH UNS Juan OWEN, [facility] [id number] [facility] [address] 18:41:00 15:20:00 VNTRL ERI INFANTE [facility] Rebekah es OBSTRCT NO [place], Memor ia GANGR [address] (LUF[address], V/SA) [place] [id number] 2020-11-29 2020-11-29 Inpatient [facility] [id number] [facility] 00:[facility] 00[facility]00 [facility] [id number] Rebekah [facility], [id number] Memor ia [address] [id number] [address] (LUF/LI AVE, V/SA) [place] [id number] 2020-11-29 2020-11-29 Inpatient [facility] [id number] 00:[facility]00 00:00:00 [facility] [id number] Rebekah es [place], [id number] Memor ia [address] [id number] l [address] (LUF/LI AVE, V/SA) [place] [id number] 2020-11-26 2020-11-27 INCISION O BASSIN, [facility] [id number] 12:23:00 14:30:00 HERNIA ANN EMARIE [facility] Nallelykes W/OBST W/O [facility] GANGRENE [address] ([address]F/[address], V/SA) [place] [id number] 2020-11-26 2020-11-26 Inpatient [facility] [id number] 00:[facility]00 00:00:00 [facility] [id number] [facility], [id number] Memor ia [id number] (LUF/LI A[address], V/SA) [place] [id number] 2020-07-04 2020-07-04 ENCOUNTER [facility] 0100 [id number] [facility] [address] 08:53:00 23:59:00 PREPROCEDU [facility], Memoria EXAM [address] (LUF/LI A[address], V/SA) [place] [id number] 2020-07-04 2020-07-04 Inpatient [facility] [id number] [facility] 00:[facility]00 00:00:00 [facility] [id number] [facility], [id number] Memor ia [address] [id number] [address] (LUF/LI A[address], V/SA) [place] [id number] 2020-07-04 2020-07-04 Inpatient [facility] [id number] [facility] 00:[facility]00 00:00:00 [facility] [id number] [facility], [id number] Memor ia [address] [id number] (LUF/LI AVE, V/[place]) [place] [address] 2020-05-07 2020-05-07 Outpatient Surgery-IHD [facility] [address] 02:36:00 02:36:00 E 1118 [facility] 2019-11-27 2019-11-27 Outpatient Surgery-[facility] [address] 07:29:00 07:29:00 E 0609 [facility] 2019-11-27 2019-11-27 Dean [facility] [place] - [id number] M atagor 00:00:00 00:00:00 Edwin River MD: Medical Medica l [address] [facility] [address], [place] [address] , Ph. [phone] 2019-11-14 2019-11-14 Outpatient Surgery-I[facility] [address] 01:04:00 01:04:00 E 0527 [facility] 2019-08-31 2019-08-31 ENC GEN O JAMIA MORELOS [facility] [place] [id number] 09:42:00 23:59:00 ADULT EXAM [facility] Rebekah es W/O ABNORM [place], Memor ia FIND [address] ([address]F/LI [address], V/SA) [place] [address] 2019-08-27 2019-08-27 WAYNE E [place], [place] [id number] [facility] [address] 12:21:00 16:30:00 HERNIA W/O ARELIS [facility] Rebekah es OBST/GANGR [place], Memor ia ELMO [address] ([address]F/[address], V/SA) [place] [address] 2019-05-22 2019-06-[address] [facility] [id number] 08:47:00 23:59:00 CHARMAINE arthur (LUF/LI V/SA) Results Test Description Test Time Test Comments Results Result Comments Source [facility] 2020-12-09 05:16:00 Test Item Value [...] if Non- >60 mL/min/1.73m\\S\\[address] [facility] (test code = Filtra tion Rate (eGFR) [...] assessment and management of chronic kidney failure. [id number] 05:16:00 Test Item Value Reference Range Interpretation Comments Magnesium (test code = MG) 2.1 mg/dl 1.6-2.6 STLMLCBC WITH AUTO [id number] 04:58:00 Test Item Value Reference Range Interpretation [...] code = 0.9 % 0.0-0.4 H IG%) [id number] 06:09:00 Test Item Value Reference Range Interpretation Comments Magnesium (test code = MG) 1.5 mg/dl 1.6-2.6 L [id number] 06:09:00 Test Item Value Reference Range Interpretation [...] code = CREA) EGFR if >60 [facility] (test code mL/min/1.73m\\ = EGFRAA) S\\2 EGFR if Non- >[address] [facility] (test code mL/min/1.73m\\ Filtrat ion Rate (eGFR) [...] c hronic kidney failure. STLMLCBC WITH AUTO [id number] 05:49:00 Test Item Value Reference Range Interpretation [...] code = 0.7 % 0.0-0.4 H IG%) [id number] 06:36:00 Test Item Value Reference Range Interpretation Comments Magnesium (test code = MG) 1.9 mg/dl 1.6-2.6 [id number] 06:36:00 Test Item Value Reference Range Interpretation [...] code = CREA) EGFR if >60 [facility] (test code mL/min/1.73m\\ = EGFRAA) S\\2 EGFR if Non- >[address] [facility] (test code mL/min/1.73m\\ Filtrat ion Rate (eGFR) [...] c hronic kidney failure. STLMLCBC WITH AUTO [id number] 06:14:00 Test Item Value Reference Range Interpretation [...] code = 0.6 % 0.0-0.4 H IG%) [id number] 05:40:00 Test Item Value Reference Range Interpretation Comments Magnesium (test code = MG) 1.5 mg/dl 1.6-2.6 L [id number] 05:40:00 Test Item Value Reference Range Interpretation [...] code = CREA) EGFR if >60 [facility] (test code mL/min/1.73m\\ = EGFRAA) S\\2 EGFR if Non- >[address] [facility] (test code mL/min/1.73m\\ Filtrat ion Rate (eGFR) [...] c hronic kidney failure. STLMLCBC WITH AUTO [id number] 05:25:00 Test Item Value Reference Range Interpretation [...] 0.0-0.4 H IG%) STLMLXR CHEST AP/PA 1 [id number] 18:18:24 BRUNO [facility] ([facility]/[place])Name: LILLIE LEON : 1945 Sex: FProcedure: XR CHEST AP/PA 1 VIEWOrder Date: 12/05/2020 5:13 PMOrdering Provider: KATHERINE HAQ .Clinical Indication: [id number]: Nasogastric tube in situComparison: NoneFindings:NG tube in [...] MD :13 PMDictated By: ARTIE CAMARADate: 12/05/2020 18:[id number] 06:41:00 Test Item Value Reference Range Interpretation [...] code = CREA) EGFR if >[address] [facility] (test code mL/min/1.73m\\ = EGFRAA) S\\2 EGFR if Non- >[address] [facility] (test code mL/min/1.73m\\ Filtrat ion Rate (eGFR) [...] and management of c hronic kidney failure. [id number] 06:41:00 Test Item Value Reference Range Interpretation Comments Magnesium (test code = MG) 1.6 mg/dl 1.6-2.6 STLMLCBC WITH AUTO [id number] 06:22:00 Test Item Value Reference Range Interpretation [...] code = 0.5 % 0.0-0.4 H IG%) [id number] 21:11:00 Test Item Value Reference Range Interpretation [...] gm/dl 11.5-17.4 L O2Hb (test code = JDTG8ZB) >95.0 % 95.0-99.0 N COHb (test code [...] BGTMNOTIFIED) O2 Device (test code = BIPAP [id number]) Respiratory Rate (test code = 18 BGRR) Set Rate (test code = 12 BGSETRATE) Instrument ID (test code = 51957 BGINSTRID) Reported By (test code = SYDNEE VILLAGRAN BGREPORTEDBY) [id number] 20:10:00 Test Item Value Reference Range Interpretation [...] gm/dl 11.5-17.4 L O2Hb (test code = FFEB8FC) >95.0 % 95.0-99.0 N COHb (test code [...] O2 Device (test code = Simple Mask COQ6UGQ2) L/M (test code = BGL/M) 10.0 Instrument ID (test code = 13088 BGINSTRID) Comments (test code = POST OP BGCOMMENTS) Reported By (test code = SYDNEE VILLAGRAN BGREPORTEDBY) [id number] 06:20:00 Test Item Value Reference Range Interpretation [...] code = CREA) EGFR if >[address] [facility] (test code mL/min/1.73m\\ = EGFRAA) S\\2 EGFR if Non- >[address] [facility] (test code mL/min/1.73m\\ Filtrat ion Rate (eGFR) [...] and management of c hronic kidney failure. [facility] CenterZxxhjq-[id number] 06:20:00 Test Item Value Reference Range Interpretation Comments Magnesium (test code = MG) 1.6 mg/dl 1.6-2.6 [facility] WITH AUTO [id number] 05:57:00 Test Item Value Reference Range Interpretation [...] code = 0.4 % 0.0-0.4 IG%) [facility]-LufkinFL SMALL BOWEL [id number] 17:51:48Mild Laxative day before procedure. NPO after midnight. [facility] ([facility]/[place])Name: ILLLIE LEON : 1945 Sex: FProcedure: FL SMALL BOWEL XRAYOrder Date: December 03, 2020Ordering Provider: DR ANNE MARIE CONCEPCION .Clinical Indication: [id number]: Intestinal obstructionComparison: CT abdomen and pelvis November 29, 2020Findings:Hair Mixer film KUB was obtained. Multiple dilated loops [...] MD 15:46 PMDictated By: DUSTY SWARTZDate: 12/03/2020 17:46[id number] 06:01:00 Test Item Value Reference Range Interpretation [...] code = CREA) EGFR if >[address] [facility] (test code mL/min/1.73m\\ = EGFRAA) S\\2 EGFR if Non- >[address] [facility] (test code mL/min/1.73m\\ Filtrat ion Rate (eGFR) [...] and management of c hronic kidney failure. [facility] BurlingtonEugoyl-[id number] 06:01:00 Test Item Value Reference Range Interpretation Comments Magnesium (test code = MG) 1.7 mg/dl 1.6-2.6 [facility] WITH AUTO [id number] 05:58:00 Test Item Value Reference Range Interpretation [...] (test code = 0.3 % 0.0-0.4 IG%) [facility] BurlingtonCpuify-[id number] 17:24:00 Test Item Value Reference Range Interpretation Comments Potassium (test code = K) 3.3 mmol/l 3.5-5.1 L [facility]-[id number] 04:25:00 Test Item Value Reference Range Interpretation [...] code = CREA) EGFR if >[address] [facility] (test code mL/min/1.73m\\ = EGFRAA) S\\2 EGFR if Non- >[address] [facility] (test code mL/min/1.73m\\ Filtrat ion Rate (eGFR) [...] were called to ty lemon k4 by [id number] on 12/02/20 04:25 . Results were read back by ty lemon k4.[facility]-SomersetMAGNESIUM 2020-12-02 04:25:00 Test Item Value Reference Range Interpretation Comments Magnesium (test code = MG) 1.7 mg/dl 1.6-2.6 [facility] WITH AUTO [id number] 04:12:00 Test Item Value Reference Range Interpretation [...] (test code = 0.3 % 0.0-0.4 IG%) [facility] BurlingtonSdhkcj-[id number] 06:53:00 Test Item Value Reference Range Interpretation Comments Magnesium (test code = MG) 1.7 mg/dl 1.6-2.6 [facility]-[id number] 06:53:00 Test Item Value Reference Range Interpretation [...] code = CREA) EGFR if >[address] [facility] (test code mL/min/1.73m\\ = EGFRAA) S\\2 EGFR if Non- >[address] [facility] (test code mL/min/1.73m\\ Filtrat ion Rate (eGFR) [...] and management of c hronic kidney failure. [facility]-fkinCBC WITH AUTO [id number] 06:15:00 Test Item Value Reference Range Interpretation [...] code = 0.4 % 0.0-0.4 IG%) [facility] BurlingtonSrcfbr-[id number] 23:15:00 Test Item Value Reference Range Interpretation Comments Potassium (test code = K) 3.5 mmol/l 3.5-5.1 [facility]-LufkinXR ABDOMEN 2 VIEWS FLAT / [id number] 17:21:26[facility] (LUF/MICHELLE/SA)Name: LILLIE LEON : 1945 Sex: FProcedures: XR ABDOMEN 2 VIEWS FLAT / UPRIGHTExam Date: 11/30/2020 2:03 PMOrdering Physician: DR SANTO ORDAZ .Clinical Indication: [id number]: Intestinal obstructionComparison: CT abdomen/pelvis, November 29, 2020Findings: [...] MD11/30/2020 5:16 PMDictated By: YASMANY VEGADate: 11/30/2020 17:16[facility]2021-06-13 10:20:00 Test Item Value Reference Range Interpretation Comments Potassium (test code = K) 3.3 mmol/l 3.5-5.1 L [facility]-[id number] 05:25:00 Test Item Value Reference Range Interpretation [...] 4 - SerumAlbumin)] EGFR if >60 [facility] (test code mL/min/1.73m\\ = EGFRAA) S\\2 EGFR if Non- >[address] [facility] (test code mL/min/1.73m\\ Filtrat ion Rate (eGFR) [...] and management of c hronic kidney failure. [facility] BurlingtonKghvum-[id number] 05:25:00 Test Item Value Reference Range Interpretation Comments Magnesium (test code = MG) 1.6 mg/dl 1.6-2.6 [facility] CenterkinCB WITH AUTO [id number] 05:10:00 Test Item Value Reference Range Interpretation [...] code = 0.4 % 0.0-0.4 IG%) [facility]-LufkinCORONAVIRUS 2019 (IN LUKIN)(3HR)2020-11-29 22:04:00 Test Item Value [...] contact the Coronavirus Rick l Center at [phone]. [address]-LufkinCT ABDOMEN/PELVIS W/O [id number] 17:49:54possible SBO BRUNO [facility] ([facility]/[place])Name: LILLIE LEON : 1945 Sex: FProcedures: CT ABDOMEN/PELVIS W/O CONTRASTExam Date: 11/29/2020 4:16 PMOrdering Physician: ARELIS OWENClinical Indication: [id number]: VomitingComparison: CT abdomen/pelvis, August 27, 2019TECHNIQUE: Spiral [...] PMDictated By: YASMANY VEGADate: 11/29/2020 17:44[id number] 17:01:00 Test Item Value Reference Range Interpretation Comments Lipase (test code = LIPA) 56 U/L 73-393 L [facility] OshkoshHEPATIC FUNCTION PANEL (LIVER)2020-11-29 17:01:00 Test Item Value [...] code = 0.6 mg/dl 0.0-1.1 IBIL) [facility] OshkoshMAGNESIUM2021-06-12 17:01:00 Test Item Value Reference Range Interpretation Comments Magnesium (test code = MG) 1.7 mg/dl 1.6-2.6 [facility] LAB CHEM [id number] 16:38:00 Test Item Value Reference Range Interpretation [...] (test code = CREA) 1.0 mg/dl 0.6-1.3 [facility] LAB CBC WITH AUTO [id number] 16:38:00 Test Item Value Reference Range Interpretation [...] (test code = IG%) 0.3 % 0.0-0.4 [facility]-[id number] 06:46:00 Test Item Value Reference Range Interpretation [...] code = CREA) EGFR if 56 [facility] (test code mL/min/1.73m\\ = EGFRAA) S\\2 EGFR if Non- [address] [facility] (test code mL/min/1.73m\\ Filtrat ion Rate (eGFR) [...] and management of c hronic kidney failure. [facility]-fkinBAP[facility] WITH AUTO [id number] 06:20:00 Test Item Value Reference Range Interpretation [...] (test code = 0.3 % 0.0-0.4 IG%) [facility]-[id number] 07:54:00 Test Item Value Reference Range Interpretation [...] code = CREA) EGFR if >60 [facility] (test code mL/min/1.73m\\ = EGFRAA) S\\2 EGFR if Non- [address] [facility] (test code mL/min/1.73m\\ Filtrat ion Rate (eGFR) [...] and management of c hronic kidney failure. [facility]-LufkinCORONAVIRUS 2018 (IN FKIN)(3HR)2020-11-24 18:41:00 Test Item Value [...] contact the Coronavirus Rick l Center at [phone]. [facility]-[id number] 08:57:00 Test Item Value Reference Range Interpretation [...] code = CREA) EGFR if >60 [facility] (test code mL/min/1.73m\\ = EGFRAA) S\\2 EGFR if Non- [address] [facility] (test code mL/min/1.73m\\ Filtrat ion Rate (eGFR) [...] and management of c hronic kidney failure. [facility]-LufkinCBC WITH AUTO [id number] 08:56:00 Test Item Value Reference Range Interpretation [...] code = 0.4 % 0.0-0.4 IG%) [facility] OshkoshCULTURE, [id number] 14:09:00Specimen: Urine SpecimensCollected: 08/31/2019 09:52 Status: Final Last Updated: 09/02/2019 14:09 Culture Result (Final) (Final) Moderate Mixed Body Mariela Isolated No Pathogens IsolatedMeGundersen Boscobel Area Hospital and ClinicsPTH INTACT (IH)2019-08-31 11:27:00 Test Item Value Reference Range Interpretation Comments PTH, INTACT (test code = PTH) 43 18-88 [facility] OshkoshB12, [id number] 11:18:00 Test Item Value Reference Range Interpretation Comments B12 (test code = B12) 354 pg/ml 193-986 [facility] CenterkinCORONARY [id number] 11:18:00 Test Item Value Reference Range Interpretation [...] (test code = 20 mg/dl 20-50 VLDL) [facility] [place]-[id number] 11:18:00 Test Item Value Reference Range Interpretation [...] 4 - SerumAlbumin)] EGFR if >60 [facility] [place] (test code mL/min/1.73m\\ = EGFRAA) S\\2 EGFR if Non- [address] [facility] [place] (test code mL/min/1.73m\\ Filtrat ion Rate (eGFR) [...] and management of c hronic kidney failure. [facility] [place]ufkinURIC [id number] 11:18:00 Test Item Value Reference Range Interpretation Comments Uric Acid (test code = URICA) 6.0 mg/dl 2.6-6.0 [facility] [facility]-[id number] 11:18:00 Test Item Value Reference Range Interpretation Comments Folic Acid (test code = FOLIC) 16.70 ng/ml 3.10-17.50 [facility] (Ultra Sensitive)2019-08-31 11:18:00 Test Item Value Reference Range Interpretation Comments TSH (test code = TSH) 4.22 mIU/L 0.35-3.74 H [facility]kinPROTEIN/CREATNINE RATIO, Random [id number] 11:16:00 Test Item Value Reference Range Interpretation Comments Creatinine Urine Random (test code 25.0 mg/dl 10.0-300.0 = CREAR) Protein, Random Urine (test code = <5.0 mg/dl 0.0-11.9 N PROTU) Protein-Creatinine Ratio, Urine 0.20 % 0.00-0.20 (test code = PCRATIO) If a specimen is collected by a nurse, then you MUST fill out the Collected and Collected By angulo [facility] MICROALBUMIN, RANDOM [id number] 11:16:00 Test Item Value Reference Range Interpretation Comments Creatinine Urine Random (test code 25.0 mg/dl 10.0-300.0 = CREAR) Microalbumin, Urine (test code = <1 MALBU) Microalbumin/Creatinine Ratio 0 (test code = MRATIO) If a specimen is collected by a nurse, then you MUST fill out the Collected and Collected By angulo [facility] 2019-08-31 11:05:00 Test Item Value Reference Range Interpretation Comments Vitamin D (test code = 33.75 VITAM IN D NORMAL RANGES: TVITD) Deficient <20 I nsufficient 20-<30 Sufficie nt 30-100 Potential Toxic ity >100 [facility] WITH [id number] 10:51:00 Test Item Value Reference Range Interpretation Comments Color (test code = UCOLR) Yellow Clarity (test code = UCLAR) Clear Glucose (test code = UGLUC) NEGATIVE NEGATIVE N Bilirubin (test code = UBILI) NEGATIVE NEGATIVE N Ketones (test code = UKET) NEGATIVE NEGATIVE N Specific [place] (test code = USPGR) 1.010 1.005-1.030 A [...] code = UBACT) 1+ None Seen,Trace A [facility] WITH AUTO [id number] 10:34:00 Test Item Value Reference Range Interpretation [...] (test code = 0.2 % 0.0-0.4 IG%) [facility] LAB CBC WITH AUTO [id number] 16:57:00 Test Item Value Reference Range Interpretation [...] entered by [id number] 82 on 08/27/2019 16:57 [facility] ABDOMEN/PELVIS W/[id number] 15:49:54 Procedure: CT ABDOMEN/PELVIS W/CONTRASTOrder date: 08/27/2019 2:00 PMOrdering Provider: ARELIS Galvaninical Indication: [id number]: Abdominal painComparison: NoneTechnique: Multiple axial helical CT [...] By: DUSTY SWARTZDate: 08/27/2019 15:43[id number] 14:42:00 Test Item Value Reference Range Interpretation [...] 4 - SerumAlbumin)] EGFR if >[address] [facility] (test code mL/min/1.73m\\ = EGFRAA) S\\2 EGFR if Non- >[address] [facility] (test code mL/min/1.73m\\ Filtrat ion Rate (eGFR) [...] and management of c hronic kidney failure. [facility]Sygpvx-[id number] 14:42:00 Test Item Value Reference Range Interpretation Comments Lipase (test code = LIPA) 171 U/L 73-393 [facility]Hwsxuj-[id number] 14:42:00 Test Item Value Reference Range Interpretation Comments Magnesium (test code = MG) 2.0 mg/dl 1.6-2.6 [facility]CT CERVICAL SPINE [id number] 14:04:19 Procedure: FL MYELOGRAM CERVICAL-IMAGING/S/I, CT CERVICAL SPINE W/CONTRASTOrder Date: 07/19/2019 9:00AMOrdering Provider: DR CHARMAINE KEITAClinical Indication: [id number]: Spinal stenosis in cervical regionComparison: X-ray of [...] CAMARADate: 07/19/2019 13:57[facility]FL MYELOGRAM CERV[facility]-IMAGING/S/[id number] 14:04:12Procedure: FL MYELOGRAM CERVICAL-IMAGING/S/I, CT CERVICAL SPINE W/CONTRASTOrder Date: 07/19/2019 9:00AMOrdering Provider: DR CHARMAINE KEITAClinical Indication: [id number]: Spinal stenosis in cervical reg ionComparison: X-ray [...] By: ARTIE CAMARADate: 07/19/2019 13:57[facility] MODIFIED BARIUM [id number] 11:08:36Date: June 14, 2019Diagnosis: [id number]: Pharyngeal [id number]: Feeding problem, Cervical surgeryReferring Physician: DR CHARMAINE [...] a cough following verbal cues from the FISHING TOOL OPERATOR priorto aspiration. There wasflash penetration of honey [...] a cough following verbal cues from the FISHING TOOL OPERATOR prior to aspiration. There wasflash penetration of [...] was electronically signed by Saige Miller MS [facility]/SLP06/14/2019 11:02 AMDictated By: SAIGE MILLER.Date: 06/14/2019 11:02[facility]STIC XR CERV SPINE 4-5 [id number] 11:40:03Procedure: TIC XR CERV SPINE 4-5 VWSOrder Date: 05/24/2019 3:34 PMOrdering Provider: CHARMAINE [facility] Indication: [id number]: Displacement of cervical intervertebral discComparison: April 26, [...] AMDictated By: SEA BLANCOKDate: 05/25/2019 11:33[facility] CERV SPINE W/WO [id number] 13:28:05Procedure: TIC CT CERV SPINE W/WO CONTRASTOrder [...] is multilevel osseous foraminal stenosis, greatest at C3-C1vdawvhk C5-C6.There is no lytic or sclerotic lesion.The prevertebral soft tissues are normal.Minimal paraseptal emphysematous changes of the lung apices.IMPRESSION:1. Nonacute CT of the cervical spine with and without contrast.2. Postsurgical changes with cervical spondylosis as above.This final report was electronically signed by Dr Dusty Swartz MD 04/28/20191:21 PMDictated By: DUSTY SWARTZDate: 04/28/2019 13:21[facility] 2019-03-25 06:52:00 Test Item Value Reference [...] code = CREA) EGFR if >60 [facility] (test code mL/min/1.73m\\ = EGFRAA) S\\2 EGFR if Non- >[address] [facility] (test code mL/min/1.73m\\ Filtrat ion Rate (eGFR) [...] and management of c hronic kidney failure. [facility]2019-03-25 06:33:00 Test Item Value Reference [...] WILL BE NOTED ON THE RE PORT. [facility]-[id number] 06:46:00 Test Item Value Reference Range Interpretation [...] code = CREA) EGFR if >[address] [facility] (test code mL/min/1.73m\\ = EGFRAA) S\\2 EGFR if Non- >[address] [facility] (test code mL/min/1.73m\\ Filtrat ion Rate (eGFR) [...] and management of c hronic kidney failure. [facility] ONLY)2019-03-22 06:42:00 Test Item Value [...] WILL BE NOTED ON THE RE PORT. [facility]-[id number] 06:42:00 Test Item Value Reference Range Interpretation [...] code = CREA) EGFR if >[address] [facility] (test code mL/min/1.73m\\ = EGFRAA) S\\2 EGFR if Non- >[address] [facility] (test code mL/min/1.73m\\ Filtrat ion Rate (eGFR) [...] and management of c hronic kidney failure. [facility]2019-03-19 06:29:00 Test Item Value [...] WILL BE NOTED ON THE RE PORT. [facility]-[id number] 05:38:00 Test Item Value Reference Range Interpretation [...] code = CREA) EGFR if >60 [facility] (test code mL/min/1.73m\\ = EGFRAA) S\\2 EGFR if Non- >[address] [facility] (test code mL/min/1.73m\\ Filtrat ion Rate (eGFR) [...] and management of c hronic kidney failure. [facility] WITH AUTO [id number] 05:05:00 Test Item Value Reference Range Interpretation [...] = 0.8 % 0.0-0.4 H IG%) CBC [facility] (HEMOGRAM ONLY)2019-03-15 20:44:00 Test Item [...] WILL BE NOTED ON THE RE PORT. [facility] [place]-[id number] 11:24:00 Test Item Value Reference Range Interpretation [...] code = CREA) EGFR if >[address] [facility] (test code mL/min/1.73m\\ = EGFRAA) S\\2 EGFR if Non- >[address] [facility] (test code mL/min/1.73m\\ Filtrat ion Rate (eGFR) [...] and management of c hronic kidney failure. [facility]URINALYSIS WITHOUT [id number] 11:02:00 Test Item Value Reference Range Interpretation Comments Color (test code = UCOLR) YELLOW Clarity (test code = UCLAR) CLEAR Glucose (test code = UGLUC) NEGATIVE NEGATIVE N Bilirubin (test code = UBILI) NEGATIVE NEGATIVE N Ketones (test code = UKET) NEGATIVE NEGATIVE N Specific [place] (test code = USPGR) 1.010 1.005-1.030 A Blood (test code = UBLD) NEGATIVE NEGATIVE N PH (test code = UPH) 7.5 4.5-8.0 A Protein (test code = UPROT) NEGATIVE NEGATIVE N Urobilinogen (test code = U UROB) 0.2 >0.2 N Nitrite (test code = UNITR) NEGATIVE NEGATIVE N Leukocyte Esterase (test code = SMALL NEGATIVE A ULEUK) [facility] [place] (HEMOGRAM ONLY)2019-03-14 11:01:00 Test Item Value [...] WILL BE NOTED ON THE RE PORT. [facility] [place]I CSPINE W/O [id number] 18:58:11If patient is claustrophobic, contact ordering joie russell for additional instructions.Procedure: MRI CSPINE W/O CONTRASTOrder Date: 03/13/2019 1:15 PMOrdering Provider: ROCKY Aliciainical Indication: [id number]: Cervical disc disorder with myelopathyComparison: NoneTechnique: Multisequence, [...] PMDictated By: SEA BLANCOKDate: 03/13/2019 18:51[facility] BRAIN WO/W CONT 2019-03-13 15:28:36If patient [...] MD 03/13/20193:22PMDictated By: DUSTY SWARTZDate: 03/13/2019 15:22[facility] [place]
[2022-07-26] MEDS ORDERED: NA CHLORIDE 0.9% 1,000 ML ONE (23:02)
[2022-07-26] MEDS ORDERED: NA CHLORIDE 0.9% 500 ML ONE (23:02)
[2022-07-26] MEDS ORDERED: FOLIC ACID 5 MG/ML VIAL ONE (23:03)
[2022-07-26 23:24] LABS: Urine Blood Negative (Negative); Urine Glucose Negative (Negative); Urine Protein Negative (Negative); Urine pH 6.5 (5.0-7.0)
[2022-07-26 23:49] LABS: Urine Bacteria None Seen /HPF (<20); Urine Mucus Slight /HPF (None Seen); Urine RBC <5 /HPF (None Seen)
[2022-07-27] MEDS ORDERED: CEFTRIAXONE 1000 MG/VIAL ONE (00:20)
[2022-07-27] MEDS ORDERED: CIPROFLOXACIN HCL 500 MG TAB ONE (00:20)
[2022-07-27] MEDS ORDERED: NA CHLORIDE 0.9% 50 ML ONE (00:21)
[2022-07-27 00:26] LABS: Protime INR 1.07
[2022-07-27 00:27] LABS: Absolute Lymphocytes (CBC) 1.8 K/uL (0.7-4.9); Hematocrit 26.9 % (36.0-45.0); Lymphocytes % 14.2 % (15.3-44.8); MCV 90.5 fL (80-100); MPV 7.7 fL (7.6-11.3); RBC Red Blood Cell Count 2.98 M/uL (3.86-4.86)
[2022-07-27 00:42] LABS: Albumin 3.2 g/dL (3.4-5.0); Bilirubin Direct 0.2 mg/dL (0-0.2); Bilirubin Total 0.6 mg/dL (0.2-1.0); Magnesium 1.8 mg/dL (1.6-2.4); Potassium 3.8 mmol/L (3.5-5.1); Protein, Total 6.9 g/dL (6.4-8.2); Troponin High Sensitivity 8.3 pg/mL (<58.9)
--- NOTE | 2022-07-27 01:21 | EDPHYS ---
Physician Documentation [facility] Name: Olive Antony Age: 77 yrs Sex: Female : 1945 Arrival Date: 07/26/2022 Time: 21:50 Bed 8 Private MD: ED Physician Edwin Villaseñor HPI: 07/26 22:32 This 77 yrs old Female presents to ER via Wheelchair with complaints of annette Confused. 22:32 The patient presents with confusion, trouble concentrating. Onset: The symptoms/episode annette began/occurred 3 week(s) ago. Possible causes: CVA or TIA, low blood sugar, seizure, sepsis. Associated signs and symptoms: The patient has no apparent associated signs or symptoms. Current symptoms: In the emergency department the patient's symptoms have improved, moderately. Patient's baseline: Neuro: alert and fully oriented. 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 - Social history:: Smoking status: unknown. ROS: 22:33 Constitutional: Negative for fever, chills, and weight loss, Eyes: Negative for injury, annette pain, redness, and discharge, ENT: Negative for injury, pain, and discharge, Neck: Negative for injury, pain, and swelling, Cardiovascular: Negative for chest pain, palpitations, and edema, Respiratory: Negative for shortness of breath, cough, wheezing, and pleuritic chest pain, Abdomen/GI: Negative for abdominal pain, nausea, vomiting, diarrhea, and constipation, Back: Negative for injury and pain, : Negative for injury, bleeding, discharge, and swelling, MS/Extremity: Negative for injury and deformity, Skin: Negative for injury, rash, and discoloration, Psych: Negative for depression, anxiety, suicide ideation, homicidal ideation, and hallucinations, Allergy/Immunology: Negative for hives, rash, and allergies, Endocrine: Negative for neck swelling, polydipsia, polyuria, polyphagia, and marked weight changes, Hematologic/Lymphatic: Negative for swollen nodes, abnormal bleeding, and unusual bruising. 22:33 Neuro: Positive for weakness, Negative for altered mental status, dizziness, gait disturbance, headache, hearing loss, loss of consciousness, numbness, seizure activity, speech changes, syncope, near syncope, tingling, tinnitus, tremor, visual changes, acute changes. Exam: 22:33 Constitutional: This is a well developed, well nourished patient who is awake, alert, annette and in no acute distress. Head/Face: Normocephalic, atraumatic. Eyes: Pupils equal round and reactive to light, extra-ocular motions intact. Lids and lashes normal. Conjunctiva and sclera are non-icteric and not injected. Cornea within normal limits. Periorbital areas with no swelling, redness, or edema. ENT: Nares patent. No nasal discharge, no septal abnormalities noted. Tympanic membranes are normal and external auditory canals are clear. Oropharynx with no redness, swelling, or masses, exudates, or evidence of obstruction, uvula midline. Mucous membranes moist. Neck: Trachea midline, no thyromegaly or masses palpated, and no cervical lymphadenopathy. Supple, full range of motion without nuchal rigidity, or vertebral point tenderness. No Meningismus. Chest/axilla: Normal chest wall appearance and motion. Nontender with no deformity. No lesions are appreciated. Cardiovascular: Regular rate and rhythm with a normal S1 and S2. No gallops, murmurs, or rubs. Normal PMI, no JVD. No pulse deficits. Respiratory: Lungs have equal breath sounds bilaterally, clear to auscultation and percussion. No rales, rhonchi or wheezes noted. No increased work of breathing, no retractions or nasal flaring. Abdomen/GI: Soft, non-tender, with normal bowel sounds. No distension or tympany. No guarding or rebound. No evidence of tenderness throughout. Back: No spinal tenderness. No costovertebral tenderness. Full range of motion. Skin: Warm, dry with normal turgor. Normal color with no rashes, no lesions, and no evidence of cellulitis. MS/ Extremity: Pulses equal, no cyanosis. Neurovascular intact. Full, normal range of motion. Neuro: Awake and alert, GCS 15, oriented to person, place, time, and situation. Cranial nerves II-XII grossly intact. Motor strength 5/5 in all extremities. Sensory grossly intact. Cerebellar exam normal. Normal gait. Psych: Awake, alert, with orientation to person, place and time. Behavior, mood, and affect are within normal limits. Vital Signs: 22:00 BP 119 / 68; Pulse 73; Resp 16; Temp 98.3; Pulse Ox 100% on R/A; Weight 54.43 kg; kd3 23:50 BP 139 / 62; Pulse 70; Resp 18 S; Pulse Ox 96% on R/A; ha1 02 00:30 BP 139 / 62; Pulse 70; Resp 17 S; Pulse Ox 99% on R/A; ha1 01:30 BP 143 / 77; Pulse 72; Resp 18 S; Pulse Ox 99% on R/A; ha1 02:00 BP 140 / 75; Pulse 72; Resp 18 S; Pulse Ox 98% on R/A; ha1 NIH Stroke Scale Scores: 07/26 22:33 NIHSS Score: 0 annette MDM: 22:11 Patient medically screened. annette 22:37 Differential Diagnosis: CVA, electrolyte abnormality, hypoglycemia, TIA, UTI, volume annette depletion. Data reviewed: vital signs, nurses notes, lab test result(s), EKG, radiologic studies. Consideration of Admission/Observation Patient was admitted/placed on observation. Escalation of care including admission/observation considered. I considered the following discharge prescriptions or medication management in the emergency department Medications were administered in the Emergency Department. See MAR. Test considered but Not performed: MRI: mri brain. Care significantly affected by the following chronic conditions: Hypertension. 07/26 22:24 Order name: Basic Metabolic Panel; Complete Time: : [facility] 07/26 22:24 Order name: CBC with Diff; Complete Time: : annette 07/26 22:24 Order name: LFT's; Complete Time: : annette 07/26 22:24 Order name: Magnesium; Complete Time: : [facility] 07/26 22:24 Order name: NT PRO-BNP; Complete Time: : annette 07/26 22:24 Order name: PT-INR; Complete Time: : anntete 07/26 22:24 Order name: Troponin HS; Complete Time: 01: annette 07/26 22:24 Order name: XRAY Chest (1 view) annette 07/26 22:24 Order name: CT Head Brain wo Cont annette 07/26 22:24 Order name: US Carotid Artery Bilateral [facility] 07/26 22:24 Order name: Urine Microscopic Only; Complete Time: 23:50 annette 07/26 23:24 Order name: Urine Dipstick-Ancillary; Complete Time: 23:47 EDMS 07/26 22:24 Order name: Cardiac monitoring; Complete Time: 00:07 annette 07/26 22:24 Order name: EKG - Nurse/Tech [facility] 07/26 22:24 Order name: IV Saline Lock; Complete Time: 00:05 [facility] 07/26 22:24 Order name: Labs collected and sent; Complete Time: 00:05 annette 07/26 22:24 Order name: O2 Per Protocol; Complete Time: 23:29 annette 07/26 22:24 Order name: O2 Sat Monitoring; Complete Time: 23:29 [facility] 07/26 22:24 Order name: Urine Dipstick-Ancillary (obtain specimen); Complete Time: 23:29 [facility] Administered Medications: 23:45 Drug: NS 0.9% 1000 ml Route: IV; Rate: 125 ml/hr; Site: left antecubital; [facility] 07/27 02:00 Follow up: Response: No adverse reaction; IV Status: Completed infusion; IV Intake: ha1 400ml 07/26 23:46 Drug: NS 0.9% 500 ml Route: IV; Rate: bolus; Site: left antecubital; [facility] 07/27 01:50 Follow up: Response: No adverse reaction; IV Status: Completed infusion; IV Intake: ha1 500ml 07/26 23:50 Drug: foLIC Acid 1 mg Route: IVPB; Site: left antecubital; 1 07/27 00:10 Drug: Aspirin 81 mg Route: PO; ha1 00:30 Follow up: Response: No adverse reaction ha1 00:25 Drug: Rocephin (cefTRIAXone) 1 grams Route: IV; Rate: per protocol; Site: left [facility] antecubital; 00:50 Follow up: Response: No adverse reaction; IV Status: Completed infusion; IV Intake: [id number] 00:25 Drug: Cipro (ciprofloxacin) 250 mg Route: PO; ha1 01:00 Follow up: Response: No adverse reaction 1 Disposition Summary: 07/27/22 01:21 Discharge Ordered Location: Home annette Problem: new annette Symptoms: have improved annette Condition: Stable annette Diagnosis - Weakness annette - Altered mental status, unspecified annette - UTI/ Urinary tract infection, site not specified annette - Anemia, unspecified annette - Unspecified kidney failure - chronic annette - Elevated white blood cell count annette Followup: annette - With: Private Physician - When: 2 - 3 days - Reason: Recheck today's complaints, Continuance of care, Re-evaluation by your physician Followup: annette - With: - When: 2 - 3 days - Reason: Recheck today's complaints, Continuance of care, Re-evaluation by your physician Followup: annette - With: Azael Barrientos MD - When: 2 - 3 days - Reason: Recheck today's complaints, Re-evaluation by your physician Discharge Instructions: - Discharge Summary Sheet annette - Anemia annette - Confusion annette - Weakness annette - Urinary Tract Infection, Adult annette - Urinary Tract Infection, Adult, Xpdo-mw-Gsle annette - Weakness, Sgdw-yo-Soeq annette - Aspirin and Your Heart annette - Deconditioning annette - Chronic Kidney Disease, Adult, Ibha-dl-Kuof annette Forms: - Medication Reconciliation Form annette - Thank You Letter annette - Antibiotic Education annette - Prescription Opioid Use [facility] Prescriptions: - Folic Acid 1 mg Oral Tablet - take 1 tablet by ORAL route once daily; 30 tablet; Refills: 0, Product annette Selection Permitted - Cipro 250 mg Oral Tablet - take 1 tablet by ORAL route every 12 hours for 5 days; 10 tablet; Refills: 0, annette Product Selection Permitted NIH Stroke Scale - NIH Stroke Score Date: 07/26/2022 Time: 22:33 Total Score = 0 1a. Level of Consciousness (LOC) - 0(Alert) 1b. Level of Consciousness (LOC) (Month \T\ Age) - 0(Both) 1c. LOC Commands (Open \T\ Closes Eyes/[employer]rial [employer] Operator) - 0(Both) 2. Best Gaze (Lateral Gaze Paresis) - 0(Normal) 3. Visual Field Loss - 0(No visual loss) 4. Facial Palsy - 0(Normal) 5a. Left Arm: Motor (10-second hold) - 0(No drift) 5b. Right Arm: Motor (10-second hold) - 0(No drift) 6a. Left Leg: Motor (5-second hold - always test supine) - 0(No drift) 6b. Right Leg: Motor (5-second hold - always test supine) - 0(No drift) 7. Limb Ataxia (finger/nose \T\ heel/[place] - test with eyes open) - 0(Absent) 8. Sensory Loss (pinprick arms/legs/face) - 0(Normal) 9. Best Language: Aphasia (description/naming/reading) - 0(No aphasia) 10. Dysarthria (speech clarity - read or repeat words) - 0(Normal) 11. Extinction and Inattention (visual/tactile/auditory/spatial/personal) - 0(No abnormality) Initials: annette Signatures: Dispatcher [employer] Edwin Luciano MD MD cha Doucette, Kyli, RN RN kd3 Lona Carrizales RN RN ha1
--- NOTE | 2022-07-27 01:21 | ER ---
Nurse's Notes [facility] Name: Olive Antony Age: 77 yrs Sex: Female : 1945 Arrival Date: 07/26/2022 Time: 21:50 Bed 8 Private MD: Diagnosis: Weakness;Altered mental status, unspecified;UTI/ Urinary tract infection, site not specified;Anemia, unspecified;Unspecified kidney failure-chronic;Elevated white blood cell count Presentation: 07/26 22:00 Chief complaint: Patient's son or daughter states: She has been acting strange for kd3 about 3 days now. I feel like every time i go to visit her she starts talking about on thing and she doesn't [place] the point she was trying to make. She seems to change from subject to subject. [facility] at the [facility] across the street because she had bowl surgery last week and needed physical therapy but it seems like she's getting confused there. Coronavirus screen: Vaccine status: Patient reports receiving the 1st dose of the Covid vaccine. Ebola Screen: No symptoms or risks identified at this time. Initial Sepsis Screen: Does the patient meet any 2 criteria? No. Patient's initial sepsis screen is negative. Does the patient have a suspected source of infection? No. Patient's initial sepsis screen is negative. Risk Assessment: Do you want to hurt yourself or someone else? Patient reports no desire to harm self or others. Onset of symptoms was July 26, 2022. 22:00 Method Of Arrival: Wheelchair kd3 22:00 Acuity: BENY 3 kd3 Triage Assessment: 22:03 General: Appears in no apparent distress. Behavior is calm, cooperative. Pain: Denies kd3 pain. 22:03 Neuro: Level of Consciousness is awake, alert, obeys commands, Oriented to person, kd3 place, time. Respiratory: Airway is patent Trachea midline Respiratory effort is even, unlabored. 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 - Social history:: Smoking status: unknown. Screenin:53 Abuse screen: Denies threats or abuse. Denies injuries from another. Nutritional ha1 screening: No deficits noted. 21:53 [facility] ED Fall Risk Assessment (Adult) History of falling in the last 3 months, ha1 including since admission No falls in past 3 months (0 pts) Confusion or Disorientation Yes (5 pts) Intoxicated or Sedated No (0 pts) Impaired Gait Yes (1 pt) Mobility Assist Device Used Yes (1 pt) Altered Elimination No (0 pt). Tuberculosis screening: No symptoms or risk factors identified. Assessment: 21:55 General: Appears comfortable, Behavior is calm, cooperative. Pain: Denies pain. Neuro: ha1 Toussaint Agitation-Sedation Scale (RASS): 0 - Alert and Calm Level of Consciousness is awake, alert, obeys commands, Oriented to person, place. Cardiovascular: Capillary refill < 3 seconds Patient's skin is warm and dry. Respiratory: Airway is patent Respiratory effort is even, unlabored, Respiratory pattern is regular, symmetrical. GI: No signs and/or symptoms were reported involving the gastrointestinal system. Abdomen is flat, non-distended, Bowel sounds present X 4 quads. : No signs and/or symptoms were reported regarding the genitourinary system. Urine is cloudy. EENT: No signs and/or symptoms were reported regarding the EENT system. Derm: Skin is fragile, Skin is pink, warm \T\ dry. Musculoskeletal: Circulation, motion, and sensation intact. 22:50 Reassessment: Patient and/or family updated on plan of care and expected duration. Pain ha1 level reassessed. Patient denies pain at this time. Respiratory: Respiratory effort is even, unlabored, Respiratory pattern is regular, symmetrical. 23:50 Reassessment: Patient and/or family updated on plan of care and expected duration. Pain ha1 level reassessed. Alert and oriented to name and place Patient denies pain at this time. 07/27 00:50 Reassessment: Patient and/or family updated on plan of care and expected duration. Pain ha1 level reassessed. Patient denies pain at this time. Neuro: Level of Consciousness is awake, alert, obeys commands, Oriented to person, place. 01:50 Reassessment: Patient and/or family updated on plan of care and expected duration. Pain ha1 level reassessed. Patient denies pain at this time. Neuro: Level of Consciousness is awake, alert, obeys commands, Oriented to person, place. Vital Signs: 07/26 22:00 BP 119 / 68; Pulse 73; Resp 16; Temp 98.3; Pulse Ox 100% on R/A; Weight 54.43 kg; kd3 23:50 BP 139 / 62; Pulse 70; Resp 18 S; Pulse Ox 96% on R/A; ha1 07/27 00:30 BP 139 / 62; Pulse 70; Resp 17 S; Pulse Ox 99% on R/A; ha1 01:30 BP 143 / 77; Pulse 72; Resp 18 S; Pulse Ox 99% on R/A; ha1 02:00 BP 140 / 75; Pulse 72; Resp 18 S; Pulse Ox 98% on R/A; ha1 NIH Stroke Scale Scores: 07/26 22:33 NIHSS Score: 0 annette ED Course: 21:50 Patient arrived in ED. ja2 21:53 Patient has correct armband on for positive identification. Placed in gown. Bed in low ha1 position. Call light in reach. Side rails up X 1. Adult w/ patient. 22:03 Triage completed. kd3 22:03 Arm band placed on right wrist. kd3 22:11 Edwin Villaseñor MD is Attending Physician. annette 22:55 No provider procedures requiring assistance completed. Inserted saline lock: 22 gauge ha1 in left antecubital area, using aseptic technique. Blood collected. 23:29 Urine Microscopic Only Sent. ha1 23:48 XRAY Chest (1 view) In Process Unspecified. EDMS 23:48 CT Head Brain wo Cont In Process Unspecified. EDMS 23:48 US Carotid Artery Bilateral In Process Unspecified. EDMS 07/27 00:04 Lona Carrizales, RN is Primary Nurse. ha1 00:07 Basic Metabolic Panel Sent. ha1 00:07 CBC with Diff Sent. ha1 00:07 LFT's Sent. ha1 00:07 Magnesium Sent. ha1 00:07 NT PRO-BNP Sent. ha1 00:07 PT-INR Sent. ha1 00:07 Troponin HS Sent. ha1 01:20 Juan Johnson MD is Referral Physician. annette 01:21 Azael Barrientos MD is Referral Physician. annette 02:39 IV discontinued, intact, bleeding controlled, No redness/swelling at site. Pressure ha1 dressing applied. Administered Medications: 07/26 23:45 Drug: NS 0.9% 1000 ml Route: IV; Rate: 125 ml/hr; Site: left antecubital; ha1 07/27 02:00 Follow up: Response: No adverse reaction; IV Status: Completed infusion; IV Intake: ha1 400ml 07/26 23:46 Drug: NS 0.9% 500 ml Route: IV; Rate: bolus; Site: left antecubital; ha1 07/27 01:50 Follow up: Response: No adverse reaction; IV Status: Completed infusion; IV Intake: ha1 500ml 07/26 23:50 Drug: foLIC Acid 1 mg Route: IVPB; Site: left antecubital; ha1 07/27 00:10 Drug: Aspirin 81 mg Route: PO; ha1 00:30 Follow up: Response: No adverse reaction ha1 00:25 Drug: Rocephin (cefTRIAXone) 1 grams Route: IV; Rate: per protocol; Site: left ha1 antecubital; 00:50 Follow up: Response: No adverse reaction; IV Status: Completed infusion; IV Intake: [id number] 00:25 Drug: Cipro (ciprofloxacin) 250 mg Route: PO; ha1 01:00 Follow up: Response: No adverse reaction ha1 Medication: 02:39 VIS not applicable for this client. ha1 Intake: 00:50 IV: 50ml; Total: 50ml. ha1 01:50 IV: 500ml; Total: 550ml. ha1 02:00 IV: 400ml; Total: 950ml. ha1 Outcome: 01:21 Discharge ordered by . annette 02:38 Discharged to home via wheelchair, with family. ha1 02:38 Condition: stable 02:38 Discharge instructions given to patient, family, Instructed on discharge instructions, follow up and referral plans. medication usage, Demonstrated understanding of instructions, follow-up care, medications, Prescriptions given X 2. 02:39 Patient left the ED. ha1 NIH Stroke Scale - NIH Stroke Score Date: 07/26/2022 Time: 22:33 Total Score = 0 1a. Level of Consciousness (LOC) - 0(Alert) 1b. Level of Consciousness (LOC) (Month \T\ Age) - 0(Both) 1c. LOC Commands (Open \T\ Closes Eyes/Broom Bundler) - 0(Both) 2. Best Gaze (Lateral Gaze Paresis) - 0(Normal) 3. Visual Field Loss - 0(No visual loss) 4. Facial Palsy - 0(Normal) 5a. Left Arm: Motor (10-second hold) - 0(No drift) 5b. Right Arm: Motor (10-second hold) - 0(No drift) 6a. Left Leg: Motor (5-second hold - always test supine) - 0(No drift) 6b. Right Leg: Motor (5-second hold - always test supine) - 0(No drift) 7. Limb Ataxia (finger/nose \T\ heel/magallon - test with eyes open) - 0(Absent) 8. Sensory Loss (pinprick arms/legs/face) - 0(Normal) 9. Best Language: Aphasia (description/naming/reading) - 0(No aphasia) 10. Dysarthria (speech clarity - read or repeat words) - 0(Normal) 11. Extinction and Inattention (visual/tactile/auditory/spatial/personal) - 0(No abnormality) Initials: annette Signatures: Dispatcher [employer] EDEdwin Montano MD MD cha Alexander, Jessica ja2 Doucette, Kyli, RN RN kd3 Lona Carrizales RN RN ha1 Corrections: (The following items were deleted from the chart) 06:08 06:07 Response: No adverse reaction; IV Status: Completed infusion; IV Intake: ha1 500ml ha1
[2022-07-27] MEDS ORDERED: ASPIRIN 81 MG CHEWABLE TABLET ONE (02:23)
[2022-07-27 02:59] VITALS: TEMP 98.3
[2022-07-27 03:15] VITALS: O2SAT 99
[2022-07-27 03:16] VITALS: BP 143/77
--- NOTE | 2022-07-27 15:30 | RAD REPORT ---
EXAM DESCRIPTION: RAD - Chest Single View - 07/26/2022 10:58 pm Chest Single View CLINICAL HISTORY: 77 years Female COUGH COMPARISON: July 18, 2022 TECHNIQUE: AP view of the chest was obtained. FINDINGS: Cardiac size is within normal limits. Central vessels are moderately increased. Peribronch ial thickening hilar regions bilaterally. Prominent cardiac fat pad on left. Infrahilar densities unchanged when correlated with the prior stud y. No effusions bilaterally. No pneumothorax. Postsurgical changes lower cervical spine. IMPRESSION: Chronic changes lower lungs bilaterally. Findings unchanged when correlated with the ramesh or study. Electronically signed by: Maritza Henley MD 07/26/2022 11:53 PM DEBURRER MACHINE Due to temporary technical issues with the PACS/Fluency reporting system, reports are being signed by the in house radiologists without review as a courtesy to insure prompt reporting. The interpreting radiologist is fully responsible for the content of the report.
--- NOTE | 2022-07-27 15:35 | RAD REPORT ---
EXAM DESCRIPTION: CT - Head Brain Wo Cont - 07/27/2022 6:53 am CLINICAL HISTORY: The patient is 77 years old and is Female; CONFUSED TECHNIQUE: Axial computed tomography images of the head/brain without intravenous contrast. Sagitt al and coronal reformatted images were created and reviewed. This CT exam was performed using one o r more of the following dose reduction techniques: automated exposure control, adjustment of the mA and/or kV according to patient size, and/or use of iterative reconstruction technique. COMPARISON: No relevant prior studies available. FINDINGS: Brain: Mild nonspecific white matter changes likely related to chronic microvascular isc hemic disease. Mild cerebral atrophy. No hemorrhage. Ventricles: Unremarkable. No ventriculomegaly. Bones/joints: Unremarkable. No acute fracture. Soft tissues: Unremarkable. Sinuses: Unremarkable as visualized. Mastoid air cells: Unremarkable as visualized. No mastoid effusion. IMPRESSION: No acute intracranial abnormality. Electronically signed by: Edwin Acosta MD 07/26/2022 11:23 PM ACCOUNT DEVELOPER Due to temporary technical issues with the PACS/Fluency reporting system, reports are being signed by the in house radiologists without review as a courtesy to insure prompt reporting. The interpreting radiologist is fully responsible for the content of the report.
--- NOTE | 2022-07-27 15:38 | RAD REPORT ---
EXAM DESCRIPTION: US - CP - 07/26/2022 11:40 pm CLINICAL HISTORY: 77 years Female DIZZINESS COMPARISON: None TECHNIQUE: Real-time and Doppler sonography of the carotid arteries was performed bilaterally. Justine joana, color, and spectral analysis was utilized. FINDINGS: No significant plaque formation bilaterally. Doppler spectral analysis was performed which revealed peak systolic velocity ratio of 0.99 on the ri ght and 1.33 on the left. Antegrade flow vertebral arteries bilaterally. No velocity elevation any level. IMPRESSION: No significant plaque formation bilaterally. No sonographic evidence for hemodynamically significant stenosis involving the carotid arteries bilaterally. Electronically signed by: Maritza Henley MD 07/27/2022 12:19 AM ELECTRIC MOTOR REPAIRING SUPERVISOR Due to temporary technical issues with the PACS/Fluency reporting system, reports are being signed by the in house radiologists without review as a courtesy to insure prompt reporting. The interpreting radiologist is fully responsible for the content of the report.
== END 2022-07-27 02:39 | disposition home or self-care (01) ==
LOC: ER 21:46
DX: R41.82 Altered mental status, unspecified (principal); N39.0 Urinary tract infection, site not specified; D64.9 Anemia, unspecified; D72.829 Elevated white blood cell count, unspecified; I12.9 Hypertensive chronic kidney disease with stage 1 through stage 4 chronic kidney disease, or unspecified chronic kidney disease; N18.9 Chronic kidney disease, unspecified; R53.1 Weakness; Z88.5 Allergy status to narcotic agent
CPT/HCPCS: 85025; 80048; 36415; 83735; 85610; 80076; 84484; 83880; 70450; 71045; 93880; J7040; J7030; 81003; 81015

== ENCOUNTER 2023-11-24 09:59 | Inpatient (IN) | payer OTHER ==
--- OUTSIDE RECORDS SUMMARY | 2023-11-24 10:06 | XMS REPORT | Continuity of Care Document ---
Author Name Unknown Address [address] [facility] [address] [place] [address] [facility] Address [address] [facility] [address] [place] [address] Care Team Providers Care Licensed Massage Therapist Name Role Phone PCP, PATIENT DOES NOT HAVE A Primary Care Physic maty Unavailable AFIA ANTHONY Attending Clinician Unavailable Afia Anthony MD Attending Clinician [phone] Doctor Unassigned, [place] Attending Clinician U ARELIS Ward Attending Clinician Unavailable ANNE MARIE CONCEPCION Attending Clinician Unavailable Surgery-IHDE Attending Clinician Unavailable DR CHARMAINE KEITA Attending Clinician Unavailjaylene KEITA, DR MONTANO Attending Clinician UnavailCHARMAINE Jose Attending Clinician Unavailable ROCKY JOSE Attending Clinician Unavailable CORTEZ WINTERS Attending Clinician UnavailSERENA Rose Attending Clinician UnavailValerio Lopez Admitting Clinician Unavailable AFIA ANTHONY Admitting Clinician Unavailable ARELIS OWEN Admitting Clinician Unavailable ANNE MARIE CONCEPCION Admitting Clinician Unavailable Surgery-IHDE Admitting Clinician Unavailable DR CHARMAINE KEITA Admitting Clinician UnavailDR CHARMAINE Luna Admitting Clinician UnavailCHARMAINE Jose Admitting Clinician Unavailable ROCKY JOSE Admitting Clinician Unavailable WILMA LYNNE Admitting Clinician Unavailable RACHID BUNDY Admitting Clinician Unavailable Payers Payer Name Policy Type Policy Number Effective Date Expirati on Date Source [facility] [id number] 2023 00:00:00 [place] [employer] [id number] 1996 00:00:00 [place] [id number] 2010 00:00:00 [place] [facility] - [facility] - FQ [id number] 1996 00:00:00 [id number] 1959 00:00:00 [id number] 1959 00:00:00 Problems Condition Name Condition Details Condition Category Status Onset Date Resolution Date Last Treatment Date Treating Clinician Comments Source Aortic valve disease Aortic valve disease Disease Active 07-14 00:00: 00 [facility] Leg edema Leg edema Disease Active 07-14 00:00: 00 [facility] 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 Active 07-14 00:00: 00 [facility] Chronic diastolic heart failure Chronic diastolic heart failure Disease Active 07-14 00:00: 00 [facility] Ascending aorta dilatation Ascending aorta dilatation Disease Active 07-14 00:00: 00 [facility] Ruptured abdominal aortic aneurysm (AAA), unspecifie d part Ruptured abdominal aortic aneurysm (AAA), unspecifie d part Disease Active 07-14 00:00: 00 [facility] Gout Gout Problem Active 11-26 00:00: 00 [facility] Degenerati ve cervical spinal stenosis Degenerati ve cervical spinal stenosis Problem Active [facility]) Non-functi oning kidney Non-functi oning kidney Problem Active [facility] (LUF/LI V/SA) Hypertensi ve disorder Hypertensi ve disorder Problem Active [facility] (LUF/LI V/SA) Hiatal hernia Hiatal hernia Problem Active [facility] (LUF/LI V/SA) Narcolepsy Narcolepsy Problem [facility] V/SA) Chronic depression Chronic depression Problem Active [facility] (LUF/LI V/SA) Cervical myelopathy Cervical myelopathy Problem Active [facility] (LUF/LI V/SA) Synovial cyst Synovial cyst Problem Active [facility] (LUF/LI V/SA) Hernia of abdominal wall Hernia of abdominal wall Problem Active [facility] (LUF/LI V/SA) Sciatica Sciatica Problem [facility]/SA) Numbness of lower limb Numbness of lower limb Problem Complet ed [facility] (LUF/LI V/SA) Umbilical hernia Umbilical hernia Problem Active [facility] (LUF/LI V/SA) Incisional hernia Incisional hernia Problem Active [facility] (LUF/LI V/SA) Disorder of thyroid gland Disorder of thyroid gland Problem Active [facility] (LUF/LI V/SA) Back problem Back problem Problem Active [facility] (LUF/LI V/SA) Depressive disorder Depressive disorder Problem Active [facility] (LUF/LI V/SA) Allergies, Adverse Reactions, Alerts Allergy Name Allergy Type Status Severity Reaction(s) Onset Date Inactive Date Treating Clinician Comments Source MORPHINE DRUG INGREDI Active Hallucinates 2022-06 00:00: 00 [facility] CODEINE DRUG INGREDI Active Hallucinates 2022-06 00:00: 00 [facility] Codeine Propensi ty to adverse reaction s Active Hallucinatio ns 2022-06 00:00: 00 [facility] Morphine Propensi ty to adverse reaction s Active Hallucinatio ns 2022-06 00:00: 00 [facility] Codeine DA Active Moderate Nausea and Vomiting (Severe Adv Rxn) [facility] (LUF/LI V/SA) Flagyl DA Active Moderate Rash [facility] (LUF/LI V/SA) Crestor DA Active Moderate Itching (Severe) [facility] (LUF/LI V/SA) morphine DA Active Unknown [facility] (LUF/LI V/SA) NO KNOWN ALLERGIE S Drug Class Active [facility] Codeine Allergy to substanc e Active [facility] Flagyl Allergy to substanc e Active [facility] Morphine Allergy to substanc e Active [facility] Social History Social Habit Start Date Stop Date Quantity Comments Source History of tobacco use Cigarette Smoker [facility] Tobacco use and exposure 2023-05-06 00:00:00 2023-05-06 00:00:00 Smokeless tobacco non-user [facility] History of Social function 2023-05-06 00:00:00 2023-05-06 00:00:00 [facility] Sex Ass[birth year] At 1945 00:00:00 1945 00:00:00 [facility] Smoking Status Start Date Stop Date Source Tobacco smoking consumption unknown [facility] Ex-smoker 2023-05-06 00:00:00 2023-05-06 00:00:00 [facility] Medications Ordered Medication Name Filled Medication Name Start Date Stop Date Current Medication? Ordering Clinician Indication Dosage Frequency Signature (SIG) Comments Components Source potassium chloride 20 mEq tablet 07-14 14:41: 23 08-24 05:59 :00 No TAKE 1 TABLET BY MOUTH TWICE DAILY WITH FOOD for 90 days [facility] metoprolol tartrate 25 mg tablet 07-14 00:00: 00 Yes 12.5mg Take 0.5 tablets by mouth in the morning and 0.5 tablets in the evening. Take with meals. [facility] galantamine 8 mg tablet 07-07 00:00: 00 Yes [facility] SERTraline 50 mg tablet 2022-06 00:00: 00 Yes 50mg Take 1 tablet by mouth in the morning. [facility] atorvastati n 20 mg tablet 2022-06 00:00: 00 Yes 20mg Take 1 tablet by mouth in the morning. [facility] lisinopriL- hydrochloro thiazide 20-25 mg per tablet 2022-06 00:00: 00 Yes 1{tbl} Take 1 tablet by mouth in the morning. [facility] metoprolol tartrate 25 mg tablet 2022-06 00:00: 00 07-14 00:00 :00 No 25mg Take 1 tablet by mouth in the morning and 1 tablet in the evening. Take with meals. [facility] allopurinoL 100 mg tablet 2022-06 00:00: 00 Yes 100mg Take 1 tablet by mouth in the morning. [facility] levothyroxi ne 25 mcg tablet 2022-06 00:00: 00 Yes TAKE 1 TABLET BY MOUTH EVERY DAY IN THE MORNING ON AN EMPTY STOMACH [facility] acetaminoph en 325 MG / hydrocodone bitartrate 5 MG Oral Tablet acetaminoph en 325 MG / hydrocodone bitartrate 5 MG Oral Tablet 11-27 00:00: [address] [facility] (LUF/LI V/SA) Calcium 600 Calcium 600 No Ca lcium 600 [facility] folic acid folic acid No folic acid [facility] furosemide 20 mg tablet furosemide 20 mg tablet No furosemide 20 mg tablet [facility] Probiotic Probiotic No Probiotic [facility] alendronic acid 35 MG Oral Tablet alendronic acid 35 MG Oral Tablet Yes 35mg Q7.00D [facility] (LUF/LI V/SA) Calcium Calcium Yes 600mg [address]xD [facility] (LUF/LI V/SA) cholecalcif george cholecalcif george Yes 100ug [facility] (LUF/LI V/SA) docusate docusate Yes 100mg [address]xD [facility] (LUF/LI V/SA) furosemide 20 MG Oral Tablet furosemide 20 MG Oral Tablet Yes 20mg 1xD [facility] (LUF/LI V/SA) levothyroxi ne levothyroxi ne Yes 25ug [address]xD [facility] (LUF/LI V/SA) potassium chloride potassium chloride Yes 20meq 1xD [facility] (LUF/LI V/SA) Vital Signs Vital Name Observation Time Observation Value Comments S ourcatia Systolic blood pressure 2023-07-14 20:43:00 133 mm[Hg] [facility] Diastolic blood pressure 2023-07-14 20:43:00 67 mm[Hg] [facility] Heart rate 2023-07-14 20:43:00 50 /min Un[facility] Body height 2023-07-14 20:43:00 144.8 cm [facility] Body weight 2023-07-14 20:43:00 56.155 kg [facility] BMI 2023-07-14 20:43:00 26.79 kg/m2 [facility] Oxygen saturation in Arterial blood by Pulse oximetry 2023-07-14 20:43:00 99 /min [facility] Systolic blood pressure 2023-05-06 19:58:00 128 mm[Hg] [facility] Diastolic blood pressure 2023-05-06 19:58:00 63 mm[Hg] [facility] Heart rate 2023-05-06 19:58:00 43 /min [facility] Oxygen saturation in Arterial blood by Pulse oximetry 2023-05-06 19:58:00 96 /min [facility] Body temperature 2023-05-06 19:56:00 36.06 [place] [facility] Respiratory rate 2023-05-06 19:56:00 17 /min [facility] Body height 2023-05-06 19:56:00 144.8 cm [facility] Body weight 2023-05-06 19:56:00 55.475 kg [facility] BMI 2023-05-06 19:56:00 26.47 kg/m2 [facility] Weight 2020-12-09 00:40:00 70.4 KG Weight 2020-12-08 [...] KG BP Diastolic 2019-11-27 00:00:00 80 mm[Hg] [facility] Height 2019-11-27 00:00:00 61 [in_i] [facility] BMI (Body Mass Index) 2019-11-27 00:00:00 29.3 kg/m2 [facility] BP Systolic 2019-11-27 00:00:00 140 mm[Hg] [facility] Body Weight 2019-11-27 00:00:00 154.9 [lb_av] [facility] Weight 2019-03-18 03:30:00 79.7 KG Height 2019-03-14 09:45:00 154.94 CM Body Temperature 2020-12-09 11:10:00 97.6 [degF] [facility] (LUF/MICHELLE/SA) Pulse Rate 2020-12-09 11:10:00 63 /min [facility] (LUF/MICHELLE/SA) Respiratory Rate 2020-12-09 11:10:00 15 /min [facility] (F/MICHELLE/SA) O2% BldC Oximetry 2020-12-09 11:10:00 95 % [facility] (LUF/MICHELLE/SA) BP Systolic 2020-12-09 11:10:00 138 mm[Hg] [facility] (LUF/MICHELLE/SA) BP Diastolic 2020-12-09 11:10:00 78 mm[Hg] [facility] (LUF/MICHELLE/SA) Weight 2020-12-09 00:40:00 70.4 kg [facility] (LUF/MICHELLE/SA) Height 2020-11-30 00:03:00 61 [in_i] [facility] (LUF/MICHELLE/SA) Heart Rate 2020-11-29 22:46:00 76 /min [facility] (LUF/MICHELLE/SA) Body Temperature 2020-11-27 11:00:00 97 [degF] [facility] (LUF/MICHELLE/SA) Pulse Rate 2020-11-27 11:00:00 58 /min [facility] (LUF/MICHELLE/SA) Respiratory Rate 2020-11-27 11:00:00 18 /min [facility] (LUF/MICHELLE/SA) O2% BldC Oximetry 2020-11-27 11:00:00 91 % [facility] (LUF/MICHELLE/SA) BP Systolic 2020-11-27 11:00:00 113 mm[Hg] [facility] (LUF/MICHELLE/SA) BP Diastolic 2020-11-27 11:00:00 57 mm[Hg] [facility] (LUF/MICHELLE/SA) Weight 2020-11-27 00:00:00 77.8 kg [facility] (LUF/MICHELLE/SA) Height 2020-11-24 09:18:00 61 [in_i] [facility] (LUF/MICHELLE/SA) Pulse Rate 2019-08-27 16:00:00 53 /min [facility] (LUF/MICHELLE/SA) Respiratory Rate 2019-08-27 16:00:00 13 /min [facility] (LUF/MICHELLE/SA) O2% BldC Oximetry 2019-08-27 16:00:00 99 % [facility] (LUF/MICHELLE/SA) BP Systolic 2019-08-27 16:00:00 134 mm[Hg] [facility] (LUF/MICHELLE/SA) BP Diastolic 2019-08-27 16:00:00 65 mm[Hg] [facility] (LUF/MICHELLE/SA) Body Temperature 2019-08-27 12:34:00 98 [degF] [facility] (LUF/MICHELLE/SA) Height 2019-08-27 12:34:00 60 [in_i] [facility] (LUF/MICHELLE/SA) Weight 2019-08-27 12:34:00 72.1 kg [facility] S bailee [facility] (F/MICHELLE/SA) BMI (Body Mass Index) 2019-08-27 12:34:00 31.2 kg/m2 [facility] ([facility]/MICHELLE/SA) Procedures Procedure Date / Time Performed Performing Clinician Source VENOUS REFLUX DUPLEX BILATERAL - BY VASCULAR LAB 2023-07-27 16:45:00 Afia Anthony [facility] AORTOILIAC DUPLEX - BY VASCULAR LAB 2023-07-27 16:00:00 Afia Anthony [facility] TRANSTHORACIC ECHO (TTE) COMPLETE 2023-05-31 22:39:33 [facility] CONSENT/REFUSAL FOR DIAGNOSIS AND TREATMENT 2023-05-06 19:43:04 Doctor Unassigned, [place] [facility] EXTERNAL PROVIDER - ADC REFERRAL 2023-04-21 05:01:00 Doctor Unassigned, [place]le [facility] ROBOTIC VENTRAL HERNIA REPAIR 2020-12-04 17:53:00 [facility] ([facility]/SA) SUPPLEMENT ABDOMIN WALL SYN PC ENDO 2020-12-04 00:00:00 [facility]ly [facility] ([facility]/) RELEASE PERITONEUM PERQ ENDO APPR 2020-12-04 00:00:00 [facility]ly [facility] ([facility]/SA) ROBOTIC ASSTD PROC TRUNK PERQ ENDO 2020-12-04 00:00:00 [facility]ly [facility] ([facility]/SA) ROBOTIC INCISIONAL HERNIA REPAIR 2020-11-26 08:21:00 Formerly [facility] ([facility]/SA) [id number] LAPS RPR RECURRENT [facility]AL [facility] 2020-11-26 00:00:00 [facility] ([facility]/SA) [id number] TAP BLOCK BILATERAL BY INJECTION(S 2020-11-26 00:00:00 [facility]ly [facility] ([facility]/MICHELLE/SA) ACDIF 2019-03-15 15:50:00 [facility] ([facility]/MICHELLE/SA) CERVICAL LAMINECTOMY FOR SYNOVIAL CYST, ANTERIOR DISCECTOMY ONE LEVEL WITH ALLOGRAFT AND INSTRUMENTATION 2019-03-15 14:16:00 [facility]ly [facility] ([facility]/MICHELLE/SA) Repair of ruptured aneurysm of abdominal aorta with graft [facility] ([facility]//) Repair of aneurysm of abdominal aorta [facility] ([facility]//) Cataract extraction and insertion of intraocular lens [facility] ([facility]//) Appendectomy [facility] ([facility]//) Tonsillectomy [facility] ([facility]//) Cholecystectomy Formerly [facility] ([facility]/) Hysterectomy Formerly [facility] ([facility]//) Decompression of median nerve [facility] ([facility]//) Decompression of ulnar nerve at elbow Formerly [facility] ([facility]//) Encounters Start Date/Time End Date/Time Encounter Type Admission Type Attending Clinicians Care Facility Care Department Encounter ID Source 2021-07-15 11:31:30 Outpatient [facility] [id number] [facility] 2023-10-13 14:20:00 2023-10-13 14:20:00 [facility] [id number] 2023-07-28 00:00:00 2023-07-28 00:00:00 [facility] [id number] [facility] 2023-07-27 09:10:25 2023-07-27 23:59:00 Hospital Encounter Sheldon [facility] [id number] [id number] [facility] 2023-07-27 09:00:00 2023-07-27 09:09:00 [facility] [id number] [facility] 2023-07-27 09:00:00 2023-07-27 09:09:00 [facility] [id number] [facility] 2023-07-14 14:40:00 2023-07-14 15:00:06 [facility] [id number] [facility] 2023-07-14 14:40:00 2023-07-14 15:00:06 Office Visit Sheldon [facility] [employer] [facility] [facility] [id number] [facility] 2023-07-06 15:40:00 2023-07-06 15:40:00 [facility] [id number] [facility] 2023-06-02 00:00:00 2023-06-02 00:00:00 Telephone Sheldon [facility] [employer] [id number] 350.1.13.10 [id number] [id number] [facility] 2023-05-31 15:53:32 2023-05-31 23:59:00 [facility] [id number] [facility] 2023-05-31 15:53:32 2023-05-31 23:59:00 Hospital Encounter Sheldon [facility] [employer] [id number] [id number] [id number] [id number] [facility] 2023-05-06 13:40:00 2023-05-06 14:22:18 Office Visit Sheldon [facility] [employer] [id number] 350.1.13.10 [id number] [id number] [facility] 2023-05-06 13:40:00 2023-05-06 14:22:18 Outpatient Andrey ANTHON[facility] [id number] [facility] 2023-05-06 00:00:00 2023-05-06 00:00:00 Orders Only Doctor Unassigned, [place]le [facility] [id number] [id number] [id number] [facility] 2023-04-21 00:00:00 2023-04-21 00:00:00 Orders Only Doctor Unassigned, [place]opyle [facility] [id number] 350.1.13.10 [id number] [id number] [facility] 2020-11-29 18:41:00 2020-12-09 15:20:00 OTH UNS VNTRL ERI OBSTRCT NO ARELIS DAVIS [facility], [address] [place] [address] [facility] [id number] [facility] (LUF/LI V/SA) 2020-11-29 00:00:00 2020-11-29 00:00:[address] [address] [facility] [id number] [facility] (LUF/LI V/SA) 2020-11-29 00:00:00 2020-11-29 00:00:[address] [address] [facility] [id number] [facility] (LUF/LI V/SA) 2020-11-26 12:23:00 2020-11-27 14:30:00 INCISION HERNIA W/OBST W/O GANGRENE O ANNE MARIE CONCEPCION [facility], [address] [place] [address] [facility] [id number] [facility] (LUF/LI V/SA) 2020-11-26 00:00:00 2020-11-26 00:00:00 Inpatient [facility], [address] [place] [address] [facility] [id number] [facility] (LUF/LI V/SA) 2020-07-04 08:53:00 2020-07-04 23:59:00 ENCOUNTER PREPROCEDU RAL CV EXAM [facility], [address] [place] [address] [facility] [id number] [facility] (LUF/LI V/SA) 2020-07-04 00:00:00 2020-07-04 00:00:00 Inpatient [facility], [address] [place] [id number] [facility] [id number] [facility] (LUF/LI V/SA) 2020-07-04 00:00:00 2020-07-04 00:00:00 Inpatient [facility], [address] [place] [address] [facility] [id number] [facility] (LUF/LI V/SA) 2020-05-07 02:36:00 2020-05-07 02:36:00 Outpatient Surgery-IHD E [facility] [id number] [facility] 2019-11-27 07:29:00 2019-11-27 07:29:00 Outpatient Surgery-IHD E [facility] [id number] [facility] 2019-11-27 00:00:00 2019-11-27 00:00:00 Dean Low MD: [address] [place] [address] [address], [place] [address] , Ph. [phone] [facility] - General surgery [id number] [facility] 2019-11-14 01:04:00 2019-11-14 01:04:00 [facility] [id number] [facility] 2019-08-31 09:42:00 2019-08-31 23:59:00 ENC GEN ADULT EXAM W/O ABNORM FIND O JAMIA MORELOS [facility], [address] [facility] [place] [address] [facility] [id number] [facility] (LUF/LI V/SA) 2019-08-27 12:21:00 2019-08-27 16:30:00 VENTRAL HERNIA W/O OBST/GANGR ARELIS VALDEZ [facility], [address] [place] [id number] [facility] [id number] [facility] (LUF/LI V/SA) 2019-05-22 08:47:00 2019-06-19 23:59:00 Outpatient 3 CHARMAINE KEITA [facility] [id number] [facility] (LUF/LI V/SA) Results Test Description Test Time Test Comments Results Result Co mments Source [facility]* Test Item Value Reference Range Interpretation Comme nts Sodium (test code = NA) 130 mmol/l 136-146 L Potassium (test code = K) 3.6 mmol/l 3.5-5.1 Chloride (test code = CL) 98 mmol/l 98-107 Calcium (test code = CALC) 8.3 mg/dl 8.5-10.1 L CO2 (test code = CO2) 26 mmol/l 21-32 Glucose (test code = GLU) 86 mg/dl 74-106 BUN (test code = BUN) 5.0 mg/dl 7.0-18.0 L Creatinine (test code = CREA) 0.6 mg/dl 0.5-1.3 EGFR if (test code = EGFRAA) >60 mL/min/1.73m\\ S\\2 EGFR if Non- (test code = EGFRNA) >60 mL/min/1.73m\\ S\\2 Estimated Glomerular Filtration Rate (eGFR) Reference Intervals Decision Points for 18 years and older and average body mass: >= 60 Does not exclude kidney disease. 30 - 59 Suggests moderate chronic kidney disease and indicates the need for further investigation including assessment of proteinuria and cardiovascular factors. < 30 Usually indicates a need for referral for assessment and management of chronic kidney failure. [id number] 05:16:00* Test Item Value Reference Range Interpretation Comme nts Magnesium (test code = MG) 2.1 mg/dl 1.6-2.6 STLMLCBC WITH AUTO [id number] 04:58:00* Test Item Value Reference Range Interpretation Comme nts WBC (test code = WBC) 11.71 10\\S\\3/ul 4.80-10.80 H RBC (test code = RBC) 3.53 10\\S\\6/ul 4.20-5.40 L Hemoglobin (test code = HGB) 10.5 gm/dl 12.0-14.0 L Hematocrit (test code = HCT) 31.9 % 37.0-47.0 L MCV (test code = MCV) 90.4 fL 81.0-99.0 MCH (test code = MCH) 29.7 pg 27.0-31.0 MCHC (test code = MCHC) 32.9 gm/dl 33.0-37.0 L RDW (test code = RDWVC) 15.2 % 11.5-14.5 H Platelet (test code = PLT) 263 10\\S\\3/ul 130-400 MPV (test code = MPV) 10.9 fL 7.4-10.4 A "NOT MEASURED" RESULTS ARE DISPLAYED WHEN THE INSTRUMENT HAS A SUPPRESSED OR UNREPORTABLE RESULT. THIS WILL MOST OFTEN HAPPEN WITH THE MPV WHEN THERE IS AN ABNORMAL PLATELET DISTRIBUTION DUE TO A CRITICAL LOW VALUE OR PLATELET CLUMPING. THE RDW MAY BE SUPPRESSED IF THERE ARE MULTIPLE PEAKS PRESENT ON THE RBC HISTOGRAM. IN THIS CASE, A MANUAL REVIEW OF THE SLIDE WILL BE PERFORMED, AND RBC MORPHOLOGY WILL BE NOTED ON THE REPORT. NE% (test code = NE) 44.6 % 42.0-75.0 LY% (test code = LY) 35.3 % 13.0-42.0 MO% (test code = MO) 8.3 % 4.0-14.0 EO% (test code = EO) 10.1 % 1.0-5.0 H BA% (test code = BA) 0.8 % 0.0-3.0 IG% (test code = IG%) 0.9 % 0.0-0.4 H [id number] 06:09:00* Test Item Value Reference Range Interpretation Comme nts Magnesium (test code = MG) 1.5 mg/dl 1.6-2.6 L [id number] 06:09:00* Test Item Value Reference Range Interpretation Comme nts Sodium (test code = NA) 131 mmol/l 136-146 L Potassium (test code = K) 3.2 mmol/l 3.5-5.1 L Chloride (test code = CL) 99 mmol/l 98-107 Calcium (test code = CALC) 7.9 mg/dl 8.5-10.1 L CO2 (test code = CO2) 27 mmol/l 21-32 Glucose (test code = GLU) 97 mg/dl 74-106 BUN (test code = BUN) 4.0 mg/dl 7.0-18.0 L Creatinine (test code = CREA) 0.6 mg/dl 0.5-1.3 EGFR if (test code = EGFRAA) >60 mL/min/1.73m\\ S\\2 EGFR if Non- (test code = EGFRNA) >60 mL/min/1.73m\\ S\\2 Estimated Glomerular Filtration Rate (eGFR) Reference Intervals Decision Points for 18 years and older and average body mass: >= 60 Does not exclude kidney disease. 30 - 59 Suggests moderate chronic kidney disease and indicates the need for further investigation including assessment of proteinuria and cardiovascular factors. < 30 Usually indicates a need for referral for assessment and management of chronic kidney failure. STLMLCBC WITH AUTO [id number] 05:49:00* Test Item Value Reference Range Interpretation Comme nts WBC (test code = WBC) 12.01 10\\S\\3/ul 4.80-10.80 H RBC (test code = RBC) 3.58 10\\S\\6/ul 4.20-5.40 L Hemoglobin (test code = HGB) 10.6 gm/dl 12.0-14.0 L Hematocrit (test code = HCT) 32.2 % 37.0-47.0 L MCV (test code = MCV) 89.9 fL 81.0-99.0 MCH (test code = MCH) 29.6 pg 27.0-31.0 MCHC (test code = MCHC) 32.9 gm/dl 33.0-37.0 L RDW (test code = RDWVC) 14.9 % 11.5-14.5 H Platelet (test code = PLT) 238 10\\S\\3/ul 130-400 MPV (test code = MPV) 10.8 fL 7.4-10.4 A "NOT MEASURED" RESULTS ARE DISPLAYED WHEN THE INSTRUMENT HAS A SUPPRESSED OR UNREPORTABLE RESULT. THIS WILL MOST OFTEN HAPPEN WITH THE MPV WHEN THERE IS AN ABNORMAL PLATELET DISTRIBUTION DUE TO A CRITICAL LOW VALUE OR PLATELET CLUMPING. THE RDW MAY BE SUPPRESSED IF THERE ARE MULTIPLE PEAKS PRESENT ON THE RBC HISTOGRAM. IN THIS CASE, A MANUAL REVIEW OF THE SLIDE WILL BE PERFORMED, AND RBC MORPHOLOGY WILL BE NOTED ON THE REPORT. NE% (test code = NE) 52.6 % 42.0-75.0 LY% (test code = LY) 29.5 % 13.0-42.0 MO% (test code = MO) 8.2 % 4.0-14.0 EO% (test code = EO) 8.3 % 1.0-5.0 H BA% (test code = BA) 0.7 % 0.0-3.0 IG% (test code = IG%) 0.7 % 0.0-0.4 H [id number] 06:36:00* Test Item Value Reference Range Interpretation Comme nts Magnesium (test code = MG) 1.9 mg/dl 1.6-2.6 [id number] 06:36:00* Test Item Value Reference Range Interpretation Comme nts Sodium (test code = NA) 132 mmol/l 136-146 L Potassium (test code = K) 3.3 mmol/l 3.5-5.1 L Chloride (test code = CL) 101 mmol/l 98-107 Calcium (test code = CALC) 8.2 mg/dl 8.5-10.1 L CO2 (test code = CO2) 26 mmol/l 21-32 Glucose (test code = GLU) 104 mg/dl 74-106 BUN (test code = BUN) 6.0 mg/dl 7.0-18.0 L Creatinine (test code = CREA) 0.7 mg/dl 0.5-1.3 EGFR if (test code = EGFRAA) >60 mL/min/1.73m\\ S\\2 EGFR if Non- (test code = EGFRNA) >60 mL/min/1.73m\\ S\\2 Estimated Glomerular Filtration Rate (eGFR) Reference Intervals Decision Points for 18 years and older and average body mass: >= 60 Does not exclude kidney disease. 30 - 59 Suggests moderate chronic kidney disease and indicates the need for further investigation including assessment of proteinuria and cardiovascular factors. < 30 Usually indicates a need for referral for assessment and management of chronic kidney failure. STLMLCBC WITH AUTO [id number] 06:14:00* Test Item Value Reference Range Interpretation Comme nts WBC (test code = WBC) 12.68 10\\S\\3/ul 4.80-10.80 H RBC (test code = RBC) 3.76 10\\S\\6/ul 4.20-5.40 L Hemoglobin (test code = HGB) 11.1 gm/dl 12.0-14.0 L Hematocrit (test code = HCT) 34.6 % 37.0-47.0 L MCV (test code = MCV) 92.0 fL 81.0-99.0 MCH (test code = MCH) 29.5 pg 27.0-31.0 MCHC (test code = MCHC) 32.1 gm/dl 33.0-37.0 L RDW (test code = RDWVC) 15.0 % 11.5-14.5 H Platelet (test code = PLT) 224 10\\S\\3/ul 130-400 MPV (test code = MPV) 10.9 fL 7.4-10.4 A "NOT MEASURED" RESULTS ARE DISPLAYED WHEN THE INSTRUMENT HAS A SUPPRESSED OR UNREPORTABLE RESULT. THIS WILL MOST OFTEN HAPPEN WITH THE MPV WHEN THERE IS AN ABNORMAL PLATELET DISTRIBUTION DUE TO A CRITICAL LOW VALUE OR PLATELET CLUMPING. THE RDW MAY BE SUPPRESSED IF THERE ARE MULTIPLE PEAKS PRESENT ON THE RBC HISTOGRAM. IN THIS CASE, A MANUAL REVIEW OF THE SLIDE WILL BE PERFORMED, AND RBC MORPHOLOGY WILL BE NOTED ON THE REPORT. NE% (test code = NE) 60.7 % 42.0-75.0 LY% (test code = LY) 24.1 % 13.0-42.0 MO% (test code = MO) 8.3 % 4.0-14.0 EO% (test code = EO) 5.8 % 1.0-5.0 H BA% (test code = BA) 0.5 % 0.0-3.0 IG% (test code = IG%) 0.6 % 0.0-0.4 H [id number] 05:40:00* Test Item Value Reference Range Interpretation Comme nts Magnesium (test code = MG) 1.5 mg/dl 1.6-2.6 L [id number] 05:40:00* Test Item Value Reference Range Interpretation Comme nts Sodium (test code = NA) 132 mmol/l 136-146 L Potassium (test code = K) 3.9 mmol/l 3.5-5.1 Chloride (test code = CL) 103 mmol/l 98-107 Calcium (test code = CALC) 8.2 mg/dl 8.5-10.1 L CO2 (test code = CO2) 26 mmol/l 21-32 Glucose (test code = GLU) 97 mg/dl 74-106 BUN (test code = BUN) 10.0 mg/dl 7.0-18.0 Creatinine (test code = CREA) 0.8 mg/dl 0.5-1.3 EGFR if (test code = EGFRAA) >60 mL/min/1.73m\\ S\\2 EGFR if Non- (test code = EGFRNA) >60 mL/min/1.73m\\ S\\2 Estimated Glomerular Filtration Rate (eGFR) Reference Intervals Decision Points for 18 years and older and average body mass: >= 60 Does not exclude kidney disease. 30 - 59 Suggests moderate chronic kidney disease and indicates the need for further investigation including assessment of proteinuria and cardiovascular factors. < 30 Usually indicates a need for referral for assessment and management of chronic kidney failure. STLMLCBC WITH AUTO [id number] 05:25:00* Test Item Value Reference Range Interpretation Comme nts WBC (test code = WBC) 11.87 10\\S\\3/ul 4.80-10.80 H RBC (test code = RBC) 3.69 10\\S\\6/ul 4.20-5.40 L Hemoglobin (test code = HGB) 10.8 gm/dl 12.0-14.0 L Hematocrit (test code = HCT) 33.6 % 37.0-47.0 L MCV (test code = MCV) 91.1 fL 81.0-99.0 MCH (test code = MCH) 29.3 pg 27.0-31.0 MCHC (test code = MCHC) 32.1 gm/dl 33.0-37.0 L RDW (test code = RDWVC) 15.0 % 11.5-14.5 H Platelet (test code = PLT) 234 10\\S\\3/ul 130-400 MPV (test code = MPV) 10.8 fL 7.4-10.4 A "NOT MEASURED" RESULTS ARE DISPLAYED WHEN THE INSTRUMENT HAS A SUPPRESSED OR UNREPORTABLE RESULT. THIS WILL MOST OFTEN HAPPEN WITH THE MPV WHEN THERE IS AN ABNORMAL PLATELET DISTRIBUTION DUE TO A CRITICAL LOW VALUE OR PLATELET CLUMPING. THE RDW MAY BE SUPPRESSED IF THERE ARE MULTIPLE PEAKS PRESENT ON THE RBC HISTOGRAM. IN THIS CASE, A MANUAL REVIEW OF THE SLIDE WILL BE PERFORMED, AND RBC MORPHOLOGY WILL BE NOTED ON THE REPORT. NE% (test code = NE) 49.4 % 42.0-75.0 LY% (test code = LY) 35.6 % 13.0-42.0 MO% (test code = MO) 8.9 % 4.0-14.0 EO% (test code = EO) 5.1 % 1.0-5.0 H BA% (test code = BA) 0.4 % 0.0-3.0 IG% (test code = IG%) 0.6 % 0.0-0.4 H STLMLXR CHEST AP/PA 1 [id number] 18:18:24 [facility] ([facility])Name: LILLIE LEON : 1945 Sex: FProcedure: XR CHEST AP/PA 1 VIEWOrder Date: 12/05/2020 5:13 PMOrdering Provider: KATHERINE HAQ .Clinical Indication: [id number]: Nasogastric tube in situComparison: NoneFindings:NG tube in appropriate position.Cardiac size is normal.Pulmonary vasculature is normal.No acute infiltrates or effusions.Bibasilar atelectasis.There is no evidence of active tuberculosis.There is no acute skeletal abnormality.Impression:1. NG tube in appropriate position.2. No focal infiltrates or significant pleural effusions.3. Bibasilar atelectasis.4. No other significant findings.This final report was electronically signed by Dr Artie Camara MD 16:13 PMDictated By: ARTIE CAMARADate: 12/05/2020 18:[id number] 06:41:00* Test Item Value Reference Range Interpretation Comme nts Sodium (test code = NA) 132 mmol/l 136-146 L Potassium (test code = K) 4.2 mmol/l 3.5-5.1 Chloride (test code = CL) 101 mmol/l 98-107 Calcium (test code = CALC) 8.1 mg/dl 8.5-10.1 L CO2 (test code = CO2) 27 mmol/l 21-32 Glucose (test code = GLU) 120 mg/dl 74-106 H BUN (test code = BUN) 7.0 mg/dl 7.0-18.0 Creatinine (test code = CREA) 0.8 mg/dl 0.5-1.3 EGFR if (test code = EGFRAA) >60 mL/min/1.73m\\ S\\2 EGFR if Non- (test code = EGFRNA) >60 mL/min/1.73m\\ S\\2 Estimated Glomerular Filtration Rate (eGFR) Reference Intervals Decision Points for 18 years and older and average body mass: >= 60 Does not exclude kidney disease. 30 - 59 Suggests moderate chronic kidney disease and indicates the need for further investigation including assessment of proteinuria and cardiovascular factors. < 30 Usually indicates a need for referral for assessment and management of chronic kidney failure. [id number] 06:41:00* Test Item Value Reference Range Interpretation Comme nts Magnesium (test code = MG) 1.6 mg/dl 1.6-2.6 STLMLCBC WITH AUTO [id number] 06:22:00* Test Item Value Reference Range Interpretation Comme nts WBC (test code = WBC) 9.10 10\\S\\3/ul 4.80-10.80 RBC (test code = RBC) 3.59 10\\S\\6/ul 4.20-5.40 L Hemoglobin (test code = HGB) 10.5 gm/dl 12.0-14.0 L Hematocrit (test code = HCT) 32.6 % 37.0-47.0 L MCV (test code = MCV) 90.8 fL 81.0-99.0 MCH (test code = MCH) 29.2 pg 27.0-31.0 MCHC (test code = MCHC) 32.2 gm/dl 33.0-37.0 L RDW (test code = RDWVC) 14.9 % 11.5-14.5 H Platelet (test code = PLT) 234 10\\S\\3/ul 130-400 MPV (test code = MPV) 10.9 fL 7.4-10.4 A "NOT MEASURED" RESULTS ARE DISPLAYED WHEN THE INSTRUMENT HAS A SUPPRESSED OR UNREPORTABLE RESULT. THIS WILL MOST OFTEN HAPPEN WITH THE MPV WHEN THERE IS AN ABNORMAL PLATELET DISTRIBUTION DUE TO A CRITICAL LOW VALUE OR PLATELET CLUMPING. THE RDW MAY BE SUPPRESSED IF THERE ARE MULTIPLE PEAKS PRESENT ON THE RBC HISTOGRAM. IN THIS CASE, A MANUAL REVIEW OF THE SLIDE WILL BE PERFORMED, AND RBC MORPHOLOGY WILL BE NOTED ON THE REPORT. NE% (test code = NE) 79.2 % 42.0-75.0 H LY% (test code = LY) 15.4 % 13.0-42.0 MO% (test code = MO) 4.8 % 4.0-14.0 EO% (test code = EO) 0.0 % 1.0-5.0 L BA% (test code = BA) 0.1 % 0.0-3.0 IG% (test code = IG%) 0.5 % 0.0-0.4 H [id number] 21:11:00* Test Item Value Reference Range Interpretation Comme nts pH (ABG) (test code = BGPH) 7.411 7.350-7.450 pCO2(T) (test code = BGPCO2(T)) 43.4 mm Hg 35.0-45.0 pO2(T) (test code = BGPO2(T)) 91.6 mm [...] gm/dl 11.5-17.4 L O2Hb (test code = CDRD1CF) >95.0 % 95.0-99.0 N COHb (test code = BGFCOHB) <2.80 % 0.5-2.5 H MetHB (test code = BGMETHB) <1.30 % 0.4-1.5 N Barometric Pressure (test co de = BGBARO) 761.6 mm Hg 450.0-1000.0 BE(act) (test code = BGBEACT) 3 mmol/l HCO3 (test code = BGHCO3) 26 meq/L 22-26 ctCO2(B) (test code = BGCTCO2(B)) 25 mmol/l FIO2 (fO2(I) (test code = BGFIO2) 0.30 % Drawn By (test code = BGSYDNEE COTTON Collection Date (test code = BGDTCOL) 12/04/2020 Collection Time (test code = BGCTM) 21:00 Sample Site (test code = BGSAMPLESITE) L Radial Sample Type (test code = BGSAMPLETYPE) Arterial Allens Test (test code = BGALLEN) Acceptable Notified By (test code = BGNOTIFIEDBY) SYDNEE VILLAGRAN Notified Whom (test code = BGNOTIFIEDWHOM) YINA XOCHILT Date Notified (test code = BGDTNOTIFIED) 12/04/2020 Time Notified (test code = BGTMNOTIFIED) 21:09 O2 Device (test code = [id number]) BIPAP Respiratory Rate (test code = BGRR) 18 Set Rate (test code = BGSETRATE) 12 Instrument ID (test code = BGINSTRID) [id number] Reported By (test code = BGREPORTEDBY) SYDNEE VILLAGRAN [id number] 20:10:00* Test Item Value Reference Range Interpretation Comme nts pH (ABG) (test code = BGPH) 7.284 7.350-7.450 L pCO2(T) (test code = BGPCO2(T)) 61.9 mm Hg 35.0-45.0 HH pO2(T) (test code = BGPO2(T)) 236.8 mm [...] gm/dl 11.5-17.4 L O2Hb (test code = NPQY5AZ) >95.0 % 95.0-99.0 N COHb (test code = BGFCOHB) <2.80 % 0.5-2.5 H MetHB (test code = BGMETHB) <1.30 % 0.4-1.5 N Gluc (test code = BGCGLU) 128.0 mg/dl 60.0-110.0 H Lac (test code = BGCLAC) <1.60 mmol/l 1.0-1.7 N Barometric Pressure (test co de = BGBARO) 761.0 mm Hg 450.0-1000.0 BE(act) (test code = BGBEACT) 1 mmol/l HCO3 (test code = BGHCO3) 25 meq/L 22-26 ctCO2(B) (test code = BGCTCO2(B)) 27 mmol/l FIO2 (fO2(I) (test code = BGFIO2) 0.60 % Drawn By (test code = BGDRAWNBY) SYDNEE VILLAGRAN Collection Date (test code = BGDTCOL) 12/04/2020 Collection Time (test code = BGCTM) 19:56 Sample Site (test code = BGSAMPLESITE) L Radial Sample Type (test code = BGSAMPLETYPE) Arterial Allens Test (test code = BGALLEN) Acceptable Notified By (test code = BGNOTIFIEDBY) SYDNEE VILLAGRAN Notified Whom (test code = BGNOTIFIEDWHOM) DR ESPARZA Date Notified (test code = BGDTNOTIFIED) 12/04/2020 Time Notified (test code = BGTMNOTIFIED) 20:08 O2 Device (test code = [id number]) Simple Mask L/M (test code = BGL/M) 10.0 Instrument ID (test code = BGINSTRID) [id number] Comments (test code = BGCOMMENTS) POST OP Reported By (test code = BGREPORTEDBY) SYDNEE VILLAGRAN [id number] 06:20:00* Test Item Value Reference Range Interpretation Comme nts Sodium (test code = NA) 133 mmol/l 136-146 L Potassium (test code = K) 3.6 mmol/l 3.5-5.1 Chloride (test code = CL) 101 mmol/l 98-107 Calcium (test code = CALC) 9.5 mg/dl 8.5-10.1 CO2 (test code = CO2) 26 mmol/l 21-32 Glucose (test code = GLU) 132 mg/dl 74-106 H BUN (test code = BUN) 5.0 mg/dl 7.0-18.0 L Creatinine (test code = CREA) 0.8 mg/dl 0.5-1.3 EGFR if (test code = EGFRAA) >60 mL/min/1.73m\\ S\\2 EGFR if Non- (test code = EGFRNA) >60 mL/min/1.73m\\ S\\2 Estimated Glomerular Filtration Rate (eGFR) Reference Intervals Decision Points for 18 years and older and average body mass: >= 60 Does not exclude kidney disease. 30 - 59 Suggests moderate chronic kidney disease and indicates the need for further investigation including assessment of proteinuria and cardiovascular factors. < 30 Usually indicates a need for referral for assessment and management of chronic kidney failure. [facility]-[id number] 06:20:00* Test Item Value Reference Range Interpretation Comme nts Magnesium (test code = MG) 1.6 mg/dl 1.6-2.6 [facility] WITH AUTO [id number] 05:57:00* Test Item Value Reference Range Interpretation Comme nts WBC (test code = WBC) 11.12 10\\S\\3/ul 4.80-10.80 H RBC (test code = RBC) 3.99 10\\S\\6/ul 4.20-5.40 L Hemoglobin (test code = HGB) 11.6 gm/dl 12.0-14.0 L Hematocrit (test code = HCT) 37.0 % 37.0-47.0 MCV (test code = MCV) 92.7 fL 81.0-99.0 MCH (test code = MCH) 29.1 pg 27.0-31.0 MCHC (test code = MCHC) 31.4 gm/dl 33.0-37.0 L RDW (test code = RDWVC) 14.9 % 11.5-14.5 H Platelet (test code = PLT) 249 10\\S\\3/ul 130-400 MPV (test code = MPV) 10.4 fL 7.4-10.4 A "NOT MEASURED" RESULTS ARE DISPLAYED WHEN THE INSTRUMENT HAS A SUPPRESSED OR UNREPORTABLE RESULT. THIS WILL MOST OFTEN HAPPEN WITH THE MPV WHEN THERE IS AN ABNORMAL PLATELET DISTRIBUTION DUE TO A CRITICAL LOW VALUE OR PLATELET CLUMPING. THE RDW MAY BE SUPPRESSED IF THERE ARE MULTIPLE PEAKS PRESENT ON THE RBC HISTOGRAM. IN THIS CASE, A MANUAL REVIEW OF THE SLIDE WILL BE PERFORMED, AND RBC MORPHOLOGY WILL BE NOTED ON THE REPORT. NE% (test code = NE) 63.3 % 42.0-75.0 LY% (test code = LY) 25.3 % 13.0-42.0 MO% (test code = MO) 8.8 % 4.0-14.0 EO% (test code = EO) 1.8 % 1.0-5.0 BA% (test code = BA) 0.4 % 0.0-3.0 IG% (test code = IG%) 0.4 % 0.0-0.4 [facility] [id number] 17:51:48Mild Laxative day before procedure. NPO after midnight. [facility] ([facility]/[place])Name: LILLIE LEON : 1945 Sex: FProcedure: FL SMALL BOWEL XRAYOrder Date: December 03, 2020Ordering Provider: DR ANNE MARIE CONCEPCION .Clinical Indication: [id number]: Intestinal obstructionComparison: CT abdomen and pelvis November 29, 2020Findings:Paradichlorobenzene Machine Operator film KUB was obtained. Multiple dilated loops of small bowel seen withinleft hemiabdomen measuring up to 5.1 cm. No air seen within the rectum.Oral contrast was administered. Serial plain film examination of the abdomenand pelvis was obtained.The stomach is mildly distended. Imaging was acquired up to 45 minutes withmultiple dilated loops of small bowel and jejunum measuring up to 5.1 cm.Air-fluid levels are noted. Normal mucosal fold pattern is present. There isfindings of small bowel ob struction.At this time, patient became nauseated and vomited.Impression:1. Findings suggestive of proximal small bowel obstruction.This final report was electronically signed by Dr Dusty Swartz MD 15:46 PMDictated By: DUSTY SWARTZDate: 12/03/2020 17:46C OF [facility] [id number] 06:01:00* Test Item Value Reference Range Interpretation Comme nts Sodium (test code = NA) 134 mmol/l 136-146 L Potassium (test code = K) 4.0 mmol/l 3.5-5.1 Chloride (test code = CL) 102 mmol/l 98-107 Calcium (test code = CALC) 9.1 mg/dl 8.5-10.1 CO2 (test code = CO2) 28 mmol/l 21-32 Glucose (test code = GLU) 113 mg/dl 74-106 H BUN (test code = BUN) 5.0 mg/dl 7.0-18.0 L Creatinine (test code = CREA) 0.6 mg/dl 0.5-1.3 EGFR if (test code = EGFRAA) >60 mL/min/1.73m\\ S\\2 EGFR if Non- (test code = EGFRNA) >60 mL/min/1.73m\\ S\\2 Estimated Glomerular Filtration Rate (eGFR) Reference Intervals Decision Points for 18 years and older and average body mass: >= 60 Does not exclude kidney disease. 30 - 59 Suggests moderate chronic kidney disease and indicates the need for further investigation including assessment of proteinuria and cardiovascular factors. < 30 Usually indicates a need for referral for assessment and management of chronic kidney failure. [facility] HealthcareCnvmqt-[id number] 06:01:00* Test Item Value Reference Range Interpretation Comme nts Magnesium (test code = MG) 1.7 mg/dl 1.6-2.6 [facility] WITH AUTO [id number] 05:58:00* Test Item Value Reference Range Interpretation Comme nts WBC (test code = WBC) 11.70 10\\S\\3/ul 4.80-10.80 H RBC (test code = RBC) 3.85 10\\S\\6/ul 4.20-5.40 L Hemoglobin (test code = HGB) 11.4 gm/dl 12.0-14.0 L Hematocrit (test code = HCT) 35.2 % 37.0-47.0 L MCV (test code = MCV) 91.4 fL 81.0-99.0 MCH (test code = MCH) 29.6 pg 27.0-31.0 MCHC (test code = MCHC) 32.4 gm/dl 33.0-37.0 L RDW (test code = RDWVC) 14.7 % 11.5-14.5 H Platelet (test code = PLT) 254 10\\S\\3/ul 130-400 MPV (test code = MPV) 10.6 fL 7.4-10.4 A "NOT MEASURED" RESULTS ARE DISPLAYED WHEN THE INSTRUMENT HAS A SUPPRESSED OR UNREPORTABLE RESULT. THIS WILL MOST OFTEN HAPPEN WITH THE MPV WHEN THERE IS AN ABNORMAL PLATELET DISTRIBUTION DUE TO A CRITICAL LOW VALUE OR PLATELET CLUMPING. THE RDW MAY BE SUPPRESSED IF THERE ARE MULTIPLE PEAKS PRESENT ON THE RBC HISTOGRAM. IN THIS CASE, A MANUAL REVIEW OF THE SLIDE WILL BE PERFORMED, AND RBC MORPHOLOGY WILL BE NOTED ON THE REPORT. NE% (test code = NE) 71.3 % 42.0-75.0 LY% (test code = LY) 20.4 % 13.0-42.0 MO% (test code = MO) 5.5 % 4.0-14.0 EO% (test code = EO) 2.1 % 1.0-5.0 BA% (test code = BA) 0.4 % 0.0-3.0 IG% (test code = IG%) 0.3 % 0.0-0.4 [facility]-[id number] 17:24:00* Test Item Value Reference Range Interpretation Comme nts Potassium (test code = K) 3.3 mmol/l 3.5-5.1 L [facility]-[id number] 04:25:00* Test Item Value Reference Range Interpretation Comme nts Sodium (test code = NA) 136 mmol/l 136-146 Potassium (test code = K) 2.9 mmol/l 3.5-5.1 LL Chloride (test code = CL) 104 mmol/l 98-107 Calcium (test code = CALC) 8.3 mg/dl 8.5-10.1 L CO2 (test code = CO2) 28 mmol/l 21-32 Glucose (test code = GLU) 97 mg/dl 74-106 BUN (test code = BUN) 11.0 mg/dl 7.0-18.0 Creatinine (test code = CREA) 0.6 mg/dl 0.5-1.3 EGFR if (test code = EGFRAA) >60 mL/min/1.73m\\ S\\2 EGFR if Non- (test code = EGFRNA) >60 mL/min/1.73m\\ S\\2 Estimated Glomerular Filtration Rate (eGFR) Reference Intervals Decision Points for 18 years and older and average body mass: >= 60 Does not exclude kidney disease. 30 - 59 Suggests moderate chronic kidney disease and indicates the need for further investigation including assessment of proteinuria and cardiovascular factors. < 30 Usually indicates a need for referral for assessment and management of chronic kidney failure. Critical values were called to ty reyna k4 by [id number] on 12/02/20 04:25 . Results were read back byty reyna k4.[facility] 2020-12-02 04:25:00* Test Item Value Reference Range Interpretation Comme nts Magnesium (test code = MG) 1.7 mg/dl 1.6-2.6 [facility] WITH AUTO [id number] 04:12:00* Test Item Value Reference Range Interpretation Comme nts WBC (test code = WBC) 9.70 10\\S\\3/ul 4.80-10.80 RBC (test code = RBC) 3.59 10\\S\\6/ul 4.20-5.40 L Hemoglobin (test code = HGB) 10.5 gm/dl 12.0-14.0 L Hematocrit (test code = HCT) 32.8 % 37.0-47.0 L MCV (test code = MCV) 91.4 fL 81.0-99.0 MCH (test code = MCH) 29.2 pg 27.0-31.0 MCHC (test code = MCHC) 32.0 gm/dl 33.0-37.0 L RDW (test code = RDWVC) 14.4 % 11.5-14.5 Platelet (test code = PLT) 232 10\\S\\3/ul 130-400 MPV (test code = MPV) 10.4 fL 7.4-10.4 A "NOT MEASURED" RESULTS ARE DISPLAYED WHEN THE INSTRUMENT HAS A SUPPRESSED OR UNREPORTABLE RESULT. THIS WILL MOST OFTEN HAPPEN WITH THE MPV WHEN THERE IS AN ABNORMAL PLATELET DISTRIBUTION DUE TO A CRITICAL LOW VALUE OR PLATELET CLUMPING. THE RDW MAY BE SUPPRESSED IF THERE ARE MULTIPLE PEAKS PRESENT ON THE RBC HISTOGRAM. IN THIS CASE, A MANUAL REVIEW OF THE SLIDE WILL BE PERFORMED, AND RBC MORPHOLOGY WILL BE NOTED ON THE REPORT. NE% (test code = NE) 47.0 % 42.0-75.0 LY% (test code = LY) 34.9 % 13.0-42.0 MO% (test code = MO) 9.9 % 4.0-14.0 EO% (test code = EO) 7.6 % 1.0-5.0 H BA% (test code = BA) 0.3 % 0.0-3.0 IG% (test code = IG%) 0.3 % 0.0-0.4 [id number]:00* Test Item Value Reference Range Interpretation Comme nts Magnesium (test code = MG) 1.7 mg/dl 1.6-2.6 [id number]* Test Item Value Reference Range Interpretation Comme nts Sodium (test code = NA) 134 mmol/l 136-146 L Potassium (test code = K) 3.6 mmol/l 3.5-5.1 Chloride (test code = CL) 105 mmol/l 98-107 Calcium (test code = CALC) 8.2 mg/dl 8.5-10.1 L CO2 (test code = CO2) 25 mmol/l 21-32 Glucose (test code = GLU) 79 mg/dl 74-106 BUN (test code = BUN) 11.0 mg/dl 7.0-18.0 Creatinine (test code = CREA) 0.7 mg/dl 0.5-1.3 EGFR if (test code = EGFRAA) >60 mL/min/1.73m\\ S\\2 EGFR if Non- (test code = EGFRNA) >60 mL/min/1.73m\\ S\\2 Estimated Glomerular Filtration Rate (eGFR) Reference Intervals Decision Points for 18 years and older and average body mass: >= 60 Does not exclude kidney disease. 30 - 59 Suggests moderate chronic kidney disease and indicates the need for further investigation including assessment of proteinuria and cardiovascular factors. < 30 Usually indicates a need for referral for assessment and management of chronic kidney failure. [facility] AUTO [id number] 06:15:00* Test Item Value Reference Range Interpretation Comme nts WBC (test code = WBC) 9.72 10\\S\\3/ul 4.80-10.80 RBC (test code = RBC) 3.41 10\\S\\6/ul 4.20-5.40 L Hemoglobin (test code = HGB) 10.0 gm/dl 12.0-14.0 L Hematocrit (test code = HCT) 32.3 % 37.0-47.0 L MCV (test code = MCV) 94.7 fL 81.0-99.0 MCH (test code = MCH) 29.3 pg 27.0-31.0 MCHC (test code = MCHC) 31.0 gm/dl 33.0-37.0 L RDW (test code = RDWVC) 14.6 % 11.5-14.5 H Platelet (test code = PLT) 221 10\\S\\3/ul 130-400 MPV (test code = MPV) 10.6 fL 7.4-10.4 A "NOT MEASURED" RESULTS ARE DISPLAYED WHEN THE INSTRUMENT HAS A SUPPRESSED OR UNREPORTABLE RESULT. THIS WILL MOST OFTEN HAPPEN WITH THE MPV WHEN THERE IS AN ABNORMAL PLATELET DISTRIBUTION DUE TO A CRITICAL LOW VALUE OR PLATELET CLUMPING. THE RDW MAY BE SUPPRESSED IF THERE ARE MULTIPLE PEAKS PRESENT ON THE RBC HISTOGRAM. IN THIS CASE, A MANUAL REVIEW OF THE SLIDE WILL BE PERFORMED, AND RBC MORPHOLOGY WILL BE NOTED ON THE REPORT. NE% (test code = NE) 43.7 % 42.0-75.0 LY% (test code = LY) 39.1 % 13.0-42.0 MO% (test code = MO) 9.3 % 4.0-14.0 EO% (test code = EO) 6.9 % 1.0-5.0 H BA% (test code = BA) 0.6 % 0.0-3.0 IG% (test code = IG%) 0.4 % 0.0-0.4 [facility] HealthcareNubqde-[id number] 23:15:00* Test Item Value Reference Range Interpretation Comme nts Potassium (test code = K) 3.5 mmol/l 3.5-5.1 [facility]-[place]uf[place]XR ABDOMEN 2 VIEWS FLAT / [id number] 17:21:26[facility] ([facility])Name: LILLIE LEON : 1945 Sex: FProcedures: XR ABDOMEN 2 VIEWS FLAT / UPRIGHTExam Date: 11/30/2020 2:03 PMOrdering Physician: DR SANTO ORDAZ .Clinical Indication: [id number]: Intestinal obstructionComparison: CT abdomen/pelvis, November 29, 2020Findings: Frontal radiograph of the chest with frontal radiograph of theabdomen. Surgical clips overlie the right upper abdomen.No pneumothorax, effusion, or focal consolidation. Probable bibasi laratelectasis versus scarring. Cardiomediastinal silhouette is within normallimits.Non-specific bowel gas distribution pattern. No dilated loops of bowel. Stooland gas overlies the large bowel. No significant abnormality of the soft tissueshadows. No acute radiographic abnormalities of the osseous structures.Impression: No acute radiographic abnormalities of the abdomen or visualizedpulmonary parenchyma.This final report was electronically signed by Dr Yasmany Vogel MD11/30/2020 5:16 PMDictated By: YASMANY VEGADate: 11/30/2020 17:16[id number] 10:20:00* Test Item Value Reference Range Interpretation Comme nts Potassium (test code = K) 3.3 mmol/l 3.5-5.1 L [facility]-[id number] 05:25:00* Test Item Value Reference Range Interpretation Comme nts Sodium (test code = NA) 134 mmol/l 136-146 L Potassium (test code = K) 3.1 mmol/l 3.5-5.1 L Chloride (test code = CL) 98 mmol/l 98-107 Calcium (test code = CALC) 9.3 mg/dl 8.5-10.1 CO2 (test code = CO2) 31 mmol/l 21-32 Glucose (test code = GLU) 111 mg/dl 74-106 H BUN (test code = BUN) 10.0 mg/dl 7.0-18.0 Creatinine (test code = CREA) 0.8 mg/dl 0.5-1.3 T Protein (test code = TP) 6.3 gm/dl 6.4-8.2 L Albumin (test code = ALB) 2.8 gm/dl 3.4-5.0 L A/G Ratio (test code = AGRAT) 0.8 % 1.1-2.2 L AST (SGOT) (test code = AST) 21 U/L 15-37 ALT (SGPT) (test code = ALT) 15 U/L 13-61 Alkaline Phos (test code = ALKP) 77 U/L 45-117 Total Bilirubin (test code = TBIL) 0.8 mg/dl 0.2-1.0 Globulin (test code = GLOBU) 3.5 gm/dl 2.3-3.5 Calcium, Corrected (test code = CALCCORR) 10.3 mg/dl 8.4-10.2 H Various formulas exist for corrected serum calcium results, each yielding different values. This corrected result was based on the formula: Corrected Calcium = SerumCalcium + [0.8 * ( 4 - SerumAlbumin)] EGFR if (test code = EGFRAA) >60 mL/min/1.73m\\ S\\2 EGFR if Non- (test code = EGFRNA) >60 mL/min/1.73m\\ S\\2 Estimated Glomerular Filtration Rate (eGFR) Reference Intervals Decision Points for 18 years and older and average body mass: >= 60 Does not exclude kidney disease. 30 - 59 Suggests moderate chronic kidney disease and indicates the need for further investigation including assessment of proteinuria and cardiovascular factors. < 30 Usually indicates a need for referral for assessment and management of chronic kidney failure. [facility] HealthcareCunjng-[id number] 05:25:00* Test Item Value Reference Range Interpretation Comme nts Magnesium (test code = MG) 1.6 mg/dl 1.6-2.6 [facility]CB WITH AUTO [id number] 05:10:00* Test Item Value Reference Range Interpretation Comme nts WBC (test code = WBC) 10.55 10\\S\\3/ul 4.80-10.80 RBC (test code = RBC) 3.75 10\\S\\6/ul 4.20-5.40 L Hemoglobin (test code = HGB) 10.9 gm/dl 12.0-14.0 L Hematocrit (test code = HCT) 33.9 % 37.0-47.0 L MCV (test code = MCV) 90.4 fL 81.0-99.0 MCH (test code = MCH) 29.1 pg 27.0-31.0 MCHC (test code = MCHC) 32.2 gm/dl 33.0-37.0 L RDW (test code = RDWVC) 14.3 % 11.5-14.5 Platelet (test code = PLT) 227 10\\S\\3/ul 130-400 MPV (test code = MPV) 10.5 fL 7.4-10.4 A "NOT MEASURED" RESULTS ARE DISPLAYED WHEN THE INSTRUMENT HAS A SUPPRESSED OR UNREPORTABLE RESULT. THIS WILL MOST OFTEN HAPPEN WITH THE MPV WHEN THERE IS AN ABNORMAL PLATELET DISTRIBUTION DUE TO A CRITICAL LOW VALUE OR PLATELET CLUMPING. THE RDW MAY BE SUPPRESSED IF THERE ARE MULTIPLE PEAKS PRESENT ON THE RBC HISTOGRAM. IN THIS CASE, A MANUAL REVIEW OF THE SLIDE WILL BE PERFORMED, AND RBC MORPHOLOGY WILL BE NOTED ON THE REPORT. NE% (test code = NE) 63.6 % 42.0-75.0 LY% (test code = LY) 24.5 % 13.0-42.0 MO% (test code = MO) 8.6 % 4.0-14.0 EO% (test code = EO) 2.5 % 1.0-5.0 BA% (test code = BA) 0.4 % 0.0-3.0 IG% (test code = IG%) 0.4 % 0.0-0.4 [facility]-[place]COR[facility] ([place]3HR)2020-11-29 22:04:00* Test Item Value Reference Range Interpretation Comme nts FT (test code = COVID) Negative (qualifier value) Negative N The BioGX SARS-CoV-2 Reagents for BD MAX System, the CargoGuardFire Covid-19, and the CepRidePalid Covid-19 is for in vitro use under FDA Emergency Use Authorization only. Each method above is a rapid, real time PCR (RT-PCR) molecular test used for the qualitative detection of nucleic acid from the SARS-CoV-2 in upper respiratory specimens collected from individuals suspected of COVID-19. For questions regarding your test results, please contact the Coronavirus Call Center at [phone]. er [address] [place] [address]-LufkinCT ABDOMEN/PELVIS W/O [id number] 17:49:54possible SBO [facility] ([facility])Name: LILLIE LEON : 1945 Sex: FProcedures: CT ABDOMEN/PELVIS W/O CONTRASTExam Date: 11/29/2020 4:16 PMOrdering Physician: ARELIS OWENClinical Indication: [id number]: VomitingComparison: CT abdomen/pelvis, August 27, 2019TECHNIQUE: Spiral multislice scanning was obtained from the lung bases throughthe bony pelvis without intravenous or oral contrast enhancement. 2-Dreconstructions were obtained according to our usual henrietta col.This exam was performed according to departmental dose-optimization programwhich includes automated exposure control, adjustment of the mA and/or kVaccording to patient size and/or use of iterative reconstruction techniques.Findings:THORAX:Lung bases: Mild groundglass attenuation is demonstrated within the posteriorleft lung base and is of uncertain significance. This could potentiallyrepresent atelectasis versus infection. Trace right pleural effusion withassociated atelectasis.Heart: Atherosclerotic calcific plaque within the coronary arteries and aorta;otherwise, no significant abnormalities of the visualized mediastinum.Aneurysmal dilatation of the descending thoracic aorta measuring 4.1 cm anteriorto posterior.UPPER ABDOMEN:Liver: Normal.Gallbladder: Absent. Surgical clips withingallbladder fossa.Pancreas: Normal.Spleen: Postsurgical change status post splenectomy. Incidental splenule isnoted.Adrenals: Normal.URINARY:Kidneys: Marked right renal atrophy. No acute abnormality of the left kidney.No hydronephrosis or nephrolithiasis.Ureters: The ureters are of normal course and caliber.Urinary bladder: No significant abnormality of the urinary bladder.REPRODUCTIVE:Organs: Postsurgical changes status post hysterectomy. No significant freefluid in the pelvis.Free fluid: None.Incidental pelvic phleboliths are noted.GASTROINTESTINAL:Large bowel: Diverticulosis without CT evidence of Diverticulitis.Appendix: The appendix is not clearly identified on this exam; however, nopericecal inflammatory stranding or free fluid is demonstrated.Small bowel: Dilated loops of small bowel measuring up to 4 cm diameter arepresent and are most notable within the [...] the spine; otherwise, no significant osseouslesions. Grade 1anterolisthesis of L4 on L5.OTHER: Multifocal subcutaneous gas consistent with patient's recent surgery.IMPRESSION:1. Left lower flank abdominal wall hernia containing a loop of mid small bowelwith re sultant small bowel obstruction, as above.2. Multiple chronic findings, as above.These findings were verbally reported by Dr Vogel to ARELIS RAMOS on 11/29/2020 5:44 PM. :::This final report was electronically signed by Dr Yasmany Vogel MD11/29/2020 5:44 PMDictated By: YASMANY ORTEGADate: 11/29/2020 17:44[id number] 17:01:00* Test Item Value Reference Range Interpretation Comme [facility] Lipase (test code = LIPA) 56 U/L 73-393 L [facility] HealthHEPATIC FUNCTION PANEL (LIVER)2020-11-29 17:01:00 * Test Item Value Reference Range Interpretation Comme nts T Protein (test code = TP) 7.4 [...] DBIL) 0.2 mg/dl 0.0-0.3 Indirect Bilirubin (test cod e = IBIL) 0.6 mg/dl 0.0-1.1 [facility] HealthMAGNESIUM2021-06-12 17:01:00* Test Item Value Reference Range Interpretation Comme [facility] Magnesium (test code = MG) 1.7 mg/dl 1.6-2.6 [facility] [place] LAB CHEM [id number] 16:38:00* Test Item Value Reference Range Interpretation Comme nts Sodium (test code = NA) 134 mmol/l [...] (test code = CREA) 1.0 mg/dl 0.6-1.3 [facility]kinSTA LAB CBC WITH AUTO [id number] 16:38:00* Test Item Value Reference Range Interpretation Comme nts WBC (test code = WBC) 9.36 10\\S\\3/ul [...] (test code = IG%) 0.3 % 0.0-0.4 [facility] HealthcarekinBMP2021-06-10 06:46:00* Test Item Value Reference Range Interpretation Comme nts Sodium (test code = NA) 132 mmol/l 136-146 L Potassium (test code = K) 3.4 mmol/l 3.5-5.1 L Chloride (test code = CL) 99 mmol/l 98-107 Calcium (test code = CALC) 8.7 mg/dl 8.5-10.1 CO2 (test code = CO2) 27 mmol/l 21-32 Glucose (test code = GLU) 122 mg/dl 74-106 H BUN (test code = BUN) 16.0 mg/dl 7.0-18.0 Creatinine (test code = CREA) 1.2 mg/dl 0.5-1.3 EGFR if (test code = EGFRAA) 56 mL/min/1.73m\\ S\\2 EGFR if Non- (test code = EGFRNA) 47 mL/min/1.73m\\ S\\2 Estimated Glomerular Filtration Rate (eGFR) Reference Intervals Decision Points for 18 years and older and average body mass: >= 60 Does not exclude kidney disease. 30 - 59 Suggests moderate chronic kidney disease and indicates the need for further investigation including assessment of proteinuria and cardiovascular factors. < 30 Usually indicates a need for referral for assessment and management of chronic kidney failure. [facility] WITH AUTO [id number] 06:20:00* Test Item Value Reference Range Interpretation Comme nts WBC (test code = WBC) 11.31 10\\S\\3/ul 4.80-10.80 H RBC (test code = RBC) 3.74 10\\S\\6/ul 4.20-5.40 L Hemoglobin (test code = HGB) 10.9 gm/dl 12.0-14.0 L Hematocrit (test code = HCT) 34.2 % 37.0-47.0 L MCV (test code = MCV) 91.4 fL 81.0-99.0 MCH (test code = MCH) 29.1 pg 27.0-31.0 MCHC (test code = MCHC) 31.9 gm/dl 33.0-37.0 L RDW (test code = RDWVC) 14.0 % 11.5-14.5 Platelet (test code = PLT) 251 10\\S\\3/ul 130-400 MPV (test code = MPV) 10.8 fL 7.4-10.4 A "NOT MEASURED" RESULTS ARE DISPLAYED WHEN THE INSTRUMENT HAS A SUPPRESSED OR UNREPORTABLE RESULT. THIS WILL MOST OFTEN HAPPEN WITH THE MPV WHEN THERE IS AN ABNORMAL PLATELET DISTRIBUTION DUE TO A CRITICAL LOW VALUE OR PLATELET CLUMPING. THE RDW MAY BE SUPPRESSED IF THERE ARE MULTIPLE PEAKS PRESENT ON THE RBC HISTOGRAM. IN THIS CASE, A MANUAL REVIEW OF THE SLIDE WILL BE PERFORMED, AND RBC MORPHOLOGY WILL BE NOTED ON THE REPORT. NE% (test code = NE) 72.0 % 42.0-75.0 LY% (test code = LY) 20.2 % 13.0-42.0 MO% (test code = MO) 7.1 % 4.0-14.0 EO% (test code = EO) 0.2 % 1.0-5.0 L BA% (test code = BA) 0.2 % 0.0-3.0 IG% (test code = IG%) 0.3 % 0.0-0.4 [facility]-[id number] 07:54:00* Test Item Value Reference Range Interpretation Comme nts Sodium (test code = NA) 136 mmol/l 136-146 Potassium (test code = K) 3.1 mmol/l 3.5-5.1 L Chloride (test code = CL) 101 mmol/l 98-107 Calcium (test code = CALC) 9.1 mg/dl 8.5-10.1 CO2 (test code = CO2) 29 mmol/l 21-32 Glucose (test code = GLU) 100 mg/dl 74-106 BUN (test code = BUN) 19.0 mg/dl 7.0-18.0 H Creatinine (test code = CREA) 1.1 mg/dl 0.5-1.3 EGFR if (test code = EGFRAA) >60 mL/min/1.73m\\ S\\2 EGFR if Non- (test code = EGFRNA) 51 mL/min/1.73m\\ S\\2 Estimated Glomerular Filtration Rate (eGFR) Reference Intervals Decision Points for 18 years and older and average body mass: >= 60 Does not exclude kidney disease. 30 - 59 Suggests moderate chronic kidney disease and indicates the need for further investigation including assessment of proteinuria and cardiovascular factors. < 30 Usually indicates a need for referral for assessment and management of chronic kidney failure. [facility]-[place]COR[facility]IR[facility] ([place]3HR)2020-11-24 18:41:00* Test Item Value Reference Range Interpretation Comme nts FT (test code = COVID) Negative (qualifier value) Negative N The BioGX SARS-CoV-2 Reagents for BD MAX System, the MadeiraCloude Covid-19, and the Powered Outcomes Covid-19 is for in vitro use under FDA Emergency Use Authorization only. Each method above is a rapid, real time PCR (RT-PCR) molecular test used for the qualitative detection of nucleic acid from the SARS-CoV-2 in upper respiratory specimens collected from individuals suspected of COVID-19. For questions regarding your test results, please contact the Coronavirus Call Center at [phone]. [facility]-[id number] 08:57:00* Test Item Value Reference Range Interpretation Comme nts Sodium (test code = NA) 131 mmol/l 136-146 L Potassium (test code = K) 3.4 mmol/l 3.5-5.1 L Chloride (test code = CL) 99 mmol/l 98-107 Calcium (test code = CALC) 9.1 mg/dl 8.5-10.1 CO2 (test code = CO2) 28 mmol/l 21-32 Glucose (test code = GLU) 92 mg/dl 74-106 BUN (test code = BUN) 22.0 mg/dl 7.0-18.0 H Creatinine (test code = CREA) 1.0 mg/dl 0.5-1.3 EGFR if (test code = EGFRAA) >60 mL/min/1.73m\\ S\\2 EGFR if Non- (test code = EGFRNA) 57 mL/min/1.73m\\ S\\2 Estimated Glomerular Filtration Rate (eGFR) Reference Intervals Decision Points for 18 years and older and average body mass: >= 60 Does not exclude kidney disease. 30 - 59 Suggests moderate chronic kidney disease and indicates the need for further investigation including assessment of proteinuria and cardiovascular factors. < 30 Usually indicates a need for referral for assessment and management of chronic kidney failure. [facility] HospitalLufkinCBC WITH AUTO [id number] 08:56:00* Test Item Value Reference Range Interpretation Comme nts WBC (test code = WBC) 9.53 10\\S\\3/ul 4.80-10.80 RBC (test code = RBC) 4.07 10\\S\\6/ul 4.20-5.40 L Hemoglobin (test code = HGB) 11.9 gm/dl 12.0-14.0 L Hematocrit (test code = HCT) 37.1 % 37.0-47.0 MCV (test code = MCV) 91.2 fL 81.0-99.0 MCH (test code = MCH) 29.2 pg 27.0-31.0 MCHC (test code = MCHC) 32.1 gm/dl 33.0-37.0 L RDW (test code = RDWVC) 13.9 % 11.5-14.5 Platelet (test code = PLT) 249 10\\S\\3/ul 130-400 MPV (test code = MPV) 10.2 fL 7.4-10.4 A "NOT MEASURED" RESULTS ARE DISPLAYED WHEN THE INSTRUMENT HAS A SUPPRESSED OR UNREPORTABLE RESULT. THIS WILL MOST OFTEN HAPPEN WITH THE MPV WHEN THERE IS AN ABNORMAL PLATELET DISTRIBUTION DUE TO A CRITICAL LOW VALUE OR PLATELET CLUMPING. THE RDW MAY BE SUPPRESSED IF THERE ARE MULTIPLE PEAKS PRESENT ON THE RBC HISTOGRAM. IN THIS CASE, A MANUAL REVIEW OF THE SLIDE WILL BE PERFORMED, AND RBC MORPHOLOGY WILL BE NOTED ON THE REPORT. NE% (test code = NE) 42.7 % 42.0-75.0 LY% (test code = LY) 44.6 % 13.0-42.0 H MO% (test code = MO) 8.5 % 4.0-14.0 EO% (test code = EO) 3.0 % 1.0-5.0 BA% (test code = BA) 0.8 % 0.0-3.0 IG% (test code = IG%) 0.4 % 0.0-0.4 [facility] HealthCULTURE, [id number] 14:09:00Specimen: Urine SpecimensCollected: 08/31/2019 09:52 Status: Final Last Updated: 09/02/2019 14:09 Culture Result (Final) (Final) Moderate Mixed Body Mariela Isolated No Pathogens IsolatedMeM[facility] Beaver DamkinPTH INTACT (IH)2019-08-31 11:27:00* Test Item Value Reference Range Interpretation Comme nts PTH, INTACT (test code = PTH) 43 18-88 [facility] HealthcarekinB12, [id number] 11:18:00* Test Item Value Reference Range Interpretation Comme nts B12 (test code = B12) 354 pg/ml 193-986 [facility] CenterfkinCORONARY [id number] 11:18:00* Test Item Value Reference Range Interpretation Comme nts Triglycerides (test code = TRIG) 100 mg/dl 0-149 Trig. Interpreta tion Guide: Normal: < 150 mg/dl Borderline High: 150 - 199 mg/dl High: 200 - 499 mg/dl Very High: >= 500 mg/dl Cholesterol (test code = CHOL) 224 mg/dl 0-200 H HDL (test code = HDL) 58 mg/dl 35-86 dLDL (test code = DILDL) 154 mg/dl 0-99 H Direct LDL Intrepretations: Optimal: <100 mg/dl Suspect: 100 - 129 mg/dl Borderline: 130 - 159 mg/dl High: 160 - 189 mg/dl Very High: >190 mg/dl Risk Factor (test code = RFACT) 3.9 0.0-4.4 Risk Factor Men Women Risk Factor 3.4 3.3 1/2 Average 5.0 4.4 Average 9.6 7.1 2X Average 24.0 11.0 3X Average vLDL (test code = VLDL) 20 mg/dl 20-50 [facility] HealthcarekinCMP2020-03-13 11:18:00* Test Item Value Reference Range Interpretation Comme nts Sodium (test code = NA) 133 mmol/l 137-145 L Potassium (test code = K) 4.0 mmol/l 3.5-5.1 Chloride (test code = CL) 99 mmol/l 98-107 Calcium (test code = CALC) 9.2 mg/dl 8.5-10.1 CO2 (test code = CO2) 29 mmol/l 21-32 Glucose (test code = GLU) 100 mg/dl 74-106 BUN (test code = BUN) 16.0 mg/dl 7.0-18.0 Creatinine (test code = CREA) 1.0 mg/dl 0.5-1.3 T Protein (test code = TP) 7.6 gm/dl 6.4-8.2 Albumin (test code = ALB) 3.5 gm/dl 3.4-5.0 A/G Ratio (test code = AGRAT) 0.9 % 1.1-2.2 L AST (SGOT) (test code = AST) 19 U/L 15-37 ALT (SGPT) (test code = ALT) 17 U/L 13-61 Alkaline Phos (test code = ALKP) 121 U/L 45-117 H Total Bilirubin (test code = TBIL) 0.6 mg/dl 0.2-1.0 Globulin (test code = GLOBU) 4.1 gm/dl 2.3-3.5 H Calcium, Corrected (test code = CALCCORR) 9.6 mg/dl 8.4-10.2 Various formulas exist for corrected serum calcium results, each yielding different values. This corrected result was based on the formula: Corrected Calcium = SerumCalcium + [0.8 * ( 4 - SerumAlbumin)] EGFR if (test code = EGFRAA) >60 mL/min/1.73m\\ S\\2 EGFR if Non- (test code = EGFRNA) 58 mL/min/1.73m\\ S\\2 Estimated Glomerular Filtration Rate (eGFR) Reference Intervals Decision Points for 18 years and older and average body mass: >= 60 Does not exclude kidney disease. 30 - 59 Suggests moderate chronic kidney disease and indicates the need for further investigation including assessment of proteinuria and cardiovascular factors. < 30 Usually indicates a need for referral for assessment and management of chronic kidney failure. [facility]-LufkinURIC [id number] 11:18:00* Test Item Value Reference Range Interpretation Comme [facility] Uric Acid (test code = URICA) 6.0 mg/dl 2.6-6.0 [facility] HealthcareTrmqrl-[id number] 11:18:00* Test Item Value Reference Range Interpretation Comme nts Folic Acid (test code = FOLIC) 16.70 ng/ml 3.10-17.50 [facility]-LufkinTSH (Ultra Sensitive)2019-08-31 11:18:00* Test Item Value Reference Range Interpretation Comme nts TSH (test code = TSH) 4.22 mIU/L 0.35-3.74 H [facility]-MiamiPROTEIN/CREATNINE RATIO, Random [id number] 11:16:00* Test Item Value Reference Range Interpretation Comme nts Creatinine Urine Random (vu t code = CREAR) 25.0 mg/dl 10.0-300.0 Protein, Random Urine (test code = PROTU) <5.0 mg/dl 0.0-11.9 N Protein-Creatinine Ratio, Ur ine (test code = PCRATIO) 0.20 % 0.00-0.20 If a specimen is collected by a nurse, then you MUST fill out the Collected and Collected By angulo [facility] MICROALBUMIN, RANDOM [id number] 11:16:00* Test Item Value Reference Range Interpretation Comme nts Creatinine Urine Random (vu t code = CREAR) 25.0 mg/dl 10.0-300.0 Microalbumin, Urine (test co de = MALBU) <1 Microalbumin/Creatinine Rati o (test code = MRATIO) 0 If a specimen is collected by a nurse, then you MUST fill out the Collected and Collected By angulo [facility] HealthVITAMIN D 2019-08-31 11:05:00* Test Item Value Reference Range Interpretation Comme nts Vitamin D (test code = TVITD) 33.75 VITAMIN D NORMAL RANGES: Deficient <20 Insufficient 20-<30 Sufficient 30-100 Potential Toxicity >100 [facility] HealthURINALYSIS WITH [id number] 10:51:00* Test Item Value Reference Range Interpretation Comme nts Color (test code = UCOLR) Yellow Clarity (test code = UCLAR) Clear Glucose (test code = UGLUC) NEGATIVE NEGATIVE N Bilirubin (test code = UBILI) NEGATIVE NEGATIVE N Ketones (test code = UKET) NEGATIVE NEGATIVE N Specific [place] (test code = USPGR) 1.010 1.005-1.03 0 A Blood (test code = UBLD) NEGATIVE NEGATIVE N PH (test code = UPH) 6.5 4.5-8.0 A Protein (test code = UPROT) NEGATIVE NEGATIVE N Urobilinogen (test code = U UROB) 0.2 >0.2 N Nitrite (test code = UNITR) NEGATIVE NEGATIVE N Leukocyte Esterase (test cod e = ULEUK) NEGATIVE NEGATIVE N WBC (test code = WBCUR) 0-5 0-5 N RBC (test code = RBCUR) 0-5 0-5 N Epithial Cells (test code = U EPI) 10-20 0-10 A Mucous (test code = UMUC) Trace None Seen A Bacteria (test code = UBACT) 1+ None Seen,Trace A [facility] WITH AUTO [id number] 10:34:00* Test Item Value Reference Range Interpretation Comme nts WBC (test code = WBC) 9.35 10\\S\\3/ul 4.80-10.80 RBC (test code = RBC) 4.00 10\\S\\6/ul 4.20-5.40 L Hemoglobin (test code = HGB) 11.1 gm/dl 12.0-14.0 L Hematocrit (test code = HCT) 35.5 % 37.0-47.0 L MCV (test code = MCV) 88.8 fL 81.0-99.0 MCH (test code = MCH) 27.8 pg 27.0-31.0 MCHC (test code = MCHC) 31.3 gm/dl 33.0-37.0 L RDW (test code = RDWVC) 15.3 % 11.5-14.5 H Platelet (test code = PLT) 277 10\\S\\3/ul 130-400 MPV (test code = MPV) 10.1 fL 7.4-10.4 A "NOT MEASURED" RESULTS ARE DISPLAYED WHEN THE INSTRUMENT HAS A SUPPRESSED OR UNREPORTABLE RESULT. THIS WILL MOST OFTEN HAPPEN WITH THE MPV WHEN THERE IS AN ABNORMAL PLATELET DISTRIBUTION DUE TO A CRITICAL LOW VALUE OR PLATELET CLUMPING. THE RDW MAY BE SUPPRESSED IF THERE ARE MULTIPLE PEAKS PRESENT ON THE RBC HISTOGRAM. IN THIS CASE, A MANUAL REVIEW OF THE SLIDE WILL BE PERFORMED, AND RBC MORPHOLOGY WILL BE NOTED ON THE REPORT. NE% (test code = NE) 36.6 % 42.0-75.0 L LY% (test code = LY) 49.5 % 13.0-42.0 H MO% (test code = MO) 8.4 % 4.0-14.0 EO% (test code = EO) 4.6 % 1.0-5.0 BA% (test code = BA) 0.7 % 0.0-3.0 IG% (test code = IG%) 0.2 % 0.0-0.4 [facility] [place] LAB CBC WITH AUTO [id number] 16:57:00* Test Item Value Reference Range Interpretation Comme nts WBC (test code = WBC) 9.92 10\\S\\3/ul 4.80-10.80 RBC (test code = RBC) 3.93 10\\S\\6/ul 4.20-5.40 L Hemoglobin (test code = HGB) 11.1 gm/dl 12.0-14.0 L Hematocrit (test code = HCT) 33.9 % 37.0-47.0 L MCV (test code = MCV) 86.3 fL 81.0-99.0 MCH (test code = MCH) 28.2 pg 27.0-31.0 MCHC (test code = MCHC) 32.7 gm/dl 33.0-37.0 L Platelet (test code = PLT) 264 10\\S\\3/ul 130-400 RDW (test code = RDWVC) 14.9 % 11.5-14.5 H MPV (test code = MPV) 9.5 fL 7.4-10.4 A NE% (test code = NE) 35.7 % 42.0-75.0 L LY% (test code = LY) 53.2 % 13.0-42.0 H MO% (test code = MO) 7.7 % 4.0-14.0 EO% (test code = EO) 2.8 % 1.0-3.0 BA% (test code = BA) 0.5 % 1.0-3.0 L IG% (test code = IG%) 0.1 % 0.0-0.4 Neutrophils (test code = NEUTR) 39 % 42-75 L No previous valu e was reported. A value of 39 was entered by fruux on 08/27/2019 16:57 Lymphocytes (test code = LYMPH) 51 % 13-42 H No previous valu e was reported. A value of 51 was entered by fruux on 08/27/2019 16:57 Monocytes (test code = MONOS) 8 % 4-14 No previous valu e was reported. A value of 8 was entered by fruux on 08/27/2019 16:57 Eosinophils (test code = EOS) 2 % 1-3 No previous valu e was reported. A value of 2 was entered by fruux on 08/27/2019 16:57 [facility] W/[id number] 15:49:54 Procedure: CT ABDOMEN/PELVIS W/CONTRASTOrder date: 08/27/2019 2:00 PMOrdering Provider: ARELIS Galvaninical Indication: [id number]: Abdominal painComparison: NoneTechnique: Multiple axial helicalCT images of the abdomen and pelvis wereobtained with IV contrast. Coronal and sagittal reformattedimages were alsoobtained.This exam was performed according to the our departmental dose-optimizationprogram which includes automated exposure control, adjustment of the mA and/orkV according to patient size and/or use of iterative reconstruction techniques.Findings:Lung bases are clear and the heart apex within normal limits. No inferiormediastinal abnormality. Inferior osseous [...] MD 08/27/20193:43 PMDictated By: DUSTY SWARTZDate: 08/27/2019 15:43[id number] 14:42:00* Test Item Value Reference Range Interpretation Comme nts Sodium (test code = NA) 133 mmol/l 137-145 L Potassium (test code = K) 3.5 mmol/l 3.5-5.1 Chloride (test code = CL) 99 mmol/l 98-107 Calcium (test code = CALC) 8.7 mg/dl 8.5-10.1 CO2 (test code = CO2) 29 mmol/l 21-32 Glucose (test code = GLU) 104 mg/dl 74-106 BUN (test code = BUN) 15.0 mg/dl 7.0-18.0 Creatinine (test code = CREA) 0.9 mg/dl 0.5-1.3 T Protein (test code = TP) 7.2 gm/dl 6.4-8.2 Albumin (test code = ALB) 3.2 gm/dl 3.4-5.0 L A/G Ratio (test code = AGRAT) 0.8 % 1.1-2.2 L AST (SGOT) (test code = AST) 19 U/L 15-37 ALT (SGPT) (test code = ALT) 16 U/L 13-61 Alkaline Phos (test code = ALKP) 111 U/L 45-117 Total Bilirubin (test code = TBIL) 0.5 mg/dl 0.2-1.0 Globulin (test code = GLOBU) 4.0 gm/dl 2.3-3.5 H Calcium, Corrected (test code = CALCCORR) 9.3 mg/dl 8.4-10.2 Various formulas exist for corrected serum calcium results, each yielding different values. This corrected result was based on the formula: Corrected Calcium = SerumCalcium + [0.8 * ( 4 - SerumAlbumin)] EGFR if (test code = EGFRAA) >60 mL/min/1.73m\\ S\\2 EGFR if Non- (test code = EGFRNA) >60 mL/min/1.73m\\ S\\2 Estimated Glomerular Filtration Rate (eGFR) Reference Intervals Decision Points for 18 years and older and average body mass: >= 60 Does not exclude kidney disease. 30 - 59 Suggests moderate chronic kidney disease and indicates the need for further investigation including assessment of proteinuria and cardiovascular factors. < 30 Usually indicates a need for referral for assessment and management of chronic kidney failure. [facility]Jmqxbp-[id number] 14:42:00* Test Item Value Reference Range Interpretation Comme nts Lipase (test code = LIPA) 171 U/L 73-393 [facility] HealthcareYzqycb-[id number] 14:42:00* Test Item Value Reference Range Interpretation Comme nts Magnesium (test code = MG) 2.0 mg/dl 1.6-2.6 [facility] CERV[facility] W/[id number] 14:04:19 Procedure: FL MYELOGRAM CERVICAL-IMAGING/S/I, CT CERVICAL SPINE W/CONTRASTOrder Date: 07/19/2019 9:00 AMOrdering Provider: DR CHARMAINE KEITAClinical Indication: [id number]: Spinal stenosis in cervical regionComparison: X-ray of [...] removed. Puncture site was dressed with a sterilebandage.Fluoroscopic films were obtained and the patient was transferred to the CT suitefor post-myelogram CT scan of the cervical spineFindings:Cervical myelogram: Intact anterior fusion at C6-7.No [...] or spinal stenosis. There is facet/uncinate process hypertrophycausingsevere right and moderate left neural foraminal narrowing.At the C5-6 level, there are midline bilateral laminectomies. There is a diffusedisc bulge/osteophyte complex. There is no disc herniation orspinal stenosis.There is facet/uncinate process hypertrophy causing severe right and mild leftneural foraminal narrowing.At the C6-7 level, there are midline bilateral laminectomies. There is an intactACDF. There is no disc herniation or spinal stenosis. There is facet/uncinateprocess hypertrophy ca using mild bilateral neural foraminal narrowing.At the C7-T1 [...] neural foraminal narrowing. Thisis severe on the right at C3-4, severe on the right at C4-5, and severe on theright at C5-6.5. Mild anterolisthesis of C4 on C5 and C7 on T1.6. No other significant findings.This final report was electronically signed by Dr Artie Camara MD 07/19/20191:57 PMDictated By: ARTIE CAMARADate: 07/19/2019 13:57[facility]/S/[id number] 14:04:12Procedure: FL MYELOGRAM CERVICAL-IMAGING/S/I, CT CERVICAL SPINE W/CONTRASTOrder Date: 07/19/2019 9:00 AMOrdering Provider: DR CHARMAINE KEITAClinical Indication: [id number]: Spinal stenosis in cervical r egionComparison: X-ray of the cervical spine May 24, [...] removed. Puncture site was dressed with a sterilebandage.Fluoroscopic films were obtained and the patient was transferred to the CT suitefor post-myelogram CT scan of the cervical spineFindings:Cervical myelogram: Intact anterior fusion at C6-7.No obvious extradural defect identified.CT scan of the cervical spine:Intact anterior fusion at C6-7.There is no acute fracture.Mild anterolisthesis of C4 on C5 and C7 on T1.Mild cervical levoscoliosis.There is multilevel intervertebral disc space narrowing and endplate osteophyteformation.There is multilevel facet arthropathy.At the C1-2 level, there is no disc herniation, spinal stenosis, or neuralforaminal na rrowing.At the C2-3 level, there is a diffuse disc bulge without focal herniation orspinal stenosis. There is facet/uncinate process hypertrophy causing moderateright and mild left neural foraminal narrowing.At the C3-4 level, there is a diffuse disc bulge/osteophyte complex. There is nodisc herniat ion or spinal stenosis. There is facet/uncinate process hypertrophycausing severe right and moderate left neural foraminal narrowing.At the C4-5 level, there is a diffuse disc bulge/osteophyte complex. There is nodisc herniation or spinal stenosis. There is facet/uncinate process hypertrophycausingsevere right and moderate left neural foraminal narrowing.At the C5-6 level, there are midline bilateral laminectomies. There is a diffusedisc bulge/osteophyte complex. There is no disc herniation orspinal stenosis.There is facet/uncinate process hypertrophy causing severe [...] neural foraminal narrowing. Thisis severe on the right at C3-4, severe on the right at C4-5, and severe on theright at C5- 6.5. Mild anterolisthesis of C4 on C5 and C7 on T1.6. No other significant findings.This final report was electronically signed by Dr Artie Camara MD 07/19/20191:57 PMDictated By: ARTIE CAMARADate: 07/19/2019 13:57[facility] MOD[facility] BARIUM [id number] 11:08:36Date: June 14, 2019Diagnosis: [id number]: Pharyngeal [id number]: Feeding problem, Cervical surgeryReferring Physician: DR PETER M SHEDDENPatient Positioned: Sitting upright in a wheelchair.Patient presented awake, alert, and able to follow commands. Upper and lowerdentures present.Primary Complaint: The patient stated that she has had two cervical surgeriesthis year and has demonstrated breathing pattern changes when she bends over,and occasional difficulty swallowing. A modifiedbarium swallow study wasordered to assess swallowing function and to rule out aspiration.Fluoroscopy time: 5.3 minutesRESULTS:The Video Fluoroscopy Modified Barium Swallow study included liquid boluses ofthin, nectar, and honey consistencies at 3 ml and 5 ml, then cup drinking andusing a straw, as well as puree, pudding, solids and a Tylenol-sized bariumtablet.ORAL STAGE: Patient demonstrated a mild to moderate sensory/motor oral dysphagiacharacterized by mildly reduced mastication, mildly reduced bolus formation,mild to moderately reduced anterior/posterior lingual movement, mild tomoderately reduced oral transit, and mildly reduced posterior oral containment.Residues on the lingual back and sublingual were moderate and frequentlyrequired a second swallow to clear.PHARYNGEAL STAGE: Patient demonstrated a moderate sensory/motor pharyngealdysphagia characterized by mildly reduced lingualbase retraction, mildlyreduced anterior movement of the hyoid, [...] lingual back and base, and in the valleculae were mild tomoderate. There was heavy penetration of thin and nectar thick liquids. Residuesoccasionally remained within the vestibule, on the epiglottic petiole, on thevocal folds, and just below the vocal folds (aspiration). Residues were expelledwith a cough following verbal cues from the DIETARY AIDE prior to aspiration. There wasflash penetration of honey thick liquids one time with no residues remainingwithin the vestibule. A chin tuck and breath hold maneuvers did not remedypenetration.ESOPHAGEAL STAGE: All boluses cleared the upper esophageal sphincter and noovert indicationof reflux was noted. A scan down the esophagus showed no bariumremaining.SUMMARY:1. Mild to moderate oral dysphagia.2. Moderate pharyngeal dysphagia.There was heavy penetration of thin and nectar thick liquids. Residuesoccasionally remained within the vestibule, on the epiglottic petiole, on thevocal folds, and just below the vocal folds (aspiration). Residues were expelledwith a cough following verbal cues from the DIETARY AIDE prior to aspiration. There wasflash penetration of honey thick liquids one time with no residues remainingwithin the vestibule.RECOMMENDATIONS:1. Regular solids as tolerated2.Thin liquids - throat clear after every drink while eating meals.3. Medications ad lib4. Speech therapy may be beneficial to address primarily airway closure in orderto reduce the risk of aspiration.Reviewed by: Artie Camara MDThis final report was electronically signed by Saige Miller MS CCC/SLP06/14/2019 11:02 AMDictated By: SAIGE MILLERDate: 06/14/2019 11:02[facility] XR CERV SPINE 4-5 [id number] 11:40:03Procedure: [facility] XR CERV SPINE 4-5 VWSOrder Date: 05/24/2019 3:34 PMOrdering Provider: CHARMAINE [facility] Indication: [id number]: Displacement of cervical intervertebral discComparison: April 26, 2019Findings:There is evidence of C6-C7 anterior cervical discectomy and fusion with plate,screws, andinterbody spacer placement. No evidence of hardware failure orloosening is present. Suggestion of de compressive laminectomy at this level.There is 2 mm grade 1 anterolisthesis at C3-C4 and C4-C5 level on flexion andpersists on extension.There is a 3 mm C6-C7 grade 1 anterolisthesis. No significant motion betweenflexion and extension views.Multilevel severe facet osteoporosis is present. No acute fracture or focalosseous destruction is present. No prevertebral soft tissue edema.IMPRESSION:StaticC6-C7 grade 1 anterolisthesis. No dynamic instability.Static C3-C4 and C4-C5 grade 1 anterolisthesis. No dynamic instability.Multilevel severe facet osteoarthrosis.Intact C6-C7 ACDF.This final reportwas electronically signed by Dr Shelby Blanco MD 05/25/201911:33 AMDictated By: SEA BLANCOKDate: 05/25/2019 11:33[facility] CT CERV SPINE W/WO [id number] 13:28:05Procedure: [facility] CT CERV SPINE W/WO CONTRASTOrder date: 04/26/2019 [...] and/orkV according to patient size and/or use ofiterative reconstruction techniques.Findings:Postsurgical changes of anterior as well [...] at the surgical levels without effusionidentified. There ismultilevel osseous foraminal stenosis, greatest at C3-L4xcxgspk C5-C6.There is no lytic or sclerotic lesion.The prevertebral soft tissues are normal.Minimal paraseptal emphysematous changes of the lung apices.IMPRESSION:1. Nonacute CT of the cervical spine with and without contrast.2. Postsurgical changes with cervical spondylosis as above.This final report was electronically signed by Dr Dusty Swartz MD 04/28/20191:21 PMDictated By: DUSTY SWARTZDate: 04/28/2019 13:21[facility] 2019-03-25 06:52:00* Test Item Value Reference Range Interpretation Comme nts Sodium (test code = NA) 135 mmol/l 137-145 L Potassium (test code = K) 3.4 mmol/l 3.5-5.1 L Chloride (test code = CL) 98 mmol/l 98-107 Calcium (test code = CALC) 8.8 mg/dl 8.5-10.1 CO2 (test code = CO2) 28 mmol/l 21-32 Glucose (test code = GLU) 98 mg/dl 74-106 BUN (test code = BUN) 7.0 mg/dl 7.0-18.0 Creatinine (test code = CREA) 0.7 mg/dl 0.5-1.3 EGFR if (test code = EGFRAA) >60 mL/min/1.73m\\ S\\2 EGFR if Non- (test code = EGFRNA) >60 mL/min/1.73m\\ S\\2 Estimated Glomerular Filtration Rate (eGFR) Reference Intervals Decision Points for 18 years and older and average body mass: >= 60 Does not exclude kidney disease. 30 - 59 Suggests moderate chronic kidney disease and indicates the need for further investigation including assessment of proteinuria and cardiovascular factors. < 30 Usually indicates a need for referral for assessment and management of chronic kidney failure. [facility] ([facility]2019-03-25 06:33:00* Test Item Value Reference Range Interpretation Comme nts WBC (test code = WBC) 12.67 10\\S\\3/ul 4.80-10.80 H RBC (test code = RBC) 3.34 10\\S\\6/ul 4.20-5.40 L Hemoglobin (test code = HGB) 9.9 gm/dl 12.0-14.0 L Hematocrit (test code = HCT) 30.4 % 37.0-47.0 L MCV (test code = MCV) 91.0 fL 81.0-99.0 MCH (test code = MCH) 29.6 pg 27.0-31.0 MCHC (test code = MCHC) 32.6 gm/dl 33.0-37.0 L RDW (test code = RDWVC) 14.6 % 11.5-14.5 H Platelet (test code = PLT) 324 10\\S\\3/ul 130-400 MPV (test code = MPV) 10.2 fL 7.4-10.4 A "NOT MEASURED" RESULTS ARE DISPLAYED WHEN THE INSTRUMENT HAS A SUPPRESSED OR UNREPORTABLE RESULT. THIS WILL MOST OFTEN HAPPEN WITH THE MPV WHEN THERE IS AN ABNORMAL PLATELET DISTRIBUTION DUE TO A CRITICAL LOW VALUE OR PLATELET CLUMPING. THE RDW MAY BE SUPPRESSED IF THERE ARE MULTIPLE PEAKS PRESENT ON THE RBC HISTOGRAM. IN THIS CASE, A MANUAL REVIEW OF THE SLIDE WILL BE PERFORMED, AND RBC MORPHOLOGY WILL BE NOTED ON THE REPORT. [facility]-[id number] 06:46:00* Test Item Value Reference Range Interpretation Comme nts Sodium (test code = NA) 136 mmol/l 137-145 L Potassium (test code = K) 3.3 mmol/l 3.5-5.1 L Chloride (test code = CL) 99 mmol/l 98-107 Calcium (test code = CALC) 8.7 mg/dl 8.5-10.1 CO2 (test code = CO2) 29 mmol/l 21-32 Glucose (test code = GLU) 98 mg/dl 74-106 BUN (test code = BUN) 9.0 mg/dl 7.0-18.0 Creatinine (test code = CREA) 0.7 mg/dl 0.5-1.3 EGFR if (test code = EGFRAA) >60 mL/min/1.73m\\ S\\2 EGFR if Non- (test code = EGFRNA) >60 mL/min/1.73m\\ S\\2 Estimated Glomerular Filtration Rate (eGFR) Reference Intervals Decision Points for 18 years and older and average body mass: >= 60 Does not exclude kidney disease. 30 - 59 Suggests moderate chronic kidney disease and indicates the need for further investigation including assessment of proteinuria and cardiovascular factors. < 30 Usually indicates a need for referral for assessment and management of chronic kidney failure. [facility] ([facility] ONLY)2019-03-22 06:42:00* Test Item Value Reference Range Interpretation Comme nts WBC (test code = WBC) 14.09 10\\S\\3/ul 4.80-10.80 H RBC (test code = RBC) 3.53 10\\S\\6/ul 4.20-5.40 L Hemoglobin (test code = HGB) 10.9 gm/dl 12.0-14.0 L Hematocrit (test code = HCT) 32.6 % 37.0-47.0 L MCV (test code = MCV) 92.4 fL 81.0-99.0 MCH (test code = MCH) 30.9 pg 27.0-31.0 MCHC (test code = MCHC) 33.4 gm/dl 33.0-37.0 RDW (test code = RDWVC) 14.7 % 11.5-14.5 H Platelet (test code = PLT) 259 10\\S\\3/ul 130-400 MPV (test code = MPV) 10.5 fL 7.4-10.4 A "NOT MEASURED" RESULTS ARE DISPLAYED WHEN THE INSTRUMENT HAS A SUPPRESSED OR UNREPORTABLE RESULT. THIS WILL MOST OFTEN HAPPEN WITH THE MPV WHEN THERE IS AN ABNORMAL PLATELET DISTRIBUTION DUE TO A CRITICAL LOW VALUE OR PLATELET CLUMPING. THE RDW MAY BE SUPPRESSED IF THERE ARE MULTIPLE PEAKS PRESENT ON THE RBC HISTOGRAM. IN THIS CASE, A MANUAL REVIEW OF THE SLIDE WILL BE PERFORMED, AND RBC MORPHOLOGY WILL BE NOTED ON THE REPORT. [facility]-[id number] 06:42:00* Test Item Value Reference Range Interpretation Comme nts Sodium (test code = NA) 137 mmol/l 137-145 Potassium (test code = K) 3.4 mmol/l 3.5-5.1 L Chloride (test code = CL) 100 mmol/l 98-107 Calcium (test code = CALC) 8.9 mg/dl 8.5-10.1 CO2 (test code = CO2) 29 mmol/l 21-32 Glucose (test code = GLU) 118 mg/dl 74-106 H BUN (test code = BUN) 10.0 mg/dl 7.0-18.0 Creatinine (test code = CREA) 0.7 mg/dl 0.5-1.3 EGFR if (test code = EGFRAA) >60 mL/min/1.73m\\ S\\2 EGFR if Non- (test code = EGFRNA) >60 mL/min/1.73m\\ S\\2 Estimated Glomerular Filtration Rate (eGFR) Reference Intervals Decision Points for 18 years and older and average body mass: >= 60 Does not exclude kidney disease. 30 - 59 Suggests moderate chronic kidney disease and indicates the need for further investigation including assessment of proteinuria and cardiovascular factors. < 30 Usually indicates a need for referral for assessment and management of chronic kidney failure. [facility] ([facility] ONLY)2019-03-19 06:29:00* Test Item Value Reference Range Interpretation Comme nts WBC (test code = WBC) 14.32 10\\S\\3/ul 4.80-10.80 H RBC (test code = RBC) 3.83 10\\S\\6/ul 4.20-5.40 L Hemoglobin (test code = HGB) 11.5 gm/dl 12.0-14.0 L Hematocrit (test code = HCT) 35.0 % 37.0-47.0 L MCV (test code = MCV) 91.4 fL 81.0-99.0 MCH (test code = MCH) 30.0 pg 27.0-31.0 MCHC (test code = MCHC) 32.9 gm/dl 33.0-37.0 L RDW (test code = RDWVC) 14.5 % 11.5-14.5 Platelet (test code = PLT) 263 10\\S\\3/ul 130-400 MPV (test code = MPV) 11.0 fL 7.4-10.4 A "NOT MEASURED" RESULTS ARE DISPLAYED WHEN THE INSTRUMENT HAS A SUPPRESSED OR UNREPORTABLE RESULT. THIS WILL MOST OFTEN HAPPEN WITH THE MPV WHEN THERE IS AN ABNORMAL PLATELET DISTRIBUTION DUE TO A CRITICAL LOW VALUE OR PLATELET CLUMPING. THE RDW MAY BE SUPPRESSED IF THERE ARE MULTIPLE PEAKS PRESENT ON THE RBC HISTOGRAM. IN THIS CASE, A MANUAL REVIEW OF THE SLIDE WILL BE PERFORMED, AND RBC MORPHOLOGY WILL BE NOTED ON THE REPORT. [facility]-[id number] 05:38:00* Test Item Value Reference Range Interpretation Comme nts Sodium (test code = NA) 139 mmol/l 137-145 Potassium (test code = K) 3.5 mmol/l 3.5-5.1 Chloride (test code = CL) 101 mmol/l 98-107 Calcium (test code = CALC) 8.5 mg/dl 8.5-10.1 CO2 (test code = CO2) 31 mmol/l 21-32 Glucose (test code = GLU) 118 mg/dl 74-106 H BUN (test code = BUN) 10.0 mg/dl 7.0-18.0 Creatinine (test code = CREA) 0.7 mg/dl 0.5-1.3 EGFR if (test code = EGFRAA) >60 mL/min/1.73m\\ S\\2 EGFR if Non- (test code = EGFRNA) >60 mL/min/1.73m\\ S\\2 Estimated Glomerular Filtration Rate (eGFR) Reference Intervals Decision Points for 18 years and older and average body mass: >= 60 Does not exclude kidney disease. 30 - 59 Suggests moderate chronic kidney disease and indicates the need for further investigation including assessment of proteinuria and cardiovascular factors. < 30 Usually indicates a need for referral for assessment and management of chronic kidney failure. [facility] WITH [facility] [id number] 05:05:00* Test Item Value Reference Range Interpretation Comme nts WBC (test code = WBC) 15.78 10\\S\\3/ul 4.80-10.80 H RBC (test code = RBC) 3.57 10\\S\\6/ul 4.20-5.40 L Hemoglobin (test code = HGB) 10.7 gm/dl 12.0-14.0 L Hematocrit (test code = HCT) 32.7 % 37.0-47.0 L MCV (test code = MCV) 91.6 fL 81.0-99.0 MCH (test code = MCH) 30.0 pg 27.0-31.0 MCHC (test code = MCHC) 32.7 gm/dl 33.0-37.0 L RDW (test code = RDWVC) 14.4 % 11.5-14.5 Platelet (test code = PLT) 248 10\\S\\3/ul 130-400 MPV (test code = MPV) 10.9 fL 7.4-10.4 A "NOT MEASURED" RESULTS ARE DISPLAYED WHEN THE INSTRUMENT HAS A SUPPRESSED OR UNREPORTABLE RESULT. THIS WILL MOST OFTEN HAPPEN WITH THE MPV WHEN THERE IS AN ABNORMAL PLATELET DISTRIBUTION DUE TO A CRITICAL LOW VALUE OR PLATELET CLUMPING. THE RDW MAY BE SUPPRESSED IF THERE ARE MULTIPLE PEAKS PRESENT ON THE RBC HISTOGRAM. IN THIS CASE, A MANUAL REVIEW OF THE SLIDE WILL BE PERFORMED, AND RBC MORPHOLOGY WILL BE NOTED ON THE REPORT. NE% (test code = NE) 79.7 % 42.0-75.0 H LY% (test code = LY) 14.6 % 13.0-42.0 MO% (test code = MO) 4.8 % 4.0-14.0 EO% (test code = EO) 0.0 % 1.0-5.0 L BA% (test code = BA) 0.1 % 0.0-3.0 IG% (test code = IG%) 0.8 % 0.0-0.4 H CBC AUTO [facility] ([facility] ONLY)2019-03-15 20:44:00* Test Item Value Reference Range Interpretation Comme nts WBC (test code = WBC) 17.94 10\\S\\3/ul 4.80-10.80 H RBC (test code = RBC) 4.11 10\\S\\6/ul 4.20-5.40 L Hemoglobin (test code = HGB) 12.5 gm/dl 12.0-14.0 Hematocrit (test code = HCT) 37.6 % 37.0-47.0 MCV (test code = MCV) 91.5 fL 81.0-99.0 MCH (test code = MCH) 30.4 pg 27.0-31.0 MCHC (test code = MCHC) 33.2 gm/dl 33.0-37.0 RDW (test code = RDWVC) 14.0 % 11.5-14.5 Platelet (test code = PLT) 264 10\\S\\3/ul 130-400 MPV (test code = MPV) 10.4 fL 7.4-10.4 A "NOT MEASURED" RESULTS ARE DISPLAYED WHEN THE INSTRUMENT HAS A SUPPRESSED OR UNREPORTABLE RESULT. THIS WILL MOST OFTEN HAPPEN WITH THE MPV WHEN THERE IS AN ABNORMAL PLATELET DISTRIBUTION DUE TO A CRITICAL LOW VALUE OR PLATELET CLUMPING. THE RDW MAY BE SUPPRESSED IF THERE ARE MULTIPLE PEAKS PRESENT ON THE RBC HISTOGRAM. IN THIS CASE, A MANUAL REVIEW OF THE SLIDE WILL BE PERFORMED, AND RBC MORPHOLOGY WILL BE NOTED ON THE REPORT. [facility]-[id number] 11:24:00* Test Item Value Reference Range Interpretation Comme nts Sodium (test code = NA) 139 mmol/l 137-145 Potassium (test code = K) 3.3 mmol/l 3.5-5.1 L Chloride (test code = CL) 100 mmol/l 98-107 Calcium (test code = CALC) 9.8 mg/dl 8.5-10.1 CO2 (test code = CO2) 32 mmol/l 21-32 Glucose (test code = GLU) 100 mg/dl 74-106 BUN (test code = BUN) 10.0 mg/dl 7.0-18.0 Creatinine (test code = CREA) 0.8 mg/dl 0.5-1.3 EGFR if (test code = EGFRAA) >60 mL/min/1.73m\\ S\\2 EGFR if Non- (test code = EGFRNA) >60 mL/min/1.73m\\ S\\2 Estimated Glomerular Filtration Rate (eGFR) Reference Intervals Decision Points for 18 years and older and average body mass: >= 60 Does not exclude kidney disease. 30 - 59 Suggests moderate chronic kidney disease and indicates the need for further investigation including assessment of proteinuria and cardiovascular factors. < 30 Usually indicates a need for referral for assessment and management of chronic kidney failure. [facility]MiamiURINALYSIS WITHOUT [id number] 11:02:00 * Test Item Value Reference Range Interpretation Comme nts Color (test code = UCOLR) YELLOW Clarity (test code = UCLAR) CLEAR Glucose (test code = UGLUC) NEGATIVE NEGATIVE N Bilirubin (test code = UBILI) NEGATIVE NEGATIVE N Ketones (test code = UKET) NEGATIVE NEGATIVE N Specific [place] (test code = USPGR) 1.010 1.005-1.03 0 A Blood (test code = UBLD) NEGATIVE NEGATIVE N PH (test code = UPH) 7.5 4.5-8.0 A Protein (test code = UPROT) NEGATIVE NEGATIVE N Urobilinogen (test code = U UROB) 0.2 >0.2 N Nitrite (test code = UNITR) NEGATIVE NEGATIVE N Leukocyte Esterase (test cod e = ULEUK) SMALL NEGATIVE A [facility] (HEMOGRAM ONLY)2019-03-14 11:01:00* Test Item Value Reference Range Interpretation Comme nts WBC (test code = WBC) 10.56 10\\S\\3/ul 4.80-10.80 RBC (test code = RBC) 4.15 10\\S\\6/ul 4.20-5.40 L Hemoglobin (test code = HGB) 12.7 gm/dl 12.0-14.0 Hematocrit (test code = HCT) 37.7 % 37.0-47.0 MCV (test code = MCV) 90.8 fL 81.0-99.0 MCH (test code = MCH) 30.6 pg 27.0-31.0 MCHC (test code = MCHC) 33.7 gm/dl 33.0-37.0 RDW (test code = RDWVC) 14.1 % 11.5-14.5 Platelet (test code = PLT) 266 10\\S\\3/ul 130-400 MPV (test code = MPV) 10.6 fL 7.4-10.4 A "NOT MEASURED" RESULTS ARE DISPLAYED WHEN THE INSTRUMENT HAS A SUPPRESSED OR UNREPORTABLE RESULT. THIS WILL MOST OFTEN HAPPEN WITH THE MPV WHEN THERE IS AN ABNORMAL PLATELET DISTRIBUTION DUE TO A CRITICAL LOW VALUE OR PLATELET CLUMPING. THE RDW MAY BE SUPPRESSED IF THERE ARE MULTIPLE PEAKS PRESENT ON THE RBC HISTOGRAM. IN THIS CASE, A MANUAL REVIEW OF THE SLIDE WILL BE PERFORMED, AND RBC MORPHOLOGY WILL BE NOTED ON THE REPORT. [facility]/O [id number] 18:58:11If patient is claustrophobic, contact ordering joie russell for additional instructions.Procedure: MRI CSPINE W/O CONTRASTOrder Date: 03/13/2019 1:15 PMOrdering Provider: ROCKY Aliciainical Indication: [id number]: Cervical disc disorder with myelopathyComparison: NoneTechnique: Multisequence, multiplanar images of the cervical spine were obtainedwithout administration of intravenous contrast.Findings:Vertebral body heights are preserved.There is still limited with one anterolisthesis at C4-C5 and C5-C6. There is 5mm grade 1 anterolisthesis at C6-C7.2 mm grade 1 anterolisthesis at C7-T1.Posterior fossa and craniocervical junction : Unremarkable.Cervical Cord: With subtle cord sign al alteration at C6-C7.C2-C3: No significant stenosis.C3-C4: Shallow disc bulge, uncovertebral hypertrophy, and bilateral facetarthrosis. Spinal canal is patent. There is severe right and moderate leftneural foraminal stenosis.C4-C5: Disc osteophyte complex, bilateral uncovertebral hypertrophy and facetosteoarthrosis. Spinal canal is patent. There is moderate neural foraminastenosis.C5-C6: Grade 1 anterolisthesis, disc uncovering. Bilateral uncovertebralhypertrophy and facet osteoarthrosis are present. A component of synovial cystat the C6-C7 level is seen in cranially extend to this level and demonstratesmass effect on the dorsal aspect of the thecal sac. There is moderate spinalcanal stenosis. Neural foramina are patent.C6-C7: Grade 1 anterolisthesis with disc [...] neural foraminal stenosis. Spinal canal is patent.Impression:Multilevel degene rative changes most notably at the C6-C7 level wheredegenerative changes, especially a very large synovial cyst results in verysevere spinal canal stenosis and subtle cord edema.Moderate spinal canalstenosis at C5-C6.Varying degrees of neural foraminal stenosis detailed level by level above.This final report was electronically signed by Dr Shelby Blanco MD 03/13/20196:51 PMDictated By: SEA BLANCOKDate: 03/13/2019 18:51[facility] BRA[facility] CONT 2019-03-13 15:28:36If patient is claustrophobic, contact ordering [facility] yvonne for additional instructions.Procedure: MRI BRAIN WO/W CONTOrder Date: 03/13/2019 12:30 PMOrdering Provider: ROCKY AliciainicalIndication: Dizziness, abnormal gaitComparison: NoneTechnique: Multiplanar MRI of the brain was obtained with and without theadministration of IV contrast.Findings:T2/FLAIR signal abnormality seen inthe bihemispheric white matter, nonspecificyet most likely microvascular ischemic change. There is also global parenchymalvolume loss.Ventricular size and configuration are normal. There is no midline shift orhydrocephalus.No pathologic enhancement on postcontrast imaging.There is no evidence of anacute infarct. There is no parenchymal hemorrhage.The pituitary gland is normal in size. There are no pineal masses.There are normal intracranial vascular flow voids.The foramen magnum is normal.There is normal signal within the paranasal sinuses.The orbits are intact.IMPRESSION:1. Nonacute MRI of the brain with and without the administration of IV contrast.2. Microvascular ischemic change with global parenchymal volume loss.This final report was electronically signed by Dr Dusty Swartz MD 03/13/20193:22 PMDictated By: DUSTY SWARTZDate: 03/13/2019 15:22[facility] Notes Date/Time Note Provider Source 2023-07-28 10:51:36 [id number]:51:36 Images from the original note were not included.Called patient for results patient verbalized understanding with no further questionsAfia Anthony MD P Cardiology NurseUltrasound showed patent stent for aortic aneurysm. Venous ultrasound showed mild left leg venous insufficiency. Recommend compression stockings. [id number] encounter [id number]:58:31Telephone encounter [id number] for patient [id number] C-CDA narrative [id number] Marcelino ASENC[address] I[id number] [id number]:58:3 [id number] Patricia Benson MA [facility] 2019-08-27 16:30:00 [id number] [id number]/[id number] 20-03-09T16:30:00Discharge Instructions 2Discharge DiagnosisAbdominal painImportant InformationConsult your physician or return to the Emergency Department immediately if worse, if not better as expected, or if any problems arise.Follow Up CareYesImportant InformationPlease understand that you have received care only on an emergency basis. If your condition does not improve, you should call your personal physician for follow-up care. If you do not have a physician, you may call the referred physician listed.If you have questions about your care or these discharge instructions, you may call the Emergency Department. Please take your discharge paperwork with you to any follow-up appointments.Follow Up CarePatient To ScheduleFollow-Up With:Primary Care PhysicianActivity LevelAs tolerated, unrestrictedDietRegularPatient TeachingPatient education providedDischarge InstructionsDischarge InstructionsDischarge Instructions 2019-08-27 (Encounter: [id number] for patient careSTLMLCUNC Health [facility] ([facility]/MICHELLE/SA)[id number]:02:42 [facility] ([facility]/MICHELLE/SA)
--- NOTE | 2023-11-24 11:44 | RAD REPORT ---
EXAM DESCRIPTION: CT - Abdomen Pelvis Wo Contrast - 11/24/2023 10:55 am CLINICAL HISTORY: Abdominal pain right flank pain COMPARISON: 2022 and October 2020 TECHNIQUE: Computed axial tomography of the abdomen and pelvis was obtained. IV and oral contrast we re not requested. All CT scans are performed using dose optimization technique as appropriate and may include automated exposure control or mA/KV adjustment according to patient size. FINDINGS: The evaluation of solid organs, vessels and bowel is limited secondary to the lack of con trast administration. Mild chronic right pleural thickening and mild chronic right lower lobe opacities. Cholecystectomy. Right kidney very small without significant change. Left kidney grossly normal. Adrenals and pancreas grossly normal Lobulated soft tissue left upper quadrant is unchanged and likely benign Hysterectomy. No adnexal mass. No evidence diverticulitis. 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 The neck measures 3.4 centimeters. Distal descending thoracic aortic aneurysm 3.8 centimeters without significant change. 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 Followup imaging in 3 years recommen ded
[2023-11-24 11:57] LABS: Absolute Basophils 0.1 K/uL (0-0.5); Absolute Eosinophils 0.2 K/uL (0-0.5); Absolute Lymphocytes (CBC) 3.1 K/uL (0.7-4.9); Absolute Neutrophil 6.6 K/uL (1.8-8.0); Basophils % 0.6 % (0-1.3); Eosinophils % 1.8 % (0-4.4); Hematocrit 35.5 % (36.0-45.0); Hemoglobin 11.6 g/dL (12.0-15.0); Lymphocytes % 28.7 % (15.3-44.8); MCH 29.2 pg (27.0-35.0); MCHC 32.8 g/dL (32.0-36.0); MPV 8.3 fL (7.6-11.3); Monocytes % 8.9 % (3.3-12.3); Platelets 218 thou/uL (152-406); RBC Red Blood Cell Count 3.99 M/uL (3.86-4.86); Red Cell Distribution Width 16.1 % (12.1-15.2)
[2023-11-24 12:09] LABS: AST/SGOT 15 U/L (15-37); Albumin 3.6 g/dL (3.4-5.0); Albumin/Globulin Ratio 0.8 (1.1-1.8); Alkaline Phosphatase 103 U/L (45-117); Anion Gap 7.2 mEq/L (5.0-15.0); BUN Blood Urea Nitrogen 17 mg/dL (7-18); Bicarbonate 28 mEq/L (21-32); Bilirubin Total 1.2 mg/dL (0.2-1.0); Globulin 4.7 g/dL (2.3-3.5); Glomerular Filtration Rate 46 ml/min (=/>90); Glucose Level 143 mg/dL (74-106); Potassium 4.2 mEq/L (3.5-5.1); Protein, Total 8.3 g/dL (6.4-8.2); Sodium Level 134 mEq/L (136-145)
[2023-11-24 12:12] LABS: ALT/SGPT < 14 U/L (13-56)
[2023-11-24] MEDS ORDERED: MORPHINE 2 MG/ML SYR ONE ×2 (12:15→12:32)
[2023-11-24] MEDS ORDERED: ONDANSETRON 4 MG/2 ML VIAL ONE (12:15)
[2023-11-24 12:35] LABS: Specific Gravity 1.016 (1.005-1.030); Sqamous Epithelial <5 /HPF (None Seen); Urine Bacteria None Seen /HPF (<20); Urine Bilirubin NEGATIVE (Negative); Urine Blood Negative (Negative); Urine Clarity Clear (Clear); Urine Color Light-Yellow (Yellow); Urine Culture Reflex Order NOT NEEDED; Urine Glucose NEGATIVE (Negative); Urine Ketones NEGATIVE (Negative); Urine Microscopic Reflex YN ORDER UMIC; Urine Mucus Slight /HPF (None Seen); Urine Nitrite NEGATIVE (Negative); Urine Protein NEGATIVE (Negative); Urine RBC <5 /HPF (None Seen); Urine Urobilinogen Normal (Normal); Urine WBC <5 /HPF (<5); Urine pH 5.5 (5.0-7.0)
[2023-11-24] MEDS ORDERED: FENTANYL CITR 100 MCG/2 ML ONE (13:27)
--- NOTE | 2023-11-24 13:48 | ER ---
Nurse's Notes [facility] Name: Olive Antony Age: 78 yrs Sex: Female : 1945 Arrival Date: 11/24/2023 Time: 09:59 Bed 14 Private MD: Diagnosis: Abdominal pain Presentation: 11/23 10:21 Chief complaint: Patient states: Severe R trunk pain since yesterday. No known trauma ll1 or falls. Coronavirus screen: Client denies travel out of the [place] in the last 14 days. At this time, the client does not indicate any symptoms associated with coronavirus-19. Ebola Screen: Patient denies travel to an Ebola-affected area in the 21 days before illness onset. Initial Sepsis Screen: Does the patient meet any 2 criteria? No. Patient's initial sepsis screen is negative. Does the patient have a suspected source of infection? No. Patient's initial sepsis screen is negative. Risk Assessment: Do you want to hurt yourself or someone else? Patient reports no desire to harm self or others. Onset of symptoms was November 23, 2023. 10:21 Method Of Arrival: Ambulatory ll1 10:21 Acuity: BENY 3 ll1 Triage Assessment: 10:23 General: Appears uncomfortable, Behavior is calm, cooperative, appropriate for age. ll1 Pain: Complains of pain in R trunk Quality of pain is described as aching, sharp. Historical: - Allergies: 10:22 Codeine; ll1 10:22 Morphine; Hallucinations; ll1 - PMHx: 10:22 Chronic obstructive lung disease; Heart Murmur; Hypercholesterolemia; Hypertensive ll1 disorder; Triple A; volvulus (Splenectomy); - PSHx: 10:22 Cholecystectomy; hernia; hysterectomy; Splenectomy; ll1 - Immunization history:: Adult Immunizations up to date. - Infectious Disease History:: Denies. - Social history:: Smoking status: Patient denies any tobacco usage or history of. Screenin:22 [facility] ED Fall Risk Assessment (Adult) History of falling in the last 3 months, cm10 including since admission No falls in past 3 months (0 pts) Confusion or Disorientation No (0 pts) Intoxicated or Sedated No (0 pts) Impaired Gait Yes (1 pt) Mobility Assist Device Used Yes (1 pt) Altered Elimination No (0 pt) Score/Fall Risk Level 0 - 2 = Low Risk Oriented to surroundings, Maintained a safe environment, Hourly rounding (assess needs \T\ fall precautionary measures) done. Abuse screen: Denies threats or abuse. Denies injuries from another. Nutritional screening: No deficits noted. Tuberculosis screening: No symptoms or risk factors identified. Assessment: 12:21 General: Appears in no apparent distress. comfortable, Behavior is calm, cooperative, cm10 Assumed care of patient at this time. Pt complaining of right sided flank pain. Pt states that the pain began yesterday and started getting worse today.. Pain: Complains of pain in right mid back Pain currently is 10 out of 10 on a pain scale. Neuro: No deficits noted. Level of Consciousness is awake, alert, obeys commands, Oriented to person, place, time, situation, Appropriate for age. Respiratory: No deficits noted. Airway is patent Respiratory effort is even, unlabored, Respiratory pattern is regular, symmetrical. 12:30 Reassessment: Pts daughter states that the pain medication that was given is not cm10 helping. Provider made aware and verbal orders for another 2mg of morphine obtained. Patient states symptoms have not improved. 13:12 Reassessment: Pt's O2 sat decreased to 88% after morphine. Pt placed on 2L via NC and cm10 O2 improved to 100%. 14:07 Reassessment: No changes from previously documented assessment. Patient and/or family cm10 updated on plan of care and expected duration. Pain level reassessed. Patient is alert, oriented x 3, equal unlabored respirations, skin warm/dry/pink. 16:08 Reassessment: Patient appears in no apparent distress at this time. No changes from cm10 previously documented assessment. Patient and/or family updated on plan of care and expected duration. Pain level reassessed. Patient is alert, oriented x 3, equal unlabored respirations, skin warm/dry/pink. Vital Signs: 10:21 BP 157 / 76; Pulse 66; Resp 17; Temp 97.2; Pulse Ox 95% on R/A; Weight 54.43 kg; Height ll1 4 ft. 10 in. ; Pain 10/10; 12:23 BP 157 / 81; Pulse 67; Resp 18; Pulse Ox 92% on R/A; Pain 10/10; cm10 12:30 BP 138 / 67; Pulse 70; Resp 18; Pulse Ox 92% on R/A; cm10 13:00 BP 141 / 75; Pulse 69; Resp 18; Pulse Ox 98% on R/A; cm10 13:30 BP 99 / 51; Pulse 52; Resp 16; Pulse Ox 100% on 2 lpm NC; cm10 14:00 BP 137 / 62; Pulse 70; Resp 18; Pulse Ox 94% on 2 lpm NC; cm10 14:30 BP 113 / 63; Pulse 73; Resp 20; Pulse Ox 99% on 2 lpm NC; cm10 15:00 BP 107 / 70; Pulse 72; Resp 20; Pulse Ox 100% on 2 lpm NC; cm10 15:30 BP 114 / 75; Pulse 75; Resp 18; Pulse Ox 97% on 2 lpm NC; cm10 16:00 BP 118 / 77; Pulse 70; Resp 18; Pulse Ox 98% on 2 lpm NC; cm10 16:30 BP 110 / 63; Pulse 71; Resp 16; Pulse Ox 100% on 2 lpm NC; cm10 17:00 BP 114 / 87; Pulse 72; Resp 18; Pulse Ox 96% on 2 lpm NC; cm10 10:21 Body Mass Index 25.08 (54.43 kg, 147.32 cm) ll1 10:21 Pain Scale: Adult ll1 12:23 Pain Scale: Adult cm10 ED Course: 10:00 Patient arrived in ED. rg4 10:11 Sarthak Wood DO is Attending Physician. ms3 10:22 Triage completed. ll1 10:23 Arm band placed on. ll1 10:56 CT Abd/Pelvis - Without Contrast In Process Unspecified. EDMS 11:54 Warm blanket given. Pillow given. jg11 11:54 CBC with Diff Sent. jg11 11:54 CMP Sent. jg11 11:54 Urinalysis w/ reflexes Sent. jg11 11:54 Initial lab(s) drawn, by wi, sent to lab. Urine collected: clean catch specimen, clear. jg11 Inserted saline lock: 22 gauge in left antecubital area, using aseptic technique. Blood collected. 12:14 Anca Haywood, RN is Primary Nurse. cm10 12:23 Patient has correct armband on for positive identification. Bed in low position. Call cm10 light in reach. Side rails up X2. Provided Education on: ER process and procedures.. Pulse ox on. NIBP on. 13:47 Toño Coyle MD is Hospitalizing Provider. ms3 14:19 CXR XRAY In Process Unspecified. EDMS 14:37 EKG done, by ED staff, reviewed by Sarthak Wood DO. cm10 16:00 No provider procedures requiring assistance completed. Patient admitted, IV remains in cm10 place. 16:04 First set of blood cultures drawn by wi. cm10 Administered Medications: 12:20 Drug: Ondansetron IVP 4 mg IVP once; over 2 minutes Route: IVP; Site: left antecubital; cm10 14:18 Follow up: Response: No adverse reaction cm10 12:21 Drug: morphine IVP or IV 2 mg IVP once over 4 mins Route: IVP; Infused Over: 4 mins; cm10 Site: left antecubital; 12:30 Follow up: Response: Pain is unchanged, physician notified cm10 12:35 Drug: morphine IVP or IV 2 mg IVP once over 4 mins Route: IVP; Infused Over: 4 mins; cm10 Site: left antecubital; 13:20 Follow up: Response: Pain is unchanged, physician notified cm10 13:32 Drug: fentaNYL (PF) IVP 50 mcg IVP once Route: IVP; Site: left antecubital; cm10 14:15 Follow up: Response: No adverse reaction cm10 17:01 Drug: Rocephin IV 1 grams IV at calculated rate once; Given slow IV push per pharmacy cm10 instructions Route: IV; Rate: calculated rate; Site: left antecubital; 17:01 Drug: AZITHromycin IVPB 500 mg IVPB once over 1 hrs; (mix in 250 mL NS) Route: IVPB; cm10 Infused Over: 1 hrs; Site: left antecubital; Medication: 12:23 VIS not applicable for this client. cm10 Outcome: 13:47 Decision to Hospitalize by Provider. ms3 16:00 Admitted to ER Hold. Please see [facility] for further documentation. cm10 16:00 Condition: stable 16:00 Instructed on the need for admit, 11/24 12:33 Patient left the ED. mb9 Signatures: Dispatcher [employer] Sylvia Galvez rg4 Susan Ariza RN RN ll1 Sarthak Wood DO DO ms3 Hayley Villalobos RN RN mb9 Anca Haywood RN RN cm10 Stalin Palacios jg11 Corrections: (The following items were deleted from the chart) 11/23 10:25 10:21 BP 157 / 76; Pulse 66bpm; Resp 17bpm; Pulse Ox 92% RA; Temp 97.2F; ll1 ll1 14:07 12:30 Reassessment: Pts daughter states that the pain medication that was given is not cm10 helping. Provider made aware and verbal orders for another 2mg of morphine obtained. cm10
--- NOTE | 2023-11-24 13:48 | EDPHYS ---
Physician Documentation [facility] Name: Olive Antony Age: 78 yrs Sex: Female : 1945 Arrival Date: 11/24/2023 Time: 09:59 Bed 14 Private MD: ED Physician Sarthak Wood HPI: 11/23 10:34 This 78 yrs old Female presents to ER via Ambulatory with complaints of Flank Pain. ms3 10:34 78-year-old female past medical history of chronic obstructive lung disease, heart ms3 murmur, hyperlipidemia, hypertension, AAA, volvulus presents to the emergency department for right flank pain that began yesterday and is described as sharp and severe. Patient denies any alleviating or inciting factors. Patient denies nausea, vomiting, fevers, chills, chest pain, shortness of breath, urinary symptoms. Historical: - Allergies: 10:22 Codeine; ll1 10:22 Morphine; Hallucinations; ll1 - PMHx: 10:22 Chronic obstructive lung disease; Heart Murmur; Hypercholesterolemia; Hypertensive ll1 disorder; Triple A; volvulus (Splenectomy); - PSHx: 10:22 Cholecystectomy; hernia; hysterectomy; Splenectomy; ll1 - Immunization history:: Adult Immunizations up to date. - Infectious Disease History:: Denies. - Social history:: Smoking status: Patient denies any tobacco usage or history of. ROS: 10:34 Constitutional: Negative for fever, and chills. Neck: Negative for injury, pain, and ms3 swelling, Cardiovascular: Negative for chest pain, and palpitations. Respiratory: Negative for shortness of breath, cough, wheezing, and pleuritic chest pain, Abdomen/GI: Negative for abdominal pain, nausea, vomiting, diarrhea, and constipation, 10:34 MS/Extremity: Negative for injury and deformity, Skin: Negative for injury, rash, and discoloration, 10:34 : Negative for urinary symptoms, Exam: 10:34 Constitutional: This is a well developed, well nourished patient who is awake, alert, ms3 and in no acute distress. Head/Face: Normocephalic, atraumatic. Neck: Trachea midline, no cervical lymphadenopathy. Supple, full range of motion without nuchal rigidity, or vertebral point tenderness. No Meningismus. Chest/axilla: Normal chest wall appearance and motion. Nontender with no deformity. Cardiovascular: Regular rate and rhythm with a normal S1 and S2. No gallops, murmurs, or rubs. Normal PMI, no JVD. No pulse deficits. Respiratory: Lungs have equal breath sounds bilaterally, clear to auscultation and percussion. No rales, rhonchi or wheezes noted. No increased work of breathing, no retractions or nasal flaring. Abdomen/GI: Soft, non-tender, with normal bowel sounds. No distension or tympany. No guarding or rebound. No evidence of tenderness throughout. Skin: Warm, dry with normal turgor. Normal color with no rashes, no lesions, and no evidence of cellulitis. 10:34 Back: pain, that is moderate, of the right mid back, CVA tenderness, that is mild, is noted on the right, 15:21 ECG was reviewed by the Attending Physician. ms3 Vital Signs: 10:21 BP 157 / 76; Pulse 66; Resp 17; Temp 97.2; Pulse Ox 95% on R/A; Weight 54.43 kg; Height ll1 4 ft. 10 in. ; Pain 10/10; 12:23 BP 157 / 81; Pulse 67; Resp 18; Pulse Ox 92% on R/A; Pain 10/10; cm10 12:30 BP 138 / 67; Pulse 70; Resp 18; Pulse Ox 92% on R/A; cm10 13:00 BP 141 / 75; Pulse 69; Resp 18; Pulse Ox 98% on R/A; cm10 13:30 BP 99 / 51; Pulse 52; Resp 16; Pulse Ox 100% on 2 lpm NC; cm10 14:00 BP 137 / 62; Pulse 70; Resp 18; Pulse Ox 94% on 2 lpm NC; cm10 14:30 BP 113 / 63; Pulse 73; Resp 20; Pulse Ox 99% on 2 lpm NC; cm10 15:00 BP 107 / 70; Pulse 72; Resp 20; Pulse Ox 100% on 2 lpm NC; cm10 15:30 BP 114 / 75; Pulse 75; Resp 18; Pulse Ox 97% on 2 lpm NC; cm10 16:00 BP 118 / 77; Pulse 70; Resp 18; Pulse Ox 98% on 2 lpm NC; cm10 16:30 BP 110 / 63; Pulse 71; Resp 16; Pulse Ox 100% on 2 lpm NC; cm10 17:00 BP 114 / 87; Pulse 72; Resp 18; Pulse Ox 96% on 2 lpm NC; cm10 10:21 Body Mass Index 25.08 (54.43 kg, 147.32 cm) ll1 10:21 Pain Scale: Adult ll1 12:23 Pain Scale: Adult cm10 MDM: 10:28 Patient medically screened. ms3 10:34 Differential diagnosis: nephrolithiasis, pyelonephritis, UTI. ms3 15:22 Data reviewed: vital signs, nurses notes, lab test result(s), EKG, radiologic studies, ms3 and as a result, I will admit patient. Consideration of Admission/Observation Patient was admitted/placed on observation. Management of patient was discussed with the following: Hospitalist: Dr Coyle. I considered the following discharge prescriptions or medication management in the emergency department Medications were administered in the Emergency Department. See MAR. Independent interpretation of the following test(s) in the Emergency Department EKG: See my EKG interpretation above. Counseling: I had a detailed discussion with the patient and/or guardian regarding the historical points, exam findings, and any diagnostic results supporting the discharge/admit diagnosis, lab results, radiology results, the need for further work-up and treatment in the hospital. ED course: Patient with continued severe abdominal pain despite opioid treatment. LA 0.8, CT abd/pelvis without contrast without acute abnormalities.. 11/23 10:30 Order name: CBC with Diff; Complete Time: 12:00 ms3 11/23 10:30 Order name: CMP; Complete Time: 12:37 ms3 11/23 10:30 Order name: Urinalysis w/ reflexes; Complete Time: 12:37 ms3 11/23 12:56 Order name: Lactate w/ 2H reflex if indic.; Complete Time: 13:38 ms3 11/23 15:19 Order name: Liver (Hepatic) Function EDMS 11/23 15:19 Order name: CBC with Automated Diff EDMS 11/23 15:19 Order name: CBC with Automated Diff EDMS 11/23 15:19 Order name: Comprehensive Metabolic Panel EDMS 11/23 15:19 Order name: Comprehensive Metabolic Panel EDMS 11/23 15:39 Order name: Blood Culture Adult (2) ms3 11/23 10:30 Order name: CT Abd/Pelvis - Without Contrast; Complete Time: 12:00 ms3 11/23 13:16 Order name: CXR XRAY; Complete Time: 15:38 ms3 11/23 14:17 Order name: EKG; Complete Time: 14:18 ms3 11/23 15:19 Order name: CONS Physician Consult EDMS 11/23 10:30 Order name: IV Saline Lock; Complete Time: 11:53 ms3 11/23 10:30 Order name: Labs collected and sent; Complete Time: 11:53 ms3 11/23 14:17 Order name: EKG - Nurse/Tech; Complete Time: 14:37 ms3 EC:21 Rate is 66 beats/min. Rhythm is regular. QRS [place] is Normal. NE interval is normal. ms3 Clinical impression: Normal ECG. Interpreted by me. Reviewed by me. Administered Medications: 12:20 Drug: Ondansetron IVP 4 mg IVP once; over 2 minutes Route: IVP; Site: left antecubital; cm10 14:18 Follow up: Response: No adverse reaction cm10 12:21 Drug: morphine IVP or IV 2 mg IVP once over 4 mins Route: IVP; Infused Over: 4 mins; cm10 Site: left antecubital; 12:30 Follow up: Response: Pain is unchanged, physician notified cm10 12:35 Drug: morphine IVP or IV 2 mg IVP once over 4 mins Route: IVP; Infused Over: 4 mins; cm10 Site: left antecubital; 13:20 Follow up: Response: Pain is unchanged, physician notified cm10 13:32 Drug: fentaNYL (PF) IVP 50 mcg IVP once Route: IVP; Site: left antecubital; cm10 14:15 Follow up: Response: No adverse reaction cm10 17:01 Drug: Rocephin IV 1 grams IV at calculated rate once; Given slow IV push per pharmacy cm10 instructions Route: IV; Rate: calculated rate; Site: left antecubital; 17:01 Drug: AZITHromycin IVPB 500 mg IVPB once over 1 hrs; (mix in 250 mL NS) Route: IVPB; cm10 Infused Over: 1 hrs; Site: left antecubital; Disposition Summary: 11/24/23 13:47 Hospitalization Ordered Notes: Hospitalization Status: Observation ms3 Provider: Toño Coyle ms3 Condition: Stable ms3 Problem: new ms3 Symptoms: are unchanged ms3 Bed/Room Type: Standard ms3 Location: Telemetry/MedSurg (observation)(11/25/23 10:57) nghia Room Assignment: 229(11/25/23 10:57) nghia Diagnosis - Abdominal pain ms3 Forms: - Medication Reconciliation Form ms3 - SBAR form ms3 - Leadership Thank You Letter ms3 Signatures: Dispatcher [employer] Jhonny Olson RN RN jl7 Calos Marino RN RN ja1 Susan Ariza RN RN ll1 Sarthak Wood, DO ms3 Anca Haywood, RN RN cm10 Corrections: (The following items were deleted from the chart) 16:33 13:47 Telemetry/MedSurg (observation) ms3 7 16:33 13:47 ms3 jl7 11/24 10:57 06 16:33 [facility] ER HOLD jl7 ja1 11/24 10:57 11/23 16:33 ERHOLD- jl7 [facility]
--- NOTE | 2023-11-24 15:24 | RAD REPORT ---
EXAM DESCRIPTION: RADChest Single View11/24/2023 2:17 pm CLINICAL HISTORY: CHEST PAIN COMPARISON: Chest Single View dated 07/26/2022; Chest Single View dated 07/18/2022; Abdomen 1 View (KUB ) dated 07/11/2022; Chest Pa And Lat (2 Views) dated 04/14/2022 TECHNIQUE: Portable AP view of the chest. FINDINGS: Patchy bibasilar airspace opacities and central interstitial prominence. No pneumothorax. Suggestion of trace effusion particularly on the right. The cardiomediastinal contours are unremarka ble. IMPRESSION: Bibasilar central opacities with suggestion of trace right more than left effusion, may relate to pulmonary edema for multifocal pneumonia.
[2023-11-24] MEDS ORDERED: CEFTRIAXONE 1000 MG/VIAL ONE (15:56)
[2023-11-24] MEDS ORDERED: AZITHROMYCIN 500 MG INJ IVPB ONE (15:56)
[2023-11-24] MEDS ORDERED: NA CHLORIDE 0.9% 250 ML ONE (15:57)
[2023-11-24] MEDS ORDERED: ALBUTEROL 2.5 MG/3 ML NEB SOL NEB PRN (16:18)
--- NOTE | 2023-11-24 16:26 | P.HP ---
Certification for Inpatient Patient admitted to: Observation With expected LOS: <2 Midnights Patient will require the following post-hospital care: None Practitioner: I am a practitioner with admitting privileges, knowledge of patient current condition, hospital course, and medical plan of care. Services: Services provided to patient in accordance with Admission requirements found in Title 42 Section 412.3 of the Code of Federal Regulations <Meena Cotton - Last Filed: 11/24/23 16:34> Patient History Date of Service: 11/24/23 Home medications list reviewed: Yes - Past Medical/Surgical History -: COPD -: HTN -: Hypercholesterolemia -: Heart Murmer -: AAA -: Hernia -: Splenectomy -: Cholecysectomy -: Hysterectomy -: Volvulus and hernia intervention Psychosocial/ Personal History: Lives at home - Social History Smoking Status: Former smoker Alcohol use: No CD- Drugs: No Caffeine use: Yes Place of Residence: Home <Meena Cotton - Last Filed: 11/24/23 16:34> Date of Service: 11/24/23 <Toño Coyle - Last Filed: 11/24/23 18:36> Allergies morphine Adverse Reaction (Verified 07/11/22 16:26) Itching Home Medications: Alendronate [Fosamax*] 20 mg PO EVERY 7TH DAY 07/12/22 Allopurinol 100 mg PO DAILY 07/12/22 Atorvastatin Calcium 20 mg PO DAILY 07/12/22 Levothyroxine Sodium 25 mcg PO DAILY 07/12/22 Metoprolol Tartrate 12.5 mg PO BID 07/12/22 Potassium Chloride 20 meq PO BID 07/12/22 Sertraline [Zoloft*] 50 mg PO DAILY 07/12/22 Lisinopril/Hydrochlorothiazide [Lisinopril-Hctz 20-25 mg Tab] 1 tab PO DAILY 11/24/23 Review of Systems 10-point ROS is otherwise unremarkable Gastrointestinal: Abdominal Pain, As per HPI <Meena Cotton - Last Filed: 11/24/23 16:34> Physical Examination - Physical Exam General: Alert, Oriented x3, Cachectic, Mild distress HEENT: Atraumatic, Normocephalic Neck: Supple Respiratory: Clear to auscultation bilaterally, Normal air movement Cardiovascular: No edema, Irregular heart rate/rhythm, Systolic murmur Capillary refill: <2 Seconds Gastrointestinal: Normal bowel sounds, Tenderness (RUQ without increase on palpation) Musculoskeletal: No clubbing, No swelling Integumentary: No rashes Neurological: Normal speech, Normal tone Lymphatics: No axilla or inguinal lymphadenopathy External genitalia: Deferred Rectal: Deferred - Studies Laboratory Data (last 24 hrs) 11/24/23 11/24/23 11:39 11:39 WBC 11.00 H Hgb 11.6 L Hct 35.5 L Plt Count 218 Sodium 134 L Potassium 4.2 BUN 17 Creatinine 1.21 H Glucose 143 H Total Bilirubin 1.2 H AST 15 ALT < 14 Alkaline Phosphatase 103 <YuryMeena Suhas - Last Filed: 11/24/23 16:34> - Studies Laboratory Data (last 24 hrs) 11/24/23 11/24/23 11:39 11:39 WBC 11.00 H Hgb 11.6 L Hct 35.5 L Plt Count 218 Sodium 134 L Potassium 4.2 BUN 17 Creatinine 1.21 H Glucose 143 H Total Bilirubin 1.2 H AST 15 ALT < 14 Alkaline Phosphatase 103 <Toño Coyle C - Last Filed: 11/24/23 18:36> Assessment and Plan - Plan Abdominal pain dialaudid 0.5mg IV q4h prn severe pain Clear liquid and advance diet serial abd exams Consult Dr. Neumann Consult Negative Assembler Info on advanced directive and POAH Dehydration NS at 70ml/hr monitor and replete electrolytes FINDINGS: Patchy bibasilar airspace opacities and central interstitial prominence. No pneumothorax. Suggestion of trace effusion particularly on the right. The cardiomediastinal contours are unremarkable. IMPRESSION: Bibasilar central opacities with suggestion of trace right more than left effusion, may relate to pulmonary edema for multifocal pneumonia. Dictated By: Elias Cr MD 11/24/23 1524 Pneumonia/chronic right lower lobe opacity Blood cultures Rocephin and Azithromycin repeat CXR albuterol and brovana HTN Metoprolol 12.5mg po BID Lisinopril 20mg po daily lasix 20mg po daily HLD Atorvastatin Hypothyroidism Levothyroxine 25mcg daily anxiety zoloft 50mg po daily GI prophylaxis Protonix - Advance Directives Does patient have a Living Will: Yes Does patient have a Durable POA for Healthcare: No <Cotton,Meena Suhas - Last Filed: 11/24/23 16:34> - Plan Pt seen and examined. I agree with the note by the GLOBAL CLIMATE CHANGE RESEARCHER. Pt is a 78 yo female with past medical history of COPD, HLD, Htn, and volvulus who presents with right flank pain. Pt describes the right flank pain as constant, sharp and severe in nature. On admission, lab studies show wbc 11, Hgb 11.6, K 4.2, Cr 1.21 and glucose 143. CXR is concerning for pna. At bedside, pt is in NAD. A/P: Right flank pain: 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 Will continue prn pain med and consult Gen Surgeon. Pna: Will continue rocephin and azithro. F/u blood cx. Htn: Statin Htn: continue home med. Hx of COPD: Stable. Will continue prn duoneb and oxygen. DVT ppx: SCD Code: full <Toño Coyle - Last Filed: 11/24/23 18:36>
[2023-11-24] MEDS ORDERED: HYDROMORPHONE HCL 0.5 MG/0.5 ML INJ ONE (16:43)
[2023-11-24] MEDS: HYDROMORPHONE HCL 0.5 MG/0.5 ML INJ IV PRN (16:46)
[2023-11-24 17:22] LABS: Albumin 3.5 g/dL (3.4-5.0); Albumin/Globulin Ratio 0.7 (1.1-1.8); Bilirubin Direct 0.5 mg/dL (0-0.2); Bilirubin Total 1.5 mg/dL (0.2-1.0); Globulin 4.9 g/dL (2.3-3.5); Protein, Total 8.4 g/dL (6.4-8.2)
[2023-11-24] MEDS ORDERED: NA CHLORIDE 0.9% 1,000 ML ONE (17:29)
[2023-11-24] MEDS: NA CHLORIDE 0.9% 1,000 ML IV SCH (17:34)
[2023-11-24] MEDS: METOPROLOL TAR 25 MG TAB PO SCH (18:00)
[2023-11-24] MEDS: PNEUMOCOCCAL VACCINE 0.5 ML IMVAC ONE (18:00)
[2023-11-24] MEDS ORDERED: METOPROLOL TAR 25 MG TAB ONE (18:19)
[2023-11-24] MEDS: ARFORMOTEROL TARTRATE 15 MCG/2 ML VIAL.NEB NEB SCH (20:40)
[2023-11-24] MEDS ORDERED: ARFORMOTEROL TARTRATE 15 MCG/2 ML VIAL.NEB ONE (20:42)
[2023-11-24] MEDS: ATORVASTATIN 20 MG TAB PO SCH (22:00)
[2023-11-24] MEDS ORDERED: ATORVASTATIN 10 MG TAB ONE (22:42)
[2023-11-25 05:20] LABS: Absolute Eosinophils 0.3 K/uL (0-0.5); Absolute Lymphocytes (CBC) 2.3 K/uL (0.7-4.9); Absolute Monocytes 1.1 K/uL (0.1-1.3); Absolute Neutrophil 4.9 K/uL (1.8-8.0); Basophils % 0.6 % (0-1.3); Eosinophils % 3.1 % (0-4.4); Hematocrit 30.1 % (36.0-45.0); Hemoglobin 9.8 g/dL (12.0-15.0); Lymphocytes % 27.1 % (15.3-44.8); MCH 29.1 pg (27.0-35.0); MCHC 32.6 g/dL (32.0-36.0); MCV 89.1 fL (80-100); MPV 8.5 fL (7.6-11.3); Monocytes % 12.3 % (3.3-12.3); Neutrophils % 56.9 % (41.7-73.7); Platelets 175 thou/uL (152-406); RBC Red Blood Cell Count 3.37 M/uL (3.86-4.86); Red Cell Distribution Width 15.9 % (12.1-15.2)
[2023-11-25 05:33] LABS: Albumin 2.6 g/dL (3.4-5.0); Albumin/Globulin Ratio 0.7 (1.1-1.8); Globulin 3.8 g/dL (2.3-3.5); Protein, Total 6.4 g/dL (6.4-8.2)
[2023-11-25] MEDS: LEVOTHYROXINE SOD 0.025 MG TAB PO SCH (06:19)
[2023-11-25] MEDS ORDERED: NA CHLORIDE 0.9% 1,000 ML ONE (06:24)
[2023-11-25] MEDS ORDERED: HYDROMORPHONE HCL 0.5 MG/0.5 ML INJ ONE (06:29)
[2023-11-25] MEDS ORDERED: ARFORMOTEROL TARTRATE 15 MCG/2 ML VIAL.NEB ONE (07:39)
[2023-11-25] MEDS: FUROSEMIDE 20 MG TABLET PO SCH (09:00)
[2023-11-25] MEDS: CEFTRIAXONE 1,000 MG in NA CHLORIDE 0.9% 50 ML IVPB SCH (09:00)
[2023-11-25] MEDS: SERTRALINE HCL 50 MG TAB PO SCH (09:00)
[2023-11-25] MEDS: AZITHROMYCIN IV 500 MG in NA CHLORIDE 0.9% 250 ML IVPB SCH (09:00)
[2023-11-25] MEDS: lisinopriL 20 MG TAB PO SCH (09:00)
[2023-11-25] MEDS ORDERED: CEFTRIAXONE 1000 MG/VIAL ONE (09:25)
[2023-11-25] MEDS ORDERED: NA CHLORIDE 0.9% 50 ML ONE (09:26)
[2023-11-25] MEDS ORDERED: AZITHROMYCIN 500 MG INJ IVPB ONE (09:55)
[2023-11-25] MEDS ORDERED: NA CHLORIDE 0.9% 250 ML ONE (09:55)
--- NOTE | 2023-11-25 16:36 | P.PN ---
Subjective Date of Service: 11/25/23 Pt is resting comfortably in bed. The right flank pain is improving. Controlled with prn pain med. Waiting for Gen surgery eval. No other complaints. Review of Systems General: Unremarkable Eyes: Unremarkable ENT: Unremarkable Respiratory: Unremarkable Cardiovascular: Unremarkable Gastrointestinal: Abdominal Pain Genitourinary: Unremarkable Musculoskeletal: Unremarkable Integumentary: Unremarkable Neurological: Unremarkable Lymphatics: Unremarkable Physical Examination - Vital Signs Temperature: 97.2 F Blood Pressure: 114/87 Pulse: 72 Respirations: 18 Pulse Ox (%): 99 - Physical Exam General: Alert, In no apparent distress, Oriented x3 HEENT: Atraumatic, Normocephalic, PERRLA Neck: Supple, 2+ carotid pulse no bruit, JVD not distended Respiratory: Clear to auscultation bilaterally, Normal air movement Cardiovascular: No edema, Normal pulses, Regular rate/rhythm, Normal S1 S2 Capillary refill: <2 Seconds Gastrointestinal: Normal bowel sounds, Soft and benign, Non-distended, Tenderness Musculoskeletal: No clubbing, No swelling, No contractures Integumentary: No breakdown, No significant lesion, No tenderness/swelling Neurological: Normal speech, Normal strength at 5/5 x4 extr, Normal tone, Sensation intact, Cranial nerves 3-12 intact Lymphatics: No axilla or inguinal lymphadenopathy Assessment And Plan - Plan Right flank pain: 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 Will continue prn pain med and consult Gen Surgeon. Pna: Will continue rocephin and azithro. F/u blood cx. Anemia: Hgb is 9.8. Will monitor H/H Htn: Statin Htn: continue home med. Hx of COPD: Stable. Will continue prn duoneb and oxygen. DVT ppx: SCD Code: full
[2023-11-25] MEDS: ONDANSETRON 4 MG/2 ML VIAL IV PRN (17:30)
[2023-11-25] MEDS: MIDODRINE HCL 5 MG TABLET PO ONE (21:08)
--- NOTE | 2023-11-26 08:08 | P.PN ---
Subjective Date of Service: 11/26/23 Chief Complaint: right upper quad pain Subjective: Improving (no pain medications overnight second to hypotension (90s), held lopressor this am. Pt state pain still comes but no as often.) <Tigist Cottonniko Dai - Last Filed: 11/26/23 08:04> Date of Service: 11/26/23 <Toño Coyle Jovana - Last Filed: 11/26/23 10:15> Review of Systems 10-point ROS is otherwise unremarkable Gastrointestinal: Abdominal Pain, As per HPI <YuryMeena Dai - Last Filed: 11/26/23 08:04> Physical Examination - Vital Signs Temperature: 97.9 F Blood Pressure: 104/56 Pulse: 58 Respirations: 16 Pulse Ox (%): 92 - Physical Exam General: Alert, In no apparent distress, Oriented x3 HEENT: Atraumatic, Normocephalic Neck: Supple Respiratory: Clear to auscultation bilaterally, Normal air movement Cardiovascular: Normal pulses Capillary refill: <2 Seconds Gastrointestinal: Normal bowel sounds, No tenderness Musculoskeletal: No clubbing Integumentary: No breakdown Neurological: Normal speech, Normal tone, Normal affect Lymphatics: No axilla or inguinal lymphadenopathy External genitalia: Deferred Rectal: Deferred <Tigist Cottonniko Dai - Last Filed: 11/26/23 08:04> Assessment And Plan - Plan Abdominal pain dialaudid 0.5mg IV q4h prn severe pain Clear liquid and advance diet serial abd exams Consult Dr. Neumann 11/25 pain paroxysmal - no pain meds overnight Consult Drafting Clerk Info on advanced directive and POAH Dehydration NS at 70ml/hr monitor and replete electrolytes 11/25 pending at time of exam FINDINGS: Patchy bibasilar airspace opacities and central interstitial prominence. No pneumothorax. Suggestion of trace effusion particularly on the right. The cardiomediastinal contours are unremarkable. IMPRESSION: Bibasilar central opacities with suggestion of trace right more than left effusion, may relate to pulmonary edema for multifocal pneumonia. Dictated By: Elias Cr MD 11/24/23 @ 1524 Pneumonia/chronic right lower lobe opacity Blood cultures 11/25 no growth at 24h Rocephin and Azithromycin repeat CXR albuterol and brovana HTN Metoprolol 12.5mg po BID (hold for SBP < 110) Lisinopril 20mg po daily (hold for SBP < 110) lasix 20mg po daily HLD Atorvastatin Hypothyroidism Levothyroxine 25mcg daily anxiety zoloft 50mg po daily GI prophylaxis Protonix <Meena Cotton - Last Filed: 11/26/23 08:04> - Plan Pt seen and examined. I agree with the note by the SNOW REMOVAL/PLOWING. Pt reports that the right flank pain is better. Will continue prn pain med and home meds for other chronic medical problems. <Toño Coyle - Last Filed: 11/26/23 10:15>
[2023-11-26 10:27] LABS: Absolute Eosinophils 0.2 K/uL (0-0.5); Absolute Lymphocytes (CBC) 2.8 K/uL (0.7-4.9); Absolute Monocytes 1.1 K/uL (0.1-1.3); Absolute Neutrophil 6.6 K/uL (1.8-8.0); Basophils % 0.4 % (0-1.3); Eosinophils % 1.6 % (0-4.4); Hematocrit 30.3 % (36.0-45.0); Hemoglobin 9.8 g/dL (12.0-15.0); Lymphocytes % 26.4 % (15.3-44.8); MCHC 32.3 g/dL (32.0-36.0); MCV 89.6 fL (80-100); MPV 8.7 fL (7.6-11.3); Monocytes % 10.1 % (3.3-12.3); Neutrophils % 61.5 % (41.7-73.7); Platelets 209 thou/uL (152-406); RBC Red Blood Cell Count 3.38 M/uL (3.86-4.86); Red Cell Distribution Width 16.1 % (12.1-15.2)
--- NOTE | 2023-11-26 11:46 | EKG ---
Test Date: 2023-11-24 Test Time: 14:26:36 Enrollment Services Dean: MELVIN MEASUREMENT RESULTS: Intervals: Rate: 66 WY: 180 QRSD: 70 QT: 398 QTc: 417 Umpire: P: 45 WY: 180 QRS: 38 T: 27 INTERPRETIVE STATEMENTS: Normal sinus rhythm with sinus arrhythmia Normal ECG Compared to ECG 07/18/2022 10:18:36 Myocardial infarct finding no longer present Electronically Signed On 11-26-23 11:44:31 CDT by Matt Peñaloza
--- NOTE | 2023-11-26 20:39 | P.CNS ---
Date of Consult: 11/26/23 PC: I was asked to see this 78-year-old female in regards to her right-sided abdominal pain. HPC: Patient has been home and over the last few weeks has noted that she has been feeling gradually more more and well. Started having severe right-sided abdominal pain. Says it was coming from up on the right side of her chest and into her abdomen. Not associated with any nausea vomiting or any bowel changes. PSHx: History of volvulus, previous cholecystectomy, hysterectomy, splenectomy, being followed on CT for her aneurysms PMHx: Hypercholesterolemia Social Hx: Allergic to morphine Sys R: Patient states she is actually been in fairly good health. Has made mention appetite at home. Has not had a pain like this although has felt kind of tired and unwell over the last few months. Denies any urinary complaints. Says she has had no change in bowel habit. O/E: Awake alert vital signs are stable HEENT: Negative Chest: Chest movement equal bilaterally, no evidence of any skin rashes on her back Abd: Soft nontender no masses palpable Data: CT scan shows spigelian hernia but patient is asymptomatic from that. Impression: Abdominal pain of unknown Plan: Continue to follow with you,
[2023-11-27] MEDS: LEVOTHYROXINE SOD 0.025 MG TAB PO SCH (08:14)
[2023-11-27] MEDS: allopurinoL 100 MG TAB PO SCH (08:14)
[2023-11-27] MEDS: GALANTAMINE HBR 8 MG PO SCH (08:15)
--- NOTE | 2023-11-27 09:50 | P.PN ---
Subjective Date of Service: 11/27/23 Chief Complaint: right upper quad pain Subjective: Improving <Meena Cotton - Last Filed: 11/27/23 09:44> Date of Service: 11/27/23 <Toño Coyle Jovana - Last Filed: 11/27/23 10:59> Review of Systems 10-point ROS is otherwise unremarkable Gastrointestinal: Other (continued paroxysms of pain to RUQ), As per HPI <Meena Cotton - Last Filed: 11/27/23 09:44> Physical Examination - Vital Signs Temperature: 97.3 F Blood Pressure: 134/60 Pulse: 63 Respirations: 16 Pulse Ox (%): 96 - Physical Exam General: Alert, In no apparent distress, Oriented x3 HEENT: Atraumatic, Normocephalic Neck: Supple Respiratory: Normal air movement Cardiovascular: No edema, Normal pulses, Regular rate/rhythm Capillary refill: <2 Seconds Gastrointestinal: Soft and benign Musculoskeletal: No swelling Integumentary: No rashes Neurological: Normal speech, Normal tone, Normal reflexes 2+ Lymphatics: No axilla or inguinal lymphadenopathy External genitalia: Deferred Rectal: Deferred <Meena Cotton - Last Filed: 11/27/23 09:44> Assessment And Plan - Plan Abdominal pain advance diet 11/25 pain paroxysmal - no pain meds overnight 11/26 repeat CXR today Consult Sport Intern Info on advanced directive and POAH Dehydration NS at 70ml/hr monitor and replete electrolytes 11/25 pending at time of exam 11/26 stop IVF today FINDINGS: Patchy bibasilar airspace opacities and central interstitial prominence. No pneumothorax. Suggestion of trace effusion particularly on the right. The cardiomediastinal contours are unremarkable. IMPRESSION: Bibasilar central opacities with suggestion of trace right more than left effusion, may relate to pulmonary edema for multifocal pneumonia. Dictated By: Elias Cr MD 11/24/23 @ 1524 Pneumonia/chronic right lower lobe opacity Blood cultures 11/25 no growth at 24h Rocephin and Azithromycin repeat CXR albuterol and brovana HTN Metoprolol 12.5mg po BID (hold for SBP < 110) Lisinopril 20mg po daily (hold for SBP < 110) lasix 20mg po daily HLD Atorvastatin Hypothyroidism Levothyroxine 25mcg daily anxiety zoloft 50mg po daily GI prophylaxis Protonix <Meena Cotton - Last Filed: 11/27/23 09:44> - Plan Pt seen and examined. I agree with the note by the CALL CENTER TEAM LEADER. Waiting on Gen surgery recommendation. Will continue prn pain med, abx and home meds for other chronic medical problems. <Toño Coyle - Last Filed: 11/27/23 10:59>
[2023-11-27 10:59] LABS: Albumin 2.4 g/dL (3.4-5.0); Albumin/Globulin Ratio 0.6 (1.1-1.8); Anion Gap 8.4 mEq/L (5.0-15.0); Bilirubin Total 0.9 mg/dL (0.2-1.0); Globulin 4.1 g/dL (2.3-3.5); Protein, Total 6.5 g/dL (6.4-8.2); Thyroid Stimulating Hormone 0.557 uIU/mL (0.358-3.740)
[2023-11-27 11:00] LABS: Potassium 3.4 mEq/L (3.5-5.1)
[2023-11-27] MEDS: GABAPENTIN 100 MG CAP PO SCH (12:50)
[2023-11-27] MEDS: HYDROCODONE/APAP 5/325 MG TAB PO ONE (14:47)
--- NOTE | 2023-11-27 16:56 | RAD REPORT ---
EXAM DESCRIPTION: RAD - Chest Pa And Lat (2 Views) - 11/27/2023 4:48 pm CLINICAL HISTORY: Repeat post abx COMPARISON: Chest Single View dated 11/24/2023; Chest Single View dated 07/26/2022; Chest Single View da char 07/18/2022; Abdomen 1 View (KUB) dated 07/11/2022; Abdomen Pelvis Wo Contrast dated 11/24/2023 FINDINGS: Lines: None. Lungs: Mild improved aeration at the right lung base. Similar aeration of the left lung base. Pleural: Small bilateral pleural effusions. Cardiac: The heart size is within normal limits. Mediastinum: Within normal limits. Bones: No acute fractures. ACDF in the cervical spine. Surgical clips in right upper quadrant. Other: Open IMPRESSION: Small bilateral pleural effusions with some improvement in aeration of the right lung ba se but similar opacities at the left lung base.
[2023-11-27] MEDS ORDERED: METOPROLOL TAR 25 MG TAB PO SCH (21:00)
[2023-11-27] MEDS: ACETAMINOPHEN 325 MG TABLET PO PRN (21:04)
[2023-11-28] MEDS: LEVOTHYROXINE SOD 0.025 MG TAB PO SCH (05:28)
--- NOTE | 2023-11-28 08:02 | RAD REPORT ---
EXAM DESCRIPTION: US - UPPER EXTREMITY VENOUS UNILATE - 11/27/2023 11:00 pm CLINICAL HISTORY: Rule out DVT Arm swelling and edema. COMPARISON: No comparisons FINDINGS: Left upper extremity venous system was interrogated with Doppler technique. Normal flow, c ompressibility and augmentation was noted. There is no DVT present. IMPRESSION: No evidence of left upper extremity deep venous thrombosis.
[2023-11-28] MEDS ORDERED: ATORVASTATIN 20 MG TAB PO SCH (09:00)
[2023-11-28] MEDS ORDERED: SERTRALINE HCL 50 MG TAB PO SCH (09:00)
--- NOTE | 2023-11-28 09:02 | P.PN ---
Subjective Date of Service: 11/28/23 Chief Complaint: right upper quad pain Admitted with pneumonia, treated with IV antibiotics, nebulizers, O2 keep sats greater than 90% - Physical Exam General: Alert, In no apparent distress, Oriented x3 HEENT: Atraumatic, Normocephalic Neck: Supple Respiratory: Normal air movement Cardiovascular: No edema, Normal pulses, Regular rate/rhythm Capillary refill: <2 Seconds Gastrointestinal: Soft and benign Musculoskeletal: No swelling Integumentary: No rashes Neurological: Normal speech, Normal tone, Normal reflexes 2+ Lymphatics: No axilla or inguinal lymphadenopathy Review of Systems Per HPI Physical Examination - Vital Signs Temperature: 98.3 F Blood Pressure: 120/57 Pulse: 62 Respirations: 20 Pulse Ox (%): 94 Assessment And Plan - Plan Assessment And Plan Acute hypoxic respiratory failure secondary to pneumonia Abdominal pain advance diet 11/25 pain paroxysmal - no pain meds overnight 11/26 repeat CXR today FINDINGS: Patchy bibasilar airspace opacities and central interstitial prominence. No pneumothorax. Suggestion of trace effusion particularly on the right. The cardiomediastinal contours are unremarkable. IMPRESSION: Bibasilar central opacities with suggestion of trace right more than left effusion, may relate to pulmonary edema for multifocal pneumonia. Dictated By: Elias Cr MD 11/24/23 @ 1524 Pneumonia/chronic right lower lobe opacity Blood cultures 11/25 no growth at 24h Rocephin and Azithromycin repeat CXR albuterol and brovana Consult Floral Specialist Info on advanced directive and POAH Dehydration NS at 70ml/hr monitor and replete electrolytes 11/25 pending at time of exam 11/26 stop IVF today Hypokalemia Trend electrolytes replace as needed Microcytic anemia Trend H&H, transfuse less than HTN Metoprolol 12.5mg po BID (hold for SBP < 110) Lisinopril 20mg po daily (hold for SBP < 110) lasix 20mg po daily HLD Atorvastatin Hypothyroidism Levothyroxine 25mcg daily anxiety zoloft 50mg po daily GI prophylaxis Protonix Discharge Plan: Home Critical Care: No Time Spent Managing PTS Care (In Minutes): 35
[2023-11-28] MEDS: MEMANTINE HCL 10 MG TABLET PO SCH (10:41)
[2023-11-29 04:52] LABS: Absolute Basophils 0.1 K/uL (0-0.5); Absolute Eosinophils 0.4 K/uL (0-0.5); Absolute Lymphocytes (CBC) 1.9 K/uL (0.7-4.9); Absolute Monocytes 0.7 K/uL (0.1-1.3); Absolute Neutrophil 6.3 K/uL (1.8-8.0); Basophils % 0.9 % (0-1.3); Hematocrit 28.6 % (36.0-45.0); Hemoglobin 9.7 g/dL (12.0-15.0); Lymphocytes % 20.3 % (15.3-44.8); MCH 29.7 pg (27.0-35.0); MCHC 33.8 g/dL (32.0-36.0); MCV 87.7 fL (80-100); MPV 8.4 fL (7.6-11.3); Monocytes % 7.9 % (3.3-12.3); Neutrophils % 66.9 % (41.7-73.7); Nucleated Red Blood Cells % 0.3 % (0-0); Platelets 270 thou/uL (152-406); RBC Red Blood Cell Count 3.26 M/uL (3.86-4.86); Red Cell Distribution Width 15.4 % (12.1-15.2)
[2023-11-29 04:59] LABS: Anion Gap 7.5 mEq/L (5.0-15.0); Magnesium 1.3 mg/dL (1.6-2.4)
[2023-11-29 05:00] LABS: Potassium 2.5 mEq/L (3.5-5.1)
[2023-11-29] MEDS: KCL 20 MEQ/100 mL IVPB 20 MEQ/100 ML BAG IV SCH (06:19)
[2023-11-29] MEDS: Magnesium Sulfate 2gm IVPB 2 G/50 ML BAG IV ONE (09:09)
[2023-11-29] MEDS: POTASSIUM 25 MEQ EFFERV TAB PO ONE (13:05)
[2023-11-29 16:31] VITALS: BMI 25.2
[2023-11-29] MEDS: SPIRONOLACTONE 25 MG TABLET PO SCH (21:25)
[2023-11-29] MEDS: POTASSIUM CL SA 10 MEQ TAB PO ONE (22:30)
[2023-11-30 04:02] LABS: Absolute Basophils 0.1 K/uL (0-0.5); Absolute Eosinophils 0.6 K/uL (0-0.5); Absolute Lymphocytes (CBC) 2.6 K/uL (0.7-4.9); Absolute Monocytes 0.7 K/uL (0.1-1.3); Absolute Neutrophil 4.4 K/uL (1.8-8.0); Eosinophils % 6.7 % (0-4.4); Hematocrit 28.8 % (36.0-45.0); Hemoglobin 9.5 g/dL (12.0-15.0); Lymphocytes % 31.4 % (15.3-44.8); MCHC 32.8 g/dL (32.0-36.0); MCV 88.3 fL (80-100); MPV 8.6 fL (7.6-11.3); Monocytes % 8.2 % (3.3-12.3); Neutrophils % 52.7 % (41.7-73.7); Nucleated Red Blood Cells % 0.1 % (0-0); Platelets 274 thou/uL (152-406); RBC Red Blood Cell Count 3.26 M/uL (3.86-4.86); Red Cell Distribution Width 15.7 % (12.1-15.2)
[2023-11-30 04:38] LABS: Anion Gap 5.1 mEq/L (5.0-15.0); Potassium 3.1 mEq/L (3.5-5.1)
[2023-11-30 04:39] LABS: Magnesium 1.7
[2023-11-30] MEDS: MAGNESIUM SULFATE 1 gm IVPB 1 GM/100 ML BAG IV ONE ×2 (08:00→09:40)
[2023-11-30 09:08] VITALS: O2SAT 98
--- NOTE | 2023-11-30 09:25 | P.DS ---
Admission Date: 11/25/23 Discharge Date: 11/30/23 Disposition: DC HOME/HOME HEALTH CARE Discharge Condition: GOOD Reason for Admission: right upper quad pain Brief History of Present Illness: Admitted with pneumonia, O2 room air sats 86 or 6, home O2 ordered, - Physical Exam General: Alert, Oriented x3, Cachectic, Mild distress HEENT: Atraumatic, Normocephalic Neck: Supple Respiratory: Clear to auscultation bilaterally, Normal air movement Cardiovascular: No edema, Irregular heart rate/rhythm, Systolic murmur Capillary refill: <2 Seconds Gastrointestinal: Normal bowel sounds, Musculoskeletal: No clubbing, No swelling Integumentary: No rashes Neurological: Normal speech, Normal tone Lymphatics: No axilla or inguinal lymphadenopathy Hospital Course: 78 yo female with past medical history of COPD, HLD, Htn, and volvulus who presents with right flank pain. Pt describes the right flank pain Presented with abdominal pain, was noted to have pneumonia, treated with IV antibiotics, nebulizers, steroids, O2. Patient was hypoxic on room air 86%, will order home O2 at discharge., Patient will need to follow-up with pulmonary after discharge, resume antibiotics, inhalers, follow-up with primary care after discharge. Discharge home with home O2, patient reports having a walker at home. Assessment Pneumonia treated with IV antibiotics, steroids, oxygen, will discharge home on inhalers, p.o. antibiotics, home O2 Dehydration, treated with IV fluid Weakness, fall precaution Continue home medicines as previously prescribed GOAL: Clear understanding of disease process INSTRUCTIONS: Physician Discharge Instructions: -Follow-up with PCP in 1 to 2 weeks -Please call Dr. Padron at [phone] if any questions regarding hospital stay -Please call nursing station at [phone] if any nursing or medication questions -Return to the emergency room if symptoms worsen Diet: ADA, low sodium Activity: Fall precautions Vital Signs/Physical Exam: Temp Pulse Resp BP Pulse Ox 98.2 F 60 17 124/62 98 11/30/23 08:00 11/30/23 08:00 11/30/23 08:00 11/30/23 08:00 11/30/23 08:00 Laboratory Data at Discharge: WBC 8.30 thou/uL (4.3-10.9) 11/30/23 03:04 Hgb 9.5 g/dL (12.0-15.0) L 11/30/23 03:04 Hct 28.8 % (36.0-45.0) L 11/30/23 03:04 Plt Count 274 thou/uL (152-406) 11/30/23 03:04 Sodium 136 mEq/L (136-145) 11/30/23 03:04 Potassium 3.1 mEq/L (3.5-5.1) L 11/30/23 03:04 BUN 16 mg/dL (7-18) 11/30/23 03:04 Creatinine 0.83 mg/dL (0.55-1.02) 11/30/23 03:04 Glucose 110 mg/dL (74-106) H 11/30/23 03:04 Magnesium 1.7 11/30/23 03:04 Total Bilirubin 0.9 mg/dL (0.2-1.0) 11/27/23 08:49 AST 25 U/L (15-37) 11/27/23 08:49 ALT 19 U/L (13-56) 11/27/23 08:49 Alkaline Phosphatase 99 U/L (45-117) 11/27/23 08:49 Home Medications: Alendronate [Fosamax*] 20 mg PO EVERY 7TH DAY 07/12/22 Allopurinol 100 mg PO DAILY 07/12/22 Atorvastatin Calcium 20 mg PO DAILY 07/12/22 Levothyroxine Sodium 25 mcg PO DAILY 07/12/22 Metoprolol Tartrate 12.5 mg PO BID 07/12/22 Potassium Chloride 20 meq PO BID 07/12/22 Sertraline [Zoloft*] 50 mg PO DAILY 07/12/22 Lisinopril/Hydrochlorothiazide [Lisinopril-Hctz 20-25 mg Tab] 1 tab PO DAILY 11/24/23 Cholecalciferol (Vitamin D3) [Vitamin D3] 50 mcg PO BID 11/25/23 Galantamine HBr [Galantamine ER] 8 mg PO BID 11/25/23 Memantine HCl 5 mg PO DAILY 11/25/23 Albuterol Inhaler [Ventolin Inhaler*] 2 puff IH Q6H PRN 30 Days #1 inh 11/30/23 Atorvastatin Calcium [Lipitor*] 20 mg PO BEDTIME tab 11/30/23 Cefdinir [Cefdinir*] 300 mg PO BID 10 Days #20 cap 11/30/23 Mometasone/Formoterol [Dulera 200 Mcg-5 Mcg Inhaler] 13 gm IH BID 30 Days #1 inh 11/30/23 Sertraline [Zoloft*] 50 mg PO DAILY tab 11/30/23 predniSONE [Deltasone] 20 mg PO BID 5 Days #10 tab 11/30/23 New Medications: Cefdinir [Cefdinir*] 300 mg PO BID 10 Days #20 cap Mometasone/Formoterol [Dulera 200 Mcg-5 Mcg Inhaler] 13 gm IH BID 30 Days #1 inh predniSONE [Deltasone] 20 mg PO BID 5 Days #10 tab Albuterol Inhaler [Ventolin Inhaler*] 2 puff IH Q6H PRN 30 Days #1 inh PRN Reason: Shortness Of Breath Physician Discharge Instructions: 78 yo female with past medical history of COPD, HLD, hypertension, and volvulus who presents with right flank pain. Pt describes the right flank pain Presented with abdominal pain, was noted to have pneumonia, treated with IV antibiotics, nebulizers, steroids, O2. Patient was hypoxic on room air 86%, will order home O2 at discharge., Patient will need to follow-up with pulmonary after discharge, resume antibiotics, inhalers, follow-up with primary care after discharge. Discharge home with home O2, patient reports having a walker at home. Assessment Pneumonia treated with IV antibiotics, steroids, oxygen, will discharge home on inhalers, p.o. antibiotics, Dehydration, treated with IV fluid Weakness, fall precaution Continue home medicines as previously prescribed GOAL: Clear understanding of disease process INSTRUCTIONS: Physician Discharge Instructions: -Follow-up with PCP in 1 to 2 weeks -Please call Dr. Padron at [phone] if any questions regarding hospital stay -Please call nursing station at [phone] if any nursing or medication questions -Return to the emergency room if symptoms worsen Diet: ADA, low sodium Activity: Fall precautions Diet: AHA Activity: Fall precautions Followup: Dangelo Harper MD [ACTIVE - CAN ADMIT] - Romana Cisneros [Primary Care Provider] - Time spent managing pt's care (in minutes): 55
[2023-11-30] MEDS: POTASSIUM CL SA 10 MEQ TAB PO ONE (09:40)
--- NOTE | 2023-11-30 11:05 | RAD REPORT ---
EXAM DESCRIPTION: RAD - Chest Single View - 11/30/2023 10:37 am CLINICAL HISTORY: Evaluate pneumonia Chest pain. COMPARISON: Chest Pa And Lat (2 Views) dated 11/27/2023; Chest Single View dated 11/24/2023; Chest Singl e View dated 07/26/2022; Chest Single View dated 07/18/2022 FINDINGS: Portable technique limits examination quality. Bibasilar lung opacities are present, greater on the right. Small bilateral pleural effusions are pre sent. The heart is mildly enlarged in size. No displaced fractures.Aortic atherosclerosis. IMPRESSION: Bibasilar lung infiltrate pattern with small pleural effusion, greater on the right. Thi s is most likely related to pneumonia.
--- NOTE | 2023-11-30 15:42 | P.PN ---
Subjective Date of Service: 11/30/23 Chief Complaint: right upper quad pain Admitted with pneumonia, treated with IV antibiotics, nebulizers, O2 keep sats greater than 90%-patient desats to 86 on room air home O2 needs to be arranged, patient feels to proceed with payment to obtain home O2 - Physical Exam General: Alert, In no apparent distress, Oriented x3 HEENT: Atraumatic, Normocephalic Neck: Supple Respiratory: Normal air movement Cardiovascular: No edema, Normal pulses, Regular rate/rhythm Capillary refill: <2 Seconds Gastrointestinal: Soft and benign Musculoskeletal: No swelling Integumentary: No rashes Neurological: Normal speech, Normal tone, Normal reflexes 2+ Lymphatics: No axilla or inguinal lymphadenopathy Review of Systems Per HPI Physical Examination - Vital Signs Temperature: 97.9 F Blood Pressure: 113/59 Pulse: 58 Respirations: 16 Pulse Ox (%): 97 - Studies Microbiology Data (last 24 hrs): 11/24/23 16:55 Blood - Blood Aerobic Blood Culture - Final No growth in 5 days. 11/24/23 16:55 Blood - Blood Anaerobic Blood Culture - Final No growth in 5 days. 11/24/23 16:04 Blood - Blood Aerobic Blood Culture - Final No growth in 5 days. 11/24/23 16:04 Blood - Blood Anaerobic Blood Culture - Final No growth in 5 days. Assessment And Plan - Plan Assessment And Plan Acute hypoxic respiratory failure secondary to pneumonia Abdominal pain advance diet 11/25 pain paroxysmal - no pain meds overnight 11/26 repeat CXR today FINDINGS: Patchy bibasilar airspace opacities and central interstitial prominence. No pneumothorax. Suggestion of trace effusion particularly on the right. The cardiomediastinal contours are unremarkable. IMPRESSION: Bibasilar central opacities with suggestion of trace right more than left effusion, may relate to pulmonary edema for multifocal pneumonia. Dictated By: Elias Cr MD 11/24/23 @ 1524 Pneumonia/chronic right lower lobe opacity Blood cultures 11/25 no growth at 24h Rocephin and Azithromycin repeat CXR albuterol and brovana Continues to desat to 86% with ambulation, room air Consult [employer] Attendant Info on advanced directive and POAH Dehydration NS at 70ml/hr monitor and replete electrolytes 11/25 pending at time of exam 11/26 stop IVF today Hypokalemia Trend electrolytes replace as needed Microcytic anemia Trend H&H, transfuse less than HTN Metoprolol 12.5mg po BID (hold for SBP < 110) Lisinopril 20mg po daily (hold for SBP < 110) lasix 20mg po daily HLD Atorvastatin Hypothyroidism Levothyroxine 25mcg daily anxiety zoloft 50mg po daily GI prophylaxis Protonix Discharge Plan: Home Critical Care: No Time Spent Managing PTS Care (In Minutes): 35
[2023-11-30 16:47] VITALS: BP 160/78; TEMP 98.1
[2023-12-04] MEDS ORDERED: ALENDRONATE 10 MG TAB PO SCH (09:00)
== END 2023-11-30 18:55 | disposition home or self-care (01) | DRG 193 ==
LOC: ER 09:59 → ERHOLD 15:14 → 2ND 11-25 11:44 → OBSVTOIN 11-25 18:26
PROVIDERS: ADMIT Hospitalist; ATTEND Hospitalist
DX: J18.9 Pneumonia, unspecified organism (principal); J96.01 Acute respiratory failure with hypoxia; J44.0 Chronic obstructive pulmonary disease with (acute) lower respiratory infection; R64 Cachexia; E86.0 Dehydration; F41.9 Anxiety disorder, unspecified; E03.9 Hypothyroidism, unspecified; I10 Essential (primary) hypertension; E87.6 Hypokalemia; I95.9 Hypotension, unspecified; D50.9 Iron deficiency anemia, unspecified; E78.00 Pure hypercholesterolemia, unspecified; Z88.5 Allergy status to narcotic agent; Z90.81 Acquired absence of spleen; Z68.25 Body mass index [BMI] 25.0-25.9, adult; Z79.52 Long term (current) use of systemic steroids; Z90.49 Acquired absence of other specified parts of digestive tract; Z87.891 Personal history of nicotine dependence; Z79.890 Hormone replacement therapy; Z79.899 Other long term (current) drug therapy; Z90.710 Acquired absence of both cervix and uterus
CPT/HCPCS: 36415; 71045; 71046; 74176; 80048; 80053; 80076; 81001; 83605; 83735; 84132; 84443; 85025; 87040; 93005; 93971; 94010; 94640; 96374; 96375; 97116; 97161; 97530; 99285; G0378; J0696; J1170; J2270; J2405; J3010; J3475; J3480; J7030; J7050; J7605